=== PATIENT | female | born 1945 | race Caucasian/White ===

== ENCOUNTER → 2017-07-08 11:18 | Outpatient (CLI) | payer MEDICARE, OTHER, SELFPAY ==
[2017-07-08 12:30] LABS: Add Manual Diff / Slide Review NO; Basophils Percent Auto 0.3 % (0-2); Hematocrit 32.1 % (36-46); Hemoglobin 11.2 g/dL (12.0-16.0); Lymphocytes Percent Auto 40.8 % (25-40); Mean Corpuscular Hemoglobin 31.3 PG (26-34); Mean Corpuscular Volume 89.3 fL (80-100); Monocytes Percent Auto 7.9 % (3-14); Neutrophils Absolute Auto 1600 /uL (3000-5900); Platelet Count 281 X10^3/uL (150-400); Red Blood Cell Count 3.59 X10^6/uL (4.0-5.2); Red Cell Distribution Width 15.8 % (11.6-14.8); White Blood Cell Count 3.2 X10^3/uL (4.5-11.0)
[2017-07-08 12:36] LABS: Alanine Aminotransferase 18 IU/L (9-52); Albumin 4.4 g/dL (3.5-5.0); Albumin Globulin Ratio 1.1 (1.0-2.8); Alkaline Phosphatase 74 U/L (38-126); Aspartate Aminotransferase 26 IU/L (14-36); BUN Creatinine Ratio 17.5 (6-22); Bilirubin Total 0.5 mg/dL (0.2-1.3); Calcium 10.1 mg/dL (8.4-10.2); Estimated Glomerular Filt Rate > 60.0 mL/min (>60); Globulin 3.9 g/dL (1.7-4.1); Glucose 107 mg/dL (80-110); HEMOLYSIS < 15 (0-50); Magnesium 1.8 mg/dL (1.6-2.3); Sodium 140 mmol/L (137-145); Total Protein 8.3 g/dL (6.3-8.2)
== END ==
PROVIDERS: PCP Nurse Practitioner Family; Visit Provider Nurse Practitioner
DX: C56.9 Malignant neoplasm of unspecified ovary (principal)
CPT/HCPCS: 36415; 80053; 83735; 85025

== ENCOUNTER → 2017-07-23 11:34 | Outpatient (CLI) | payer MEDICARE, OTHER, SELFPAY ==
[2017-07-23 12:51] LABS: Add Manual Diff / Slide Review NO; Basophils Percent Auto 0.3 % (0-2); Eosinophils Percent Auto 0.3 % (2-4); Hematocrit 28.6 % (36-46); Hemoglobin 10.1 g/dL (12.0-16.0); Lymphocytes Percent Auto 49.3 % (25-40); Mean Corpuscular HGB Conc 35.5 % (30-36); Mean Corpuscular Hemoglobin 31.7 PG (26-34); Mean Corpuscular Volume 89.2 fL (80-100); Neutrophils Absolute Auto 1000 /uL (3000-5900); Neutrophils Percent Auto 39.1 % (50-75); Platelet Count 155 X10^3/uL (150-400); White Blood Cell Count 2.6 X10^3/uL (4.5-11.0)
[2017-07-23 13:20] LABS: Alanine Aminotransferase 26 IU/L (9-52); Albumin 3.9 g/dL (3.5-5.0); Albumin Globulin Ratio 1.2 (1.0-2.8); Alkaline Phosphatase 66 U/L (38-126); Aspartate Aminotransferase 19 IU/L (14-36); BUN Creatinine Ratio 13.8 (6-22); Bilirubin Total 0.5 mg/dL (0.2-1.3); Bilirubin Unconjugated 0.2 mg/dL (0.0-1.1); Blood Urea Nitrogen 11 mg/dL (7-17); Calcium 9.7 mg/dL (8.4-10.2); Carbon Dioxide 29 mmol/L (22-32); Chloride 100 mmol/L (98-107); Estimated Glomerular Filt Rate > 60.0 mL/min (>60); Globulin 3.2 g/dL (1.7-4.1); Glucose 102 mg/dL (80-110); HEMOLYSIS < 15 (0-50); Lactate Dehydrogenase 371 U/L (313-618); Magnesium 1.9 mg/dL (1.6-2.3); Phosphorous 3.5 mg/dL (2.8-4.1); Potassium 4.2 mmol/L (3.4-5.1); Sodium 139 mmol/L (137-145); Total Protein 7.1 g/dL (6.3-8.2)
[2017-07-23 13:40] LABS: Cancer Antigen 125 65 U/mL (0-35)
== END ==
PROVIDERS: PCP Nurse Practitioner Family; Visit Provider Obstetrics & Gynecology Gynecologic Oncology
DX: C80.0 Disseminated malignant neoplasm, unspecified (principal)
CPT/HCPCS: 36415; 80069; 80076; 83615; 83735; 85025; 86304; 86305

== ENCOUNTER → 2017-07-26 10:12 | Outpatient (CLI) | payer MEDICARE, OTHER, SELFPAY ==
--- NOTE | 2017-07-26 | DI.CT.S_ITS ---
PROCEDURE: CT CHEST ABD PEL W CON INDICATIONS: 71 year-old female with metastatic neoplasm, possibly of gastric primary, status post chemotherapy. TECHNIQUE: After the administration of oral and intravenous contrast, 5 mm thick sections acquired from the lung apices to the symphysis. 5 mm coronal and sagittal reformats were performed, with additional 7 mm coronal MIP reformats through the lungs. For radiation dose reduction, the following was used: automated exposure control, adjustment of mA and/or kV according to patient size. COMPARISON: [facility], CT, CHEST/ABD/PEL WITH CONTRAST, 04/19/2017, 13:43. FINDINGS: Image quality: Excellent. CHEST: Lungs and pleura: No acute airspace opacities. On axial image 53, 9 mm irregular posterior right lung base opacity is now apparent. Small basal left pleural effusion has resolved. No pneumothorax. Central and peripheral airways appear patent and normal in caliber. Mediastinum: Heart size is normal. No pericardial effusion. Mildly enlarged mediastinal lymph nodes have all normalized in sizes. No new mediastinal or hilar adenopathy by size criteria. Right inferior paraesophageal adenopathy has resolved. Thoracic aorta is normal in size. Main pulmonary artery is mildly prominent in overall caliber as before. Esophagus is normal in caliber, with small hiatal hernia. Chest wall: Right chest wall Port-A-Cath is now present. Asymmetric right axillary adenopathy has resolved. No new axillary or supraclavicular adenopathy by size criteria. Thyroid gland is normal in size. ABDOMEN: Solid organs: Liver is normal in size and enhancement. Gallbladder wall thickness is normal. Biliary system is non dilated. Pancreas enhances normally. Spleen is normal in size and enhancement. No adrenal nodules. Kidneys demonstrate normal size and enhancement, without hydronephrosis. Peritoneum and bowel: Bowel loops demonstrate normal wall thickness and caliber. The appendix appears normal. There is sigmoid colon diverticulosis. No free fluid or air. Nodes and vessels: Previously noted metastatic adenopathy in the retroperitoneum, gastrohepatic ligament and portal region, right lower quadrant mesentery, and bilateral iliac chains have all normalized in sizes. On axial image 57, target lymph node just superior to the left renal artery now measures 1.1 x 1.0 cm (previously 3.3 x 2.7 cm). No new retroperitoneal or mesenteric adenopathy by size criteria. Aorta and inferior vena cava are normal in size, with moderate aortoiliac atherosclerosis. Miscellaneous: No ventral hernias. PELVIS: Genitourinary: Bladder wall thickness is normal. Uterus and ovaries are normal in size. Miscellaneous: No inguinal hernias or new adenopathy. Bilateral inguinal lymph nodes are unchanged in appearance. Bones: No suspicious bony lesions. No vertebral body compression fractures. There is lower lumbar and lower thoracic spine disc degeneration. IMPRESSION: 1. Interval resolution of metastatic adenopathy in the right axilla, mediastinum, retroperitoneum, gastrohepatic ligament, right lower quadrant mesentery, and bilateral iliac chains, consistent with tumor response to treatment. 2. Small basal left mobile pleural effusion has resolved. 9 mm new posterior right lung base irregular opacity is indeterminate for localized atelectasis versus true nodule. As such, recommend attention to this area on any future followup scans. 3. Sigmoid colon diverticulosis. 4. Small retrocardiac hiatal hernia. Dictated by: Oscar Gannon M.D. on 07/26/2017 at 11:40 Approved by: Oscar Gannon M.D. on 07/26/2017 at 11:58
== END ==
PROVIDERS: PCP Nurse Practitioner Family; Visit Provider Nurse Practitioner Family
DX: C79.9 Secondary malignant neoplasm of unspecified site (principal); J90 Pleural effusion, not elsewhere classified; K57.30 Diverticulosis of large intestine without perforation or abscess without bleeding
CPT/HCPCS: 71260; 74177; Q9967

== ENCOUNTER → 2017-08-17 11:36 | Outpatient (CLI) | payer MEDICARE, OTHER, SELFPAY ==
[2017-08-17 12:33] LABS: Add Manual Diff / Slide Review NO; Basophils Percent Auto 0.2 % (0-2); Eosinophils Percent Auto 0.4 % (2-4); Hematocrit 27.3 % (36-46); Hemoglobin 9.6 g/dL (12.0-16.0); Lymphocytes Percent Auto 47.5 % (25-40); Mean Corpuscular Hemoglobin 33.1 PG (26-34); Mean Corpuscular Volume 94.5 fL (80-100); Monocytes Percent Auto 13.7 % (3-14); Neutrophils Absolute Auto 900 /uL (3000-5900); Neutrophils Percent Auto 38.2 % (50-75); Platelet Count 157 X10^3/uL (150-400); Red Blood Cell Count 2.89 X10^6/uL (4.0-5.2); Red Cell Distribution Width 18.6 % (11.6-14.8); White Blood Cell Count 2.5 X10^3/uL (4.5-11.0)
== END ==
PROVIDERS: PCP Nurse Practitioner Family; Visit Provider Physician Assistant Medical
DX: C80.0 Disseminated malignant neoplasm, unspecified (principal)
CPT/HCPCS: 36415; 85025

== ENCOUNTER → 2017-10-11 10:40 | Outpatient (CLI) | payer MEDICARE, OTHER, SELFPAY ==
[2017-10-11 12:11] LABS: Hematocrit 30.5 % (36-46); Hemoglobin 10.4 g/dL (12.0-16.0); Mean Corpuscular Hemoglobin 32.4 PG (26-34); Mean Corpuscular Volume 95.2 fL (80-100); Platelet Count 158 X10^3/uL (150-400); Red Cell Distribution Width 14.1 % (11.6-14.8)
[2017-10-11 12:21] LABS: Add Manual Diff / Slide Review YES
[2017-10-11 12:33] LABS: Neutrophils Absolute Manual 648 /uL (3000-5900); Total Cells Counted 50
[2017-10-11 12:34] LABS: RBC Morphology Normal Morphology
[2017-10-11 14:33] LABS: White Blood Cell Count 1.8 X10^3/uL (4.5-11.0)
== END ==
PROVIDERS: PCP Nurse Practitioner Family; Visit Provider Nurse Practitioner Family
DX: C57.8 Malignant neoplasm of overlapping sites of female genital organs (principal)
CPT/HCPCS: 36415; 85025

== ENCOUNTER → 2017-11-02 13:07 | Outpatient (CLI) | payer MEDICARE, OTHER, SELFPAY ==
[2017-11-02 13:41] LABS: Hematocrit 29.8 % (36-46); Hemoglobin 10.2 g/dL (12.0-16.0); Mean Corpuscular HGB Conc 34.2 % (30-36); Mean Corpuscular Hemoglobin 31.9 PG (26-34); Mean Corpuscular Volume 93.1 fL (80-100); Platelet Count 112 X10^3/uL (150-400); Red Cell Distribution Width 13.9 % (11.6-14.8); White Blood Cell Count 17.5 X10^3/uL (4.5-11.0)
[2017-11-02 13:42] LABS: Add Manual Diff / Slide Review YES
[2017-11-02 14:09] LABS: Neutrophils Absolute Manual 12425 /uL (3000-5900); Total Cells Counted 100
[2017-11-02 14:10] LABS: RBC Morphology Normal Morphology
== END ==
PROVIDERS: PCP Nurse Practitioner Family; Visit Provider Nurse Practitioner Family
DX: C57.8 Malignant neoplasm of overlapping sites of female genital organs (principal)
CPT/HCPCS: 36415; 85025

== ENCOUNTER → 2017-11-24 13:17 | Outpatient (CLI) | payer MEDICARE, OTHER, SELFPAY ==
[2017-11-24 14:16] LABS: Add Manual Diff / Slide Review NO; Basophils Percent Auto 0.2 % (0-2); Eosinophils Percent Auto 0.9 % (2-4); Hematocrit 27.1 % (36-46); Hemoglobin 9.5 g/dL (12.0-16.0); Lymphocytes Percent Auto 34.7 % (25-40); Mean Corpuscular HGB Conc 35.1 % (30-36); Mean Corpuscular Hemoglobin 32.5 PG (26-34); Mean Corpuscular Volume 92.6 fL (80-100); Monocytes Percent Auto 14.9 % (3-14); Neutrophils Absolute Auto 1100 /uL (3000-5900); Neutrophils Percent Auto 49.3 % (50-75); Platelet Count 136 X10^3/uL (150-400); Red Blood Cell Count 2.93 X10^6/uL (4.0-5.2); Red Cell Distribution Width 15.6 % (11.6-14.8); White Blood Cell Count 2.3 X10^3/uL (4.5-11.0)
[2017-11-24 15:08] LABS: Carcinoembryonic Antigen 1.6 ng/mL (0.1-3.0)
== END ==
PROVIDERS: Family Provider Internal Medicine; PCP Internal Medicine; Visit Provider Nurse Practitioner Family
DX: C57.8 Malignant neoplasm of overlapping sites of female genital organs (principal)
CPT/HCPCS: 36415; 82378; 85025

== ENCOUNTER → 2017-12-29 14:36 | Outpatient (CLI) | payer MEDICARE, OTHER, SELFPAY ==
[2017-12-29 15:47] LABS: Hematocrit 28.7 % (36-46); Hemoglobin 9.9 g/dL (12.0-16.0); Mean Corpuscular HGB Conc 34.4 % (30-36); Mean Corpuscular Hemoglobin 32.6 PG (26-34); Mean Corpuscular Volume 94.8 fL (80-100); Platelet Count 131 X10^3/uL (150-400); Red Blood Cell Count 3.02 X10^6/uL (4.0-5.2); White Blood Cell Count 12.8 X10^3/uL (4.5-11.0)
[2017-12-29 15:48] LABS: Add Manual Diff / Slide Review YES
[2017-12-29 16:10] LABS: Neutrophils Absolute Manual 9216 /uL (3000-5900); Polychromasia 1+; Total Cells Counted 100
== END ==
PROVIDERS: Family Provider Internal Medicine; PCP Internal Medicine
DX: C57.8 Malignant neoplasm of overlapping sites of female genital organs (principal)
CPT/HCPCS: 36415; 85025

== ENCOUNTER → 2018-01-18 16:52 | Outpatient (CLI) | payer MEDICARE, OTHER, SELFPAY ==
[2018-01-18 18:39] LABS: Add Manual Diff / Slide Review NO; Basophils Percent Auto 0.2 % (0-2); Eosinophils Percent Auto 0.4 % (2-4); Hematocrit 27.5 % (36-46); Hemoglobin 9.2 g/dL (12.0-16.0); Lymphocytes Percent Auto 22.2 % (25-40); Mean Corpuscular HGB Conc 33.4 % (30-36); Mean Corpuscular Hemoglobin 32.9 PG (26-34); Mean Corpuscular Volume 98.7 fL (80-100); Monocytes Percent Auto 7.9 % (3-14); Neutrophils Absolute Auto 6600 /uL (3000-5900); Neutrophils Percent Auto 69.3 % (50-75); Platelet Count 109 X10^3/uL (150-400); Red Blood Cell Count 2.78 X10^6/uL (4.0-5.2); Red Cell Distribution Width 15.6 % (11.6-14.8); White Blood Cell Count 9.5 X10^3/uL (4.5-11.0)
== END ==
PROVIDERS: Family Provider Internal Medicine; PCP Internal Medicine; Visit Provider Obstetrics & Gynecology Gynecologic Oncology
DX: C56.9 Malignant neoplasm of unspecified ovary (principal)
CPT/HCPCS: 36415; 85025

== ENCOUNTER → 2018-02-23 13:57 | Outpatient (CLI) | payer MEDICARE, OTHER, SELFPAY ==
[2018-02-23 15:26] LABS: Cancer Antigen 125 35 U/mL (0-35)
== END ==
PROVIDERS: Family Provider Internal Medicine; PCP Internal Medicine; Visit Provider Obstetrics & Gynecology Gynecologic Oncology
DX: C56.9 Malignant neoplasm of unspecified ovary (principal)
CPT/HCPCS: 36415; 86304

== ENCOUNTER → 2018-03-23 15:21 | Outpatient (CLI) | payer MEDICARE, OTHER, SELFPAY ==
[2018-03-23 18:33] LABS: Cancer Antigen 125 91 U/mL (0-35)
== END ==
PROVIDERS: Family Provider Internal Medicine; PCP Internal Medicine; Visit Provider Obstetrics & Gynecology Gynecologic Oncology
DX: C56.9 Malignant neoplasm of unspecified ovary (principal)
CPT/HCPCS: 36415; 86304

== ENCOUNTER → 2018-04-13 14:27 | Outpatient (CLI) | payer MEDICARE, OTHER, SELFPAY ==
[2018-04-13 15:48] LABS: Cancer Antigen 125 193 U/mL (0-35)
== END ==
PROVIDERS: PCP Internal Medicine; Visit Provider Obstetrics & Gynecology Gynecologic Oncology
DX: C56.9 Malignant neoplasm of unspecified ovary (principal)
CPT/HCPCS: 36415; 86304

== ENCOUNTER 2018-07-23 12:46 | Emergency (ER) | payer MEDICARE, OTHER, SELFPAY ==
[2018-07-23] VITALS (20 sets, daily range): BP systolic 109–145; BP diastolic 37–70; PULSE 73–99; RESP 11–28; TEMP 38.1; O2SAT 88–100
--- NOTE | 2018-07-23 15:59 | ED_ITS ---
HPI - Recheck/Abnormal Lab/Rx General Chief Complaint: Recheck/Abnormal Lab/Rx Stated Complaint: pulmonary emblolism Time Seen by Provider: 07/23/18 15:40 Source: patient and family (daughter) Mode of arrival: ambulatory History of Present Illness HPI narrative: 72-year-old female who arrives with complaint of pulmonary embolism. Patient actually called this morning asking if we could teach her how to give injections because she had a PE and needed to get her medication and learn how to inject herself with anticoagulant. She states she had a CT scan yesterday at [facility] for a normal surveillance because she has stage IV ovarian cancer. It was noted after she left the hospital that she had a pulmonary embolism. She was contacted by the [facility] team and told to go to the hospital. Patient decided to come this morning. Patient was asked to come to the emergency department. She states that she has been short of breath for a couple weeks she really noticed a difference about 2 or 3 weeks ago. Specially with exertion. She has felt a little bit weak. She has not had any syncope. She has had a cough that is been sort of dry for 2 or 3 weeks and she has felt wheezy. Patient has not had any major changes to her GI system. Patient denies any chest pain or pressure. She sees Dr. Acosta 3 [facility]. Her primary care is Jojo olson although she has only seen her once. Related Data Home Medications Medication Instructions Recorded Confirmed cholecalciferol (vitamin D3) 4,000 unit PO DAILY 05/12/18 07/23/18 [Vitamin D3] sennosides [senna] 8.6 mg PO QD-BID 05/12/18 07/23/18 B Complex 100 1 tab PO QAM 06/30/18 07/23/18 Lakesha-Red 06/30/18 06/30/18 Allergies Allergy/AdvReac Type Severity Reaction Status Date / Time No Known Drug Allergies Allergy Verified 05/12/18 09:40 Review of Systems Review of Systems ROS Unobtainable: All systems reviewed & are unremarkable except as noted in HPI and below Constitutional Denies chills, Denies fever(s), Denies lethargy and Denies weakness Cardiovascular Denies chest pain, Denies chest pain with activity, Denies syncope, Denies rapid heart rate, Denies edema, Denies irregular heart rhythm, Denies lightheadedness, Denies radiating jaw, neck or arm pain, Denies palpitations, Reports dyspnea, Reports dyspnea on exertion and Denies orthopnea Respiratory Denies chest congestion, Reports cough, Denies pain on inspiration, Reports dyspnea, Reports dyspnea on exertion and Reports wheezing Gastrointestinal Gastrointestinal: Denies abdominal pain, Denies change in bowel habits, Denies diarrhea, Denies nausea and Denies vomiting Genitourinary Denies hematuria, Denies flank pain, Denies urinary incontinence and Denies urinary urgency Neurologic Denies syncope and Denies weakness Endocrine Denies palpitations Allergic/Immunologic Reports wheezing [facility] Medical History (Updated 07/23/18 @ 18:20 by Luzmaria Frazier DO) Ovarian cancer (Acute) Hypertension (Acute) Surgical History History of tonsillectomy (Acute) History of total right knee replacement (Acute) Family History (Updated 05/12/18 @ 10:11 by Ivette Carbajal MD) Mother Hypertension Father Bladder cancer Colon cancer Social History Smoking Status: Never smoker alcohol intake: former (occ beer every week. used to drink a small whole bottle of wine every day) Family History Mother Hypertension Father Bladder cancer Colon cancer Social History Smoking Status: Never smoker alcohol intake: former (occ beer every week. used to drink a small whole bottle of wine every day) Exam Narrative Exam Narrative: GENERAL: Alert and oriented x three, well-nourished, well- appearing female in no acute distress. HEENT: Head normocephalic, atraumatic, EOMI, pupils reactive, face symmetric, moist mucous membranes NECK: Supple, full range of motion CARDIOVASCULAR: Regular rate and rhythm without murmurs, rubs or gallops. RESPIRATORY: Breath sounds equal bilaterally, no wheezes rales or rhonchi. No tachypnea or accessory muscle use. ABDOMEN: Soft, nontender. Normoactive bowel sounds all 4 quadrants. No guarding or rebound, rigidity, no mass : No CVA tenderness EXTREMITIES: Normal range of motion, no clubbing or edema. Neurovascularly intact NEUROLOGICAL: Cranial nerves II through XII grossly intact. Moving all extremities SKIN: Warm, dry, no petechiae, no rashes or lesions. Initial Vital Signs Initial Vital Signs: Vital Signs Temperature 100.5 F H 07/23/18 12:51 Pulse Rate 98 H 07/23/18 12:51 Respiratory Rate 19 07/23/18 12:51 Blood Pressure 132/70 07/23/18 12:51 Pulse Oximetry 88 L 07/23/18 12:51 Course Orders Ordered: ED Orders 07/23/18 15:58 XR chest 1V Stat 07/23/18 16:23 EKG-12 Lead Stat 07/23/18 17:20 B Type Natriuretic Peptide Stat Complete Blood Count AUTO DIFF Stat Comprehensive Metabolic Panel Stat Lipase Stat Partial Thromboplastin Time Stat Prothrombin Time INR Stat Troponin & CK Cardiac Panel Stat 07/23/18 18:38 Lactate (Lactic Acid) Stat Discontinued Medications Enoxaparin Sodium (Lovenox) 75 mg 1 mg/kg (75 mg) SUBCUT NOW ONE Stop: 07/23/18 16:26 Last Admin: 07/23/18 17:31 Dose: 75 mg Sodium Chloride (Normal Saline 0.9%) 1,000 mls @ 1,000 mls/hr IV BOLUS ONE Stop: 07/23/18 16:57 Last Admin: 07/23/18 17:33 Dose: 1,000 mls/hr Vital Signs - 8 hr 07/23/18 12:51 07/23/18 13:10 07/23/18 13:19 Temperature 100.5 F H Pulse Rate 98 H 88 Respiratory Rate 19 23 Blood Pressure 132/70 Blood Pressure [Left Arm] 129/49 L Pulse Oximetry 88 L 100 94 07/23/18 13:45 07/23/18 14:00 07/23/18 14:30 Temperature Pulse Rate 88 83 81 Respiratory Rate 24 26 H 28 H Blood Pressure Blood Pressure [Left Arm] 110/44 L 116/49 L 110/51 L Pulse Oximetry 94 94 94 07/23/18 15:00 07/23/18 15:30 07/23/18 16:00 Temperature Pulse Rate 88 84 90 Respiratory Rate 16 24 17 Blood Pressure Blood Pressure [Left Arm] 116/49 L 109/37 L 116/45 L Pulse Oximetry 94 95 96 07/23/18 16:30 07/23/18 17:00 07/23/18 17:30 Temperature Pulse Rate 85 83 83 Respiratory Rate 15 11 L 17 Blood Pressure Blood Pressure [Left Arm] 111/55 L 110/45 L 112/47 L Pulse Oximetry 94 96 07/23/18 18:00 Temperature Pulse Rate 82 Respiratory Rate 20 Blood Pressure Blood Pressure [Left Arm] 115/56 L Pulse Oximetry 98 MDM - Recheck/Abnormal Lab/Rx Lab Data Attestation: I reviewed the patient's lab results. Result diagrams: 07/23/18 17:20 07/23/18 17:20 Lab Results 07/23/18 07/23/18 07/23/18 Range/Units 17:20 17:20 17:20 WBC 13.8 H (4.5-11.0) X10^3/uL RBC 2.40 L (4.0-5.2) X10^6/uL Hgb 7.7 L (12.0-16.0) g/dL Hct 23.1 L (36-46) % MCV 96.4 (80-100) fL MCH 32.2 (26-34) PG MCHC 33.4 (30-36) % RDW 20.8 H (11.6-14.8) % Plt Count 224 (150-400) X10^3/uL Neut % (Auto) 77.3 H (50-75) % Lymph % (Auto) 6.4 L (25-40) % [place] % (Auto) 15.9 H (3-14) % Eos % (Auto) 0.1 L (2-4) % Baso % (Auto) 0.3 (0-2) % Neut # (Auto) 12984 H (4471-5306) /uL Lymph # (Auto) 900 L (8421-0975) /uL [place] # (Auto) 2200 H (0-900) /uL Eos # (Auto) 0 (0-450) /uL Baso # (Auto) 0 (0-100) /uL RBC Morphology Not Reportable Anisocytosis 3+ H Macrocytosis 1+ H Rouleaux 1+ H PT 16.8 H (10.1-12.7) SECONDS INR 1.5 H (0.9-1.3) APTT 36 (26.4-36.2) SECONDS Sodium 132 L (137-145) mmol/L Potassium 3.6 (3.4-5.1) mmol/L Chloride 97 L (98-107) mmol/L Carbon Dioxide 26 (22-32) mmol/L BUN 19 H (7-17) mg/dL Creatinine 1.00 (0.52-1.04) mg/dL Estimated GFR 54.2 L (>60) mL/min BUN/Creatinine Ratio 19.0 (6-22) Glucose 141 H (80-110) mg/dL Calcium 9.2 (8.4-10.2) mg/dL Total Bilirubin 0.9 (0.2-1.3) mg/dL AST 45 H (14-36) IU/L ALT 29 (9-52) IU/L Alkaline Phosphatase 73 (38-126) U/L Total Creatine Kinase 111 (30-135) U/L CK-MB (CK-2) 1.62 (<2.37) ng/mL CK-MB (CK-2) Rel Index 1.5 (1.5-5.0) % Troponin I < 0.012 (0.01-0.034) ng/mL B-Natriuretic Peptide < 100 (<100) Total Protein 6.3 (6.3-8.2) g/dL Albumin 3.3 L (3.5-5.0) g/dL Globulin 3.0 (1.7-4.1) g/dL Albumin/Globulin Ratio 1.1 (1.0-2.8) Lipase 44 (23-300) U/L Imaging Data Chest x-ray: Radiologist's impression: [address] [address] XRay Report Signed Patient: Sunitha Pham WMR#: [id number] : 4Acct:[id number] Age/Sex: 72 / FDate of Service: 07/23/18 Loc: ED Accession Number: [id number] Procedure: XR chest 1V Ordering Provider: Luzmaria Frazier D.O. PROCEDURE: XR CHEST 1V INDICATIONS: pulmonary embolism TECHNIQUE: One view of the chest was acquired. COMPARISON: [facility], CT, CT CHEST ABD PEL W CON, 07/26/2017, 11:10. FINDINGS: Surgical changes and devices: There is a right-sided Port-A-Cath central line identified with the tip overlying the mid to lower superior vena cava. Lungs and pleura: The pulmonary vascular markings are increased within the bilateral perihilar regions. No lobar consolidation is evident there is no large effusion or pneumothorax. Mediastinum: Mediastinal contours appear normal. Heart size is normal. Bones and chest wall: No suspicious bony lesions. Overlying soft tissues appear unremarkable. IMPRESSION: Probable mild pulmonary edema versus chronic interstitial changes. Dictated by: Skip Diego M.D. on 07/23/2018 at 16:02 Approved by: Skip Dieog M.D. on 07/23/2018 at 16:03 ECG Data Attestation: I personally reviewed and interpreted this ECG as follows: Prior ECG tracings: not available for review Interpretation: Sinus rhythm rate 81 P are 150 QRS of 97 QTC of 423. No ST elevation or depression. Sort of nonspecific change. No prior EKG's for susannah melendez. MDM Narrative Medical decision making narrative: I spoke with Dr. hui from [facility]. She does not have easy access to a fact was seen but she is going to double check records to re-contact and verify patient's CT findings. We have tried multiple times through medical records over several hours to get patient's imaging without any luck. Patient's lab work shows a white count of 13, hemoglobin 7.7, platelets are normal at 224. coags are 1.5 for the INR, chemistry patient is little bit hyponatremic with a sodium 132, chloride 97, BUN at 19. Patient's troponin BNP are normal. Patient was started on Lovenox. CT was obtained, right pulmonary interlobal artery extending into right lower lobar artery, multiple segmental branches. No evidence right heart strain. Main pulmonary artery is slightly enlarged, measuring 3.3 cm stable to slightly enlarged compared to prior. Which may be seen in setting pulmonary hypertension. Please see report for the rest of the details related to patient's metastatic disease. Discussed with Dr. hui from [facility]. She agrees with observation overnight to watch patient's hemoglobin to make sure it is not continuing to drop and Lovenox. She will contact Dr. Acosta to update her oncology service. I spoke with Dr. Alarcon on the phone Discharge Plan Departure Patient Disposition: Admitted As Inpatient Clinical Impression: Pulmonary embolism
[2018-07-23 17:29] LABS: Add Manual Diff / Slide Review NO; Basophils Absolute Auto 0 /uL (0-100); Basophils Percent Auto 0.3 % (0-2); Eosinophils Absolute Auto 0 /uL (0-450); Eosinophils Percent Auto 0.1 % (2-4); Hematocrit 23.1 % (36-46); Hemoglobin 7.7 g/dL (12.0-16.0); Lymphocytes Absolute Auto 900 /uL (1100-4500); Lymphocytes Percent Auto 6.4 % (25-40); Mean Corpuscular HGB Conc 33.4 % (30-36); Mean Corpuscular Hemoglobin 32.2 PG (26-34); Mean Corpuscular Volume 96.4 fL (80-100); Monocytes Absolute Auto 2200 /uL (0-900); Monocytes Percent Auto 15.9 % (3-14); Neutrophils Absolute Auto 10700 /uL (1500-7000); Neutrophils Percent Auto 77.3 % (50-75); Platelet Count 224 X10^3/uL (150-400); Red Cell Distribution Width 20.8 % (11.6-14.8); White Blood Cell Count 13.8 X10^3/uL (4.5-11.0)
[2018-07-23] MEDS: ENOXAPARIN 80 MG/0.8 ML SYRINGE 75 MG SUBCUT (17:31)
[2018-07-23] MEDS: SODIUM CHLORIDE 0.9% 1,000 ML 1000 ML IV (17:33)
[2018-07-23 17:38] LABS: INR 1.5 (0.9-1.3); Prothrombin Time 16.8 SECONDS (10.1-12.7)
[2018-07-23 17:41] LABS: PTT Partial Thromboplastin Tim 36 SECONDS (26.4-36.2)
[2018-07-23 17:42] LABS: Alanine Aminotransferase 29 IU/L (9-52); Albumin 3.3 g/dL (3.5-5.0); Albumin Globulin Ratio 1.1 (1.0-2.8); Alkaline Phosphatase 73 U/L (38-126); Aspartate Aminotransferase 45 IU/L (14-36); Bilirubin Total 0.9 mg/dL (0.2-1.3); Blood Urea Nitrogen 19 mg/dL (7-17); Calcium 9.2 mg/dL (8.4-10.2); Carbon Dioxide 26 mmol/L (22-32); Chloride 97 mmol/L (98-107); Creatine Kinase 111 U/L (30-135); Estimated Glomerular Filt Rate 54.2 mL/min (>60); Glucose 141 mg/dL (80-110); HEMOLYSIS < 15 (0-50); Lipase 44 U/L (23-300); Potassium 3.6 mmol/L (3.4-5.1); Sodium 132 mmol/L (137-145); Total Protein 6.3 g/dL (6.3-8.2)
[2018-07-23 17:54] LABS: Troponin I < 0.012 ng/mL (0.01-0.034)
[2018-07-23 17:58] LABS: B Type Natriuretic Peptide < 100 (<100); CKMB % Relative Index 1.5 % (1.5-5.0); Creatine Kinase MB 1.62 ng/mL (<2.37)
[2018-07-23 18:33] LABS: Anisocytosis 3+; Macrocytosis 1+; Rouleaux 1+
[2018-07-23 19:07] LABS: PCO2 ABG 31.4 mmHg (35-45); PO2 ABG 123 mmHg (80-100); pH ABG 7.45 (7.35-7.45)
[2018-07-23 19:08] LABS: Fractionated Inspired Oxygen 90; HCO3 ABG 22 mmol/L (22-26); Oxygen Saturation ABG 99 % (95-100); TCO2 ABG 22 mmol/L (21-31)
[2018-07-23 19:39] LABS: Lactate (Lactic Acid) 1.2 mmol/L (0.7-2.1)
--- NOTE | 2018-07-23 20:04 | PC.NURSE ---
Pt spo2 sat dropped to 88% on 4L. In to see patient. Tried to get to deep breathe causing pt to cough. Turned O2 up to 6L only brought sp02 up to 90%. With speaking, sp02 would drop to mid 80s. informed provider of drop in oxygen. then placed patient on non rebreather at 15L spo2 increased to 100% and maintained. While switching her from n/c to non rebreather pt's sats dropped to 81% but recovered after being placed on nonrebreather. Denies feeling sob at this time.
== END 2018-07-23 23:19 | disposition short-term general hospital (02) ==
PROVIDERS: Emergency Medicine; Emergency Provider Emergency Medicine; PCP Internal Medicine
DX: I26.99 Other pulmonary embolism without acute cor pulmonale (principal)
CPT/HCPCS: 36591; 36600; 71045; 80053; 82550; 82553; 82805; 83605; 83690; 83880; 84484; 85025; 85610; 85730; 87040; 93005; 96360; 96361; 96372; 99285; J1650

== ENCOUNTER → 2018-08-02 11:56 | Outpatient (CLI) | payer MEDICARE, OTHER, SELFPAY ==
[2018-08-02 12:21] LABS: Add Manual Diff / Slide Review YES; Hematocrit 28.2 % (36-46); Hemoglobin 9.4 g/dL (12.0-16.0); Mean Corpuscular HGB Conc 33.3 % (30-36); Mean Corpuscular Hemoglobin 32.6 PG (26-34); Mean Corpuscular Volume 98.1 fL (80-100); Platelet Count 461 X10^3/uL (150-400); Red Blood Cell Count 2.88 X10^6/uL (4.0-5.2); White Blood Cell Count 12.8 X10^3/uL (4.5-11.0)
[2018-08-02 12:27] LABS: Blood Urea Nitrogen 20 mg/dL (7-17); Calcium 10.3 mg/dL (8.4-10.2); Carbon Dioxide 28 mmol/L (22-32); Chloride 104 mmol/L (98-107); Estimated Glomerular Filt Rate 54.2 mL/min (>60); Glucose 118 mg/dL (80-110); HEMOLYSIS < 15 (0-50); Potassium 4.5 mmol/L (3.4-5.1); Sodium 139 mmol/L (137-145)
[2018-08-02 12:47] LABS: Neutrophils Absolute Manual 10368 /uL (3000-5900); Total Cells Counted 100
[2018-08-02 12:48] LABS: Anisocytosis 2+; Platelet Estimate Increased on smear; Polychromasia 1+
== END ==
PROVIDERS: PCP Internal Medicine; Visit Provider Obstetrics & Gynecology Gynecologic Oncology
DX: C57.8 Malignant neoplasm of overlapping sites of female genital organs (principal)
CPT/HCPCS: 36415; 80048; 85025

== ENCOUNTER → 2018-09-01 13:51 | Outpatient (CLI) | payer MEDICARE, OTHER, SELFPAY ==
--- NOTE | 2018-09-01 13:55 | DI.ECHO.S_ITS ---
[facility] +---------+ : : [address] : [address] : : : : [id number] : : : : Phone: [phone] Echocardiogram Report + + :Name: HELDER TORRES Study Date: 09/01/2018 Height: 63 in : :[facility] Exam Location: [facility] Weight: 169 lb : : Gender: Female BSA: 1.8 m2 : :: 1945 Age: 72 yrs BP: 145/78 mmHg: :Reason For Study: CHEMOTHERAPY : : Performed By: Isaac Lynn : :Referring: FATUMA FERRARO : + + Interpretation Summary The left ventricle is normal in size. The ejection fraction is estimated to be 65-70%. There are no focal wall motion abnormalities. Diastolic parameters suggest a relaxation abnormality of the left ventricle, consistent with probable normal filling pressures. The right ventricle is normal in size and function. The right ventricular systolic pressure is estimated to be at least 28 mmHg based on an estimated right atrial pressure of 3 mm Hg. Both atria are normal in size. There is no significant valvular heart disease. The aortic root is normal size. Procedure: A two-dimensional transthoracic echocardiogram with color flow and Doppler was performed. The study quality was technically adequate. There is no prior echocardiogram noted for this patient. The patient was in normal sinus rhythm during the exam. Left Ventricle: The left ventricle is normal in size. There is normal left ventricular wall thickness. The ejection fraction is estimated to be 65-70%. There are no focal wall motion abnormalities. Diastolic parameters suggest a relaxation abnormality of the left ventricle, consistent with probable normal filling pressures. Right Ventricle: The right ventricle is normal in size and function. Atria: Both atria are normal in size. The interatrial septum is intact with no evidence for an atrial septal defect. Mitral Valve: The mitral valve is normal in structure and function. There is trace mitral regurgitation. Aortic Valve: The aortic valve is trileaflet. The aortic valve opens well. No aortic regurgitation is present. Tricuspid Valve: The tricuspid valve is normal in structure and function. There is trace tricuspid regurgitation. The right ventricular systolic pressure is estimated to be at least 28 mmHg based on an estimated right atrial pressure of 3 mm Hg. Pulmonic Valve: The pulmonic valve is normal in structure and function. There is trace pulmonic regurgitation. There is no significant valvular heart disease. Great Vessels: The aortic root is normal size. The dimensions of the ascending aorta are normal. The pulmonary artery is normal size. The IVC is of normal diameter and collapses greater than 50% with a sniff. This suggests a low right atrial pressure of 3 mm Hg. Pericardium/ Pleura There is no pericardial effusion. There is no pleural effusion. MMode/2D Measurements & Calculations LVIDd: 4.4 cm LVOT diam: 2.2 cm LVIDs: 2.4 cm Ao root diam: 3.3 cm FS: 45.4 % Aortic Jxn: 2.5 cm EPSS: 0.70 cm asc Aorta Diam: 3.3 cm IVSd: 1.0 cm Ao Arch Diam (Prox Trans): 2.6 cm LVPWd: 0.88 cm LV singh. diameter/BSA (cm/m^2): 2.4 LV sys. diameter/BSA (cm/m^2): 1.3 LA dimension: 3.8 cm RA long axis: 5.2 cm LA A2 area: 19.1 cm2 RA area: 15.7 cm2 LA A4 area: 17.1 cm2 RA vol: 40.8 ml LA length (vol): 5.2 cm RA : 22.7 ml/m2 LA vol: 53.4 ml IVC diam: 0.94 cm LA vol index: 29.7 ml/m2 Doppler Measurements & Calculations Ao V2 max: 185.8 cm/sec LVOT Max Patrick: 112.2 cm/sec Ao V2 mean: 146.7 cm/sec LV V1 max P.0 mmHg Ao max P.8 mmHg LV V1 VTI: 23.8 cm Ao mean P.4 mmHg MARGARITO(I,D): 2.5 cm2 Ao V2 VTI: 35.8 cm MARGARITO(V,D): 2.3 cm2 sev ratio: 0.66 MARGARITO indexed to BSA (cm^2/m^2): 1.4 MV E max patrick: 68.7 cm/sec TR max patrick: 248.3 cm/sec MV A max patrick: 93.3 cm/sec TR max P.7 mmHg MV E/A: 0.74 PA V2 max: 80.1 cm/sec Med Peak E' Patrick: 3.5 cm/sec PA V2 mean: 56.0 cm/sec E/E' med: 19.6 PA mean P.4 mmHg Lat Peak E' Patrick: 5.8 cm/sec PA pr(Accel): 16.6 mmHg E/E' lat: 11.9 PA Accel Time: 0.13 sec E/e' average: 15.7 MV dec time: 0.22 sec SV(LVOT): 90.7 ml Reading Physician:05:04 PM
== END ==
PROVIDERS: PCP Internal Medicine; Visit Provider Internal Medicine Hematology & Oncology
DX: C56.9 Malignant neoplasm of unspecified ovary (principal)
CPT/HCPCS: 93306

== ENCOUNTER → 2018-10-28 09:44 | Outpatient (CLI) | payer MEDICARE, OTHER, SELFPAY ==
--- NOTE | 2018-10-28 11:00 | DI.CT.S_ITS ---
PROCEDURE: CT CHEST ABD PEL W CON INDICATIONS: RESTAGING OVARIAN CANCER TECHNIQUE: After the administration of oral and intravenous contrast, 5 mm thick sections acquired from the lung apices to the symphysis. 5 mm coronal and sagittal reformats were performed, with additional 7 mm coronal MIP reformats through the lungs. For radiation dose reduction, the following was used: automated exposure control, adjustment of mA and/or kV according to patient size. COMPARISON: Outside Facility, , CT THORAX/ABDOMEN/PELVIS WITH CONTRAST, 07/22/2018, 12:32. [facility], CT, CHEST/ABD/PEL WITH CONTRAST, 04/19/2017, 13:43. [facility], CT, CT CHEST ABD PEL W CON, 07/26/2017, 11:10. FINDINGS: Image quality: Excellent. CHEST: Lungs and pleura: No acute airspace opacities. No pleural effusions or pneumothorax. Central and peripheral airways appear patent and normal in caliber. Mediastinum: Heart size is normal. Coronary artery calcifications are seen. No pericardial effusion. No mediastinal or hilar adenopathy by size criteria. Thoracic aorta and central pulmonary arteries are normal in size. Esophagus is normal in caliber. There is a small hiatal hernia. Chest wall: No axillary or supraclavicular adenopathy by size criteria. Thyroid gland demonstrates no significant CT abnormality. There is a right-sided chest port is seen, which is a protruding into the right atrium. ABDOMEN: Solid organs: Liver is normal in size and enhancement. Gallbladder wall is not thickened. Biliary system is non dilated. Pancreas enhances normally. Spleen is normal in size and enhancement. No adrenal nodules. Kidneys demonstrate normal size and enhancement, without hydronephrosis. Peritoneum and bowel: Diverticulosis can be seen throughout the colon, which is most prominent distally. There is a moderate amount of stool seen within the colon. There is a small amount of ascites seen. A normal appendix can be seen. No dilated loops of small bowel are seen. Nodes and vessels: Enlarged mesenteric lymph nodes are seen, which have clearly progressed compared to the prior examination. Within the right lower quadrant, similar-appearing nodules are seen, which may represent peritoneal implants or additional enlarged lymph nodes. Aorta and inferior vena cava are normal in size. Miscellaneous: No ventral hernias. The anterior abdominal wall on both sides inferiorly demonstrates abnormal nodular hyperdense thickening. PELVIS: Genitourinary: Bladder wall thickness is normal. This patient is status post hysterectomy. No adnexal masses are seen. However, there is mild thickening of hyperenhancement seen within the region of the vaginal cuff on the left. Miscellaneous: No inguinal hernias or adenopathy. Enlarged bilateral iliac chain lymph nodes are seen, which have increased in size compared to the prior examination. Bones: Mild dextroconvex scoliotic curvature is seen. No suspicious bony lesions. No vertebral body compression fractures. IMPRESSION: Status post hysterectomy. Mild thickening and hyperenhancement can be seen involving the vaginal cuff on the left, which appears more prominent than on the prior outside CT and is potentially related to local recurrence. Enlarged mesenteric lymph nodes are seen, which have clearly progressed compared to the prior examination. Within the right lower quadrant, peritoneal implants versus additional enlarged lymph nodes are seen. Enlarged bilateral mesenteric chain lymph nodes are seen, which have progressed compared to the prior. The previously seen enlarged mediastinal lymph nodes have resolved. A mild amount of ascites is seen. There is a moderate amount of stool seen within the colon. Please correlate with an underlying history of constipation. Focal thickening of hyperenhancement can be seen involving the anterior abdominal wall. Please correlate with clinical bruising versus medication injection sites. Incidental note is made of: Right-sided chest port Coronary artery calcification Small hiatal hernia Diverticulosis is seen, without findings of active diverticulitis. Normal appendix. Dictated by: Kalin Zuñiga M.D. on 10/28/2018 at 14:15 Approved by: Kalin Zuñiga M.D. on 10/28/2018 at 14:28
== END ==
PROVIDERS: PCP Internal Medicine; Visit Provider Internal Medicine Hematology & Oncology
DX: C56.9 Malignant neoplasm of unspecified ovary (principal); R59.0 Localized enlarged lymph nodes; R18.8 Other ascites; K57.90 Diverticulosis of intestine, part unspecified, without perforation or abscess without bleeding; I25.10 Atherosclerotic heart disease of native coronary artery without angina pectoris; K44.9 Diaphragmatic hernia without obstruction or gangrene; Z95.828 Presence of other vascular implants and grafts
CPT/HCPCS: 71260; 74177; Q9967

== ENCOUNTER 2018-12-15 16:30 | Emergency (ER) | payer MEDICARE, OTHER, SELFPAY ==
[2018-12-15] VITALS (7 sets, daily range): BP systolic 102–133; BP diastolic 50–73; PULSE 68–101; RESP 16–21; O2SAT 96–100
--- NOTE | 2018-12-15 16:47 | ED.ALLEREA ---
HPI - Allergic Reaction <Gabino Huerta DO - Last Filed: 12/16/18 07:06> General Chief complaint: Allergic Reaction Stated complaint: possible allergic reaction Time Seen by Provider: 12/15/18 16:34 Source: patient Mode of arrival: EMS Limitations: no limitations History of Present Illness HPI narrative: Patient is a 72-year-old female with a history of ovarian cancer currently undergoing chemotherapy. Today she is receiving her 2nd dose in a 9 does regiment of chemotherapy. She states she was towards the end of the symptoms when she started to have shortness of breath and also a rash. Reported by EMS that she was also hypotensive. She received Benadryl and Solu-Medrol and 1 dose of epi prior to arrival. This seemed to improve her blood pressure. She states that she feels like her stomach is on fire. Gipsy very flushed. Related Data Home Medications Medication Instructions Recorded Confirmed cholecalciferol (vitamin D3) 4,000 unit PO DAILY 05/12/18 12/15/18 [Vitamin D3] sennosides [senna] 8.6 mg PO QD-BID 05/12/18 12/15/18 B Complex 100 1 tab PO QAM 06/30/18 12/15/18 acetaminophen [Tylenol] 325 mg PO Q6H PRN 09/01/18 12/15/18 Previous Rx's Medication Instructions Recorded apixaban 5 mg PO BID #180 tab 10/27/18 epinephrine [EpiPen 2-Vicente] 0.3 mg IM Q15M PRN #1 each 12/15/18 Allergies Allergy/AdvReac Type Severity Reaction Status Date / Time carboplatin Allergy Severe Anaphylaxis Verified 12/15/18 16:35 gemcitabine AdvReac Severe inflammatory Verified 12/15/18 16:35 changes in the lung Review of Systems <Gabino Huerta DO - Last Filed: 12/16/18 07:06> Constitutional Constitutional: Denies fever(s) ENT Ears, Nose, Mouth, and Throat: Reports throat swelling and Reports tongue swelling Cardiovascular Cardiovascular: Denies chest pain and Reports dyspnea Respiratory Respiratory: Denies cough and Reports dyspnea Gastrointestinal Gastrointestinal: Denies abdominal pain, Denies nausea and Denies vomiting Genitourinary Genitourinary: Denies dysuria Musculoskeletal Musculoskeletal: Denies abnormal gait, Denies myalgias and Denies arthralgias Integumentary/Breasts Skin/Breast: Reports pruritus, Reports rash and Denies skin ulcer Neurologic Neurologic: Denies abnormal gait and Denies behavioral changes Psychiatric Psychiatric: Denies behavioral changes Hematologic/Lymphatic Hematologic/Lymphatic: Denies easy bleeding and Denies easy bruising Allergic/Immunologic Allergic/Immunologic: Reports throat swelling and Reports tongue swelling Patient History <DO Talia Bush Last Filed: 12/16/18 07:06> Medical History Hypertension (Acute) Ovarian cancer (Acute) Social History Smoking Status: Never smoker alcohol intake: former (occ beer every week. used to drink a small whole bottle of wine every day) Exam <DO Talia Bush Last Filed: 12/16/18 07:06> Initial Vital Signs Initial Vital Signs: Vital Signs Pulse Rate 101 H 12/15/18 16:35 Respiratory Rate 19 12/15/18 16:35 Blood Pressure 102/52 L 12/15/18 16:35 Pulse Oximetry 99 12/15/18 16:35 Const General: cooperative, comfortable, well developed and well groomed Orientation: alert, awake and oriented x3 HENMT Head: normal to inspection and normocephalic Resp Effort & Inspection: normal respiratory effort Auscultation: clear to auscultation bilaterally Cardio Rate: regular rate Rhythm: regular rhythm Pulses: radial pulses present GI Inspection: non-distended Palpation: soft and No firm Skin General: warm Other: Diffuse rash Neuro General: alert, awake and oriented x3 Extrem General: normal to inspection and capillary refill normal Psych Appearance: grossly normal and well kempt <Prabha Malik DO - Last Filed: 12/16/18 00:56> Initial Vital Signs Initial Vital Signs: Vital Signs Pulse Rate 101 H 12/15/18 16:35 Respiratory Rate 19 12/15/18 16:35 Blood Pressure 102/52 L 12/15/18 16:35 Pulse Oximetry 99 12/15/18 16:35 Course <DO Talia Bush Last Filed: 12/16/18 07:06> Orders Ordered: Discontinued Medications Sodium Chloride (Normal Saline 0.9%) 1,000 mls @ 125 mls/hr IV CONT XIOMARA Last Infusion: 12/15/18 20:37 Dose: 0 mls/hr Documented by: Admin: 12/15/18 17:23 Dose: 125 mls/hr Documented by: MEISENGab Famotidine (Pepcid) 20 mg in 50 mls @ 200 mls/hr IV NOW ONE Stop: 12/15/18 17:01 Last Infusion: 12/15/18 17:38 Dose: 0 mls/hr Documented by: [email or web address] Admin: 12/15/18 17:23 Dose: 200 mls/hr Documented by: ERICKA Vital Signs Vital signs: Vital Signs - 8 hr 12/15/18 17:35 12/15/18 18:00 12/15/18 19:15 Pulse Rate 76 73 68 Respiratory Rate 21 20 16 Blood Pressure [Right Arm] 107/54 L 105/50 L 133/73 Pulse Oximetry 96 96 100 12/15/18 19:32 12/15/18 20:00 12/15/18 20:38 Pulse Rate 82 92 H 86 Respiratory Rate 18 19 21 Blood Pressure [Right Arm] 120/50 L 133/52 L 105/51 L Pulse Oximetry 100 100 100 <Prabha Malik, DO - Last Filed: 12/16/18 00:56> Orders Ordered: Discontinued Medications Sodium Chloride (Normal Saline 0.9%) 1,000 mls @ 125 mls/hr IV CONT XIOMARA Last Infusion: 12/15/18 20:37 Dose: 0 mls/hr Documented by: Admin: 12/15/18 17:23 Dose: 125 mls/hr Documented by: LAZAROSENGab Famotidine (Pepcid) 20 mg in 50 mls @ 200 mls/hr IV NOW ONE Stop: 12/15/18 17:01 Last Infusion: 12/15/18 17:38 Dose: 0 mls/hr Documented by: LAZAROSENGab Admin: 12/15/18 17:23 Dose: 200 mls/hr Documented by: ERICKA Vital Signs Vital signs: Vital Signs - 8 hr 12/15/18 17:35 12/15/18 18:00 12/15/18 19:15 Pulse Rate 76 73 68 Respiratory Rate 21 20 16 Blood Pressure [Right Arm] 107/54 L 105/50 L 133/73 Pulse Oximetry 96 96 100 12/15/18 19:32 12/15/18 20:00 12/15/18 20:38 Pulse Rate 82 92 H 86 Respiratory Rate 18 19 21 Blood Pressure [Right Arm] 120/50 L 133/52 L 105/51 L Pulse Oximetry 100 100 100 MDM - Allergic Reaction <Gabino Huerta, DO - Last Filed: 12/16/18 07:06> [facility] Narrative Medical decision making narrative: Patient received Benadryl and Solu-Medrol and epinephrine prior to arrival. She received famotidine and fluids here in our ER. After observation patient continues to improve. No shortness of breath. No fevers. I do suspect this is related to her chemotherapy that she was receiving today. Care turned over to night provider to continue to evaluate and disposition. <Prabha Malik, DO - Last Filed: 12/16/18 00:56> [facility] Narrative Medical decision making narrative: Patient signed out to me by Dr. Huerta of seen evaluated patient myself. No further signs of allergic reaction rash is completely gone. She is given prescription for epinephrine pen. She overall feels much better. Discharge Plan Departure Patient Disposition: Home Clinical Impression: Anaphylaxis Qualifiers: Encounter type: initial encounter Qualified Code(s): T78.2XXA - Anaphylactic shock, unspecified, initial encounter Discharge Date/Time: 12/15/18 20:57 Instructions: DI for Anaphylaxis Activity Restrictions/Additional Instructions: Recommend that you talk with your oncologist prior to any further treatment with chemotherapy agents. Continue your other medications as directed. Return to the emergency department for any new or worsening symptoms Prescriptions: New epinephrine [EpiPen 2-Vicente] 0.3 mg/0.3 mL auto-injector 0.3 mg IM Q15M PRN (Reason: anaphylaxis) Qty: 1 RF: 0 No Action Vitamin D3 4,000 unit Capsule 4,000 unit PO DAILY RF: 0 sennosides [senna] 8.6 mg Tablet 8.6 mg PO QD-BID RF: 0 B Complex 100 tablet 1 tab PO QAM RF: 0 acetaminophen [Tylenol] 325 mg Tablet 325 mg PO Q6H PRN (Reason: Pain (Scale Score 1-3)) RF: 0 apixaban 5 mg Tablet 5 mg PO BID Qty: 180 RF: 4 Referrals: Jojo Hooker MD [Primary Care Provider] -
[2018-12-15] MEDS: SODIUM CHLORIDE 0.9% 1,000 ML 125 ML IV (17:23)
[2018-12-15] MEDS: FAMOTIDINE 20 MG/50 ML PIGGYBACK 200 MG IV (17:23)
--- NOTE | 2018-12-15 17:33 | PC.NURSE ---
noted pt with shivering, warm blankets provided, daughter at bs. no rash no resp distress noted.
== END 2018-12-15 20:57 | disposition home or self-care (01) ==
PROVIDERS: Emergency Provider Emergency Medicine; Family Provider Internal Medicine; PCP Internal Medicine
DX: Z51.11 Encounter for antineoplastic chemotherapy (principal); C54.9 Malignant neoplasm of corpus uteri, unspecified; C77.2 Secondary and unspecified malignant neoplasm of intra-abdominal lymph nodes; T78.2XXA Anaphylactic shock, unspecified, initial encounter; I26.99 Other pulmonary embolism without acute cor pulmonale; Z79.01 Long term (current) use of anticoagulants
CPT/HCPCS: 36591; 80053; 85025; 86304; 96361; 96372; 96374; 96375; 96376; 96413; 96415; 99214; 99284; 99285; J0171; J1100; J1453; J1642; J2405; J7060; J9045; J9267

== ENCOUNTER → 2019-08-18 10:30 | Outpatient (CLI) | payer MEDICARE, OTHER, SELFPAY ==
--- NOTE | 2019-08-18 11:40 | DI.CT.S_ITS ---
PROCEDURE: CT CHEST ABD PEL W CON INDICATIONS: recurrent ovarian cancer TECHNIQUE: After the administration of oral and intravenous contrast, 5 mm thick sections acquired from the lung apices to the symphysis. 5 mm coronal and sagittal reformats were performed, with additional 7 mm coronal MIP reformats through the lungs. For radiation dose reduction, the following was used: automated exposure control, adjustment of mA and/or kV according to patient size. COMPARISON: [place], [place] PET CT FUSION SKULL 2 THIGH, 04/12/2019, 16:29. [place], [place] PET CT FUSION SKULL 2 THIGH, 11/09/2018, 14:25. [facility], CT, CT CHEST ABD PEL W CON, 10/28/2018, 10:58. FINDINGS: Image quality: Excellent. CHEST: Lungs and pleura: No acute airspace opacities. Right lower lobe pulmonary nodule measuring 3 mm, (05/14), unchanged. No new or enlarging pulmonary nodules. No pleural effusions or pneumothorax. Central and peripheral airways appear patent and normal in caliber. Mediastinum: Heart size is normal. No pericardial effusion. No mediastinal or hilar adenopathy by size criteria. Thoracic aorta and central pulmonary arteries are normal in size. Esophagus is normal in caliber. Small hiatal hernia. Chest wall: Right-sided port with the catheter tip is at the caval atrial junction. No axillary or supraclavicular adenopathy by size criteria. Thyroid gland demonstrates a punctate hypodense right thyroid nodule. ABDOMEN: Solid organs: Liver is normal in size and enhancement. Gallbladder is unremarkable. Biliary system is non dilated. Pancreas enhances normally. Spleen is normal in size and enhancement. Thickening of the left adrenal gland, unchanged. Kidneys demonstrate normal size and enhancement, without hydronephrosis. Peritoneum and bowel: Bowel loops demonstrate normal wall thickness and caliber. Diverticulosis. No free fluid or air. Nodes and vessels: Enlarged mesenteric nodes compared to the most recent comparison 04/12/2019. For example: -Left mid mesenteric node measuring 1.7 x 1.5 cm (), previously 1.2 x 0.9 cm. -Midline anterior mesenteric node measuring 1.6 x 1 cm, (), new. -Right lower lobe mesenteric node measuring 1.4 x 1.4 cm (), previously 0.8 x 0.7 cm. Aorta and inferior vena cava are normal in size. Atherosclerotic plaque. Miscellaneous: No ventral hernias. PELVIS: Genitourinary: Bladder wall thickness is normal. Uterus is absent. Miscellaneous: No inguinal hernias. Enlarged external iliac and inguinal lymph nodes. For example: - Left external iliac node measuring 1.5 x 1.3 cm, (), new compared to 04/12/2019. -Left groin node measuring 1.4 x 1.4 cm (04/12), previously 0.9 x 0.7 cm. Bones: No suspicious bony lesions. No vertebral body compression fractures. IMPRESSION: 1. New and enlarging mesenteric and inguinal lymph nodes most compatible with recurrent ovarian carcinoma. -If clinically indicated ultrasound-guided biopsy or as a CT could be performed for further evaluation. 2. No ascites. 3. No suspicious osseous lesions. Dictated by: Chandu Zurita M.D. on 08/18/2019 at 12:51 Approved by: Chandu Zurita M.D. on 08/18/2019 at 13:12
== END ==
PROVIDERS: Family Provider Internal Medicine; PCP Internal Medicine; Referring Provider Internal Medicine Hematology & Oncology; Visit Provider Internal Medicine Hematology & Oncology
DX: C56.9 Malignant neoplasm of unspecified ovary (principal); R59.0 Localized enlarged lymph nodes; K44.9 Diaphragmatic hernia without obstruction or gangrene; E04.1 Nontoxic single thyroid nodule
CPT/HCPCS: 71260; 74177

== ENCOUNTER → 2020-02-02 10:17 | Outpatient (CLI) | payer MEDICARE, OTHER, SELFPAY ==
--- NOTE | 2020-02-02 11:02 | DI.CT.S_ITS ---
PROCEDURE: CT CHEST ABD PEL W CON INDICATIONS: ovarian cancer TECHNIQUE: After the administration of oral and intravenous contrast, 5 mm thick sections acquired from the lung apices to the symphysis. 5 mm coronal and sagittal reformats were performed, with additional 7 mm coronal MIP reformats through the lungs. For radiation dose reduction, the following was used: automated exposure control, adjustment of mA and/or kV according to patient size. COMPARISON: [facility], CT, CT CHEST ABD PEL W CON, 08/18/2019, 11:47. FINDINGS: Image quality: Excellent. CHEST: Lungs and pleura: No new lung nodules or suspicious consolidations. Tiny posterior right lower lobe nodule, now seen best only on the MIP view is unlikely to be clinically significant. No acute airspace opacities. No pleural effusions or pneumothorax. Central and peripheral airways appear patent and normal in caliber. Mediastinum: Heart size is normal. Moderate coronary artery calcification. No pericardial effusion. Right paratracheal/precarinal lymph node measures 13 mm in short axis, enlarged compared to prior. Thoracic aorta and central pulmonary arteries are normal in size. Esophagus is normal in caliber. No hiatal hernia. Chest wall: Right chest MediPort. Enlarged left level two axillary lymph node measures 11 mm in short axis, previously nonenlarged. Thyroid gland is unremarkable . ABDOMEN: Solid organs: Liver is normal in size and enhancement. There is periportal edema. Gallbladder wall is irregularly thickened in the midportion and the mucosa is mildly hyperemic . Biliary system is non dilated. Pancreas enhances normally. Spleen is normal in size and enhancement. Stable heterogeneous thickening of the left adrenal nodule.. Kidneys demonstrate normal size and enhancement, without hydronephrosis. Peritoneum and bowel: Interval development of moderate intraperitoneal ascites, omental and peritoneal nodularity and pericholecystic fluid. There is circumferential wall thickening of the cecum. Sigmoid diverticulosis. Very small hiatal hernia is present. Nodes and vessels: No retroperitoneal or mesenteric adenopathy by size criteria. Aorta and inferior vena cava are normal in size. Mild abdominal aortic atherosclerotic calcification. Miscellaneous: No ventral hernias. PELVIS: Genitourinary: Bladder wall thickness is normal. Surgically absent uterus and ovaries. Miscellaneous: Bulky bilateral inguinal and bilateral external iliac chain adenopathy, increased compared to prior. Bones: No suspicious bony lesions. No vertebral body compression fractures. IMPRESSION: 1. Findings consistent with metastatic ovarian cancer including peritoneal carcinomatosis and ascites. 2. Metastatic disease extending into the mediastinum and left axilla. 3. Circumferential wall thickening of the cecum is nonspecific, potentially reactive colitis or metastatic disease. 4. Enlargement of pelvic adenopathy. Dictated by: Aure Shay M.D. on 02/02/2020 at 14:06 Approved by: Aure Shay M.D. on 02/02/2020 at 14:31
== END ==
PROVIDERS: Family Provider Internal Medicine; PCP Internal Medicine; Referring Provider Internal Medicine Hematology & Oncology; Visit Provider Internal Medicine Hematology & Oncology
DX: C54.9 Malignant neoplasm of corpus uteri, unspecified; C77.8 Secondary and unspecified malignant neoplasm of lymph nodes of multiple regions; R18.8 Other ascites; K57.30 Diverticulosis of large intestine without perforation or abscess without bleeding; I70.0 Atherosclerosis of aorta
CPT/HCPCS: 71260; 74177; Q9967

== ENCOUNTER → 2020-04-18 09:20 | Oncology outpatient (ONC) | payer MEDICARE, OTHER, SELFPAY ==
--- NOTE | 2018-05-12 09:24 | ONC.CONS ---
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 She was seen by Dr. Bea Acosta at [facility]. She presented with enlarged left supraclavicular lymph node. Biopsy reviewed carcinoma of mullerian origin. CT scan reviewed mediastinal nodes, epicardial nodes, and retroperitoneal nodes in the upper abdomen. No carcinomatosis or pelvic masses. CA 125 was elevated to 3266. He received 4 cycles of carboplatin and paclitaxel every 3 weeks with complete resolution of the adenopathy and decrease of CA-125 to 50s. On 09/07/2017, patient underwent exploratory laparotomy, AJSIEL, BSO, omentectomy and right ureterolysis. She had no evidence of disease in the abdomen and had a complete site reduction. Final pathology reviewed no carcinoma in any of the specimens. 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 Postoperatively, patient has received a total of 5 additional cycles of chemotherapy, carboplatin and paclitaxel, with last dose administered on 01/07/2018. The reason for the additional doses was her CA 125 had not yet normalized after 3 adjuvant cycles. Patient underwent repeat CT scan on 12/03/2017 that did not show any adenopathy, and no evidence of local recurrence or new metastatic disease. After 3 postop cycles, CA 125 was 54. And then 35 and 37 with subsequent cycles. It was discussed with her that with her CA 125 never going back below 35, there was concern that she may not be in remission, but she declined adding maintenance bevacizumab. CA 125 remained normal at 35 on January 24 2018 but increased to 193 towards the end of March. CA-125 on 04/29/2018 had increased to [address] scan on 04/29/2018 shows evidence of recurrent disease notable for increased size and number of suspicious-appearing abdominal lymph nodes concerning for metastasis. A gastrohepatic node measuring 1.8 x 1.6, compared to 0.6 x 0.5 cm and anterior celiac node measuring 1.8 x 1.7 cm, previously 0.9 x 0.7 cm, posterior celiac lymph node measuring 2.1 x 1.5 cm, previously 1.3 x 0.7 cm at a cluster of prominent mesenteric nodes increased in size and number compared to CT scan in November 2017. Patient was deemed [place]-refractory given only 4 months out after patient completed the carboplatin/paclitaxel chemotherapy. Dr. Acosta discussed a variety of different options with the patient. More specifically bevacizumab in combination with any other chemotherapy is recommended. After extensive discussion with the patient, Dr. Acosta recommended gemcitabine paired with bevacizumab if covered by insurance company. Otherwise doxorubicin with bevacizumab or topotecan paired with bevacizumab could be considered. Then Dr. Acosta referred the patient to local medical oncologist to complete 3 cycles of the chemotherapy followed by continued follow-up at [facility]. She feels great. The only thing that has been different since the chemo is that her urine stream if more frequent and small volume. She does not have to get up at night. No pain. She said she always have alignment issue with her body. She has done accupunction . She is working with chiropractor. Sheleart so much about her back and she deneis any pain in the back. Good appetite. No weight loss. She said she had mild neuropathy towards end of her chemotherapy last year. Now the neuropathy of the hands are gone but the anterior sole pad is a little numb. No numbness of toes. CC: Ivette Carbajal MD Patient reports pain?: No Home Medications and Allergies Home Medications Medication Instructions Recorded Confirmed Type cholecalciferol (vitamin D3) 4,000 unit PO DAILY 05/12/18 05/12/18 History [Vitamin D3] sennosides [senna] 05/12/18 History Allergies Allergy/AdvReac Type Severity Reaction Status Date / Time No Known Drug Allergies Allergy Verified 05/12/18 09:40 Medical History - Medical, Surgical, Family History Medical History: Medical History (Last Updated 05/12/18 @ 10:09 by Ivette Carbajal MD) Hypertension Surgical History: Surgical History (Last Updated 05/12/18 @ 10:10 by Ivette Carbajal MD) History of tonsillectomy History of total right knee replacement Family History: Family History (Last Updated 05/12/18 @ 10:11 by Ivette Carbajal MD) Mother Hypertension Father Bladder cancer Colon cancer - Social History Smoking Status: Never smoker Alcohol Intake: former (occ beer every week. used to drink a small whole bottle of wine every day) Exam Vital signs: Last Vital Signs Temp 97.5 F L 05/12/18 09:36 Pulse 72 05/12/18 09:36 Resp 18 05/12/18 09:36 BP 137/61 05/12/18 09:36 Pulse Ox 98 05/12/18 09:36 ECOG 1 Narrative: Constitutional: WDWN, NAD, well groomed, pleasant and cooperative. HEENT: NCAT, EOMI, PERRLA, anicteric sclera. Neck: Supple, No palpable thyromegaly or lymphadenopathy. Respiratory: Clear to auscultation, and no wheezes or rales or rubs. Cardiovascular: RRR, S1 and S2 normal, no M/G/R. No JVD. Abdomen: Soft, NTND, BS normal, no palpable organomegaly, no hernia, no palpable masses. Extremities: No LE pitting edema. Lymphatic: no palpable lymph nodes in the neck, axillae, or groins. Musculoskeletal: normal gait and station Skin: no rashes, no ulcers, no petechiae Neurological: AOx3, CN II-XII grossly intact. No focal motor or sensory deficit. Psychiatric: Good judgment and insight; normal affect; normal thought process; cooperative, no depression, no anxiety. 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 With involvement of intra abdominal lymph nodes. CA 125 has been progressively increasing. I reviewed the chemotherapy regimen with the patient. Patient is very familiar with the side effects of bevacizumab including bleeding, venous thromboembolism, as well as possible bowel perforation among others. I talked with patient about the potential side effects of gemcitabine. I especially emphasized the possibility of severe bone marrow suppression. I talked with her that most prominently some patients will develop severe thrombocytopenia with increased bleeding risk. During the chemotherapy will monitor the blood counts weekly. Patient voiced understanding. We will try to start the chemotherapy next Wednesday. Chemotherapy regimen: Gemcitabine 1000 mg/m2, on day 1, 8. 15, and Bevasuzumab 15 mg/kg, on day 1, every 21-day cycle. Plan: 1. C1D1 next Andrea, labs include CBC, CMP, CA125 2. Weekly CBC, CMP 3. RTC MD visit C2D1.
[2018-05-12 09:36] VITALS: BP 137/61; PULSE 72; RESP 18; TEMP 36.4; O2SAT 98
--- NOTE | 2018-05-12 09:36 | P.CONONC_ITS ---
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 She was seen by Dr. Bea Acosta at [facility]. She presented with enlarged left supraclavicular lymph node. Biopsy reviewed carcinoma of mullerian origin. CT scan reviewed mediastinal nodes, epicardial nodes, and retroperitoneal nodes in the upper abdomen. No carcinomatosis or pelvic masses. CA 125 was elevated to 3266. He received 4 cycles of carboplatin and paclitaxel every 3 weeks with complete resolution of the adenopathy and decrease of CA-125 to 50s. On 09/07/2017, patient underwent exploratory laparotomy, JASIEL, BSO, omentectomy and right ureterolysis. She had no evidence of disease in the abdomen and had a complete site reduction. Final pathology reviewed no carcinoma in any of the specimens. 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 Postoperatively, patient has received a total of 5 additional cycles of chemotherapy, carboplatin and paclitaxel, with last dose administered on 01/07/2018. The reason for the additional doses was her CA 125 had not yet normalized after 3 adjuvant cycles. Patient underwent repeat CT scan on 12/03/2017 that did not show any adenopathy, and no evidence of local recurrence or new metastatic disease. After 3 postop cycles, CA 125 was 54. And then 35 and 37 with subsequent cycles. It was discussed with her that with her CA 125 never going back below 35, there was concern that she may not be in remission, but she declined adding maintenance bevacizumab. CA 125 remained normal at 35 on January 24 2018 but increased to 193 towards the end of March. CA-125 on 04/29/2018 had increased to [address] scan on 04/29/2018 shows evidence of recurrent disease notable for increased size and number of suspicious- appearing abdominal lymph nodes concerning for metastasis. A gastrohepatic node measuring 1.8 x 1.6, compared to 0.6 x 0.5 cm and anterior celiac node measuring 1.8 x 1.7 cm, previously 0.9 x 0.7 cm, posterior celiac lymph node measuring 2.1 x 1.5 cm, previously 1.3 x 0.7 cm at a cluster of prominent mesenteric nodes increased in size and number compared to CT scan in November 2017. Patient was deemed [place]-refractory given only 4 months out after patient completed the carboplatin/paclitaxel chemotherapy. Dr. Acosta discussed a variety of different options with the patient. More specifically bevacizumab in combination with any other chemotherapy is recommended. After extensive discussion with the patient, Dr. Acosta recommended gemcitabine paired with bevacizumab if covered by insurance company. Otherwise doxorubicin with bevacizumab or topotecan paired with bevacizumab could be considered. Then Dr. Acosta referred the patient to local medical oncologist to complete 3 cycles of the chemotherapy followed by continued follow-up at [facility]. She feels great. The only thing that has been different since the chemo is that her urine stream if more frequent and small volume. She does not have to get up at night. No pain. She said she always have alignment issue with her body. She has done accupunction . She is working with chiropractor. Sheleart so much about her back and she deneis any pain in the back. Good appetite. No weight loss. She said she had mild neuropathy towards end of her chemotherapy last year. Now the neuropathy of the hands are gone but the anterior sole pad is a little numb. No numbness of toes. CC: Ivette Carbajal MD Patient reports pain?: No Home Medications and Allergies Home Medications Medication Instructions Recorded Confirmed Type cholecalciferol (vitamin D3) 4,000 unit PO DAILY 05/12/18 05/12/18 History [Vitamin D3] sennosides [senna] 05/12/18 History Allergies Allergy/AdvReac Type Severity Reaction Status Date / Time No Known Drug Allergies Allergy Verified 05/12/18 09:40 Medical History - Medical, Surgical, Family History Medical History: Medical History (Last Updated 05/12/18 @ 10:09 by Ivette Carbajal MD) Hypertension Surgical History: Surgical History (Last Updated 05/12/18 @ 10:10 by Ivette Carbajal MD) History of tonsillectomy History of total right knee replacement Family History: Family History (Last Updated 05/12/18 @ 10:11 by Ivette Carbajal MD) Mother Hypertension Father Bladder cancer Colon cancer - Social History Smoking Status: Never smoker Alcohol Intake: former (occ beer every week. used to drink a small whole bottle of wine every day) Exam Vital signs: Last Vital Signs Temp 97.5 F L 05/12/18 09:36 Pulse 72 05/12/18 09:36 Resp 18 05/12/18 09:36 BP 137/61 05/12/18 09:36 Pulse Ox 98 05/12/18 09:36 ECOG 1 Narrative: Constitutional: WDWN, NAD, well groomed, pleasant and cooperative. HEENT: NCAT, EOMI, PERRLA, anicteric sclera. Neck: Supple, No palpable thyromegaly or lymphadenopathy. Respiratory: Clear to auscultation, and no wheezes or rales or rubs. Cardiovascular: RRR, S1 and S2 normal, no M/G/R. No JVD. Abdomen: Soft, NTND, BS normal, no palpable organomegaly, no hernia, no palpable masses. Extremities: No LE pitting edema. Lymphatic: no palpable lymph nodes in the neck, axillae, or groins. Musculoskeletal: normal gait and station Skin: no rashes, no ulcers, no petechiae Neurological: AOx3, CN II-XII grossly intact. No focal motor or sensory deficit. Psychiatric: Good judgment and insight; normal affect; normal thought process; cooperative, no depression, no anxiety. 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 With involvement of intra abdominal lymph nodes. CA 125 has been progressively increasing. I reviewed the chemotherapy regimen with the patient. Patient is very familiar with the side effects of bevacizumab including bleeding, venous thromboembolism, as well as possible bowel perforation among others. I talked with patient about the potential side effects of gemcitabine. I especially emphasized the possibility of severe bone marrow suppression. I talked with her that most prominently some patients will develop severe thrombocytopenia with increased bleeding risk. During the chemotherapy will monitor the blood counts weekly. Patient voiced understanding. We will try to start the chemotherapy next Wednesday. Chemotherapy regimen: Gemcitabine 1000 mg/m2, on day 1, 8. 15, and Bevasuzumab 15 mg/kg, on day 1, every 21-day cycle. Plan: 1. C1D1 next Andrea, labs include CBC, CMP, CA125 2. Weekly CBC, CMP 3. RTC MD visit C2D1.
--- NOTE | 2018-05-12 10:40 | ONC.NAV ---
Description: New Pt Intro Activity: Met with pt to introduce myself as the Pt Ricardo/[facility], offer services card, and establish initial rapport. Pt is experiencing a recurrence of her mullerian-type cancer. She discovered a lump in her neck approx. 1 1/2 months ago, at which time her receiving barn custodian biopsied and determined it to be cancer from the pathology. She had a work up done at the , where several treatment options were discussed with her at that time. She is here today to establish care with Dr. Carbajal, and wishes to pursue her cancer treatment here, local to her home. She presents as alert, engaging, and open to sharing/learning more about supportive services while in treatment. At this time, she is most interested in assistance with coordination of transportation to treatment visits, ongoing emotional/coping support, and the [facility]. No additional needs were identified at this time. Plan: [facility] will f/u with patient again once a treatment plan has been established with the provider.
[2018-05-19 10:03] LABS: Add Manual Diff / Slide Review NO; Basophils Absolute Auto 0 /uL (0-100); Basophils Percent Auto 0.4 % (0-2); Eosinophils Absolute Auto 100 /uL (0-450); Eosinophils Percent Auto 1.1 % (2-4); Hematocrit 34.2 % (36-46); Hemoglobin 11.8 g/dL (12.0-16.0); Lymphocytes Absolute Auto 1400 /uL (1100-4500); Mean Corpuscular HGB Conc 34.6 % (30-36); Mean Corpuscular Hemoglobin 30.9 PG (26-34); Mean Corpuscular Volume 89.2 fL (80-100); Monocytes Absolute Auto 600 /uL (0-900); Monocytes Percent Auto 9.1 % (3-14); Neutrophils Absolute Auto 4300 /uL (1500-7000); Neutrophils Percent Auto 67.4 % (50-75); Platelet Count 222 X10^3/uL (150-400); Red Blood Cell Count 3.83 X10^6/uL (4.0-5.2); Red Cell Distribution Width 12.8 % (11.6-14.8); White Blood Cell Count 6.4 X10^3/uL (4.5-11.0)
[2018-05-19 10:12] LABS: Alanine Aminotransferase 20 IU/L (9-52); Albumin 4.4 g/dL (3.5-5.0); Albumin Globulin Ratio 1.4 (1.0-2.8); Alkaline Phosphatase 75 U/L (38-126); Aspartate Aminotransferase 22 IU/L (14-36); BUN Creatinine Ratio 17.3 (6-22); Bilirubin Total 0.2 mg/dL (0.2-1.3); Blood Urea Nitrogen 19 mg/dL (7-17); Calcium 9.7 mg/dL (8.4-10.2); Carbon Dioxide 25 mmol/L (22-32); Chloride 101 mmol/L (98-107); Estimated Glomerular Filt Rate 48.6 mL/min (>60); Globulin 3.2 g/dL (1.7-4.1); Glucose 115 mg/dL (80-110); HEMOLYSIS < 15 (0-50); Potassium 4.1 mmol/L (3.4-5.1); Sodium 137 mmol/L (137-145); Total Protein 7.6 g/dL (6.3-8.2)
[2018-05-19] MEDS: ACETAMINOPHEN 325 MG TABLET 650 MG PO (10:39)
[2018-05-19] MEDS: DEXAMETHASONE 10 MG/ML VIAL 8 MG IV (10:39)
[2018-05-19] MEDS: diphenhydrAMINE 25 MG TABLET PO (10:40)
[2018-05-19] MEDS: ONDANSETRON 8 MG in SODIUM CHLORIDE 0.9% 50 ML 216 ML IV (11:20)
[2018-05-19 11:50] VITALS: BP 139/83; PULSE 81; RESP 16; TEMP 36.5; O2SAT 98
[2018-05-19] MEDS: SODIUM CHLORIDE 0.9% IV ×2 (12:07→14:12)
[2018-05-19] MEDS: BEVACIZUMAB IV (12:07)
[2018-05-19 12:50] LABS: Cancer Antigen 125 882 U/mL (0-35)
--- NOTE | 2018-05-19 12:57 | ONC.NAV ---
*Pt recieved a chemo quilt today.
[2018-05-19] MEDS: SODIUM CHLORIDE 0.9% 100 ML 21 ML IV (14:11)
[2018-05-19] MEDS: GEMCITABINE HCL IV (14:12)
--- NOTE | 2018-05-19 15:46 | PC.NURSE ---
Patient given printed chemocare information on Avastin and Gemzar. She was instructed to go to ER if temp.> 100.4 or symptoms of allergic reaction such as swelling of face and throat, hives, SOB, chest pain. this nurse verified that she has the tel number of [facility] and reminded that she can call here with questions and concerns relating to side effects she may experience.
[2018-05-26 14:44] LABS: Add Manual Diff / Slide Review NO; Basophils Absolute Auto 0 /uL (0-100); Basophils Percent Auto 0.4 % (0-2); Eosinophils Absolute Auto 0 /uL (0-450); Eosinophils Percent Auto 0.7 % (2-4); Hematocrit 33.3 % (36-46); Hemoglobin 11.5 g/dL (12.0-16.0); Lymphocytes Absolute Auto 1500 /uL (1100-4500); Lymphocytes Percent Auto 36.8 % (25-40); Mean Corpuscular HGB Conc 34.4 % (30-36); Mean Corpuscular Hemoglobin 30.6 PG (26-34); Mean Corpuscular Volume 88.9 fL (80-100); Monocytes Absolute Auto 500 /uL (0-900); Monocytes Percent Auto 11.3 % (3-14); Neutrophils Absolute Auto 2000 /uL (1500-7000); Neutrophils Percent Auto 50.8 % (50-75); Platelet Count 161 X10^3/uL (150-400); Red Blood Cell Count 3.74 X10^6/uL (4.0-5.2); Red Cell Distribution Width 12.5 % (11.6-14.8)
[2018-05-26 14:55] LABS: Alanine Aminotransferase 20 IU/L (9-52); Albumin 4.4 g/dL (3.5-5.0); Albumin Globulin Ratio 1.3 (1.0-2.8); Alkaline Phosphatase 83 U/L (38-126); Aspartate Aminotransferase 22 IU/L (14-36); BUN Creatinine Ratio 16.7 (6-22); Bilirubin Total 0.3 mg/dL (0.2-1.3); Blood Urea Nitrogen 15 mg/dL (7-17); Calcium 9.9 mg/dL (8.4-10.2); Carbon Dioxide 25 mmol/L (22-32); Chloride 101 mmol/L (98-107); Estimated Glomerular Filt Rate > 60.0 mL/min (>60); Globulin 3.3 g/dL (1.7-4.1); Glucose 111 mg/dL (80-110); HEMOLYSIS < 15 (0-50); Potassium 4.3 mmol/L (3.4-5.1); Sodium 137 mmol/L (137-145); Total Protein 7.7 g/dL (6.3-8.2)
[2018-05-26 15:08] VITALS: BP 139/94; PULSE 80; RESP 18; TEMP 37; O2SAT 98
[2018-05-26] MEDS: DEXAMETHASONE 10 MG/ML VIAL 8 MG IV (15:15)
[2018-05-26] MEDS: ONDANSETRON 8 MG in SODIUM CHLORIDE 0.9% 50 ML 216 ML IV (15:15)
[2018-05-26] MEDS: SODIUM CHLORIDE 0.9% 100 ML 21 ML IV (15:39)
[2018-05-26] MEDS: GEMCITABINE HCL IV (15:49)
[2018-05-26] MEDS: SODIUM CHLORIDE 0.9% IV (15:49)
[2018-06-02 14:25] LABS: Add Manual Diff / Slide Review NO; Basophils Absolute Auto 0 /uL (0-100); Basophils Percent Auto 0.5 % (0-2); Eosinophils Absolute Auto 0 /uL (0-450); Eosinophils Percent Auto 0.6 % (2-4); Hematocrit 30.8 % (36-46); Hemoglobin 10.8 g/dL (12.0-16.0); Lymphocytes Absolute Auto 1500 /uL (1100-4500); Lymphocytes Percent Auto 41.8 % (25-40); Mean Corpuscular Hemoglobin 31.2 PG (26-34); Mean Corpuscular Volume 89.2 fL (80-100); Monocytes Absolute Auto 400 /uL (0-900); Neutrophils Absolute Auto 1600 /uL (1500-7000); Neutrophils Percent Auto 47.1 % (50-75); Platelet Count 118 X10^3/uL (150-400); Red Blood Cell Count 3.45 X10^6/uL (4.0-5.2); Red Cell Distribution Width 12.8 % (11.6-14.8); White Blood Cell Count 3.5 X10^3/uL (4.5-11.0)
[2018-06-02 14:46] LABS: Alanine Aminotransferase 20 IU/L (9-52); Albumin 4.1 g/dL (3.5-5.0); Albumin Globulin Ratio 1.3 (1.0-2.8); Alkaline Phosphatase 89 U/L (38-126); Aspartate Aminotransferase 25 IU/L (14-36); BUN Creatinine Ratio 12.2 (6-22); Bilirubin Total 0.4 mg/dL (0.2-1.3); Blood Urea Nitrogen 11 mg/dL (7-17); Calcium 9.6 mg/dL (8.4-10.2); Carbon Dioxide 25 mmol/L (22-32); Chloride 101 mmol/L (98-107); Estimated Glomerular Filt Rate > 60.0 mL/min (>60); Globulin 3.2 g/dL (1.7-4.1); Glucose 97 mg/dL (80-110); HEMOLYSIS < 15 (0-50); Potassium 4.1 mmol/L (3.4-5.1); Sodium 136 mmol/L (137-145); Total Protein 7.3 g/dL (6.3-8.2)
[2018-06-02 14:51] VITALS: BP 148/57; PULSE 65; RESP 18; TEMP 36.7; O2SAT 100
[2018-06-02] MEDS: ONDANSETRON 8 MG in SODIUM CHLORIDE 0.9% 50 ML 216 ML IV (15:10)
[2018-06-02] MEDS: DEXAMETHASONE 10 MG/ML VIAL 8 MG IV (15:10)
[2018-06-02] MEDS: SODIUM CHLORIDE 0.9% 100 ML 21 ML IV (15:11)
[2018-06-02] MEDS: SODIUM CHLORIDE 0.9% IV (15:44)
[2018-06-02] MEDS: GEMCITABINE HCL IV (15:44)
[2018-06-09 11:23] LABS: Add Manual Diff / Slide Review NO; Basophils Absolute Auto 0 /uL (0-100); Basophils Percent Auto 0.3 % (0-2); Eosinophils Absolute Auto 0 /uL (0-450); Eosinophils Percent Auto 0.1 % (2-4); Hematocrit 32.1 % (36-46); Lymphocytes Absolute Auto 1000 /uL (1100-4500); Lymphocytes Percent Auto 37.8 % (25-40); Mean Corpuscular HGB Conc 34.2 % (30-36); Mean Corpuscular Volume 90.7 fL (80-100); Monocytes Absolute Auto 300 /uL (0-900); Monocytes Percent Auto 12.1 % (3-14); Neutrophils Absolute Auto 1300 /uL (1500-7000); Neutrophils Percent Auto 49.7 % (50-75); Platelet Count 138 X10^3/uL (150-400); Red Blood Cell Count 3.54 X10^6/uL (4.0-5.2); Red Cell Distribution Width 12.8 % (11.6-14.8); White Blood Cell Count 2.7 X10^3/uL (4.5-11.0)
[2018-06-09 11:36] LABS: Alanine Aminotransferase 22 IU/L (9-52); Albumin 4.3 g/dL (3.5-5.0); Albumin Globulin Ratio 1.3 (1.0-2.8); Alkaline Phosphatase 80 U/L (38-126); Aspartate Aminotransferase 22 IU/L (14-36); BUN Creatinine Ratio 16.7 (6-22); Bilirubin Total 0.3 mg/dL (0.2-1.3); Blood Urea Nitrogen 15 mg/dL (7-17); Calcium 9.6 mg/dL (8.4-10.2); Carbon Dioxide 26 mmol/L (22-32); Chloride 102 mmol/L (98-107); Estimated Glomerular Filt Rate > 60.0 mL/min (>60); Globulin 3.3 g/dL (1.7-4.1); Glucose 116 mg/dL (80-110); HEMOLYSIS < 15 (0-50); Potassium 4.3 mmol/L (3.4-5.1); Sodium 138 mmol/L (137-145); Total Protein 7.6 g/dL (6.3-8.2)
--- NOTE | 2018-06-09 11:53 | P.PNONC_ITS ---
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 She was seen by Dr. Bea Acosta at [facility]. She presented with enlarged left supraclavicular lymph node. Biopsy reviewed carcinoma of mullerian origin. CT scan reviewed mediastinal nodes, epicardial nodes, and retroperitoneal nodes in the upper abdomen. No carcinomatosis or pelvic masses. CA 125 was elevated to 3266. He received 4 cycles of carboplatin and paclitaxel every 3 weeks with complete resolution of the adenopathy and decrease of CA-125 to 50s. On 09/07/2017, patient underwent exploratory laparotomy, JASIEL, BSO, omentectomy and right ureterolysis. She had no evidence of disease in the abdomen and had a complete site reduction. Final pathology reviewed no carcinoma in any of the specimens. 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 Postoperatively, patient has received a total of 5 additional cycles of chemotherapy, carboplatin and paclitaxel, with last dose administered on 01/07/2018. The reason for the additional doses was her CA 125 had not yet normalized after 3 adjuvant cycles. Patient underwent repeat CT scan on 12/03/2017 that did not show any adenopathy, and no evidence of local recurrence or new metastatic disease. After 3 postop cycles, CA 125 was 54. And then 35 and 37 with subsequent cycles. It was discussed with her that with her CA 125 never going back below 35, there was concern that she may not be in remission, but she declined adding maintenance bevacizumab. CA 125 remained normal at 35 on January 24 2018 but increased to 193 towards the end of March. CA-125 on 04/29/2018 had increased to [address] scan on 04/29/2018 shows evidence of recurrent disease notable for increased size and number of suspicious- appearing abdominal lymph nodes concerning for metastasis. A gastrohepatic node measuring 1.8 x 1.6, compared to 0.6 x 0.5 cm and anterior celiac node measuring 1.8 x 1.7 cm, previously 0.9 x 0.7 cm, posterior celiac lymph node measuring 2.1 x 1.5 cm, previously 1.3 x 0.7 cm at a cluster of prominent mesenteric nodes increased in size and number compared to CT scan in November 2017. Patient was deemed [place]-refractory given only 4 months out after patient completed the carboplatin/paclitaxel chemotherapy. Dr. Acosta discussed a variety of different options with the patient. More specifically bevacizumab in combination with any other chemotherapy is recommended. After extensive discussion with the patient, Dr. Acosta recommended gemcitabine paired with bevacizumab if covered by insurance company. Otherwise doxorubicin with bevacizumab or topotecan paired with bevacizumab could be considered. Then Dr. Acosta referred the patient to local medical oncologist to complete 3 cycles of the chemotherapy followed by continued follow-up at [facility]. Interim events Patient started palliative chemotherapy with bevacizumab and gemcitabine on 05/19/2018. Patient reported that she feels more fatigue especially on Wednesday which she called it crash day. She usually stays at home or goes to friend's house. She also experiences a few bouts of dizziness and feeling of fall. No fever, no n/v. no pain. The only other thing she noticed besides low energy is the sensation of nose dripping. That has only happen several times. In the morning, it does not happen all the time, she has to clear her throat. It does not happen every day. Patient denies any abdominal pain. Denies any bleeding events. Patient said that she is monitoring her blood pressure at home and the blood pressure has been stable and normal. - Patient Self-Reported Symptoms SR Genitourinary issues: Change in stream SR Neuro issues: Numbness or tingling Home Medications and Allergies Home Medications Medication Instructions Recorded Confirmed Type cholecalciferol (vitamin D3) 4,000 unit PO DAILY 05/12/18 05/12/18 History [Vitamin D3] sennosides [senna] 05/12/18 History Allergies Allergy/AdvReac Type Severity Reaction Status Date / Time No Known Drug Allergies Allergy Verified 05/12/18 09:40 Exam Vital signs: Last Vital Signs Temp 98.7 F 06/09/18 11:58 Pulse 83 06/09/18 11:58 Resp 16 06/09/18 11:58 BP 154/84 H 06/09/18 11:58 Pulse Ox 98 06/09/18 11:58 ECOG 1 Narrative: Constitutional: WDWN, NAD, well groomed, pleasant and cooperative. HEENT: NCAT, EOMI, PERRLA, anicteric sclera. Neck: Supple, No palpable thyromegaly or lymphadenopathy. Respiratory: Clear to auscultation, and no wheezes or rales or rubs. Cardiovascular: RRR, S1 and S2 normal, no M/G/R. No JVD. Abdomen: Soft, NTND, BS normal, no palpable organomegaly, no hernia, no palpable masses. Extremities: No LE pitting edema. Lymphatic: no palpable lymph nodes in the neck, axillae, or groins. Musculoskeletal: normal gait and station Skin: no rashes, no ulcers, no petechiae Neurological: AOx3, CN II-XII grossly intact. No focal motor or sensory deficit. Psychiatric: Good judgment and insight; normal affect; normal thought process; cooperative, no depression, no anxiety. Results - Labs Laboratory Last Values WBC 2.7 X10^3/uL (4.5-11.0) L 06/09/18 08:37 RBC 3.54 X10^6/uL (4.0-5.2) L 06/09/18 08:37 Hgb 11.0 g/dL (12.0-16.0) L 06/09/18 08:37 Hct 32.1 % (36-46) L 06/09/18 08:37 MCV 90.7 fL (80-100) 06/09/18 08:37 MCH 31.0 PG (26-34) 06/09/18 08:37 MCHC 34.2 % (30-36) 06/09/18 08:37 RDW 12.8 % (11.6-14.8) 06/09/18 08:37 Plt Count 138 X10^3/uL (150-400) L 06/09/18 08:37 Neut % (Auto) 49.7 % (50-75) L 06/09/18 08:37 Lymph % (Auto) 37.8 % (25-40) 06/09/18 08:37 [place] % (Auto) 12.1 % (3-14) 06/09/18 08:37 Eos % (Auto) 0.1 % (2-4) L 06/09/18 08:37 Baso % (Auto) 0.3 % (0-2) 06/09/18 08:37 Neut # (Auto) 1300 /uL (4191-7953) L 06/09/18 08:37 Lymph # (Auto) 1000 /uL (1119-8844) L 06/09/18 08:37 [place] # (Auto) 300 /uL (0-900) 06/09/18 08:37 Eos # (Auto) 0 /uL (0-450) 06/09/18 08:37 Baso # (Auto) 0 /uL (0-100) 06/09/18 08:37 Sodium 138 mmol/L (137-145) 06/09/18 08:37 Potassium 4.3 mmol/L (3.4-5.1) 06/09/18 08:37 Chloride 102 mmol/L (98-107) 06/09/18 08:37 Carbon Dioxide 26 mmol/L (22-32) 06/09/18 08:37 BUN 15 mg/dL (7-17) 06/09/18 08:37 Creatinine 0.90 mg/dL (0.52-1.04) 06/09/18 08:37 Estimated GFR > 60.0 mL/min (>60) 06/09/18 08:37 BUN/Creatinine Ratio 16.7 (6-22) 06/09/18 08:37 Glucose 116 mg/dL (80-110) H 06/09/18 08:37 Calcium 9.6 mg/dL (8.4-10.2) 06/09/18 08:37 Total Bilirubin 0.3 mg/dL (0.2-1.3) 06/09/18 08:37 AST 22 IU/L (14-36) 06/09/18 08:37 ALT 22 IU/L (9-52) 06/09/18 08:37 Alkaline Phosphatase 80 U/L (38-126) 06/09/18 08:37 Total Protein 7.6 g/dL (6.3-8.2) 06/09/18 08:37 Albumin 4.3 g/dL (3.5-5.0) 06/09/18 08:37 Globulin 3.3 g/dL (1.7-4.1) 06/09/18 08:37 Albumin/Globulin Ratio 1.3 (1.0-2.8) 06/09/18 08:37 CA 125 Antigen 882 U/mL (0-35) H 05/19/18 10:00 Assessment and Plan (1) 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 With involvement of intra abdominal lymph nodes. CA 125 has been progressively increasing. She was started on bevacizumab and gemcitabine on april the 10/11/2018. up until now, she has tolerated well. her blood pressure has been normal. She does not any clinical bleeding events. And I once again talked with her about the potential side effects associated with the use of bevacizumab and gemcitabine. We will continue monitor the blood pressure as well as proteinuria closely. Chemotherapy regimen: Gemcitabine 1000 mg/m2, on day 1, 8. 15, and Bevasuzumab 15 mg/kg, on day 1, every 21-day cycle. Plan: 1. Ok to proceed to C2D1 today 2. Weekly CBC, CMP 3. RTC MD visit C3D1, CBC, CMP and CA125. (2) Leukopenia due to antineoplastic chemotherapy Patient has grade 1 leukopenia. afebrile. ANC 1.3. We will continue monitor closely.
[2018-06-09 11:58] VITALS: BP 154/84; PULSE 83; RESP 16; TEMP 37.1; O2SAT 98
[2018-06-09 12:58] LABS: Appearance Urine UA CLEAR; Bilirubin Urine UA NEGATIVE (NEGATIVE); Color Urine UA YELLOW; Glucose Urine UA NEGATIVE (Negative); Ketones Urine UA NEGATIVE (NEGATIVE); Leukocyte Esterase Urine UA NEGATIVE (NEGATIVE); Nitrite Urine UA NEGATIVE (Negative); Occult Blood Urine UA NEGATIVE (Negative); Protein Urine UA NEGATIVE (Negative); Specific Gravity Urine UA 1.015 (1.000-1.035); Urobilinogen Urine UA 0.2 E.U./dL (0.2); pH Urine UA 7.5 (4.5-8.0)
[2018-06-09] MEDS: ACETAMINOPHEN 325 MG TABLET 650 MG PO (13:12)
[2018-06-09] MEDS: diphenhydrAMINE 25 MG TABLET PO (13:12)
[2018-06-09] MEDS: DEXAMETHASONE 10 MG/ML VIAL 8 MG IV (13:13)
[2018-06-09] MEDS: SODIUM CHLORIDE 0.9% 100 ML 21 ML IV (13:16)
[2018-06-09] MEDS: ONDANSETRON 8 MG in SODIUM CHLORIDE 0.9% 50 ML 216 ML IV (13:26)
[2018-06-09] MEDS: SODIUM CHLORIDE 0.9% IV ×2 (14:10→15:34)
[2018-06-09] MEDS: BEVACIZUMAB IV (14:10)
[2018-06-09] MEDS: GEMCITABINE HCL IV (15:34)
[2018-06-16 14:42] VITALS: BP 151/82; PULSE 72; RESP 18; TEMP 37.2
[2018-06-16 14:42] LABS: Hematocrit 29.3 % (36-46); Hemoglobin 10.2 g/dL (12.0-16.0); Mean Corpuscular Hemoglobin 31.7 PG (26-34); Mean Corpuscular Volume 90.7 fL (80-100); Platelet Count 169 X10^3/uL (150-400); Red Blood Cell Count 3.23 X10^6/uL (4.0-5.2); Red Cell Distribution Width 12.9 % (11.6-14.8); White Blood Cell Count 4.3 X10^3/uL (4.5-11.0)
[2018-06-16 14:46] LABS: Add Manual Diff / Slide Review YES
[2018-06-16 14:50] LABS: Alanine Aminotransferase 24 IU/L (9-52); Albumin 4.2 g/dL (3.5-5.0); Albumin Globulin Ratio 1.3 (1.0-2.8); Alkaline Phosphatase 85 U/L (38-126); Aspartate Aminotransferase 28 IU/L (14-36); BUN Creatinine Ratio 18.8 (6-22); Bilirubin Total 0.4 mg/dL (0.2-1.3); Blood Urea Nitrogen 15 mg/dL (7-17); Calcium 9.4 mg/dL (8.4-10.2); Carbon Dioxide 24 mmol/L (22-32); Chloride 103 mmol/L (98-107); Estimated Glomerular Filt Rate > 60.0 mL/min (>60); Globulin 3.2 g/dL (1.7-4.1); Glucose 97 mg/dL (80-110); HEMOLYSIS < 15 (0-50); Sodium 136 mmol/L (137-145); Total Protein 7.4 g/dL (6.3-8.2)
[2018-06-16 15:09] LABS: Neutrophils Absolute Manual 1763 /uL (3000-5900); Total Cells Counted 100
[2018-06-16 15:12] LABS: RBC Morphology Normal Morphology
[2018-06-16] MEDS: ONDANSETRON 8 MG in SODIUM CHLORIDE 0.9% 50 ML 216 ML IV (15:13)
[2018-06-16] MEDS: DEXAMETHASONE 10 MG/ML VIAL 8 MG IV (15:13)
[2018-06-16] MEDS: GEMCITABINE HCL IV (16:03)
[2018-06-16] MEDS: SODIUM CHLORIDE 0.9% 100 ML 21 ML IV (16:03)
[2018-06-16] MEDS: SODIUM CHLORIDE 0.9% IV (16:03)
[2018-06-23 11:59] LABS: Alanine Aminotransferase 20 IU/L (9-52); Albumin 4.1 g/dL (3.5-5.0); Albumin Globulin Ratio 1.3 (1.0-2.8); Alkaline Phosphatase 80 U/L (38-126); Aspartate Aminotransferase 27 IU/L (14-36); BUN Creatinine Ratio 15.6 (6-22); Bilirubin Total 0.4 mg/dL (0.2-1.3); Blood Urea Nitrogen 14 mg/dL (7-17); Calcium 9.4 mg/dL (8.4-10.2); Carbon Dioxide 24 mmol/L (22-32); Chloride 103 mmol/L (98-107); Estimated Glomerular Filt Rate > 60.0 mL/min (>60); Globulin 3.1 g/dL (1.7-4.1); Glucose 122 mg/dL (80-110); HEMOLYSIS < 15 (0-50); Potassium 4.2 mmol/L (3.4-5.1); Sodium 138 mmol/L (137-145); Total Protein 7.2 g/dL (6.3-8.2)
[2018-06-23 12:04] LABS: Add Manual Diff / Slide Review YES; Hematocrit 28.8 % (36-46); Hemoglobin 10.1 g/dL (12.0-16.0); Mean Corpuscular HGB Conc 34.9 % (30-36); Mean Corpuscular Hemoglobin 32.3 PG (26-34); Mean Corpuscular Volume 92.4 fL (80-100); Platelet Count 174 X10^3/uL (150-400); Red Blood Cell Count 3.12 X10^6/uL (4.0-5.2); Red Cell Distribution Width 14.4 % (11.6-14.8); White Blood Cell Count 4.1 X10^3/uL (4.5-11.0)
[2018-06-23 12:25] LABS: Anisocytosis 1+; Neutrophils Absolute Manual 2009 /uL (3000-5900); Total Cells Counted 100
[2018-06-23 12:32] VITALS: BP 143/64; PULSE 75; RESP 16; TEMP 36.8; O2SAT 97
[2018-06-23] MEDS: DEXAMETHASONE 10 MG/ML VIAL 8 MG IV (13:26)
[2018-06-23] MEDS: ONDANSETRON 8 MG in SODIUM CHLORIDE 0.9% 50 ML 216 ML IV (13:26)
[2018-06-23] MEDS: SODIUM CHLORIDE 0.9% 100 ML 21 ML IV (13:26)
[2018-06-23] MEDS: SODIUM CHLORIDE 0.9% IV (14:24)
[2018-06-23] MEDS: GEMCITABINE HCL IV (14:24)
--- NOTE | 2018-06-30 08:32 | ONC.PN ---
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 She was seen by Dr. Bea Acosta at [facility]. She presents here today for cycle 3 a fasting and gemcitabine. Patient reported that for the past 1 cycle, patient has noticed more fatigue than before. Otherwise patient reports no fever and no chills. Patient reports good appetite. No abdominal pain. No diarrhea. No constipation. No bleeding. Oncological Historyh She presented with enlarged left supraclavicular lymph node. Biopsy reviewed carcinoma of mullerian origin. CT scan reviewed mediastinal nodes, epicardial nodes, and retroperitoneal nodes in the upper abdomen. No carcinomatosis or pelvic masses. CA 125 was elevated to 3266. He received 4 cycles of carboplatin and paclitaxel every 3 weeks with complete resolution of the adenopathy and decrease of CA-125 to 50s. On 09/07/2017, patient underwent exploratory laparotomy, JASIEL, BSO, omentectomy and right ureterolysis. She had no evidence of disease in the abdomen and had a complete site reduction. Final pathology reviewed no carcinoma in any of the specimens. 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 Postoperatively, patient has received a total of 5 additional cycles of chemotherapy, carboplatin and paclitaxel, with last dose administered on 01/07/2018. The reason for the additional doses was her CA 125 had not yet normalized after 3 adjuvant cycles. Patient underwent repeat CT scan on 12/03/2017 that did not show any adenopathy, and no evidence of local recurrence or new metastatic disease. After 3 postop cycles, CA 125 was 54. And then 35 and 37 with subsequent cycles. It was discussed with her that with her CA 125 never going back below 35, there was concern that she may not be in remission, but she declined adding maintenance bevacizumab. CA 125 remained normal at 35 on January 24 2018 but increased to 193 towards the end of March. CA-125 on 04/29/2018 had increased to [address] scan on 04/29/2018 shows evidence of recurrent disease notable for increased size and number of suspicious-appearing abdominal lymph nodes concerning for metastasis. A gastrohepatic node measuring 1.8 x 1.6, compared to 0.6 x 0.5 cm and anterior celiac node measuring 1.8 x 1.7 cm, previously 0.9 x 0.7 cm, posterior celiac lymph node measuring 2.1 x 1.5 cm, previously 1.3 x 0.7 cm at a cluster of prominent mesenteric nodes increased in size and number compared to CT scan in November 2017. Patient was deemed [place]-refractory given only 4 months out after patient completed the carboplatin/paclitaxel chemotherapy. Dr. Acosta discussed a variety of different options with the patient. More specifically bevacizumab in combination with any other chemotherapy is recommended. After extensive discussion with the patient, Dr. Acosta recommended gemcitabine paired with bevacizumab if covered by insurance company. Otherwise doxorubicin with bevacizumab or topotecan paired with bevacizumab could be considered. Then Dr. Acosta referred the patient to local medical oncologist to complete 3 cycles of the chemotherapy followed by continued follow-up at [facility]. - Patient Self-Reported Symptoms SR Constitution: Fatigue/Malaise SR ears, nose, mouth, throat issues: Cough SR respiratory issues: Cough SR Genitourinary issues: Change in stream SR Neuro issues: Numbness or tingling - Additional ROS All systems PM: reviewed and no additional remarkable complaints except as stated Home Medications and Allergies Home Medications Medication Instructions Recorded Confirmed Type cholecalciferol (vitamin D3) 4,000 unit PO DAILY 05/12/18 06/30/18 History [Vitamin D3] sennosides [senna] 8.6 mg PO QD-BID 05/12/18 06/30/18 History B Complex 100 06/30/18 History [place]-Red 06/30/18 06/30/18 History Allergies Allergy/AdvReac Type Severity Reaction Status Date / Time No Known Drug Allergies Allergy Verified 05/12/18 09:40 Exam Vital signs: Last Vital Signs Temp 98 F 06/30/18 09:29 Pulse 72 06/30/18 09:29 Resp 18 06/30/18 09:29 BP 133/88 06/30/18 09:29 Pulse Ox 98 06/30/18 09:29 ECOG 1 Narrative: Constitutional: WDWN, NAD, well groomed, pleasant and cooperative. HEENT: NCAT, EOMI, PERRLA, anicteric sclera. Neck: Supple, No palpable thyromegaly or lymphadenopathy. Respiratory: Clear to auscultation, and no wheezes or rales or rubs. Cardiovascular: RRR, S1 and S2 normal, no M/G/R. No JVD. Abdomen: Soft, NTND, BS normal, no palpable organomegaly, no hernia, no palpable masses. Extremities: No LE pitting edema. Lymphatic: no palpable lymph nodes in the neck, axillae, or groins. Musculoskeletal: normal gait and station Skin: no rashes, no ulcers, no petechiae Neurological: AOx3, CN II-XII grossly intact. No focal motor or sensory deficit. Psychiatric: Good judgment and insight; normal affect; normal thought process; cooperative, no depression, no anxiety. Results - Labs Laboratory Last Values WBC 4.1 X10^3/uL (4.5-11.0) L 06/23/18 11:30 RBC 3.12 X10^6/uL (4.0-5.2) L 06/23/18 11:30 Hgb 10.1 g/dL (12.0-16.0) L 06/23/18 11:30 Hct 28.8 % (36-46) L 06/23/18 11:30 MCV 92.4 fL (80-100) 06/23/18 11:30 MCH 32.3 PG (26-34) 06/23/18 11:30 MCHC 34.9 % (30-36) 06/23/18 11:30 RDW 14.4 % (11.6-14.8) 06/23/18 11:30 Plt Count 174 X10^3/uL (150-400) 06/23/18 11:30 Neut % (Auto) Not Reportable 06/23/18 11:30 Lymph % (Auto) Not Reportable 06/23/18 11:30 [place] % (Auto) Not Reportable 06/23/18 11:30 Eos % (Auto) Not Reportable 06/23/18 11:30 Baso % (Auto) Not Reportable 06/23/18 11:30 Neut # (Auto) 1300 /uL (8569-0999) L 06/09/18 08:37 Lymph # (Auto) Not Reportable 06/23/18 11:30 [place] # (Auto) Not Reportable 06/23/18 11:30 Eos # (Auto) 0 /uL (0-450) 06/09/18 08:37 Baso # (Auto) Not Reportable 06/23/18 11:30 Total Counted 100 06/23/18 11:30 Seg Neutrophils % 44.0 % (38-70) 06/23/18 11:30 Band Neutrophils % 5.0 % (3-7) 06/23/18 11:30 Lymphocytes % (Manual) 37.0 % (25-45) 06/23/18 11:30 Atypical Lymphs % 2.0 % (-0) H 06/23/18 11:30 Monocytes % (Manual) 12.0 % (2-11) H 06/23/18 11:30 Eosinophils % (Manual) 1.0 % (2-4) L 06/16/18 13:19 Metamyelocytes % 1.0 % (-0) H 06/16/18 13:19 Myelocytes % 2.0 % (-0) H 06/16/18 13:19 Neutrophils # (Manual) 2009 /uL (7997-0355) L 06/23/18 11:30 RBC Morphology Not Reportable 06/23/18 11:30 Anisocytosis 1+ H 06/23/18 11:30 Sodium 138 mmol/L (137-145) 06/23/18 11:30 Potassium 4.2 mmol/L (3.4-5.1) 06/23/18 11:30 Chloride 103 mmol/L (98-107) 06/23/18 11:30 Carbon Dioxide 24 mmol/L (22-32) 06/23/18 11:30 BUN 14 mg/dL (7-17) 06/23/18 11:30 Creatinine 0.90 mg/dL (0.52-1.04) 06/23/18 11:30 Estimated GFR > 60.0 mL/min (>60) 06/23/18 11:30 BUN/Creatinine Ratio 15.6 (6-22) 06/23/18 11:30 Glucose 122 mg/dL (80-110) H 06/23/18 11:30 Calcium 9.4 mg/dL (8.4-10.2) 06/23/18 11:30 Total Bilirubin 0.4 mg/dL (0.2-1.3) 06/23/18 11:30 AST 27 IU/L (14-36) 06/23/18 11:30 ALT 20 IU/L (9-52) 06/23/18 11:30 Alkaline Phosphatase 80 U/L (38-126) 06/23/18 11:30 Total Protein 7.2 g/dL (6.3-8.2) 06/23/18 11:30 Albumin 4.1 g/dL (3.5-5.0) 06/23/18 11:30 Globulin 3.1 g/dL (1.7-4.1) 06/23/18 11:30 Albumin/Globulin Ratio 1.3 (1.0-2.8) 06/23/18 11:30 CA 125 Antigen 882 U/mL (0-35) H 05/19/18 10:00 Urine Color Yellow 06/09/18 12:56 Urine Appearance Clear 06/09/18 12:56 Urine pH 7.5 (4.5-8.0) 06/09/18 12:56 Ur Specific [place] 1.015 (1.000-1.035) 06/09/18 12:56 Urine Protein Negative (Negative) 06/09/18 12:56 Urine Glucose (UA) Negative g/dL (Negative) 06/09/18 12:56 Urine Ketones Negative (NEGATIVE) 06/09/18 12:56 Urine Occult Blood Negative (Negative) 06/09/18 12:56 Urine Nitrate Negative (Negative) 06/09/18 12:56 Urine Bilirubin Negative (NEGATIVE) 06/09/18 12:56 Urine Urobilinogen 0.2 E.U./dL (0.2) 06/09/18 12:56 Ur Leukocyte Esterase Negative (NEGATIVE) 06/09/18 12:56 Assessment and Plan (1) Malignant mixed Mullerian tumor (MMMT) MMMT, Stage IV. With involvement of intra abdominal lymph nodes. CA 125 has been progressively increasing. She was started on bevacizumab and gemcitabine on April 29, 2018. Up until now, she has tolerated well. Her blood pressure has been normal. She does not any clinical bleeding events. And I once again talked with her about the potential side effects associated with the use of bevacizumab and gemcitabine. We will continue monitor the blood pressure as well as proteinuria closely. Chemotherapy regimen: Gemcitabine 1000 mg/m2, on day 1, 8. 15, and Bevasuzumab 15 mg/kg, on day 1, every 21-day cycle. Plan: 1. Ok to proceed to C3D1 today 2. Weekly CBC, CMP 3. CT CAP w/contrast 4. Refer back to Dr. Acosta for follow up visit 5. RTC MD visit C4D1, CBC, CMP and CA125. (2) Leukopenia due to antineoplastic chemotherapy Patient has grade 1 leukopenia. afebrile. We will continue monitor closely.
[2018-06-30 09:29] VITALS: BP 133/88; PULSE 72; RESP 18; TEMP 36.6; O2SAT 98
[2018-06-30 10:16] LABS: Appearance Urine UA SL CLOUDY; Bilirubin Urine UA NEGATIVE (NEGATIVE); Color Urine UA YELLOW; Glucose Urine UA NEGATIVE (Negative); Ketones Urine UA TRACE (NEGATIVE); Leukocyte Esterase Urine UA 1+ (NEGATIVE); Nitrite Urine UA NEGATIVE (Negative); Occult Blood Urine UA NEGATIVE (Negative); Protein Urine UA TRACE (Negative); Urobilinogen Urine UA 0.2 E.U./dL (0.2); pH Urine UA 5.5 (4.5-8.0)
[2018-06-30 10:25] LABS: Cancer Antigen 125 518 U/mL (0-35)
[2018-06-30 10:29] LABS: Bacteria Urine Few (2-10); Hyaline Casts Urine 1-5/LPF; RBC Urine None Seen (0-5/HPF); Squamous Epithelial Cell Urine 1-5 /HPF (0-5/HPF); WBC Urine 1-5/HPF (0-5/HPF)
[2018-06-30 10:36] LABS: Hematocrit 31.3 % (36-46); Hemoglobin 10.6 g/dL (12.0-16.0); Mean Corpuscular HGB Conc 33.8 % (30-36); Mean Corpuscular Hemoglobin 31.9 PG (26-34); Mean Corpuscular Volume 94.4 fL (80-100); Platelet Count 177 X10^3/uL (150-400); Red Blood Cell Count 3.31 X10^6/uL (4.0-5.2); White Blood Cell Count 5.6 X10^3/uL (4.5-11.0)
[2018-06-30 10:37] LABS: Add Manual Diff / Slide Review YES
[2018-06-30 10:39] LABS: Alanine Aminotransferase 20 IU/L (9-52); Albumin 4.3 g/dL (3.5-5.0); Albumin Globulin Ratio 1.3 (1.0-2.8); Alkaline Phosphatase 93 U/L (38-126); Aspartate Aminotransferase 31 IU/L (14-36); Bilirubin Total 0.5 mg/dL (0.2-1.3); Blood Urea Nitrogen 15 mg/dL (7-17); Calcium 9.6 mg/dL (8.4-10.2); Carbon Dioxide 24 mmol/L (22-32); Chloride 101 mmol/L (98-107); Estimated Glomerular Filt Rate 54.2 mL/min (>60); Globulin 3.4 g/dL (1.7-4.1); Glucose 122 mg/dL (80-110); HEMOLYSIS < 15 (0-50); Potassium 4.1 mmol/L (3.4-5.1); Sodium 137 mmol/L (137-145); Total Protein 7.7 g/dL (6.3-8.2)
[2018-06-30 11:02] LABS: Anisocytosis 2+; Neutrophils Absolute Manual 3360 /uL (3000-5900); Polychromasia 1+; Total Cells Counted 100
[2018-06-30] MEDS: DEXAMETHASONE 10 MG/ML VIAL 8 MG IV (11:23)
[2018-06-30] MEDS: SODIUM CHLORIDE 0.9% 100 ML 21 ML IV (11:23)
[2018-06-30] MEDS: diphenhydrAMINE 25 MG TABLET PO (11:24)
[2018-06-30] MEDS: ACETAMINOPHEN 325 MG TABLET 650 MG PO (11:24)
[2018-06-30] MEDS: ONDANSETRON 8 MG in SODIUM CHLORIDE 0.9% 50 ML 216 ML IV (11:54)
[2018-06-30] MEDS: BEVACIZUMAB IV (12:33)
[2018-06-30] MEDS: SODIUM CHLORIDE 0.9% IV ×2 (12:33→13:35)
[2018-06-30] MEDS: GEMCITABINE HCL IV (13:35)
--- NOTE | 2018-07-07 13:27 | PC.NURSE ---
Addendum entered by Mckayla Kwon R.N. 07/07/18 16:08: Response from Dr. Carbajal: Let's wait for the CT result. Treatment released for today. Addendum entered by Mckayla Kwon R.N. 07/07/18 13:36: Patient also reports no pain with breathing and no SOB. Lungs auscultated, clear throughout. This report sent to Dr. Carbajal for evaluation. Original Note: Patient here for treatment today. She reports increasing (since starting treatment) cough with thick clear mucous when she first lays down at night and first thing in the morning. Now every night and morning. None during the day and none while sleeping. It almost makes her gag. Nose also drippy but otherwise no signs of infection, no sore throat or chills or fever.
[2018-07-07 13:30] VITALS: BP 136/74; PULSE 82; RESP 16; TEMP 37.2
[2018-07-07 13:49] LABS: Hematocrit 26.9 % (36-46); Hemoglobin 9.4 g/dL (12.0-16.0); Mean Corpuscular Hemoglobin 32.9 PG (26-34); Platelet Count 155 X10^3/uL (150-400); Red Blood Cell Count 2.87 X10^6/uL (4.0-5.2); White Blood Cell Count 6.8 X10^3/uL (4.5-11.0)
[2018-07-07 13:51] LABS: Add Manual Diff / Slide Review YES
[2018-07-07 14:03] LABS: Alanine Aminotransferase 25 IU/L (9-52); Albumin Globulin Ratio 1.2 (1.0-2.8); Alkaline Phosphatase 92 U/L (38-126); Aspartate Aminotransferase 33 IU/L (14-36); Bilirubin Total 0.7 mg/dL (0.2-1.3); Blood Urea Nitrogen 10 mg/dL (7-17); Calcium 9.7 mg/dL (8.4-10.2); Carbon Dioxide 25 mmol/L (22-32); Chloride 101 mmol/L (98-107); Estimated Glomerular Filt Rate 54.2 mL/min (>60); Globulin 3.4 g/dL (1.7-4.1); Glucose 107 mg/dL (80-110); HEMOLYSIS < 15 (0-50); Potassium 4.1 mmol/L (3.4-5.1); Sodium 136 mmol/L (137-145); Total Protein 7.4 g/dL (6.3-8.2)
[2018-07-07] MEDS: ONDANSETRON 8 MG in SODIUM CHLORIDE 0.9% 50 ML 216 ML IV (14:27)
[2018-07-07] MEDS: DEXAMETHASONE 10 MG/ML VIAL 8 MG IV (14:27)
[2018-07-07] MEDS: SODIUM CHLORIDE 0.9% 100 ML 21 ML IV (14:28)
[2018-07-07 14:34] LABS: Neutrophils Absolute Manual 4420 /uL (3000-5900); Platelet Morphology Comment A1; RBC Morphology C1; Total Cells Counted 100
[2018-07-07] MEDS: GEMCITABINE HCL IV (15:13)
[2018-07-07] MEDS: SODIUM CHLORIDE 0.9% IV (15:13)
[2018-07-14 11:58] LABS: Add Manual Diff / Slide Review YES; Hematocrit 27.7 % (36-46); Hemoglobin 9.4 g/dL (12.0-16.0); Mean Corpuscular HGB Conc 33.9 % (30-36); Mean Corpuscular Hemoglobin 32.8 PG (26-34); Mean Corpuscular Volume 96.9 fL (80-100); Platelet Count 159 X10^3/uL (150-400); Red Blood Cell Count 2.86 X10^6/uL (4.0-5.2); Red Cell Distribution Width 20.2 % (11.6-14.8); White Blood Cell Count 8.4 X10^3/uL (4.5-11.0)
[2018-07-14 12:08] VITALS: BP 126/59; PULSE 82; RESP 16; TEMP 36.6; O2SAT 99
[2018-07-14 12:08] LABS: Alanine Aminotransferase 25 IU/L (9-52); Albumin 3.9 g/dL (3.5-5.0); Albumin Globulin Ratio 1.1 (1.0-2.8); Alkaline Phosphatase 90 U/L (38-126); Aspartate Aminotransferase 29 IU/L (14-36); BUN Creatinine Ratio 18.9 (6-22); Bilirubin Total 0.6 mg/dL (0.2-1.3); Blood Urea Nitrogen 17 mg/dL (7-17); Calcium 9.6 mg/dL (8.4-10.2); Carbon Dioxide 27 mmol/L (22-32); Chloride 99 mmol/L (98-107); Estimated Glomerular Filt Rate > 60.0 mL/min (>60); Globulin 3.4 g/dL (1.7-4.1); Glucose 122 mg/dL (80-110); HEMOLYSIS < 15 (0-50); Sodium 134 mmol/L (137-145); Total Protein 7.3 g/dL (6.3-8.2)
[2018-07-14 12:32] LABS: Macrocytosis 2+; Neutrophils Absolute Manual 6972 /uL (3000-5900); Polychromasia 1+; Total Cells Counted 100
[2018-07-14] MEDS: ONDANSETRON 8 MG in SODIUM CHLORIDE 0.9% 50 ML 216 ML IV (12:36)
[2018-07-14] MEDS: SODIUM CHLORIDE 0.9% 100 ML 21 ML IV (12:36)
[2018-07-14] MEDS: DEXAMETHASONE 10 MG/ML VIAL 8 MG IV (12:52)
[2018-07-14] MEDS: GEMCITABINE HCL IV (13:37)
[2018-07-14] MEDS: SODIUM CHLORIDE 0.9% IV (13:37)
[2018-07-21 09:13] LABS: Add Manual Diff / Slide Review NO; Basophils Absolute Auto 0 /uL (0-100); Basophils Percent Auto 0.2 % (0-2); Eosinophils Absolute Auto 0 /uL (0-450); Eosinophils Percent Auto 0.1 % (2-4); Hematocrit 25.8 % (36-46); Hemoglobin 8.8 g/dL (12.0-16.0); Lymphocytes Absolute Auto 500 /uL (1100-4500); Lymphocytes Percent Auto 4.9 % (25-40); Mean Corpuscular HGB Conc 34.1 % (30-36); Mean Corpuscular Hemoglobin 32.9 PG (26-34); Mean Corpuscular Volume 96.4 fL (80-100); Monocytes Absolute Auto 1900 /uL (0-900); Monocytes Percent Auto 16.7 % (3-14); Neutrophils Absolute Auto 8800 /uL (1500-7000); Neutrophils Percent Auto 78.1 % (50-75); Platelet Count 207 X10^3/uL (150-400); Red Blood Cell Count 2.67 X10^6/uL (4.0-5.2); White Blood Cell Count 11.2 X10^3/uL (4.5-11.0)
--- NOTE | 2018-07-21 09:14 | ONC.PN ---
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 She is being followed also by Dr. Bea Acosta at [facility]. She presents here today for cycle 4 Avastin and gemcitabine. She is reporting mild sore throat. She is also having some cough with low-grade fever about 100. She said she has noticed some raspy voice. When she takes a deep breath, sometimes it triggers a cough. She denies any chest pain. No abdominal pain. No diarrhea and no constipation. She is scheduled to see Dr. Acosta next Wednesday. Oncological Historyh She presented with enlarged left supraclavicular lymph node. Biopsy reviewed carcinoma of mullerian origin. CT scan reviewed mediastinal nodes, epicardial nodes, and retroperitoneal nodes in the upper abdomen. No carcinomatosis or pelvic masses. CA 125 was elevated to 3266. He received 4 cycles of carboplatin and paclitaxel every 3 weeks with complete resolution of the adenopathy and decrease of CA-125 to 50s. On 09/07/2017, patient underwent exploratory laparotomy, JASIEL, BSO, omentectomy and right ureterolysis. She had no evidence of disease in the abdomen and had a complete site reduction. Final pathology reviewed no carcinoma in any of the specimens. 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 Postoperatively, patient has received a total of 5 additional cycles of chemotherapy, carboplatin and paclitaxel, with last dose administered on 01/07/2018. The reason for the additional doses was her CA 125 had not yet normalized after 3 adjuvant cycles. Patient underwent repeat CT scan on 12/03/2017 that did not show any adenopathy, and no evidence of local recurrence or new metastatic disease. After 3 postop cycles, CA 125 was 54. And then 35 and 37 with subsequent cycles. It was discussed with her that with her CA 125 never going back below 35, there was concern that she may not be in remission, but she declined adding maintenance bevacizumab. CA 125 remained normal at 35 on January 24 2018 but increased to 193 towards the end of March. CA-125 on 04/29/2018 had increased to [address] scan on 04/29/2018 shows evidence of recurrent disease notable for increased size and number of suspicious-appearing abdominal lymph nodes concerning for metastasis. A gastrohepatic node measuring 1.8 x 1.6, compared to 0.6 x 0.5 cm and anterior celiac node measuring 1.8 x 1.7 cm, previously 0.9 x 0.7 cm, posterior celiac lymph node measuring 2.1 x 1.5 cm, previously 1.3 x 0.7 cm at a cluster of prominent mesenteric nodes increased in size and number compared to CT scan in November 2017. Patient was deemed qagan tayagungin-refractory given only 4 months out after patient completed the carboplatin/paclitaxel chemotherapy. Dr. Acosta discussed a variety of different options with the patient. More specifically bevacizumab in combination with any other chemotherapy is recommended. After extensive discussion with the patient, Dr. Acosta recommended gemcitabine paired with bevacizumab if covered by insurance company. Otherwise doxorubicin with bevacizumab or topotecan paired with bevacizumab could be considered. Then Dr. Acosta referred the patient to local medical oncologist to complete 3 cycles of the chemotherapy followed by continued follow-up at [facility]. - Patient Self-Reported Symptoms SR Constitution: Fatigue/Malaise SR ears, nose, mouth, throat issues: Cough SR respiratory issues: Cough SR Genitourinary issues: Change in stream SR Neuro issues: Numbness or tingling - Additional ROS All systems PM: reviewed and no additional remarkable complaints except as stated Home Medications and Allergies Home Medications Medication Instructions Recorded Confirmed Type cholecalciferol (vitamin D3) 4,000 unit PO DAILY 05/12/18 06/30/18 History [Vitamin D3] sennosides [senna] 8.6 mg PO QD-BID 05/12/18 06/30/18 History B Complex 100 06/30/18 History Lakesha-Red 06/30/18 06/30/18 History Allergies Allergy/AdvReac Type Severity Reaction Status Date / Time No Known Drug Allergies Allergy Verified 05/12/18 09:40 Exam Vital signs: Last Vital Signs Temp 100.0 F H 07/21/18 09:36 Pulse 98 H 07/21/18 09:36 Resp 18 07/21/18 09:36 BP 135/75 07/21/18 09:36 Pulse Ox 98 07/21/18 09:36 ECOG 1 Narrative: Constitutional: WDWN, NAD, well groomed, pleasant and cooperative. HEENT: NCAT, EOMI, PERRLA, anicteric sclera. Neck: Supple, No palpable thyromegaly or lymphadenopathy. Respiratory: Clear to auscultation, and no wheezes or rales or rubs. Cardiovascular: RRR, S1 and S2 normal, no M/G/R. No JVD. Abdomen: Soft, NTND, BS normal, no palpable organomegaly, no hernia, no palpable masses. Extremities: No LE pitting edema. Lymphatic: no palpable lymph nodes in the neck, axillae, or groins. Musculoskeletal: normal gait and station Skin: no rashes, no ulcers, no petechiae Neurological: AOx3, CN II-XII grossly intact. No focal motor or sensory deficit. Psychiatric: Good judgment and insight; normal affect; normal thought process; cooperative, no depression, no anxiety. Results - Labs Laboratory Last Values WBC 11.2 X10^3/uL (4.5-11.0) H 07/21/18 09:02 RBC 2.67 X10^6/uL (4.0-5.2) L 07/21/18 09:02 Hgb 8.8 g/dL (12.0-16.0) L 07/21/18 09:02 Hct 25.8 % (36-46) L 07/21/18 09:02 MCV 96.4 fL (80-100) 07/21/18 09:02 MCH 32.9 PG (26-34) 07/21/18 09:02 MCHC 34.1 % (30-36) 07/21/18 09:02 RDW 21.0 % (11.6-14.8) H 07/21/18 09:02 Plt Count 207 X10^3/uL (150-400) 07/21/18 09:02 Neut % (Auto) 78.1 % (50-75) H 07/21/18 09:02 Lymph % (Auto) 4.9 % (25-40) L 07/21/18 09:02 [place] % (Auto) 16.7 % (3-14) H 07/21/18 09:02 Eos % (Auto) 0.1 % (2-4) L 07/21/18 09:02 Baso % (Auto) 0.2 % (0-2) 07/21/18 09:02 Neut # (Auto) 8800 /uL (9666-0250) H 07/21/18 09:02 Lymph # (Auto) 500 /uL (3767-1462) L 07/21/18 09:02 [place] # (Auto) 1900 /uL (0-900) H 07/21/18 09:02 Eos # (Auto) 0 /uL (0-450) 07/21/18 09:02 Baso # (Auto) 0 /uL (0-100) 07/21/18 09:02 Total Counted 100 07/14/18 11:30 Seg Neutrophils % 79.0 % (38-70) H 07/14/18 11:30 Band Neutrophils % 4.0 % (3-7) 07/14/18 11:30 Lymphocytes % (Manual) 4.0 % (25-45) L 07/14/18 11:30 Atypical Lymphs % 1.0 % (-0) H 07/14/18 11:30 Monocytes % (Manual) 12.0 % (2-11) H 07/14/18 11:30 Eosinophils % (Manual) 1.0 % (2-4) L 06/16/18 13:19 Metamyelocytes % 1.0 % (-0) H 06/30/18 10:21 Myelocytes % 2.0 % (-0) H 06/16/18 13:19 Neutrophils # (Manual) 6972 /uL (7212-4501) H 07/14/18 11:30 Plt Morphology Comment A1 07/07/18 08:52 RBC Morphology Not Reportable 07/21/18 09:02 Polychromasia 1+ H 07/21/18 09:02 Anisocytosis 2+ H 06/30/18 10:21 Macrocytosis 2+ H 07/21/18 09:02 Sodium 133 mmol/L (137-145) L 07/21/18 09:02 Potassium 3.9 mmol/L (3.4-5.1) 07/21/18 09:02 Chloride 98 mmol/L (98-107) 07/21/18 09:02 Carbon Dioxide 25 mmol/L (22-32) 07/21/18 09:02 BUN 13 mg/dL (7-17) 07/21/18 09:02 Creatinine 1.00 mg/dL (0.52-1.04) 07/21/18 09:02 Estimated GFR 54.2 mL/min (>60) L 07/21/18 09:02 BUN/Creatinine Ratio 13.0 (6-22) 07/21/18 09:02 Glucose 130 mg/dL (80-110) H 07/21/18 09:02 Calcium 9.5 mg/dL (8.4-10.2) 07/21/18 09:02 Total Bilirubin 1.0 mg/dL (0.2-1.3) 07/21/18 09:02 AST 29 IU/L (14-36) 07/21/18 09:02 ALT 23 IU/L (9-52) 07/21/18 09:02 Alkaline Phosphatase 85 U/L (38-126) 07/21/18 09:02 Total Protein 7.1 g/dL (6.3-8.2) 07/21/18 09:02 Albumin 3.9 g/dL (3.5-5.0) 07/21/18 09:02 Globulin 3.2 g/dL (1.7-4.1) 07/21/18 09:02 Albumin/Globulin Ratio 1.2 (1.0-2.8) 07/21/18 09:02 CA 125 Antigen 518 U/mL (0-35) H 06/30/18 09:20 Urine Color Yellow 06/30/18 10:16 Urine Appearance Sl cloudy 06/30/18 10:16 Urine pH 5.5 (4.5-8.0) 06/30/18 10:16 Ur Specific [place] 1.020 (1.000-1.035) 06/30/18 10:16 Urine Protein Trace (Negative) H 06/30/18 10:16 Urine Glucose (UA) Negative g/dL (Negative) 06/30/18 10:16 Urine Ketones Trace (NEGATIVE) H 06/30/18 10:16 Urine Occult Blood Negative (Negative) 06/30/18 10:16 Urine Nitrate Negative (Negative) 06/30/18 10:16 Urine Bilirubin Negative (NEGATIVE) 06/30/18 10:16 Urine Urobilinogen 0.2 E.U./dL (0.2) 06/30/18 10:16 Ur Leukocyte Esterase 1+ (NEGATIVE) H 06/30/18 10:16 Urine RBC None seen (0-5/HPF) 06/30/18 10:16 Urine WBC 1-5/hpf (0-5/HPF) 06/30/18 10:16 Ur Squamous Epith Cells 1-5 /hpf (0-5/HPF) 06/30/18 10:16 Urine Bacteria Few (2-10) (None) H 06/30/18 10:16 Hyaline Casts 1-5/lpf (None) 06/30/18 10:16 Ur Culture Indicated? Culture not indicate 06/30/18 10:16 Assessment and Plan (1) Malignant mixed Mullerian tumor (MMMT) MMMT, Stage IV, with involvement of intra abdominal lymph nodes. She was started on bevacizumab and gemcitabine on April 29, 2018. Chemotherapy regimen: Gemcitabine 1000 mg/m2, on day 1, 8. 15, and Bevasuzumab 15 mg/kg, on day 1, every 21-day cycle. Today I reviewed the tumor markers with the patient. CA 125 is beginning to decline. Patient is scheduled to see Dr. Acosta next Wednesday. Clinically patient is complaining of significant fatigue with mild sore throat and low-grade fever. I talked with her that I would fever delay the current cycle 4 by 1 week. Patient voiced understanding. When she comes back next week, I would like to see Dr. Acosta's opinion too. Plan: 1. Delay C4D1 to 07/28/2018. I will see the patient. 2. Weekly CBC, CMP 3. Dr. Acosta for follow up visit on 07/25/2018 (2) Leukopenia due to antineoplastic chemotherapy Resolved. We will continue monitor closely.
--- NOTE | 2018-07-21 09:21 | P.PNONC_ITS ---
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 She is being followed also by Dr. Bea Acosta at [facility]. She presents here today for cycle 4 Avastin and gemcitabine. She is reporting mild sore throat. She is also having some cough with low-grade fever about 100. She said she has noticed some raspy voice. When she takes a deep breath, sometimes it triggers a cough. She denies any chest pain. No abdominal pain. No diarrhea and no constipation. She is scheduled to see Dr. Acosta next Wednesday. Oncological Historyh She presented with enlarged left supraclavicular lymph node. Biopsy reviewed carcinoma of mullerian origin. CT scan reviewed mediastinal nodes, epicardial nodes, and retroperitoneal nodes in the upper abdomen. No carcinomatosis or pelvic masses. CA 125 was elevated to 3266. He received 4 cycles of carboplatin and paclitaxel every 3 weeks with complete resolution of the adenopathy and decrease of CA-125 to 50s. On 09/07/2017, patient underwent expl oratory laparotomy, JASIEL, BSO, omentectomy and right ureterolysis. She had no evidence of disease in the abdomen and had a complete site reduction. Final pathology reviewed no carcinoma in any of the specimens. 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 Postoperatively, patient has received a total of 5 additional cycles of chemotherapy, carboplatin and paclitaxel, with last dose administered on 01/07/2018. The reason for the a dditional doses was her CA 125 had not yet normalized after 3 adjuvant cycles. Patient underwent repeat CT scan on 12/03/2017 that did not show any adenopathy, and no evidence of local recurrence or new metastatic disease. After 3 postop cycles, CA 125 was 54. And then 35 and 37 with subsequent cycles. It was discussed with her that with her CA 125 never going back below 35, there was concern that she may not be in remission, but she declined adding maintenance bevacizumab. CA 125 remained normal at 35 on January 24 2018 but increased to 193 towards the end of March. CA-125 on 04/29/2018 had increased to [address] scan on 04/29/2018 shows evidence of recurrent disease notable for increased size and number of suspicious- appearing abdominal lymph nodes concerning for metastasis. A gastrohepatic node measuring 1.8 x 1.6, compared to 0.6 x 0.5 cm and anterior celiac node measuring 1.8 x 1.7 cm, previously 0.9 x 0.7 cm, posterior celiac lymph node measuring 2.1 x 1.5 cm, previously 1.3 x 0.7 cm at a cluster of prominent mesenteric nodes increased in size and number compared to CT scan in November 2017. Patient was deemed flandreau-refractory given only 4 months out after patient completed the carboplatin/paclitaxel chemotherapy. Dr. Acosta discussed a variety of different options with the patient. More specifically bevacizumab in combination with any other chemotherapy is recommended. After extensive discussion with the patient, Dr. Acosta recommended gemcitabine paired with bevacizumab if covered by insurance company. Otherwise doxorubicin with bevacizumab or topotecan paired with bevacizumab could be considered. Then Dr. Acosta referred the patient to local medical oncologist to complete 3 cycles of the chemotherapy followed by continued follow-up at [facility]. - Patient Self-Reported Symptoms SR Constitution: Fatigue/Malaise SR ears, nose, mouth, throat issues: Cough SR respiratory issues: Cough SR Genitourinary issues: Change in stream SR Neuro issues: Numbness or tingling - Additional ROS All systems PM: reviewed and no additional remarkable complaints except as stated Home Medications and Allergies Home Medications Medication Instructions Recorded Confirmed Type cholecalciferol (vitamin D3) 4,000 unit PO DAILY 05/12/18 06/30/18 History [Vitamin D3] sennosides [senna] 8.6 mg PO QD-BID 05/12/18 06/30/18 History B Complex 100 06/30/18 History Lakesha-Red 06/30/18 06/30/18 History Allergies Allergy/AdvReac Type Severity Reaction Status Date / Time No Known Drug Allergies Allergy Verified 05/12/18 09:40 Exam Vital signs: Last Vital Signs Temp 100.0 F H 07/21/18 09:36 Pulse 98 H 07/21/18 09:36 Resp 18 07/21/18 09:36 BP 135/75 07/21/18 09:36 Pulse Ox 98 07/21/18 09:36 ECOG 1 Narrative: Constitutional: WDWN, NAD, well groomed, pleasant and cooperative. HEENT: NCAT, EOMI, PERRLA, anicteric sclera. Neck: Supple, No palpable thyromegaly or lymphadenopathy. Respiratory: Clear to auscultation, and no wheezes or rales or rubs. Cardiovascular: RRR, S1 and S2 normal, no M/G/R. No JVD. Abdomen: Soft, NTND, BS normal, no palpable organomegaly, no hernia, no palpable masses. Extremities: No LE pitting edema. Lymphatic: no palpable lymph nodes in the neck, axillae, or groins. Musculoskeletal: normal gait and station Skin: no rashes, no ulcers, no petechiae Neurological: AOx3, CN II-XII grossly intact. No focal motor or sensory deficit. Psychiatric: Good judgment and insight; normal affect; normal thought process; cooperative, no depression, no anxiety. Results - Labs Laboratory Last Values WBC 11.2 X10^3/uL (4.5-11.0) H 07/21/18 09:02 RBC 2.67 X10^6/uL (4.0-5.2) L 07/21/18 09:02 Hgb 8.8 g/dL (12.0-16.0) L 07/21/18 09:02 Hct 25.8 % (36-46) L 07/21/18 09:02 MCV 96.4 fL (80-100) 07/21/18 09:02 MCH 32.9 PG (26-34) 07/21/18 09:02 MCHC 34.1 % (30-36) 07/21/18 09:02 RDW 21.0 % (11.6-14.8) H 07/21/18 09:02 Plt Count 207 X10^3/uL (150-400) 07/21/18 09:02 Neut % (Auto) 78.1 % (50-75) H 07/21/18 09:02 Lymph % (Auto) 4.9 % (25-40) L 07/21/18 09:02 [place] % (Auto) 16.7 % (3-14) H 07/21/18 09:02 Eos % (Auto) 0.1 % (2-4) L 07/21/18 09:02 Baso % (Auto) 0.2 % (0-2) 07/21/18 09:02 Neut # (Auto) 8800 /uL (5862-7970) H 07/21/18 09:02 Lymph # (Auto) 500 /uL (2774-9965) L 07/21/18 09:02 [place] # (Auto) 1900 /uL (0-900) H 07/21/18 09:02 Eos # (Auto) 0 /uL (0-450) 07/21/18 09:02 Baso # (Auto) 0 /uL (0-100) 07/21/18 09:02 Total Counted 100 07/14/18 11:30 Seg Neutrophils % 79.0 % (38-70) H 07/14/18 11:30 Band Neutrophils % 4.0 % (3-7) 07/14/18 11:30 Lymphocytes % (Manual) 4.0 % (25-45) L 07/14/18 11:30 Atypical Lymphs % 1.0 % (-0) H 07/14/18 11:30 Monocytes % (Manual) 12.0 % (2-11) H 07/14/18 11:30 Eosinophils % (Manual) 1.0 % (2-4) L 06/16/18 13:19 Metamyelocytes % 1.0 % (-0) H 06/30/18 10:21 Myelocytes % 2.0 % (-0) H 06/16/18 13:19 Neutrophils # (Manual) 6972 /uL (8617-1186) H 07/14/18 11:30 Plt Morphology Comment A1 07/07/18 08:52 RBC Morphology Not Reportable 07/21/18 09:02 Polychromasia 1+ H 07/21/18 09:02 Anisocytosis 2+ H 06/30/18 10:21 Macrocytosis 2+ H 07/21/18 09:02 Sodium 133 mmol/L (137-145) L 07/21/18 09:02 Potassium 3.9 mmol/L (3.4-5.1) 07/21/18 09:02 Chloride 98 mmol/L (98-107) 07/21/18 09:02 Carbon Dioxide 25 mmol/L (22-32) 07/21/18 09:02 BUN 13 mg/dL (7-17) 07/21/18 09:02 Creatinine 1.00 mg/dL (0.52-1.04) 07/21/18 09:02 Estimated GFR 54.2 mL/min (>60) L 07/21/18 09:02 BUN/Creatinine Ratio 13.0 (6-22) 07/21/18 09:02 Glucose 130 mg/dL (80-110) H 07/21/18 09:02 Calcium 9.5 mg/dL (8.4-10.2) 07/21/18 09:02 Total Bilirubin 1.0 mg/dL (0.2-1.3) 07/21/18 09:02 AST 29 IU/L (14-36) 07/21/18 09:02 ALT 23 IU/L (9-52) 07/21/18 09:02 Alkaline Phosphatase 85 U/L (38-126) 07/21/18 09:02 Total Protein 7.1 g/dL (6.3-8.2) 07/21/18 09:02 Albumin 3.9 g/dL (3.5-5.0) 07/21/18 09:02 Globulin 3.2 g/dL (1.7-4.1) 07/21/18 09:02 Albumin/Globulin Ratio 1.2 (1.0-2.8) 07/21/18 09:02 CA 125 Antigen 518 U/mL (0-35) H 06/30/18 09:20 Urine Color Yellow 06/30/18 10:16 Urine Appearance Sl cloudy 06/30/18 10:16 Urine pH 5.5 (4.5-8.0) 06/30/18 10:16 Ur Specific [place] 1.020 (1.000-1.035) 06/30/18 10:16 Urine Protein Trace (Negative) H 06/30/18 10:16 Urine Glucose (UA) Negative g/dL (Negative) 06/30/18 10:16 Urine Ketones Trace (NEGATIVE) H 06/30/18 10:16 Urine Occult Blood Negative (Negative) 06/30/18 10:16 Urine Nitrate Negative (Negative) 06/30/18 10:16 Urine Bilirubin Negative (NEGATIVE) 06/30/18 10:16 Urine Urobilinogen 0.2 E.U./dL (0.2) 06/30/18 10:16 Ur Leukocyte Esterase 1+ (NEGATIVE) H 06/30/18 10:16 Urine RBC None seen (0-5/HPF) 06/30/18 10:16 Urine WBC 1-5/hpf (0-5/HPF) 06/30/18 10:16 Ur Squamous Epith Cells 1-5 /hpf (0-5/HPF) 06/30/18 10:16 Urine Bacteria Few (2-10) (None) H 06/30/18 10:16 Hyaline Casts 1-5/lpf (None) 06/30/18 10:16 Ur Culture Indicated? Culture not indicate 06/30/18 10:16 Assessment and Plan (1) Malignant mixed Mullerian tumor (MMMT) MMMT, Stage IV, with involvement of intra abdominal lymph nodes. She was started on bevacizumab and gemcitabine on April 29, 2018. Chemotherapy regimen: Gemcitabine 1000 mg/m2, on day 1, 8. 15, and Bevasuzumab 15 mg/kg, on day 1, every 21-day cycle. Today I reviewed the tumor markers with the patient. CA 125 is beginning to decline. Patient is scheduled to see Dr. Acosta next Wednesday. Clinically patient is complaining of significant fatigue with mild sore throat and low- grade fever. I talked with her that I would fever delay the current cycle 4 by 1 week. Patient voiced understanding. When she comes back next week, I would like to see Dr. Acosta's opinion too. Plan: 1. Delay C4D1 to 07/28/2018. I will see the patient. 2. Weekly CBC, CMP 3. Dr. Acosta for follow up visit on 07/25/2018 (2) Leukopenia due to antineoplastic chemotherapy Resolved. We will continue monitor closely.
[2018-07-21 09:26] LABS: Alanine Aminotransferase 23 IU/L (9-52); Albumin 3.9 g/dL (3.5-5.0); Albumin Globulin Ratio 1.2 (1.0-2.8); Alkaline Phosphatase 85 U/L (38-126); Aspartate Aminotransferase 29 IU/L (14-36); Blood Urea Nitrogen 13 mg/dL (7-17); Calcium 9.5 mg/dL (8.4-10.2); Carbon Dioxide 25 mmol/L (22-32); Chloride 98 mmol/L (98-107); Estimated Glomerular Filt Rate 54.2 mL/min (>60); Globulin 3.2 g/dL (1.7-4.1); Glucose 130 mg/dL (80-110); HEMOLYSIS < 15 (0-50); Potassium 3.9 mmol/L (3.4-5.1); Sodium 133 mmol/L (137-145); Total Protein 7.1 g/dL (6.3-8.2)
[2018-07-21 09:36] VITALS: BP 135/75; PULSE 98; RESP 18; TEMP 37.8; O2SAT 98
[2018-07-21 09:38] LABS: Macrocytosis 2+; Polychromasia 1+
[2018-07-21 09:57] LABS: Cancer Antigen 125 708 U/mL (0-35)
[2018-07-21 10:30] LABS: Bilirubin Urine UA 1+ (NEGATIVE); Color Urine UA YELLOW; Glucose Urine UA NEGATIVE (Negative); Ketones Urine UA 1+ (NEGATIVE); Leukocyte Esterase Urine UA TRACE (NEGATIVE); Nitrite Urine UA NEGATIVE (Negative); Occult Blood Urine UA NEGATIVE (Negative); Protein Urine UA 2+ (Negative); Specific Gravity Urine UA 1.025 (1.000-1.035); pH Urine UA 5.5 (4.5-8.0)
[2018-07-21 10:33] LABS: Appearance Urine UA Slightly Cloudy
[2018-07-21 10:34] LABS: RBC Urine None Seen (0-5/HPF)
[2018-07-21 10:41] LABS: Ictotest Urine Negative (Negative); WBC Urine 1-5/HPF (0-5/HPF)
[2018-07-21 10:42] LABS: Bacteria Urine Moderate (10-30); Hyaline Casts Urine 0-1/LPF; Mucus Urine 2+ (Negative); Squamous Epithelial Cell Urine 10-30 /HPF (0-5/HPF)
--- NOTE | 2018-07-28 16:30 | PC.NURSE ---
late entry for port access and lab draw on 07/14: asymptomatic port site accessed per policy using .75 Gonzalez needle.
--- NOTE | 2018-08-01 12:15 | PC.NURSE ---
This nurse called patient to follow up on her emergency visit to after call made by patient and Dr. Acosta into our office that she should be seen this week. Patient stated our artificial marble worker Odalis called her after talking with Dr. Acosta's office getting an ok for a f/u on 08/04. Patient stated that she is informed of this. She negates SOB, fever, chills, light headedness. She states that her cough has improved and she is sleeping well. She states taking enoxaparin q 12 hours and steroids qam per Dr. barney at .
[2018-08-04 09:54] VITALS: BP 144/89; PULSE 90; RESP 16; TEMP 37.1; O2SAT 100
--- NOTE | 2018-08-04 10:09 | ONC.PN ---
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 Neoadjuvant chemotherapy with carboplatin and Taxol for 4 cycles 2. Optimal cyto reduction in August 2017 3. Five additional cycles of adjuvant carboplatin and Taxol finishing in December 2017 4. Recurrent disease treated with gemcitabine and bevacizumab for 3 cycles finishing in June 2018. 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 She is being followed also by Dr. Bea Acosta at [facility]. Since her last visit here, she had been seen in [place] for routine follow-up CT scan. That scan demonstrated a new pulmonary embolism. In addition there were inflammatory changes in the lungs. She was hospitalized did require ICU care. She was markedly hypoxic. She was treated with Lovenox as well as steroids and has improved quite a bit. She is not having any pain in the chest. She denies any shortness of breath. She still has a little bit of a cough that is been nonproductive. Her appetite has been good. Strength and energy level have been improved while she has been on the steroids. She denies any GI complaints. No pain or swelling in the legs. She has not had any unusual bleeding or bruising and is tolerating the Lovenox without any difficulty. She tells me that she still needs to schedule a follow-up with building trades instructor in [place]. She also tells me that the CT scan demonstrated progression of her cancer. Dr. Acosta has recommended a will on to additional therapy with Doxil. The patient may be eligible for clinical trial. Oncological Historyh She presented with enlarged left supraclavicular lymph node. Biopsy reviewed carcinoma of mullerian origin. CT scan reviewed mediastinal nodes, epicardial nodes, and retroperitoneal nodes in the upper abdomen. No carcinomatosis or pelvic masses. CA 125 was elevated to 3266. He received 4 cycles of carboplatin and paclitaxel every 3 weeks with complete resolution of the adenopathy and decrease of CA-125 to 50s. On 09/07/2017, patient underwent exploratory laparotomy, JASIEL, BSO, omentectomy and right ureterolysis. She had no evidence of disease in the abdomen and had a complete site reduction. Final pathology reviewed no carcinoma in any of the specimens. 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 Postoperatively, patient has received a total of 5 additional cycles of chemotherapy, carboplatin and paclitaxel, with last dose administered on 01/07/2018. The reason for the additional doses was her CA 125 had not yet normalized after 3 adjuvant cycles. Patient underwent repeat CT scan on 12/03/2017 that did not show any adenopathy, and no evidence of local recurrence or new metastatic disease. After 3 postop cycles, CA 125 was 54. And then 35 and 37 with subsequent cycles. It was discussed with her that with her CA 125 never going back below 35, there was concern that she may not be in remission, but she declined adding maintenance bevacizumab. CA 125 remained normal at 35 on January 24 2018 but increased to 193 towards the end of March. CA-125 on 04/29/2018 had increased to [address] scan on 04/29/2018 shows evidence of recurrent disease notable for increased size and number of suspicious-appearing abdominal lymph nodes concerning for metastasis. A gastrohepatic node measuring 1.8 x 1.6, compared to 0.6 x 0.5 cm and anterior celiac node measuring 1.8 x 1.7 cm, previously 0.9 x 0.7 cm, posterior celiac lymph node measuring 2.1 x 1.5 cm, previously 1.3 x 0.7 cm at a cluster of prominent mesenteric nodes increased in size and number compared to CT scan in November 2017. Patient was deemed pamunkey-refractory given only 4 months out after patient completed the carboplatin/paclitaxel chemotherapy. Dr. Acosta discussed a variety of different options with the patient. More specifically bevacizumab in combination with any other chemotherapy is recommended. After extensive discussion with the patient, Dr. Acosta recommended gemcitabine paired with bevacizumab if covered by insurance company. Otherwise doxorubicin with bevacizumab or topotecan paired with bevacizumab could be considered. Then Dr. Acosta referred the patient to local medical oncologist to complete 3 cycles of the chemotherapy followed by continued follow-up at [facility]. - Patient Self-Reported Symptoms SR Constitution: Fatigue/Malaise SR ears, nose, mouth, throat issues: Cough SR respiratory issues: Cough, Coughing blood, Shortness of breath, Difficulty breathing, Mucous SR Genitourinary issues: Change in stream SR Neuro issues: Numbness or tingling Home Medications and Allergies Home Medications Medication Instructions Recorded Confirmed Type cholecalciferol (vitamin D3) 4,000 unit PO DAILY 05/12/18 08/04/18 History [Vitamin D3] sennosides [senna] 8.6 mg PO QD-BID 05/12/18 08/04/18 History B Complex 100 1 tab PO QAM 06/30/18 08/04/18 History Lakesha-Red 06/30/18 08/04/18 History enoxaparin [Lovenox] 65 mg SUBCUT Q12H 08/04/18 08/04/18 History prednisone See Rx Instructions .ROUTE .COMPLEX 08/04/18 08/04/18 History Allergies Allergy/AdvReac Type Severity Reaction Status Date / Time No Known Drug Allergies Allergy Verified 05/12/18 09:40 Exam Vital signs: Vital Signs Temp Pulse Resp BP Pulse Ox 08/04/18 09:54 98.7 F 90 16 144/89 H 100 Intake and Output 08/03/18 08/04/18 08/04/18 23:59 07:59 15:59 Other: Weight 77.7 kg Patient Weight 08/04/18 23:59 Weight 77.7 kg - Constitutional positive no acute distress, positive average body habitus - Routine HEENT Exam Head: Present: normocephalic, atraumatic Eye: Present: EOMI, PERRL. Absent: conjunctival icterus, scleral injection ENT: Present: mucous membranes moist, oropharynx clear - Routine Neck Exam Present: supple. Absent: lymphadenopathy, thyromegaly - Routine Chest/Breast/Axilla Exam Axillae: Absent: lymphadenopathy - Routine Respiratory Exam Present: Clear to auscultation bilaterally. Absent: rales, wheezes - Routine Cardiovascular Exam Present: RRR, S1, S2. Absent: murmur - Routine Abdominal Exam Present: soft, normoactive bowel sounds. Absent: tenderness, organomegaly - Routine Extremities Exam Present: edema. Absent: cyanosis, clubbing Comments: She has trace lower extremity edema. - Routine Back/Spine Exam Back/Spine: Absent: vertebral tenderness - Routine Skin Exam Present: intact. Absent: petechiae, rash - Routine Neurological Exam Present: alert, oriented X3 - Routine Psychiatric Exam Present: normal affect, normal thought process Results - Labs Laboratory Last Values WBC 11.2 X10^3/uL (4.5-11.0) H 07/21/18 09:02 RBC 2.67 X10^6/uL (4.0-5.2) L 07/21/18 09:02 Hgb 8.8 g/dL (12.0-16.0) L 07/21/18 09:02 Hct 25.8 % (36-46) L 07/21/18 09:02 MCV 96.4 fL (80-100) 07/21/18 09:02 MCH 32.9 PG (26-34) 07/21/18 09:02 MCHC 34.1 % (30-36) 07/21/18 09:02 RDW 21.0 % (11.6-14.8) H 07/21/18 09:02 Plt Count 207 X10^3/uL (150-400) 07/21/18 09:02 Neut % (Auto) 78.1 % (50-75) H 07/21/18 09:02 Lymph % (Auto) 4.9 % (25-40) L 07/21/18 09:02 [place] % (Auto) 16.7 % (3-14) H 07/21/18 09:02 Eos % (Auto) 0.1 % (2-4) L 07/21/18 09:02 Baso % (Auto) 0.2 % (0-2) 07/21/18 09:02 Neut # (Auto) 8800 /uL (6253-5013) H 07/21/18 09:02 Lymph # (Auto) 500 /uL (8432-6856) L 07/21/18 09:02 [place] # (Auto) 1900 /uL (0-900) H 07/21/18 09:02 Eos # (Auto) 0 /uL (0-450) 07/21/18 09:02 Baso # (Auto) 0 /uL (0-100) 07/21/18 09:02 Total Counted 100 07/14/18 11:30 Seg Neutrophils % 79.0 % (38-70) H 07/14/18 11:30 Band Neutrophils % 4.0 % (3-7) 07/14/18 11:30 Lymphocytes % (Manual) 4.0 % (25-45) L 07/14/18 11:30 Atypical Lymphs % 1.0 % (-0) H 07/14/18 11:30 Monocytes % (Manual) 12.0 % (2-11) H 07/14/18 11:30 Eosinophils % (Manual) 1.0 % (2-4) L 06/16/18 13:19 Metamyelocytes % 1.0 % (-0) H 06/30/18 10:21 Myelocytes % 2.0 % (-0) H 06/16/18 13:19 Neutrophils # (Manual) 6972 /uL (7222-0052) H 07/14/18 11:30 Plt Morphology Comment A1 07/07/18 08:52 RBC Morphology Not Reportable 07/21/18 09:02 Polychromasia 1+ H 07/21/18 09:02 Anisocytosis 2+ H 06/30/18 10:21 Macrocytosis 2+ H 07/21/18 09:02 Sodium 133 mmol/L (137-145) L 07/21/18 09:02 Potassium 3.9 mmol/L (3.4-5.1) 07/21/18 09:02 Chloride 98 mmol/L (98-107) 07/21/18 09:02 Carbon Dioxide 25 mmol/L (22-32) 07/21/18 09:02 BUN 13 mg/dL (7-17) 07/21/18 09:02 Creatinine 1.00 mg/dL (0.52-1.04) 07/21/18 09:02 Estimated GFR 54.2 mL/min (>60) L 07/21/18 09:02 BUN/Creatinine Ratio 13.0 (6-22) 07/21/18 09:02 Glucose 130 mg/dL (80-110) H 07/21/18 09:02 Calcium 9.5 mg/dL (8.4-10.2) 07/21/18 09:02 Total Bilirubin 1.0 mg/dL (0.2-1.3) 07/21/18 09:02 AST 29 IU/L (14-36) 07/21/18 09:02 ALT 23 IU/L (9-52) 07/21/18 09:02 Alkaline Phosphatase 85 U/L (38-126) 07/21/18 09:02 Total Protein 7.1 g/dL (6.3-8.2) 07/21/18 09:02 Albumin 3.9 g/dL (3.5-5.0) 07/21/18 09:02 Globulin 3.2 g/dL (1.7-4.1) 07/21/18 09:02 Albumin/Globulin Ratio 1.2 (1.0-2.8) 07/21/18 09:02 CA 125 Antigen 708 U/mL (0-35) H 07/21/18 09:02 Urine Color Yellow 07/21/18 09:02 Urine Appearance Slightly cloudy 07/21/18 09:02 Urine pH 5.5 (4.5-8.0) 07/21/18 09:02 Ur Specific [place] 1.025 (1.000-1.035) 07/21/18 09:02 Urine Protein 2+ (Negative) H 07/21/18 09:02 Urine Glucose (UA) Negative g/dL (Negative) 07/21/18 09:02 Urine Ketones 1+ (NEGATIVE) H 07/21/18 09:02 Urine Occult Blood Negative (Negative) 07/21/18 09:02 Urine Nitrate Negative (Negative) 07/21/18 09:02 Urine Bilirubin 1+ (NEGATIVE) H 07/21/18 09:02 Urine Ictotest Negative (Negative) 07/21/18 09:02 Urine Urobilinogen 2.0 E.U./dL (0.2) H 07/21/18 09:02 Ur Leukocyte Esterase Trace (NEGATIVE) H 07/21/18 09:02 Urine RBC None seen (0-5/HPF) 07/21/18 09:02 Urine WBC 1-5/hpf (0-5/HPF) 07/21/18 09:02 Ur Squamous Epith Cells 10-30 /hpf (0-5/HPF) H D 07/21/18 09:02 Urine Bacteria Moderate (10-30) (None) H 07/21/18 09:02 Hyaline Casts 0-1/lpf (None) 07/21/18 09:02 Urine Mucus 2+ (Negative) H 07/21/18 09:02 Ur Culture Indicated? Culture not indicate 07/21/18 09:02 Micro UA Comment 07/21/18 09:02 Assessment and Plan (1) Malignant mixed Mullerian tumor (MMMT) MMMT, Stage IV, with involvement of intra abdominal lymph nodes. She has had possible gemcitabine pulmonary toxicity as well as a pulmonary embolism. In addition, her CT scan demonstrated progressive disease. We will plan on stopping gemcitabine and Avastin. Instead, we will make a tentative plan to go ahead with Doxil in the next several weeks. She will need a baseline echocardiogram will trying get that scheduled for her. She also need to follow-up with a building trades instructor in [place]. She will return to clinic I think just after the 25 of August and hopefully be able to start treatment at that time.
--- NOTE | 2018-08-04 10:15 | P.PNONC_ITS ---
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 Neoadjuvant chemotherapy with carboplatin and Taxol for 4 cycles 2. Optimal cyto reduction in August 2017 3. Five additional cycles of adjuvant carboplatin and Taxol finishing in December 2017 4. Recurrent disease treated with gemcitabine and bevacizumab for 3 cycles finishing in June 2018. 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 She is being followed also by Dr. Bea Acosta at [facility]. Since her last visit here, she had been seen in [place] for routine follow-up CT scan. That scan demonstrated a new pulmonary embolism. In addition there were inflammatory changes in the lungs. She was hospitalized did require ICU care. She was markedly hypoxic. She was treated with Lovenox as well as steroids and has improved quite a bit. She is not having any pain in the chest. She denies any shortness of breath. She still has a little bit of a cough that is been nonproductive. Her appetite has been good. Strength and energy level have been improved while she has been on the steroids. She denies any GI complaints. No pain or swelling in the legs. She has not had any unusual bleeding or bruising and is tolerating the Lovenox without any difficulty. She tells me that she still needs to schedule a follow-up with garment parts cutter machine in [place]. She also tells me that the CT scan demonstrated progression of her cancer. Dr. Acosta has recommended a will on to additional therapy with Doxil. The patient may be eligible for clinical trial. Oncological Historyh She presented with enlarged left supraclavicular lymph node. Biopsy reviewed carcinoma of mullerian origin. CT scan reviewed mediastinal nodes, epicardial nodes, and retroperitoneal nodes in the upper abdomen. No carcinomatosis or pelvic masses. CA 125 was elevated to 3266. He received 4 cycles of carboplatin and paclitaxel every 3 weeks with complete resolution of the adenopathy and decrease of CA-125 to 50s. On 09/07/2017, patient underwent exploratory laparotomy, JASIEL, BSO, omentectomy and right ureterolysis. She had no evidence of disease in the abdomen and had a complete site reduction. Final pathology reviewed no carcinoma in any of the specimens. 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 Postoperatively, patient has received a total of 5 additional cycles of chemotherapy, carboplatin and paclitaxel, with last dose administered on 01/07/2018. The reason for the additional doses was her CA 125 had not yet normalized after 3 adjuvant cycles. Patient underwent repeat CT scan on 12/03/2017 that did not show any adenopathy, and no evidence of local recurrence or new metastatic disease. After 3 postop cycles, CA 125 was 54. And then 35 and 37 with subsequent cycles. It was discussed with her that with her CA 125 never going back below 35, there was concern that she may not be in remission, but she declined adding maintenance bevacizumab. CA 125 remained normal at 35 on January 24 2018 but increased to 193 towards the end of March. CA-125 on 04/29/2018 had increased to [address] scan on 04/29/2018 shows evidence of recurrent disease notable for increased size and number of suspicious- appearing abdominal lymph nodes concerning for metastasis. A gastrohepatic node measuring 1.8 x 1.6, compared to 0.6 x 0.5 cm and anterior celiac node measuring 1.8 x 1.7 cm, previously 0.9 x 0.7 cm, posterior celiac lymph node measuring 2.1 x 1.5 cm, previously 1.3 x 0.7 cm at a cluster of prominent mesenteric nodes increased in size and number compared to CT scan in November 2017. Patient was deemed siletz tribe-refractory given only 4 months out after patient completed the carboplatin/paclitaxel chemotherapy. Dr. Acosta discussed a variety of different options with the patient. More specifically bevacizumab in combination with any other chemotherapy is recommended. After extensive discussion with the patient, Dr. Acosta recommended gemcitabine paired with bevacizumab if covered by insurance company. Otherwise doxorubicin with bevacizumab or topotecan paired with bevacizumab could be considered. Then Dr. Acosta referred the patient to local medical oncologist to complete 3 cycles of the chemotherapy followed by continued follow-up at [facility]. - Patient Self-Reported Symptoms SR Constitution: Fatigue/Malaise SR ears, nose, mouth, throat issues: Cough SR respiratory issues: Cough, Coughing blood, Shortness of breath, Difficulty breathing, Mucous SR Genitourinary issues: Change in stream SR Neuro issues: Numbness or tingling Home Medications and Allergies Home Medications Medication Instructions Recorded Confirmed Type cholecalciferol (vitamin D3) 4,000 unit PO DAILY 05/12/18 08/04/18 History [Vitamin D3] sennosides [senna] 8.6 mg PO QD-BID 05/12/18 08/04/18 History B Complex 100 1 tab PO QAM 06/30/18 08/04/18 History Lakesha-Red 06/30/18 08/04/18 History enoxaparin [Lovenox] 65 mg SUBCUT Q12H 08/04/18 08/04/18 History prednisone See Rx Instructions .ROUTE .COMPLEX 08/04/18 08/04/18 History Allergies Allergy/AdvReac Type Severity Reaction Status Date / Time No Known Drug Allergies Allergy Verified 05/12/18 09:40 Exam Vital signs: Vital Signs Temp Pulse Resp BP Pulse Ox 08/04/18 09:54 98.7 F 90 16 144/89 H 100 Intake and Output 08/03/18 08/04/18 08/04/18 23:59 07:59 15:59 Other: Weight 77.7 kg Patient Weight 08/04/18 23:59 Weight 77.7 kg - Constitutional positive no acute distress, positive average body habitus - Routine HEENT Exam Head: Present: normocephalic, atraumatic Eye: Present: EOMI, PERRL. Absent: conjunctival icterus, scleral injection ENT: Present: mucous membranes moist, oropharynx clear - Routine Neck Exam Present: supple. Absent: lymphadenopathy, thyromegaly - Routine Chest/Breast/Axilla Exam Axillae: Absent: lymphadenopathy - Routine Respiratory Exam Present: Clear to auscultation bilaterally. Absent: rales, wheezes - Routine Cardiovascular Exam Present: RRR, S1, S2. Absent: murmur - Routine Abdominal Exam Present: soft, normoactive bowel sounds. Absent: tenderness, organomegaly - Routine Extremities Exam Present: edema. Absent: cyanosis, clubbing Comments: She has trace lower extremity edema. - Routine Back/Spine Exam Back/Spine: Absent: vertebral tenderness - Routine Skin Exam Present: intact. Absent: petechiae, rash - Routine Neurological Exam Present: alert, oriented X3 - Routine Psychiatric Exam Present: normal affect, normal thought process Results - Labs Laboratory Last Values WBC 11.2 X10^3/uL (4.5-11.0) H 07/21/18 09:02 RBC 2.67 X10^6/uL (4.0-5.2) L 07/21/18 09:02 Hgb 8.8 g/dL (12.0-16.0) L 07/21/18 09:02 Hct 25.8 % (36-46) L 07/21/18 09:02 MCV 96.4 fL (80-100) 07/21/18 09:02 MCH 32.9 PG (26-34) 07/21/18 09:02 MCHC 34.1 % (30-36) 07/21/18 09:02 RDW 21.0 % (11.6-14.8) H 07/21/18 09:02 Plt Count 207 X10^3/uL (150-400) 07/21/18 09:02 Neut % (Auto) 78.1 % (50-75) H 07/21/18 09:02 Lymph % (Auto) 4.9 % (25-40) L 07/21/18 09:02 Miner % (Auto) 16.7 % (3-14) H 07/21/18 09:02 Eos % (Auto) 0.1 % (2-4) L 07/21/18 09:02 Baso % (Auto) 0.2 % (0-2) 07/21/18 09:02 Neut # (Auto) 8800 /uL (8550-5076) H 07/21/18 09:02 Lymph # (Auto) 500 /uL (0182-6273) L 07/21/18 09:02 Miner # (Auto) 1900 /uL (0-900) H 07/21/18 09:02 Eos # (Auto) 0 /uL (0-450) 07/21/18 09:02 Baso # (Auto) 0 /uL (0-100) 07/21/18 09:02 Total Counted 100 07/14/18 11:30 Seg Neutrophils % 79.0 % (38-70) H 07/14/18 11:30 Band Neutrophils % 4.0 % (3-7) 07/14/18 11:30 Lymphocytes % (Manual) 4.0 % (25-45) L 07/14/18 11:30 Atypical Lymphs % 1.0 % (-0) H 07/14/18 11:30 Monocytes % (Manual) 12.0 % (2-11) H 07/14/18 11:30 Eosinophils % (Manual) 1.0 % (2-4) L 06/16/18 13:19 Metamyelocytes % 1.0 % (-0) H 06/30/18 10:21 Myelocytes % 2.0 % (-0) H 06/16/18 13:19 Neutrophils # (Manual) 6972 /uL (9202-8740) H 07/14/18 11:30 Plt Morphology Comment A1 07/07/18 08:52 RBC Morphology Not Reportable 07/21/18 09:02 Polychromasia 1+ H 07/21/18 09:02 Anisocytosis 2+ H 06/30/18 10:21 Macrocytosis 2+ H 07/21/18 09:02 Sodium 133 mmol/L (137-145) L 07/21/18 09:02 Potassium 3.9 mmol/L (3.4-5.1) 07/21/18 09:02 Chloride 98 mmol/L (98-107) 07/21/18 09:02 Carbon Dioxide 25 mmol/L (22-32) 07/21/18 09:02 BUN 13 mg/dL (7-17) 07/21/18 09:02 Creatinine 1.00 mg/dL (0.52-1.04) 07/21/18 09:02 Estimated GFR 54.2 mL/min (>60) L 07/21/18 09:02 BUN/Creatinine Ratio 13.0 (6-22) 07/21/18 09:02 Glucose 130 mg/dL (80-110) H 07/21/18 09:02 Calcium 9.5 mg/dL (8.4-10.2) 07/21/18 09:02 Total Bilirubin 1.0 mg/dL (0.2-1.3) 07/21/18 09:02 AST 29 IU/L (14-36) 07/21/18 09:02 ALT 23 IU/L (9-52) 07/21/18 09:02 Alkaline Phosphatase 85 U/L (38-126) 07/21/18 09:02 Total Protein 7.1 g/dL (6.3-8.2) 07/21/18 09:02 Albumin 3.9 g/dL (3.5-5.0) 07/21/18 09:02 Globulin 3.2 g/dL (1.7-4.1) 07/21/18 09:02 Albumin/Globulin Ratio 1.2 (1.0-2.8) 07/21/18 09:02 CA 125 Antigen 708 U/mL (0-35) H 07/21/18 09:02 Urine Color Yellow 07/21/18 09:02 Urine Appearance Slightly cloudy 07/21/18 09:02 Urine pH 5.5 (4.5-8.0) 07/21/18 09:02 Ur Specific [place] 1.025 (1.000-1.035) 07/21/18 09:02 Urine Protein 2+ (Negative) H 07/21/18 09:02 Urine Glucose (UA) Negative g/dL (Negative) 07/21/18 09:02 Urine Ketones 1+ (NEGATIVE) H 07/21/18 09:02 Urine Occult Blood Negative (Negative) 07/21/18 09:02 Urine Nitrate Negative (Negative) 07/21/18 09:02 Urine Bilirubin 1+ (NEGATIVE) H 07/21/18 09:02 Urine Ictotest Negative (Negative) 07/21/18 09:02 Urine Urobilinogen 2.0 E.U./dL (0.2) H 07/21/18 09:02 Ur Leukocyte Esterase Trace (NEGATIVE) H 07/21/18 09:02 Urine RBC None seen (0-5/HPF) 07/21/18 09:02 Urine WBC 1-5/hpf (0-5/HPF) 07/21/18 09:02 Ur Squamous Epith Cells 10-30 /hpf (0-5/HPF) H D 07/21/18 09:02 Urine Bacteria Moderate (10-30) (None) H 07/21/18 09:02 Hyaline Casts 0-1/lpf (None) 07/21/18 09:02 Urine Mucus 2+ (Negative) H 07/21/18 09:02 Ur Culture Indicated? Culture not indicate 07/21/18 09:02 Micro UA Comment 07/21/18 09:02 Assessment and Plan (1) Malignant mixed Mullerian tumor (MMMT) MMMT, Stage IV, with involvement of intra abdominal lymph nodes. She has had possible gemcitabine pulmonary toxicity as well as a pulmonary embolism. In addition, her CT scan demonstrated progressive disease. We will plan on stopping gemcitabine and Avastin. Instead, we will make a tentative plan to go ahead with Doxil in the next several weeks. She will need a baseline echocardiogram will trying get that scheduled for her. She also need to follow- up with a garment parts cutter machine in [place]. She will return to clinic I think just after the 25 of August and hopefully be able to start treatment at that time.
--- NOTE | 2018-08-04 12:48 | ONC.MSW ---
Description: Check in following inpt stay Activity: Met with pt after her provider visit to check in following her hospitalization at . She was initially hospitalized for a diagnosed PE, however upon further assessment, she was found to have severaly inflamed lungs. She is recovering well, feels mostly fatigued with residual upper respiratory symptoms and the need for O2 at night. She continues to maintain an attitude of positivity and hopefullness towards her treatment and recovery. She will plan to resume attending the [facility] next week.
[2018-09-01 09:33] VITALS: BP 143/79; PULSE 95; RESP 18; TEMP 36.3; O2SAT 99
[2018-09-01 09:35] LABS: Add Manual Diff / Slide Review NO; Basophils Absolute Auto 0 /uL (0-100); Basophils Percent Auto 0.4 % (0-2); Eosinophils Absolute Auto 100 /uL (0-450); Eosinophils Percent Auto 1.2 % (2-4); Hematocrit 30.3 % (36-46); Lymphocytes Absolute Auto 1300 /uL (1100-4500); Lymphocytes Percent Auto 18.2 % (25-40); Mean Corpuscular HGB Conc 32.9 % (30-36); Mean Corpuscular Volume 94.1 fL (80-100); Monocytes Absolute Auto 700 /uL (0-900); Monocytes Percent Auto 9.4 % (3-14); Neutrophils Absolute Auto 5200 /uL (1500-7000); Neutrophils Percent Auto 70.8 % (50-75); Platelet Count 324 X10^3/uL (150-400); Red Blood Cell Count 3.22 X10^6/uL (4.0-5.2); Red Cell Distribution Width 18.3 % (11.6-14.8); White Blood Cell Count 7.3 X10^3/uL (4.5-11.0)
[2018-09-01 09:40] LABS: Alanine Aminotransferase 13 IU/L (9-52); Albumin 3.8 g/dL (3.5-5.0); Albumin Globulin Ratio 1.1 (1.0-2.8); Alkaline Phosphatase 99 U/L (38-126); Aspartate Aminotransferase 27 IU/L (14-36); BUN Creatinine Ratio 12.2 (6-22); Bilirubin Total 0.4 mg/dL (0.2-1.3); Blood Urea Nitrogen 11 mg/dL (7-17); Calcium 9.7 mg/dL (8.4-10.2); Carbon Dioxide 27 mmol/L (22-32); Chloride 104 mmol/L (98-107); Estimated Glomerular Filt Rate > 60.0 mL/min (>60); Globulin 3.6 g/dL (1.7-4.1); Glucose 140 mg/dL (80-110); HEMOLYSIS < 15 (0-50); Potassium 4.1 mmol/L (3.4-5.1); Sodium 138 mmol/L (137-145); Total Protein 7.4 g/dL (6.3-8.2)
--- NOTE | 2018-09-01 09:55 | P.PNONC_ITS ---
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 Neoadjuvant chemotherapy with carboplatin and Taxol for 4 cycles 2. Optimal cyto reduction in August 2017 3. Five additional cycles of adjuvant carboplatin and Taxol finishing in December 2017 4. Recurrent disease treated with gemcitabine and bevacizumab for 3 cycles finishing in June 2018. Her treatment was complicated by pulmonary embolism and possible gemcitabine lung toxicity Interval history: On 07/21/2018, she developed fever. The next day (07/22/2018), she felt very tired in the morning. She asked her daughter to drive her to [place] and underwent CT scan at the [facility]. After she got back from [place], she received phone call informing her about the results of the CT scan including pulmonary embolism as well as inflammation in the lung according to patient's. Patient then was transported back to [place] and was admitted to the hospital and stayed there for about 4 days. Patient was started on steroids as well as Lovenox injection. There after the steroids has been tapered off. Now patient is taking Lovenox every 12 hours. Patient said that her breathing has improved significantly. She does not have any chest. She saw a medical office scheduler at [facility] last Wednesday (August 26). Patient also had a CT scan over there. According to patient's, the medical office scheduler is quite happy with the improvement. Patient also talked with Dr. Acosta Wednesday (08/29/2018) who recommended palliative Doxil. Oncological Historyh She presented with enlarged left supraclavicular lymph node. Biopsy reviewed carcinoma of mullerian origin. CT scan reviewed mediastinal nodes, epicardial nodes, and retroperitoneal nodes in the upper abdomen. No carcinomatosis or pelvic masses. CA 125 was elevated to 3266. He received 4 cycles of carboplatin and paclitaxel every 3 weeks with complete resolution of the adenopathy and decrease of CA-125 to 50s. On 09/07/2017, patient underwent exploratory laparotomy, JASIEL, BSO, omentectomy and right ureterolysis. She had no evidence of disease in the abdomen and had a complete site reduction. Final pathology reviewed no carcinoma in any of the specimens. 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 Postoperatively, patient has received a total of 5 additional cycles of chemotherapy, carboplatin and paclitaxel, with last dose administered on 01/07/2018. The reason for the additional doses was her CA 125 had not yet normalized after 3 adjuvant cycles. Patient underwent repeat CT scan on 12/03/2017 that did not show any adenopathy, and no evidence of local recurrence or new metastatic disease. After 3 postop cycles, CA 125 was 54. And then 35 and 37 with subsequent cycles. It was discussed with her that with her CA 125 never going back below 35, there was concern that she may not be in remission, but she declined adding maintenance bevacizumab. CA 125 remained normal at 35 on January 24 2018 but increased to 193 towards the end of March. CA-125 on 04/29/2018 had increased to [address] scan on 04/29/2018 shows evidence of recurrent disease notable for increased size and number of suspicious- appearing abdominal lymph nodes concerning for metastasis. A gastrohepatic node measuring 1.8 x 1.6, compared to 0.6 x 0.5 cm and anterior celiac node measuring 1.8 x 1.7 cm, previously 0.9 x 0.7 cm, posterior celiac lymph node measuring 2.1 x 1.5 cm, previously 1.3 x 0.7 cm at a cluster of prominent mesenteric nodes increased in size and number compared to CT scan in November 2017. Patient was deemed [place]-refractory given only 4 months out after patient completed the carboplatin/paclitaxel chemotherapy. Dr. Acosta discussed a variety of different options with the patient. More specifically bevacizumab in combination with any other chemotherapy is recommended. After extensive discussion with the patient, Dr. Acosta recommended gemcitabine paired with bevacizumab if covered by insurance company. Otherwise doxorubicin with bevacizumab or topotecan paired with bevacizumab could be considered. Then Dr. Acosta referred the patient to local medical oncologist to complete 3 cycles of the chemotherapy followed by continued follow-up at [facility]. - Patient Self-Reported Symptoms SR Constitution: Fatigue/Malaise SR ears, nose, mouth, throat issues: Cough SR respiratory issues: Cough, Mucous SR Genitourinary issues: Change in stream SR Neuro issues: Numbness or tingling - Additional ROS All systems PM: reviewed and no additional remarkable complaints except as stated Home Medications and Allergies Home Medications Medication Instructions Recorded Confirmed Type cholecalciferol (vitamin D3) 4,000 unit PO DAILY 05/12/18 09/01/18 History [Vitamin D3] sennosides [senna] 8.6 mg PO QD-BID 05/12/18 09/01/18 History B Complex 100 1 tab PO QAM 06/30/18 09/01/18 History Lakesha-Red 06/30/18 08/04/18 History enoxaparin [Lovenox] 65 mg SUBCUT Q12H 08/04/18 09/01/18 History acetaminophen [Tylenol] 325 mg PO Q6H PRN 09/01/18 09/01/18 History Allergies Allergy/AdvReac Type Severity Reaction Status Date / Time No Known Drug Allergies Allergy Verified 05/12/18 09:40 Exam Vital signs: Vital Signs Temp Pulse Resp BP Pulse Ox 09/01/18 09:33 97.4 F L 95 H 18 143/79 H 99 Intake and Output 08/31/18 09/01/18 09/01/18 23:59 07:59 15:59 Other: Weight 76.7 kg Patient Weight 09/01/18 23:59 Weight 76.7 kg Narrative: Constitutional: WDWN, NAD, well groomed, pleasant and cooperative. HEENT: NCAT, EOMI, PERRLA, anicteric sclera. Neck: Supple, No palpable thyromegaly or lymphadenopathy. Respiratory: Clear to auscultation, and no wheezes or rales or rubs. Cardiovascular: RRR, S1 and S2 normal, no M/G/R. No JVD. Abdomen: Soft, NTND, BS normal, no palpable organomegaly, no hernia, no palpable masses. Extremities: No LE pitting edema. Lymphatic: no palpable lymph nodes in the neck, axillae, or groins. Musculoskeletal: normal gait and station Skin: no rashes, no ulcers, no petechiae Neurological: AOx3, CN II-XII grossly intact. No focal motor or sensory deficit. Psychiatric: Good judgment and insight; normal affect; normal thought process; cooperative, no depression, no anxiety. Results - Labs Laboratory Last Values WBC 7.3 X10^3/uL (4.5-11.0) 09/01/18 09:15 RBC 3.22 X10^6/uL (4.0-5.2) L 09/01/18 09:15 Hgb 10.0 g/dL (12.0-16.0) L 09/01/18 09:15 Hct 30.3 % (36-46) L 09/01/18 09:15 MCV 94.1 fL (80-100) 09/01/18 09:15 MCH 31.0 PG (26-34) 09/01/18 09:15 MCHC 32.9 % (30-36) 09/01/18 09:15 RDW 18.3 % (11.6-14.8) H 09/01/18 09:15 Plt Count 324 X10^3/uL (150-400) 09/01/18 09:15 Neut % (Auto) 70.8 % (50-75) 09/01/18 09:15 Lymph % (Auto) 18.2 % (25-40) L 09/01/18 09:15 Bland % (Auto) 9.4 % (3-14) 09/01/18 09:15 Eos % (Auto) 1.2 % (2-4) L 09/01/18 09:15 Baso % (Auto) 0.4 % (0-2) 09/01/18 09:15 Neut # (Auto) 5200 /uL (8282-5966) 09/01/18 09:15 Lymph # (Auto) 1300 /uL (1768-7038) 09/01/18 09:15 Bland # (Auto) 700 /uL (0-900) 09/01/18 09:15 Eos # (Auto) 100 /uL (0-450) 09/01/18 09:15 Baso # (Auto) 0 /uL (0-100) 09/01/18 09:15 Total Counted 100 07/14/18 11:30 Seg Neutrophils % 79.0 % (38-70) H 07/14/18 11:30 Band Neutrophils % 4.0 % (3-7) 07/14/18 11:30 Lymphocytes % (Manual) 4.0 % (25-45) L 07/14/18 11:30 Atypical Lymphs % 1.0 % (-0) H 07/14/18 11:30 Monocytes % (Manual) 12.0 % (2-11) H 07/14/18 11:30 Eosinophils % (Manual) 1.0 % (2-4) L 06/16/18 13:19 Metamyelocytes % 1.0 % (-0) H 06/30/18 10:21 Myelocytes % 2.0 % (-0) H 06/16/18 13:19 Neutrophils # (Manual) 6972 /uL (6361-5472) H 07/14/18 11:30 Plt Morphology Comment A1 07/07/18 08:52 RBC Morphology Not Reportable 07/21/18 09:02 Polychromasia 1+ H 07/21/18 09:02 Anisocytosis 2+ H 06/30/18 10:21 Macrocytosis 2+ H 07/21/18 09:02 Sodium 138 mmol/L (137-145) 09/01/18 09:15 Potassium 4.1 mmol/L (3.4-5.1) 09/01/18 09:15 Chloride 104 mmol/L (98-107) 09/01/18 09:15 Carbon Dioxide 27 mmol/L (22-32) 09/01/18 09:15 BUN 11 mg/dL (7-17) 09/01/18 09:15 Creatinine 0.90 mg/dL (0.52-1.04) 09/01/18 09:15 Estimated GFR > 60.0 mL/min (>60) 09/01/18 09:15 BUN/Creatinine Ratio 12.2 (6-22) 09/01/18 09:15 Glucose 140 mg/dL (80-110) H 09/01/18 09:15 Calcium 9.7 mg/dL (8.4-10.2) 09/01/18 09:15 Total Bilirubin 0.4 mg/dL (0.2-1.3) 09/01/18 09:15 AST 27 IU/L (14-36) 09/01/18 09:15 ALT 13 IU/L (9-52) 09/01/18 09:15 Alkaline Phosphatase 99 U/L (38-126) 09/01/18 09:15 Total Protein 7.4 g/dL (6.3-8.2) 09/01/18 09:15 Albumin 3.8 g/dL (3.5-5.0) 09/01/18 09:15 Globulin 3.6 g/dL (1.7-4.1) 09/01/18 09:15 Albumin/Globulin Ratio 1.1 (1.0-2.8) 09/01/18 09:15 CA 125 Antigen 1500 U/mL (0-35) H 09/01/18 09:15 Urine Color Yellow 07/21/18 09:02 Urine Appearance Slightly cloudy 07/21/18 09:02 Urine pH 5.5 (4.5-8.0) 07/21/18 09:02 Ur Specific [place] 1.025 (1.000-1.035) 07/21/18 09:02 Urine Protein 2+ (Negative) H 07/21/18 09:02 Urine Glucose (UA) Negative g/dL (Negative) 07/21/18 09: Urine Ketones 1+ (NEGATIVE) H 07/21/18 09: Urine Occult Blood Negative (Negative) 07/21/18 09: Urine Nitrate Negative (Negative) 07/21/18: Urine Bilirubin 1+ (NEGATIVE) H 07/21/18 09: Urine Ictotest Negative (Negative) 07/21/18 09: Urine Urobilinogen 2.0 E.U./dL (0.2) H 07/21/18 09:02 Ur Leukocyte Esterase Trace (NEGATIVE) H 07/21/18 09:02 Urine RBC None seen (0-5/HPF) 07/21/18 09:02 Urine WBC 1-5/hpf (0-5/HPF) 07/21/18 09:02 Ur Squamous Epith Cells 10-30 /hpf (0-5/HPF) H D 07/21/18 09:02 Urine Bacteria Moderate (10-30) (None) H 07/21/18 09: Hyaline Casts 0-1/lpf (None) 07/21/18 09: Urine Mucus 2+ (Negative) H 07/21/18 09:02 Ur Culture Indicated? Culture not indicate 07/21/18: Micro UA Comment 07/21/18 09:02 Assessment and Plan (1) Malignant mixed Mullerian tumor (MMMT) MMMT, Stage IV, with involvement of intra abdominal lymph nodes. She was started on bevacizumab and gemcitabine on April 29, 2018. Chemotherapy regimen: Gemcitabine 1000 mg/m2, on day 1, 8. 15, and Bevasuzumab 15 mg/kg, on day 1, every 21-day cycle. 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 In addition the CT scan reviewed progression of the underlying disease. Per Dr. Acosta, we will switch the treatment to Doxil. Patient will start today. Plan: 1. Ok to proceed to C1D1 Doxil 2. RTC on C1D15 for labs, CBC, CMP 3. RTC in 4 weeks (2) Pulmonary embolism Continue Lovenox q12h.
[2018-09-01] MEDS: SODIUM CHLORIDE 0.9% 100 ML 21 ML IV (11:04)
[2018-09-01] MEDS: DEXAMETHASONE 10 MG/ML VIAL 8 MG IV (11:09)
[2018-09-01] MEDS: ONDANSETRON 8 MG in SODIUM CHLORIDE 0.9% 50 ML 216 ML IV (11:13)
[2018-09-01 11:36] LABS: Cancer Antigen 125 1500 U/mL (0-35)
[2018-09-01] MEDS: DOXORUBICIN LIPOSOMAL IV (11:49)
[2018-09-01] MEDS: DEXTROSE 5% IV (11:49)
[2018-09-15 12:16] LABS: Add Manual Diff / Slide Review NO; Basophils Absolute Auto 0 /uL (0-100); Basophils Percent Auto 0.5 % (0-2); Eosinophils Absolute Auto 100 /uL (0-450); Eosinophils Percent Auto 1.3 % (2-4); Hematocrit 28.5 % (36-46); Hemoglobin 9.5 g/dL (12.0-16.0); Lymphocytes Absolute Auto 800 /uL (1100-4500); Lymphocytes Percent Auto 20.2 % (25-40); Mean Corpuscular HGB Conc 33.3 % (30-36); Mean Corpuscular Hemoglobin 30.7 PG (26-34); Mean Corpuscular Volume 92.3 fL (80-100); Monocytes Absolute Auto 200 /uL (0-900); Monocytes Percent Auto 4.6 % (3-14); Neutrophils Absolute Auto 2900 /uL (1500-7000); Neutrophils Percent Auto 73.4 % (50-75); Platelet Count 255 X10^3/uL (150-400); Red Blood Cell Count 3.09 X10^6/uL (4.0-5.2); Red Cell Distribution Width 18.4 % (11.6-14.8)
[2018-09-15 12:28] LABS: Alanine Aminotransferase 12 IU/L (9-52); Albumin 3.8 g/dL (3.5-5.0); Albumin Globulin Ratio 1.2 (1.0-2.8); Alkaline Phosphatase 86 U/L (38-126); Aspartate Aminotransferase 20 IU/L (14-36); BUN Creatinine Ratio 15.7 (6-22); Bilirubin Total 0.5 mg/dL (0.2-1.3); Blood Urea Nitrogen 11 mg/dL (7-17); Calcium 9.4 mg/dL (8.4-10.2); Carbon Dioxide 26 mmol/L (22-32); Chloride 103 mmol/L (98-107); Estimated Glomerular Filt Rate > 60.0 mL/min (>60); Globulin 3.3 g/dL (1.7-4.1); Glucose 113 mg/dL (80-110); HEMOLYSIS < 15 (0-50); Potassium 4.2 mmol/L (3.4-5.1); Sodium 137 mmol/L (137-145); Total Protein 7.1 g/dL (6.3-8.2)
[2018-09-29 10:16] LABS: Add Manual Diff / Slide Review NO; Basophils Absolute Auto 100 /uL (0-100); Basophils Percent Auto 1.4 % (0-2); Eosinophils Absolute Auto 0 /uL (0-450); Hemoglobin 10.3 g/dL (12.0-16.0); Lymphocytes Absolute Auto 1000 /uL (1100-4500); Lymphocytes Percent Auto 23.1 % (25-40); Mean Corpuscular HGB Conc 33.2 % (30-36); Mean Corpuscular Hemoglobin 30.2 PG (26-34); Mean Corpuscular Volume 90.8 fL (80-100); Monocytes Absolute Auto 700 /uL (0-900); Monocytes Percent Auto 15.8 % (3-14); Neutrophils Absolute Auto 2400 /uL (1500-7000); Neutrophils Percent Auto 58.7 % (50-75); Platelet Count 312 X10^3/uL (150-400); Red Blood Cell Count 3.41 X10^6/uL (4.0-5.2); Red Cell Distribution Width 17.4 % (11.6-14.8); White Blood Cell Count 4.1 X10^3/uL (4.5-11.0)
[2018-09-29 10:34] LABS: Blood Urea Nitrogen 12 mg/dL (7-17); Carbon Dioxide 28 mmol/L (22-32); Chloride 104 mmol/L (98-107); Potassium 4.2 mmol/L (3.4-5.1); Sodium 140 mmol/L (137-145)
[2018-09-29 10:35] LABS: Alanine Aminotransferase 11 IU/L (9-52); Albumin Globulin Ratio 1.3 (1.0-2.8); Alkaline Phosphatase 79 U/L (38-126); Aspartate Aminotransferase 22 IU/L (14-36); Bilirubin Total 0.3 mg/dL (0.2-1.3); Calcium 10.1 mg/dL (8.4-10.2); Estimated Glomerular Filt Rate > 60.0 mL/min (>60); Globulin 3.2 g/dL (1.7-4.1); Glucose 120 mg/dL (80-110); HEMOLYSIS < 15 (0-50); Total Protein 7.2 g/dL (6.3-8.2)
[2018-09-29 11:03] VITALS: BP 140/78; PULSE 80; RESP 18; TEMP 36.9; O2SAT 98
--- NOTE | 2018-09-29 11:18 | ONC.PN ---
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 Previous treatment: 1. Neoadjuvant chemotherapy with carboplatin and Taxol for 4 cycles 2. Optimal cyto reduction in August 2017 3. Five additional cycles of adjuvant carboplatin and Taxol finishing in December 2017 4. Recurrent disease treated with gemcitabine and bevacizumab for 3 cycles finishing in June 2018. Completed 3 cycles. 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 5. Doxil 09/01/2018 Interval history: On 07/21/2018, she developed fever. The next day (07/22/2018), she felt very tired in the morning. She asked her daughter to drive her to [place] and underwent CT scan at the [place] [facility] After she got back from [place], she received phone call informing her about the results of the CT scan including pulmonary embolism as well as inflammation in the lung according to patient's. Patient then was transported back to [place] and was admitted to the hospital and stayed there for about 4 days. Patient was started on steroids as well as Lovenox injection. There after the steroids has been tapered off. Now patient is taking Lovenox every 12 hours. Patient said that her breathing has improved significantly. She does not have any chest. She saw a courier at [facility] last Wednesday (August 26). Patient also had a CT scan over there. According to patient's, the courier is quite happy with the improvement. Patient also talked with Dr. Acosta Wednesday (08/29/2018) who recommended palliative Doxil. The patient started Doxil on 09/01/2018. Patient said that for the initial 2 and days, patient had fatigue. There after she has been feeling well. Patient reports good appetite. No nausea and no vomiting. No diarrhea no constipation. No chest pain or shortness of breath. - Patient Self-Reported Symptoms SR Constitution: Fatigue/Malaise SR ears, nose, mouth, throat issues: Cough SR respiratory issues: Cough, Mucous SR Genitourinary issues: Change in stream SR Neuro issues: Numbness or tingling - Additional ROS All systems PM: reviewed and no additional remarkable complaints except as stated Home Medications and Allergies Home Medications Medication Instructions Recorded Confirmed Type cholecalciferol (vitamin D3) 4,000 unit PO DAILY 05/12/18 09/29/18 History [Vitamin D3] sennosides [senna] 8.6 mg PO QD-BID 05/12/18 09/29/18 History B Complex 100 1 tab PO QAM 06/30/18 09/29/18 History Lakesha-Red 06/30/18 08/04/18 History enoxaparin [Lovenox] 65 mg SUBCUT Q12H 08/04/18 09/29/18 History acetaminophen [Tylenol] 325 mg PO Q6H PRN 09/01/18 09/29/18 History apixaban [Eliquis] 5 mg PO BID #60 tab 09/29/18 Rx Allergies Allergy/AdvReac Type Severity Reaction Status Date / Time No Known Drug Allergies Allergy Verified 05/12/18 09:40 Exam Vital signs: Vital Signs Temp Pulse Resp BP Pulse Ox 09/29/18 11:03 98.4 F 80 18 140/78 98 Intake and Output 09/28/18 09/29/18 09/29/18 23:59 07:59 15:59 Other: Weight 76 kg Patient Weight 09/29/18 23:59 Weight 76 kg - Constitutional positive no acute distress, positive average body habitus - Routine HEENT Exam Head: Present: normocephalic, atraumatic Eye: Present: EOMI, PERRL, normal accommodation. Absent: conjunctival icterus ENT: Present: mucous membranes moist - Routine Neck Exam Present: supple. Absent: lymphadenopathy, thyromegaly - Routine Respiratory Exam Present: Clear to auscultation bilaterally. Absent: rales - Routine Cardiovascular Exam Present: RRR, S1, S2. Absent: murmur, gallop, rubs - Routine Abdominal Exam Present: soft. Absent: organomegaly - Routine Extremities Exam Absent: edema - Routine Neurological Exam Present: alert, oriented X3, CN II-XII intact. Absent: sensory deficit, motor deficit - Routine Psychiatric Exam Present: normal affect Results - Labs Laboratory Last Values WBC 4.1 X10^3/uL (4.5-11.0) L 09/29/18 10:05 RBC 3.41 X10^6/uL (4.0-5.2) L 09/29/18 10:05 Hgb 10.3 g/dL (12.0-16.0) L 09/29/18 10:05 Hct 31.0 % (36-46) L 09/29/18 10:05 MCV 90.8 fL (80-100) 09/29/18 10:05 MCH 30.2 PG (26-34) 09/29/18 10:05 MCHC 33.2 % (30-36) 09/29/18 10:05 RDW 17.4 % (11.6-14.8) H 09/29/18 10:05 Plt Count 312 X10^3/uL (150-400) 09/29/18 10:05 Neut % (Auto) 58.7 % (50-75) 09/29/18 10:05 Lymph % (Auto) 23.1 % (25-40) L 09/29/18 10:05 [place] % (Auto) 15.8 % (3-14) H 09/29/18 10:05 Eos % (Auto) 1.0 % (2-4) L 09/29/18 10:05 Baso % (Auto) 1.4 % (0-2) 09/29/18 10:05 Neut # (Auto) 2400 /uL (9907-4363) 09/29/18 10:05 Lymph # (Auto) 1000 /uL (2177-3913) L 09/29/18 10:05 [place] # (Auto) 700 /uL (0-900) 09/29/18 10:05 Eos # (Auto) 0 /uL (0-450) 09/29/18 10:05 Baso # (Auto) 100 /uL (0-100) 09/29/18 10:05 Total Counted 100 07/14/18 11:30 Seg Neutrophils % 79.0 % (38-70) H 07/14/18 11:30 Band Neutrophils % 4.0 % (3-7) 07/14/18 11:30 Lymphocytes % (Manual) 4.0 % (25-45) L 07/14/18 11:30 Atypical Lymphs % 1.0 % (-0) H 07/14/18 11:30 Monocytes % (Manual) 12.0 % (2-11) H 07/14/18 11:30 Eosinophils % (Manual) 1.0 % (2-4) L 06/16/18 13:19 Metamyelocytes % 1.0 % (-0) H 06/30/18 10:21 Myelocytes % 2.0 % (-0) H 06/16/18 13:19 Neutrophils # (Manual) 6972 /uL (2414-4336) H 07/14/18 11:30 Plt Morphology Comment A1 07/07/18 08:52 RBC Morphology Not Reportable 07/21/18 09:02 Polychromasia 1+ H 07/21/18 09:02 Anisocytosis 2+ H 06/30/18 10:21 Macrocytosis 2+ H 07/21/18 09:02 Sodium 140 mmol/L (137-145) 09/29/18 10:05 Potassium 4.2 mmol/L (3.4-5.1) 09/29/18 10:05 Chloride 104 mmol/L (98-107) 09/29/18 10:05 Carbon Dioxide 28 mmol/L (22-32) 09/29/18 10:05 BUN 12 mg/dL (7-17) 09/29/18 10:05 Creatinine 0.80 mg/dL (0.52-1.04) 09/29/18 10:05 Estimated GFR > 60.0 mL/min (>60) 09/29/18 10:05 BUN/Creatinine Ratio 15.0 (6-22) 09/29/18 10:05 Glucose 120 mg/dL (80-110) H 09/29/18 10:05 Calcium 10.1 mg/dL (8.4-10.2) 09/29/18 10:05 Total Bilirubin 0.3 mg/dL (0.2-1.3) 09/29/18 10:05 AST 22 IU/L (14-36) 09/29/18 10:05 ALT 11 IU/L (9-52) 09/29/18 10:05 Alkaline Phosphatase 79 U/L (38-126) 09/29/18 10:05 Total Protein 7.2 g/dL (6.3-8.2) 09/29/18 10:05 Albumin 4.0 g/dL (3.5-5.0) 09/29/18 10:05 Globulin 3.2 g/dL (1.7-4.1) 09/29/18 10:05 Albumin/Globulin Ratio 1.3 (1.0-2.8) 09/29/18 10:05 CA 125 Antigen 1500 U/mL (0-35) H 09/01/18 09:15 Urine Color Yellow 07/21/18 09:02 Urine Appearance Slightly cloudy 07/21/18 09: Urine pH 5.5 (4.5-8.0) 07/21/18 09: Ur Specific [place] 1.025 (1.000-1.035) 07/21/18 09:02 Urine Protein 2+ (Negative) H 07/21/18 09:02 Urine Glucose (UA) Negative g/dL (Negative) 07/21/18: Urine Ketones 1+ (NEGATIVE) H 07/21/18 09: Urine Occult Blood Negative (Negative) 07/21/18: Urine Nitrate Negative (Negative) 07/21/18: Urine Bilirubin 1+ (NEGATIVE) H 07/21/18: Urine Ictotest Negative (Negative) 07/21/18 09: Urine Urobilinogen 2.0 E.U./dL (0.2) H 07/21/18 09:02 Ur Leukocyte Esterase Trace (NEGATIVE) H 07/21/18 09: Urine RBC None seen (0-5/HPF) 07/21/18 09: Urine WBC 1-5/hpf (0-5/HPF) 07/21/18 09:02 Ur Squamous Epith Cells 10-30 /hpf (0-5/HPF) H D 07/21/18 09:02 Urine Bacteria Moderate (10-30) (None) H 07/21/18 09: Hyaline Casts 0-1/lpf (None) 07/21/18 09: Urine Mucus 2+ (Negative) H 07/21/18 09: Ur Culture Indicated? Culture not indicate 07/21/18: Micro UA Comment 07/21/18 09: Assessment and Plan (1) Malignant mixed Mullerian tumor (MMMT) MMMT, Stage IV, with involvement of intra-abdominal lymph nodes. She was started on bevacizumab and gemcitabine on April 29, 2018. Chemotherapy regimen: Gemcitabine 1000 mg/m2, on day 1, 8. 15, and Bevasuzumab 15 mg/kg, on day 1, every 21-day cycle. 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 In addition the CT scan revealed progression of the underlying disease. Per Dr. Acosta, we will switch the treatment to Doxil. Doxil started on 09/01/2018. Overall she has tolerated well. Will continue. Plan: 1. Ok to proceed to C2D1 Doxil 2. RTC on C1D15 for labs, CBC, CMP 3. RTC in 4 weeks (2) Pulmonary embolism Continue Lovenox q12h. Patient said that she has 1 more review about 30 days. I talked with the patient about switching to direct oral anticoagulant. I recommended Eliquis 5 mg twice daily. I have already sent the prescription to her pharmacy for pre-auth. For the transition, I will see the patient in about 2-3 weeks to discuss.
--- NOTE | 2018-09-29 11:23 | P.PNONC_ITS ---
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 Previous treatment: 1. Neoadjuvant chemotherapy with carboplatin and Taxol for 4 cycles 2. Optimal cyto reduction in August 2017 3. Five additional cycles of adjuvant carboplatin and Taxol finishing in December 2017 4. Recurrent disease treated with gemcitabine and bevacizumab for 3 cycles finishing in June 2018. Completed 3 cycles. 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 5. Doxil 09/01/2018 Interval history: On 07/21/2018, she developed fever. The next day (07/22/2018), she felt very tired in the morning. She asked her daughter to drive her to [place] and underwent CT scan at the [place] [facility]. After she got back from [place], she received phone call informing her about the results of the CT scan including pulmonary embolism as well as inflammation in the lung according to patient's. Patient then was transported back to [place] and was admitted to the hospital and stayed there for about 4 days. Patient was started on steroids as well as Lovenox injection. There after the steroids has been tapered off. Now patient is taking Lovenox every 12 hours. Patient said that her breathing has improved significantly. She does not have any chest. She saw a liquor gallery operator at [facility] last Wednesday (August 26). Patient also had a CT scan over there. According to patient's, the liquor gallery operator is quite happy with the improvement. Patient also talked with Dr. Acosta Wednesday (08/29/2018) who recommended palliative Doxil. The patient started Doxil on 09/01/2018. Patient said that for the initial 2 and days, patient had fatigue. There after she has been feeling well. Patient reports good appetite. No nausea and no vomiting. No diarrhea no constipation. No chest pain or shortness of breath. - Patient Self-Reported Symptoms SR Constitution: Fatigue/Malaise SR ears, nose, mouth, throat issues: Cough SR respiratory issues: Cough, Mucous SR Genitourinary issues: Change in stream SR Neuro issues: Numbness or tingling - Additional ROS All systems PM: reviewed and no additional remarkable complaints except as stated Home Medications and Allergies Home Medications Medication Instructions Recorded Confirmed Type cholecalciferol (vitamin D3) 4,000 unit PO DAILY 05/12/18 09/29/18 History [Vitamin D3] sennosides [senna] 8.6 mg PO QD-BID 05/12/18 09/29/18 History B Complex 100 1 tab PO QAM 06/30/18 09/29/18 History Lakesha-Red 06/30/18 08/04/18 History enoxaparin [Lovenox] 65 mg SUBCUT Q12H 08/04/18 09/29/18 History acetaminophen [Tylenol] 325 mg PO Q6H PRN 09/01/18 09/29/18 History apixaban [Eliquis] 5 mg PO BID #60 tab 09/29/18 Rx Allergies Allergy/AdvReac Type Severity Reaction Status Date / Time No Known Drug Allergies Allergy Verified 05/12/18 09:40 Exam Vital signs: Vital Signs Temp Pulse Resp BP Pulse Ox 09/29/18 11:03 98.4 F 80 18 140/78 98 Intake and Output 09/28/18 09/29/18 09/29/18 23:59 07:59 15:59 Other: Weight 76 kg Patient Weight 09/29/18 23:59 Weight 76 kg - Constitutional positive no acute distress, positive average body habitus - Routine HEENT Exam Head: Present: normocephalic, atraumatic Eye: Present: EOMI, PERRL, normal accommodation. Absent: conjunctival icterus ENT: Present: mucous membranes moist - Routine Neck Exam Present: supple. Absent: lymphadenopathy, thyromegaly - Routine Respiratory Exam Present: Clear to auscultation bilaterally. Absent: rales - Routine Cardiovascular Exam Present: RRR, S1, S2. Absent: murmur, gallop, rubs - Routine Abdominal Exam Present: soft. Absent: organomegaly - Routine Extremities Exam Absent: edema - Routine Neurological Exam Present: alert, oriented X3, CN II-XII intact. Absent: sensory deficit, motor deficit - Routine Psychiatric Exam Present: normal affect Results - Labs Laboratory Last Values WBC 4.1 X10^3/uL (4.5-11.0) L 09/29/18 10:05 RBC 3.41 X10^6/uL (4.0-5.2) L 09/29/18 10:05 Hgb 10.3 g/dL (12.0-16.0) L 09/29/18 10:05 Hct 31.0 % (36-46) L 09/29/18 10:05 MCV 90.8 fL (80-100) 09/29/18 10:05 MCH 30.2 PG (26-34) 09/29/18 10:05 MCHC 33.2 % (30-36) 09/29/18 10:05 RDW 17.4 % (11.6-14.8) H 09/29/18 10:05 Plt Count 312 X10^3/uL (150-400) 09/29/18 10:05 Neut % (Auto) 58.7 % (50-75) 09/29/18 10:05 Lymph % (Auto) 23.1 % (25-40) L 09/29/18 10:05 [place] % (Auto) 15.8 % (3-14) H 09/29/18 10:05 Eos % (Auto) 1.0 % (2-4) L 09/29/18 10:05 Baso % (Auto) 1.4 % (0-2) 09/29/18 10:05 Neut # (Auto) 2400 /uL (7534-4839) 09/29/18 10:05 Lymph # (Auto) 1000 /uL (6216-8272) L 09/29/18 10:05 [place] # (Auto) 700 /uL (0-900) 09/29/18 10:05 Eos # (Auto) 0 /uL (0-450) 09/29/18 10:05 Baso # (Auto) 100 /uL (0-100) 09/29/18 10:05 Total Counted 100 07/14/18 11:30 Seg Neutrophils % 79.0 % (38-70) H 07/14/18 11:30 Band Neutrophils % 4.0 % (3-7) 07/14/18 11:30 Lymphocytes % (Manual) 4.0 % (25-45) L 07/14/18 11:30 Atypical Lymphs % 1.0 % (-0) H 07/14/18 11:30 Monocytes % (Manual) 12.0 % (2-11) H 07/14/18 11:30 Eosinophils % (Manual) 1.0 % (2-4) L 06/16/18 13:19 Metamyelocytes % 1.0 % (-0) H 06/30/18 10:21 Myelocytes % 2.0 % (-0) H 06/16/18 13:19 Neutrophils # (Manual) 6972 /uL (1113-0742) H 07/14/18 11:30 Plt Morphology Comment A1 07/07/18 08:52 RBC Morphology Not Reportable 07/21/18 09:02 Polychromasia 1+ H 07/21/18 09:02 Anisocytosis 2+ H 06/30/18 10:21 Macrocytosis 2+ H 07/21/18 09:02 Sodium 140 mmol/L (137-145) 09/29/18 10:05 Potassium 4.2 mmol/L (3.4-5.1) 09/29/18 10:05 Chloride 104 mmol/L (98-107) 09/29/18 10:05 Carbon Dioxide 28 mmol/L (22-32) 09/29/18 10:05 BUN 12 mg/dL (7-17) 09/29/18 10:05 Creatinine 0.80 mg/dL (0.52-1.04) 09/29/18 10:05 Estimated GFR > 60.0 mL/min (>60) 09/29/18 10:05 BUN/Creatinine Ratio 15.0 (6-22) 09/29/18 10:05 Glucose 120 mg/dL (80-110) H 09/29/18 10:05 Calcium 10.1 mg/dL (8.4-10.2) 09/29/18 10:05 Total Bilirubin 0.3 mg/dL (0.2-1.3) 09/29/18 10:05 AST 22 IU/L (14-36) 09/29/18 10:05 ALT 11 IU/L (9-52) 09/29/18 10:05 Alkaline Phosphatase 79 U/L (38-126) 09/29/18 10:05 Total Protein 7.2 g/dL (6.3-8.2) 09/29/18 10:05 Albumin 4.0 g/dL (3.5-5.0) 09/29/18 10:05 Globulin 3.2 g/dL (1.7-4.1) 09/29/18 10:05 Albumin/Globulin Ratio 1.3 (1.0-2.8) 09/29/18 10:05 CA 125 Antigen 1500 U/mL (0-35) H 09/01/18 09:15 Urine Color Yellow 07/21/18 09:02 Urine Appearance Slightly cloudy 07/21/18 09: Urine pH 5.5 (4.5-8.0) 07/21/18 09: Ur Specific [place] 1.025 (1.000-1.035) 07/21/18 09:02 Urine Protein 2+ (Negative) H 07/21/18 09:02 Urine Glucose (UA) Negative g/dL (Negative) 07/21/18: Urine Ketones 1+ (NEGATIVE) H 07/21/18 09: Urine Occult Blood Negative (Negative) 07/21/18: Urine Nitrate Negative (Negative) 07/21/18: Urine Bilirubin 1+ (NEGATIVE) H 07/21/18: Urine Ictotest Negative (Negative) 07/21/18 09: Urine Urobilinogen 2.0 E.U./dL (0.2) H 07/21/18 09:02 Ur Leukocyte Esterase Trace (NEGATIVE) H 07/21/18 09: Urine RBC None seen (0-5/HPF) 07/21/18 09: Urine WBC 1-5/hpf (0-5/HPF) 07/21/18 09:02 Ur Squamous Epith Cells 10-30 /hpf (0-5/HPF) H D 07/21/18 09:02 Urine Bacteria Moderate (10-30) (None) H 07/21/18 09: Hyaline Casts 0-1/lpf (None) 07/21/18 09: Urine Mucus 2+ (Negative) H 07/21/18 09: Ur Culture Indicated? Culture not indicate 07/21/18: Micro UA Comment 07/21/18 09: Assessment and Plan (1) Malignant mixed Mullerian tumor (MMMT) MMMT, Stage IV, with involvement of intra-abdominal lymph nodes. She was started on bevacizumab and gemcitabine on April 29, 2018. Chemotherapy regimen: Gemcitabine 1000 mg/m2, on day 1, 8. 15, and Bevasuzumab 15 mg/kg, on day 1, every 21-day cycle. 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 In addition the CT scan revealed progression of the underlying disease. Per Dr. Acosta, we will switch the treatment to Doxil. Doxil started on 09/01/2018. Overall she has tolerated well. Will continue. Plan: 1. Ok to proceed to C2D1 Doxil 2. RTC on C1D15 for labs, CBC, CMP 3. RTC in 4 weeks (2) Pulmonary embolism Continue Lovenox q12h. Patient said that she has 1 more review about 30 days. I talked with the patient about switching to direct oral anticoagulant. I recommended Eliquis 5 mg twice daily. I have already sent the prescription to her pharmacy for pre-auth. For the transition, I will see the patient in about 2-3 weeks to discuss.
[2018-09-29 11:50] LABS: Cancer Antigen 125 1670 U/mL (0-35)
[2018-09-29] MEDS: DEXAMETHASONE 10 MG/ML VIAL 8 MG IV (12:10)
[2018-09-29] MEDS: SODIUM CHLORIDE 0.9% 100 ML 21 ML IV (12:14)
[2018-09-29] MEDS: ONDANSETRON 8 MG in SODIUM CHLORIDE 0.9% 50 ML 216 ML IV (12:18)
[2018-09-29] MEDS: DEXTROSE 5% IV (12:50)
[2018-09-29] MEDS: DOXORUBICIN LIPOSOMAL IV (12:50)
[2018-10-13 14:49] LABS: Add Manual Diff / Slide Review NO; Basophils Absolute Auto 0 /uL (0-100); Basophils Percent Auto 0.4 % (0-2); Eosinophils Absolute Auto 100 /uL (0-450); Eosinophils Percent Auto 1.7 % (2-4); Hematocrit 28.6 % (36-46); Hemoglobin 9.7 g/dL (12.0-16.0); Lymphocytes Absolute Auto 800 /uL (1100-4500); Lymphocytes Percent Auto 18.1 % (25-40); Mean Corpuscular HGB Conc 33.8 % (30-36); Mean Corpuscular Hemoglobin 30.2 PG (26-34); Mean Corpuscular Volume 89.2 fL (80-100); Monocytes Absolute Auto 300 /uL (0-900); Monocytes Percent Auto 6.2 % (3-14); Neutrophils Absolute Auto 3400 /uL (1500-7000); Neutrophils Percent Auto 73.6 % (50-75); Platelet Count 225 X10^3/uL (150-400); Red Cell Distribution Width 17.7 % (11.6-14.8); White Blood Cell Count 4.6 X10^3/uL (4.5-11.0)
[2018-10-13 15:04] LABS: Alanine Aminotransferase 12 IU/L (9-52); Albumin 3.9 g/dL (3.5-5.0); Albumin Globulin Ratio 1.3 (1.0-2.8); Alkaline Phosphatase 88 U/L (38-126); Aspartate Aminotransferase 25 IU/L (14-36); Bilirubin Total 0.5 mg/dL (0.2-1.3); Blood Urea Nitrogen 16 mg/dL (7-17); Calcium 9.8 mg/dL (8.4-10.2); Carbon Dioxide 25 mmol/L (22-32); Chloride 102 mmol/L (98-107); Estimated Glomerular Filt Rate > 60.0 mL/min (>60); Globulin 3.1 g/dL (1.7-4.1); Glucose 98 mg/dL (80-110); HEMOLYSIS < 15 (0-50); Potassium 4.2 mmol/L (3.4-5.1); Sodium 137 mmol/L (137-145)
[2018-10-27 10:35] VITALS: BP 126/80; PULSE 84; RESP 18; TEMP 36.8; O2SAT 98
[2018-10-27 10:39] LABS: Add Manual Diff / Slide Review NO; Basophils Absolute Auto 0 /uL (0-100); Basophils Percent Auto 0.5 % (0-2); Eosinophils Absolute Auto 100 /uL (0-450); Eosinophils Percent Auto 1.5 % (2-4); Hematocrit 31.7 % (36-46); Hemoglobin 10.7 g/dL (12.0-16.0); Lymphocytes Absolute Auto 800 /uL (1100-4500); Lymphocytes Percent Auto 21.4 % (25-40); Mean Corpuscular HGB Conc 33.6 % (30-36); Mean Corpuscular Hemoglobin 29.7 PG (26-34); Mean Corpuscular Volume 88.5 fL (80-100); Monocytes Absolute Auto 700 /uL (0-900); Monocytes Percent Auto 17.8 % (3-14); Neutrophils Absolute Auto 2300 /uL (1500-7000); Neutrophils Percent Auto 58.8 % (50-75); Platelet Count 299 X10^3/uL (150-400); Red Blood Cell Count 3.58 X10^6/uL (4.0-5.2); Red Cell Distribution Width 17.4 % (11.6-14.8); White Blood Cell Count 3.9 X10^3/uL (4.5-11.0)
[2018-10-27 10:43] LABS: Alanine Aminotransferase 15 IU/L (9-52); Albumin Globulin Ratio 1.2 (1.0-2.8); Alkaline Phosphatase 84 U/L (38-126); Aspartate Aminotransferase 25 IU/L (14-36); Bilirubin Total 0.4 mg/dL (0.2-1.3); Blood Urea Nitrogen 9 mg/dL (7-17); Carbon Dioxide 26 mmol/L (22-32); Chloride 102 mmol/L (98-107); Estimated Glomerular Filt Rate > 60.0 mL/min (>60); Globulin 3.3 g/dL (1.7-4.1); Glucose 120 mg/dL (80-110); HEMOLYSIS < 15 (0-50); Potassium 4.1 mmol/L (3.4-5.1); Sodium 140 mmol/L (137-145); Total Protein 7.3 g/dL (6.3-8.2)
--- NOTE | 2018-10-27 10:48 | P.PNONC_ITS ---
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 Oncology History MMMT 1. Neoadjuvant chemotherapy with carboplatin and Taxol for 4 cycles 2. Optimal cyto reduction in August 2017 3. Five additional cycles of adjuvant carboplatin and Taxol finishing in December 2017 4. Recurrent disease treated with gemcitabine and bevacizumab for 3 cycles finishing in June 2018. Completed 3 cycles. 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 5. Doxil 09/01/[address] Acosta recommendation. PE: On 07/21/2018, she developed fever. The next day (07/22/2018), she felt very tired in the morning. CT 07/22/2018 showed PE. She was started on Lovenox every 12 hours. She started Eliquis 5 mg bid on 10/26/2018 Interval history: Patient started taking Eliquis about 2 days ago. Patient tolerated very well. As far as the Doxil chemotherapy is concerned, patient has about 3 days of fatigue immediately after the infusion. In addition patient occasionally noticed gum tenderness. No fever and no chills. No nausea no vomiting. No diarrhea no constipation. - Patient Self-Reported Symptoms SR Constitution: Fatigue/Malaise SR ears, nose, mouth, throat issues: Cough SR respiratory issues: Cough, Mucous SR Genitourinary issues: Change in stream SR Neuro issues: Numbness or tingling - Additional ROS All systems PM: reviewed and no additional remarkable complaints except as stated Home Medications and Allergies Home Medications Medication Instructions Recorded Confirmed Type cholecalciferol (vitamin D3) 4,000 unit PO DAILY 05/12/18 10/27/18 History [Vitamin D3] sennosides [senna] 8.6 mg PO QD-BID 05/12/18 10/27/18 History B Complex 100 1 tab PO QAM 06/30/18 10/27/18 History Lakesha-Red 06/30/18 08/04/18 History acetaminophen [Tylenol] 325 mg PO Q6H PRN 09/01/18 10/27/18 History apixaban [Eliquis] 5 mg PO BID #60 tab 09/29/18 10/27/18 Rx apixaban 5 mg PO BID #180 tab 10/27/18 Rx Allergies Allergy/AdvReac Type Severity Reaction Status Date / Time gemcitabine AdvReac Severe inflammatory Verified 10/25/18 13:38 changes in the lung Exam Vital signs: Vital Signs Temp Pulse Resp BP Pulse Ox 10/27/18 10:35 98.2 F 84 18 126/80 98 Intake and Output 10/26/18 10/27/18 10/27/18 23:59 07:59 15:59 Other: Weight 75 kg Patient Weight 10/27/18 23:59 Weight 75 kg Narrative: ECOG 1 Gen: WDWN, NAD, pleasant and cooperative. HEENT: NCAT, EOMI, PERRLA, anicteric sclera. Neck: Supple, No palpable thyromegaly or lymphadenopathy. Respiratory: CTAB, no wheezes audible. No JVD Cardiovascular: RRR, S1 and S2 normal, no M/G/R. Abdomen: Soft, NTND, BS normal, no palpable organomegaly Extremities: No LE pitting edema. Lymphatic: no palpable lymph nodes in the neck, axillae, or groins. Neurological: AOx3, CN II-XII grossly intact. No focal motor or sensory deficit. Psychiatric: normal affect; normal thought process; cooperative, no depression, no anxiety. Results - Labs Laboratory Last Values WBC 3.9 X10^3/uL (4.5-11.0) L 10/27/18 10:20 RBC 3.58 X10^6/uL (4.0-5.2) L 10/27/18 10:20 Hgb 10.7 g/dL (12.0-16.0) L 10/27/18 10:20 Hct 31.7 % (36-46) L 10/27/18 10:20 MCV 88.5 fL (80-100) 10/27/18 10:20 MCH 29.7 PG (26-34) 10/27/18 10:20 MCHC 33.6 % (30-36) 10/27/18 10:20 RDW 17.4 % (11.6-14.8) H 10/27/18 10:20 Plt Count 299 X10^3/uL (150-400) 10/27/18 10:20 Neut % (Auto) 58.8 % (50-75) 10/27/18 10:20 Lymph % (Auto) 21.4 % (25-40) L 10/27/18 10:20 [place] % (Auto) 17.8 % (3-14) H 10/27/18 10:20 Eos % (Auto) 1.5 % (2-4) L 10/27/18 10:20 Baso % (Auto) 0.5 % (0-2) 10/27/18 10:20 Neut # (Auto) 2300 /uL (4065-3247) 10/27/18 10:20 Lymph # (Auto) 800 /uL (3551-0182) L 10/27/18 10:20 [place] # (Auto) 700 /uL (0-900) 10/27/18 10:20 Eos # (Auto) 100 /uL (0-450) 10/27/18 10:20 Baso # (Auto) 0 /uL (0-100) 10/27/18 10:20 Total Counted 100 07/14/18 11:30 Seg Neutrophils % 79.0 % (38-70) H 07/14/18 11:30 Band Neutrophils % 4.0 % (3-7) 07/14/18 11:30 Lymphocytes % (Manual) 4.0 % (25-45) L 07/14/18 11:30 Atypical Lymphs % 1.0 % (-0) H 07/14/18 11:30 Monocytes % (Manual) 12.0 % (2-11) H 07/14/18 11:30 Eosinophils % (Manual) 1.0 % (2-4) L 06/16/18 13:19 Metamyelocytes % 1.0 % (-0) H 06/30/18 10:21 Myelocytes % 2.0 % (-0) H 06/16/18 13:19 Neutrophils # (Manual) 6972 /uL (3461-8778) H 07/14/18 11:30 Plt Morphology Comment A1 07/07/18 08:52 RBC Morphology Not Reportable 07/21/18 09:02 Polychromasia 1+ H 07/21/18 09:02 Anisocytosis 2+ H 06/30/18 10:21 Macrocytosis 2+ H 07/21/18 09:02 Sodium 137 mmol/L (137-145) 10/13/18 14:35 Potassium 4.2 mmol/L (3.4-5.1) 10/13/18 14:35 Chloride 102 mmol/L (98-107) 10/13/18 14:35 Carbon Dioxide 25 mmol/L (22-32) 10/13/18 14:35 BUN 16 mg/dL (7-17) 10/13/18 14:35 Creatinine 0.80 mg/dL (0.52-1.04) 10/13/18 14:35 Estimated GFR > 60.0 mL/min (>60) 10/13/18 14:35 BUN/Creatinine Ratio 20.0 (6-22) 10/13/18 14:35 Glucose 98 mg/dL (80-110) 10/13/18 14:35 Calcium 9.8 mg/dL (8.4-10.2) 10/13/18 14:35 Total Bilirubin 0.5 mg/dL (0.2-1.3) 10/13/18 14:35 AST 25 IU/L (14-36) 10/13/18 14:35 ALT 12 IU/L (9-52) 10/13/18 14:35 Alkaline Phosphatase 88 U/L (38-126) 10/13/18 14:35 Total Protein 7.0 g/dL (6.3-8.2) 10/13/18 14:35 Albumin 3.9 g/dL (3.5-5.0) 10/13/18 14:35 Globulin 3.1 g/dL (1.7-4.1) 10/13/18 14:35 Albumin/Globulin Ratio 1.3 (1.0-2.8) 10/13/18 14:35 CA 125 Antigen 1670 U/mL (0-35) H 09/29/18 10:05 Urine Color Yellow 07/21/18 09:02 Urine Appearance Slightly cloudy 07/21/18 09:02 Urine pH 5.5 (4.5-8.0) 07/21/18 09:02 Ur Specific [place] 1.025 (1.000-1.035) 07/21/18 09:02 Urine Protein 2+ (Negative) H 07/21/18 09:02 Urine Glucose (UA) Negative g/dL (Negative) 07/21/18 09:02 Urine Ketones 1+ (NEGATIVE) H 07/21/18 09:02 Urine Occult Blood Negative (Negative) 07/21/18 09:02 Urine Nitrate Negative (Negative) 07/21/18 09:02 Urine Bilirubin 1+ (NEGATIVE) H 07/21/18 09:02 Urine Ictotest Negative (Negative) 07/21/18 09:02 Urine Urobilinogen 2.0 E.U./dL (0.2) H 07/21/18 09:02 Ur Leukocyte Esterase Trace (NEGATIVE) H 07/21/18 09:02 Urine RBC None seen (0-5/HPF) 07/21/18 09:02 Urine WBC 1-5/hpf (0-5/HPF) 07/21/18 09:02 Ur Squamous Epith Cells 10-30 /hpf (0-5/HPF) H D 07/21/18 09:02 Urine Bacteria Moderate (10-30) (None) H 07/21/18 09:02 Hyaline Casts 0-1/lpf (None) 07/21/18 09:02 Urine Mucus 2+ (Negative) H 07/21/18 09:02 Ur Culture Indicated? 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 She was started on bevacizumab and gemcitabine on April 29, 2018. Chemotherapy regimen: Gemcitabine 1000 mg/m2, on day 1, 8. 15, and Bevasuzumab 15 mg/kg, on day 1, every 21-day cycle. 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 In ad dition the CT scan revealed progression of the underlying disease. Per Dr. Acosta, we switched the treatment to Doxil which was started on 09/01/2018. Assessment: Overall she has tolerated well. Will continue. Plan: 1. Ok to proceed to C3D1 Doxil 2. CT CAP w/contrast 3. RTC on C3D15 for labs, CBC, CMP 4. RTC in 4 weeks, Rx and follow up on CT scan. (2) Pulmonary embolism On 07/21/2018, she developed fever. The next day (07/22/2018), she felt very tired in the morning. CT 07/22/2018 showed PE. She was started on Lovenox every 12 hours. She started Eliquis 5 mg bid on 10/26/2018 Plan: Continue Eliquis 5 mg bid
[2018-10-27] MEDS: SODIUM CHLORIDE 0.9% 100 ML 21 ML IV (11:59)
[2018-10-27] MEDS: DEXAMETHASONE 10 MG/ML VIAL 8 MG IV (12:00)
[2018-10-27] MEDS: ONDANSETRON 8 MG in SODIUM CHLORIDE 0.9% 50 ML 216 ML IV (12:02)
[2018-10-27] MEDS: [UNRECOGNIZED DRUG - OTHER] IV (12:38)
[2018-10-27] MEDS: DOXORUBICIN LIPOSOMAL IV (12:38)
[2018-10-27 13:27] LABS: Cancer Antigen 125 2150 U/mL (0-35)
[2018-11-10 14:44] LABS: Add Manual Diff / Slide Review NO; Basophils Absolute Auto 0 /uL (0-100); Basophils Percent Auto 0.6 % (0-2); Eosinophils Absolute Auto 100 /uL (0-450); Eosinophils Percent Auto 1.6 % (2-4); Hematocrit 29.5 % (36-46); Lymphocytes Absolute Auto 600 /uL (1100-4500); Lymphocytes Percent Auto 13.7 % (25-40); Mean Corpuscular HGB Conc 33.8 % (30-36); Mean Corpuscular Hemoglobin 29.7 PG (26-34); Mean Corpuscular Volume 87.8 fL (80-100); Monocytes Absolute Auto 300 /uL (0-900); Monocytes Percent Auto 6.1 % (3-14); Neutrophils Absolute Auto 3500 /uL (1500-7000); Platelet Count 207 X10^3/uL (150-400); Red Blood Cell Count 3.36 X10^6/uL (4.0-5.2); Red Cell Distribution Width 17.6 % (11.6-14.8); White Blood Cell Count 4.4 X10^3/uL (4.5-11.0)
[2018-11-10 14:53] LABS: Alanine Aminotransferase 15 IU/L (9-52); Albumin 3.8 g/dL (3.5-5.0); Albumin Globulin Ratio 1.3 (1.0-2.8); Alkaline Phosphatase 102 U/L (38-126); Aspartate Aminotransferase 24 IU/L (14-36); BUN Creatinine Ratio 17.5 (6-22); Bilirubin Total 0.3 mg/dL (0.2-1.3); Blood Urea Nitrogen 14 mg/dL (7-17); Calcium 9.7 mg/dL (8.4-10.2); Carbon Dioxide 26 mmol/L (22-32); Chloride 101 mmol/L (98-107); Estimated Glomerular Filt Rate > 60.0 mL/min (>60); Glucose 110 mg/dL (80-110); HEMOLYSIS < 15 (0-50); Potassium 4.1 mmol/L (3.4-5.1); Sodium 135 mmol/L (137-145); Total Protein 6.8 g/dL (6.3-8.2)
[2018-11-24 10:30] LABS: Add Manual Diff / Slide Review NO; Basophils Absolute Auto 0 /uL (0-100); Basophils Percent Auto 1.1 % (0-2); Eosinophils Absolute Auto 0 /uL (0-450); Hematocrit 31.6 % (36-46); Hemoglobin 10.8 g/dL (12.0-16.0); Lymphocytes Absolute Auto 700 /uL (1100-4500); Lymphocytes Percent Auto 16.6 % (25-40); Mean Corpuscular HGB Conc 34.1 % (30-36); Mean Corpuscular Hemoglobin 29.8 PG (26-34); Mean Corpuscular Volume 87.4 fL (80-100); Monocytes Absolute Auto 700 /uL (0-900); Monocytes Percent Auto 16.8 % (3-14); Neutrophils Absolute Auto 2800 /uL (1500-7000); Neutrophils Percent Auto 64.5 % (50-75); Platelet Count 229 X10^3/uL (150-400); Red Blood Cell Count 3.62 X10^6/uL (4.0-5.2); Red Cell Distribution Width 17.8 % (11.6-14.8); White Blood Cell Count 4.3 X10^3/uL (4.5-11.0)
[2018-11-24 10:39] LABS: Alanine Aminotransferase 11 IU/L (9-52); Albumin 3.9 g/dL (3.5-5.0); Albumin Globulin Ratio 1.3 (1.0-2.8); Alkaline Phosphatase 112 U/L (38-126); Aspartate Aminotransferase 29 IU/L (14-36); BUN Creatinine Ratio 11.3 (6-22); Bilirubin Total 0.4 mg/dL (0.2-1.3); Blood Urea Nitrogen 9 mg/dL (7-17); Carbon Dioxide 25 mmol/L (22-32); Chloride 101 mmol/L (98-107); Estimated Glomerular Filt Rate > 60.0 mL/min (>60); Globulin 3.1 g/dL (1.7-4.1); Glucose 117 mg/dL (80-110); HEMOLYSIS < 15 (0-50); Potassium 3.9 mmol/L (3.4-5.1); Sodium 137 mmol/L (137-145)
[2018-11-24 11:00] VITALS: BP 149/80; PULSE 94; RESP 18; TEMP 36.9; O2SAT 99
--- NOTE | 2018-11-24 11:28 | P.PNONC_ITS ---
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 Oncology History MMMT 1. Neoadjuvant chemotherapy with carboplatin and Taxol for 4 cycles 2. Optimal cyto reduction in August 2017 3. Five additional cycles of adjuvant carboplatin and Taxol finishing in December 2017 4. Recurrent disease treated with gemcitabine and bevacizumab for 3 cycles finishing in June 2018. Completed 3 cycles. 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 5. Doxil 09/01/[address] Acosta recommendation. PE: On 07/21/2018, she developed fever. The next day (07/22/2018), she felt very tired in the morning. CT 07/22/2018 showed PE. She was started on Lovenox every 12 hours. She started Eliquis 5 mg bid on 10/26/2018 Interval history: Patient presents today for follow-up of the recent scan results. Clinically, patient is complaining a nodule palpable in the right lower quadrant just above the right inguinal area. No other signs or symptoms. She underwent CT of the chest abdomen pelvis on 10/28/2018. The scan showed mild thickening and hyper enhancement involving the vaginal cuff on the left, enlarged mesenteric lymph nodes which have clearly progressed, peritoneal implants versus additional enlarged lymph node noted in the right lower quadrant, enlarged lymph nodes in the bilateral mesentry chain which have progressed. The previously seen enlarged mediastinal lymph nodes have resolved. A mild amount of ascites was noted. In addition focal thickening of hyper enhancement noted involving the anterior abdominal wall. She underwent PET scan on 11/09/2018. PET scan showed extensive elizabeth disease in abdomen and pelvis, presacral soft tissue nodule with mild increased FDG uptake, and mildly enlarged inguinal lymph nodes bilaterally. - Patient Self-Reported Symptoms SR Constitution: Fatigue/Malaise SR ears, nose, mouth, throat issues: Cough SR respiratory issues: Cough, Mucous SR Cardiovascular issues: Extreme swelling SR Genitourinary issues: Change in stream SR Neuro issues: Numbness or tingling SR Hematologic issues: Swollen lymph nodes - Additional ROS All systems PM: reviewed and no additional remarkable complaints except as stated Home Medications and Allergies Home Medications Medication Instructions Recorded Confirmed Type cholecalciferol (vitamin D3) 4,000 unit PO DAILY 05/12/18 11/24/18 History [Vitamin D3] sennosides [senna] 8.6 mg PO QD-BID 05/12/18 11/24/18 History B Complex 100 1 tab PO QAM 06/30/18 11/24/18 History Lakesha-Red 06/30/18 08/04/18 History acetaminophen [Tylenol] 325 mg PO Q6H PRN 09/01/18 11/24/18 History apixaban 5 mg PO BID #180 tab 10/27/18 11/24/18 Rx Allergies Allergy/AdvReac Type Severity Reaction Status Date / Time gemcitabine AdvReac Severe inflammatory Verified 10/25/18 13:38 changes in the lung Exam Vital signs: Vital Signs Temp Pulse Resp BP Pulse Ox 11/24/18 11:00 98.4 F 94 H 18 149/80 H 99 Intake and Output 11/23/18 11/24/18 11/24/18 23:59 07:59 15:59 Other: Weight 75.4 kg Patient Weight 11/24/18 23:59 Weight 75.4 kg - Constitutional positive no acute distress, positive cooperative - Routine HEENT Exam Head: Present: normocephalic, atraumatic Eye: Present: EOMI, PERRL, normal accommodation. Absent: conjunctival icterus ENT: Present: mucous membranes moist - Routine Neck Exam Present: supple. Absent: thyromegaly - Routine Chest/Breast/Axilla Exam Axillae: Absent: lymphadenopathy - Routine Respiratory Exam Present: Clear to auscultation bilaterally. Absent: wheezes - Routine Cardiovascular Exam Present: RRR, S1, S2. Absent: murmur, gallop, rubs - Routine Abdominal Exam Present: soft, tenderness (mild ), mass (right lower qudrant midpoint above the inquinal ligament, measuing about 3x4 cm, mildly tender. hard on palpation.). Absent: distended, rebound, organomegaly - Routine Neurological Exam Present: alert, oriented X3, CN II-XII intact. Absent: sensory deficit, motor deficit - Routine Psychiatric Exam Present: normal affect Results - Labs Laboratory Last Values WBC 4.3 X10^3/uL (4.5-11.0) L 11/24/18 10:20 RBC 3.62 X10^6/uL (4.0-5.2) L 11/24/18 10:20 Hgb 10.8 g/dL (12.0-16.0) L 11/24/18 10:20 Hct 31.6 % (36-46) L 11/24/18 10:20 MCV 87.4 fL (80-100) 11/24/18 10:20 MCH 29.8 PG (26-34) 11/24/18 10:20 MCHC 34.1 % (30-36) 11/24/18 10:20 RDW 17.8 % (11.6-14.8) H 11/24/18 10:20 Plt Count 229 X10^3/uL (150-400) 11/24/18 10:20 Neut % (Auto) 64.5 % (50-75) 11/24/18 10:20 Lymph % (Auto) 16.6 % (25-40) L 11/24/18 10:20 [place] % (Auto) 16.8 % (3-14) H 11/24/18 10:20 Eos % (Auto) 1.0 % (2-4) L 11/24/18 10:20 Baso % (Auto) 1.1 % (0-2) 11/24/18 10:20 Neut # (Auto) 2800 /uL (7536-7072) 11/24/18 10:20 Lymph # (Auto) 700 /uL (2386-0967) L 11/24/18 10:20 [place] # (Auto) 700 /uL (0-900) 11/24/18 10:20 Eos # (Auto) 0 /uL (0-450) 11/24/18 10:20 Baso # (Auto) 0 /uL (0-100) 11/24/18 10:20 Total Counted 100 07/14/18 11:30 Seg Neutrophils % 79.0 % (38-70) H 07/14/18 11:30 Band Neutrophils % 4.0 % (3-7) 07/14/18 11:30 Lymphocytes % (Manual) 4.0 % (25-45) L 07/14/18 11:30 Atypical Lymphs % 1.0 % (-0) H 07/14/18 11:30 Monocytes % (Manual) 12.0 % (2-11) H 07/14/18 11:30 Eosinophils % (Manual) 1.0 % (2-4) L 06/16/18 13:19 Metamyelocytes % 1.0 % (-0) H 06/30/18 10:21 Myelocytes % 2.0 % (-0) H 06/16/18 13:19 Neutrophils # (Manual) 6972 /uL (0223-1344) H 07/14/18 11:30 Plt Morphology Comment A1 07/07/18 08:52 RBC Morphology Not Reportable 07/21/18 09:02 Polychromasia 1+ H 07/21/18 09:02 Anisocytosis 2+ H 06/30/18 10:21 Macrocytosis 2+ H 07/21/18 09:02 Sodium 137 mmol/L (137-145) 11/24/18 10:20 Potassium 3.9 mmol/L (3.4-5.1) 11/24/18 10:20 Chloride 101 mmol/L (98-107) 11/24/18 10:20 Carbon Dioxide 25 mmol/L (22-32) 11/24/18 10:20 BUN 9 mg/dL (7-17) 11/24/18 10:20 Creatinine 0.80 mg/dL (0.52-1.04) 11/24/18 10:20 Estimated GFR > 60.0 mL/min (>60) 11/24/18 10:20 BUN/Creatinine Ratio 11.3 (6-22) 11/24/18 10:20 Glucose 117 mg/dL (80-110) H 11/24/18 10:20 Calcium 10.0 mg/dL (8.4-10.2) 11/24/18 10:20 Total Bilirubin 0.4 mg/dL (0.2-1.3) 11/24/18 10:20 AST 29 IU/L (14-36) 11/24/18 10:20 ALT 11 IU/L (9-52) 11/24/18 10:20 Alkaline Phosphatase 112 U/L (38-126) 11/24/18 10:20 Total Protein 7.0 g/dL (6.3-8.2) 11/24/18 10:20 Albumin 3.9 g/dL (3.5-5.0) 11/24/18 10:20 Globulin 3.1 g/dL (1.7-4.1) 11/24/18 10:20 Albumin/Globulin Ratio 1.3 (1.0-2.8) 11/24/18 10:20 CA 125 Antigen 3560 U/mL (0-35) H 11/24/18 10:20 Urine Color Yellow 07/21/18 09:02 Urine Appearance Slightly cloudy 07/21/18 09:02 Urine pH 5.5 (4.5-8.0) 07/21/18 09:02 Ur Specific [place] 1.025 (1.000-1.035) 07/21/18 09:02 Urine Protein 2+ (Negative) H 07/21/18 09:02 Urine Glucose (UA) Negative g/dL (Negative) 07/21/18 09: Urine Ketones 1+ (NEGATIVE) H 07/21/18 09: Urine Occult Blood Negative (Negative) 07/21/18 09: Urine Nitrate Negative (Negative) 07/21/18 09: Urine Bilirubin 1+ (NEGATIVE) H 07/21/18 09: Urine Ictotest Negative (Negative) 07/21/18 09: Urine Urobilinogen 2.0 E.U./dL (0.2) H 07/21/18 09:02 Ur Leukocyte Esterase Trace (NEGATIVE) H 07/21/18 09:02 Urine RBC None seen (0-5/HPF) 07/21/18 09:02 Urine WBC 1-5/hpf (0-5/HPF) 07/21/18 09:02 Ur Squamous Epith Cells 10-30 /hpf (0-5/HPF) H D 07/21/18 09:02 Urine Bacteria Moderate (10-30) (None) H 07/21/18 09: Hyaline Casts 0-1/lpf (None) 07/21/18 09: Urine Mucus 2+ (Negative) H 07/21/18 09:02 Ur Culture Indicated? 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 She was started on bevacizumab and gemcitabine on April 29, 2018. Chemotherapy regimen: Gemcitabine 1000 mg/m2, on day 1, 8. 15, and Bevasuzumab 15 mg/kg, on day 1, every 21-day cycle. 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 In addition the CT scan revealed progression of the underlying disease. Per Dr. Acosta, we switched the treatment to Doxil which was started on 09/01/2018. Assessment: I reviewed the scan results (CT chest abdomen pelvis and PET scan) with the patient. The scans showed evidence of disease progression. In addition patient developed right lower quadrant protruding mass just above the right inguinal ligament. Her tumor markers have increased dramatically. I talked with her that it is clear that the Doxil may not be effective. Patient herself would like to try the initial chemotherapy which is carboplatin and paclitaxel. It has been more than 6 months after patient completed the treatment. I talked with her that we can try a couple of cycles and see if she is able to mount any response. Patient voiced understanding. Plan: 1. Ok to proceed to cycle 1 carboplatin (AUC 5)/paclitaxel (175 mg/2) 2. RTC on C1D8, CBC, CMP 3. Instructed her to call for any concerns or questions. (2) Pulmonary embolism On 07/21/2018, she developed fever. The next day (07/22/2018), she felt very tired in the morning. CT 07/22/2018 showed PE. She was started on Lovenox every 12 hours. She started Eliquis 5 mg bid on 10/26/2018 Plan: Continue Eliquis 5 mg bid
[2018-11-24 12:19] LABS: Cancer Antigen 125 3560 U/mL (0-35)
[2018-11-24] MEDS: dexAMETHasone 20 MG in SODIUM CHLORIDE 0.9% 50 ML 220 ML IV (12:57)
[2018-11-24] MEDS: SODIUM CHLORIDE 0.9% 100 ML 21 ML IV (12:57)
[2018-11-24] MEDS: ONDANSETRON 16 MG in SODIUM CHLORIDE 0.9% 50 ML 232 ML IV (13:19)
[2018-11-24] MEDS: diphenhydrAMINE 25 MG TABLET PO (13:50)
[2018-11-24] MEDS: ACETAMINOPHEN 325 MG TABLET 650 MG PO (13:50)
[2018-11-24] MEDS: FAMOTIDINE 20 MG/50 ML PIGGYBACK 200 MG IV (14:11)
[2018-11-24] MEDS: FOSAPREPITANT 150 MG in SODIUM CHLORIDE 0.9% 150 ML 300 ML IV (14:39)
[2018-11-24] MEDS: DEXTROSE 5% IV (16:32)
[2018-11-24] MEDS: PACLITAXEL IV (16:32)
[2018-11-24] MEDS: SODIUM CHLORIDE 0.9% IV (19:28)
[2018-11-24] MEDS: CARBOPLATIN IV (19:28)
--- NOTE | 2018-11-29 16:39 | PC.NURSE ---
1ST CHEMO CALL: Call made to patient after start of new treatment. She stated feeling down on Wednesday but better on Wednesday, able to eat and drink and eliminate fine. she requested clarification on appts and this was vrerified with both Dr. Carbajal and patient.
[2018-12-01 15:43] LABS: Add Manual Diff / Slide Review NO; Basophils Absolute Auto 0 /uL (0-100); Basophils Percent Auto 0.4 % (0-2); Eosinophils Absolute Auto 0 /uL (0-450); Eosinophils Percent Auto 0.4 % (2-4); Hemoglobin 10.4 g/dL (12.0-16.0); Lymphocytes Absolute Auto 500 /uL (1100-4500); Lymphocytes Percent Auto 7.3 % (25-40); Mean Corpuscular HGB Conc 33.7 % (30-36); Mean Corpuscular Hemoglobin 29.3 PG (26-34); Monocytes Absolute Auto 300 /uL (0-900); Monocytes Percent Auto 4.8 % (3-14); Neutrophils Absolute Auto 5500 /uL (1500-7000); Neutrophils Percent Auto 87.1 % (50-75); Platelet Count 64 X10^3/uL (150-400); Red Blood Cell Count 3.56 X10^6/uL (4.0-5.2); Red Cell Distribution Width 16.9 % (11.6-14.8); White Blood Cell Count 6.3 X10^3/uL (4.5-11.0)
[2018-12-01 15:47] LABS: Alanine Aminotransferase 15 IU/L (9-52); Albumin 4.1 g/dL (3.5-5.0); Albumin Globulin Ratio 1.3 (1.0-2.8); Alkaline Phosphatase 108 U/L (38-126); Aspartate Aminotransferase 31 IU/L (14-36); Bilirubin Total 0.6 mg/dL (0.2-1.3); Blood Urea Nitrogen 16 mg/dL (7-17); Calcium 9.7 mg/dL (8.4-10.2); Carbon Dioxide 24 mmol/L (22-32); Chloride 99 mmol/L (98-107); Estimated Glomerular Filt Rate > 60.0 mL/min (>60); Globulin 3.1 g/dL (1.7-4.1); Glucose 129 mg/dL (80-110); HEMOLYSIS < 15 (0-50); Sodium 134 mmol/L (137-145); Total Protein 7.2 g/dL (6.3-8.2)
--- NOTE | 2018-12-01 15:51 | ONC.PN ---
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 Oncology History MMMT 1. Neoadjuvant chemotherapy with carboplatin and Taxol for 4 cycles 2. Optimal cyto reduction in August 2017 3. Five additional cycles of adjuvant carboplatin and Taxol finishing in December 2017 4. Recurrent disease treated with gemcitabine and bevacizumab for 3 cycles finishing in June 2018. Completed 3 cycles. 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 5. Doxil 09/01/[address] Acosta recommendation. PE: On 07/21/2018, she developed fever. The next day (07/22/2018), she felt very tired in the morning. CT 07/22/2018 showed PE. She was started on Lovenox every 12 hours. She started Eliquis 5 mg bid on 10/26/2018 Interval history: She underwent CT of the chest abdomen pelvis on 10/28/2018. The scan showed mild thickening and hyper enhancement involving the vaginal cuff on the left, enlarged mesenteric lymph nodes which have clearly progressed, peritoneal implants versus additional enlarged lymph node noted in the right lower quadrant, enlarged lymph nodes in the bilateral mesentry chain which have progressed. The previously seen enlarged mediastinal lymph nodes have resolved. A mild amount of ascites was noted. In addition focal thickening of hyper enhancement noted involving the anterior abdominal wall. She underwent PET scan on 11/09/2018. PET scan showed extensive elizabeth disease in abdomen and pelvis, presacral soft tissue nodule with mild increased FDG uptake, and mildly enlarged inguinal lymph nodes bilaterally. On 11/24/2018, she was started on palliative chemotherapy with Carboplatin/Paclitaxel. She presents here today for one-week follow-up. Clinically patient reported some level of fatigue. In addition patient reports left lower abdominal worsening pain especially upon eating. Previously it was mild. Now even after drinking fluid, she is complaining left lower abdominal pain. No nausea no vomiting. No diarrhea. And no blood in the stool. She denies any fever or chills. - Patient Self-Reported Symptoms SR Constitution: Fatigue/Malaise SR ears, nose, mouth, throat issues: Cough SR respiratory issues: Cough, Mucous SR Cardiovascular issues: Extreme swelling SR Genitourinary issues: Change in stream SR Neuro issues: Numbness or tingling SR Hematologic issues: Swollen lymph nodes - Additional ROS All systems PM: reviewed and no additional remarkable complaints except as stated Home Medications and Allergies Home Medications Medication Instructions Recorded Confirmed Type cholecalciferol (vitamin D3) 4,000 unit PO DAILY 05/12/18 11/24/18 History [Vitamin D3] sennosides [senna] 8.6 mg PO QD-BID 05/12/18 11/24/18 History B Complex 100 1 tab PO QAM 06/30/18 11/24/18 History Lakesha-Red 06/30/18 08/04/18 History acetaminophen [Tylenol] 325 mg PO Q6H PRN 09/01/18 11/24/18 History apixaban 5 mg PO BID #180 tab 10/27/18 11/24/18 Rx Allergies Allergy/AdvReac Type Severity Reaction Status Date / Time gemcitabine AdvReac Severe inflammatory Verified 10/25/18 13:38 changes in the lung Exam Vital signs: Last Vital Signs Temp 98.4 F 11/24/18 11:00 Pulse 94 H 11/24/18 11:00 Resp 18 11/24/18 11:00 BP 149/80 H 11/24/18 11:00 Pulse Ox 99 11/24/18 11:00 - Constitutional positive no acute distress, positive obese - Routine HEENT Exam Head: Present: normocephalic, atraumatic Eye: Present: EOMI, PERRL, normal accommodation. Absent: conjunctival icterus ENT: Present: mucous membranes moist - Routine Neck Exam Present: supple. Absent: lymphadenopathy, thyromegaly - Routine Chest/Breast/Axilla Exam Axillae: Absent: lymphadenopathy - Routine Respiratory Exam Present: Clear to auscultation bilaterally. Absent: wheezes - Routine Cardiovascular Exam Present: S1, S2. Absent: murmur, gallop, rubs - Routine Abdominal Exam Present: soft, tenderness (mild LLQ pain, no muscle guarding, no rebounds). Absent: distended, rebound, guarding, organomegaly - Routine Extremities Exam Absent: edema - Routine Neurological Exam Present: alert, oriented X3, CN II-XII intact. Absent: sensory deficit, motor deficit - Routine Psychiatric Exam Present: normal affect Results - Labs Laboratory Last Values WBC 6.3 X10^3/uL (4.5-11.0) 12/01/18 15:15 RBC 3.56 X10^6/uL (4.0-5.2) L 12/01/18 15:15 Hgb 10.4 g/dL (12.0-16.0) L 12/01/18 15:15 Hct 31.0 % (36-46) L 12/01/18 15:15 MCV 87.0 fL (80-100) 12/01/18 15:15 MCH 29.3 PG (26-34) 12/01/18 15:15 MCHC 33.7 % (30-36) 12/01/18 15:15 RDW 16.9 % (11.6-14.8) H 12/01/18 15:15 Plt Count 64 X10^3/uL (150-400) L 12/01/18 15:15 Neut % (Auto) 87.1 % (50-75) H 12/01/18 15:15 Lymph % (Auto) 7.3 % (25-40) L 12/01/18 15:15 [place] % (Auto) 4.8 % (3-14) 12/01/18 15:15 Eos % (Auto) 0.4 % (2-4) L 12/01/18 15:15 Baso % (Auto) 0.4 % (0-2) 12/01/18 15:15 Neut # (Auto) 5500 /uL (8199-3249) 12/01/18 15:15 Lymph # (Auto) 500 /uL (3923-5468) L 12/01/18 15:15 [place] # (Auto) 300 /uL (0-900) 12/01/18 15:15 Eos # (Auto) 0 /uL (0-450) 12/01/18 15:15 Baso # (Auto) 0 /uL (0-100) 12/01/18 15:15 Total Counted 100 07/14/18 11:30 Seg Neutrophils % 79.0 % (38-70) H 07/14/18 11:30 Band Neutrophils % 4.0 % (3-7) 07/14/18 11:30 Lymphocytes % (Manual) 4.0 % (25-45) L 07/14/18 11:30 Atypical Lymphs % 1.0 % (-0) H 07/14/18 11:30 Monocytes % (Manual) 12.0 % (2-11) H 07/14/18 11:30 Eosinophils % (Manual) 1.0 % (2-4) L 06/16/18 13:19 Metamyelocytes % 1.0 % (-0) H 06/30/18 10:21 Myelocytes % 2.0 % (-0) H 06/16/18 13:19 Neutrophils # (Manual) 6972 /uL (7120-2659) H 07/14/18 11:30 Plt Morphology Comment A1 07/07/18 08:52 RBC Morphology Not Reportable 07/21/18 09:02 Polychromasia 1+ H 07/21/18 09:02 Anisocytosis 2+ H 06/30/18 10:21 Macrocytosis 2+ H 07/21/18 09:02 Sodium 134 mmol/L (137-145) L 12/01/18 15:15 Potassium 4.0 mmol/L (3.4-5.1) 12/01/18 15:15 Chloride 99 mmol/L (98-107) 12/01/18 15:15 Carbon Dioxide 24 mmol/L (22-32) 12/01/18 15:15 BUN 16 mg/dL (7-17) 12/01/18 15:15 Creatinine 0.80 mg/dL (0.52-1.04) 12/01/18 15:15 Estimated GFR > 60.0 mL/min (>60) 12/01/18 15:15 BUN/Creatinine Ratio 20.0 (6-22) 12/01/18 15:15 Glucose 129 mg/dL (80-110) H 12/01/18 15:15 Calcium 9.7 mg/dL (8.4-10.2) 12/01/18 15:15 Total Bilirubin 0.6 mg/dL (0.2-1.3) 12/01/18 15:15 AST 31 IU/L (14-36) 12/01/18 15:15 ALT 15 IU/L (9-52) 12/01/18 15:15 Alkaline Phosphatase 108 U/L (38-126) 12/01/18 15:15 Total Protein 7.2 g/dL (6.3-8.2) 12/01/18 15:15 Albumin 4.1 g/dL (3.5-5.0) 12/01/18 15:15 Globulin 3.1 g/dL (1.7-4.1) 12/01/18 15:15 Albumin/Globulin Ratio 1.3 (1.0-2.8) 12/01/18 15:15 CA 125 Antigen 3560 U/mL (0-35) H 11/24/18 10:20 Urine Color Yellow 07/21/18 09:02 Urine Appearance Slightly cloudy 07/21/18 09:02 Urine pH 5.5 (4.5-8.0) 07/21/18 09:02 Ur Specific [place] 1.025 (1.000-1.035) 07/21/18 09:02 Urine Protein 2+ (Negative) H 07/21/18 09:02 Urine Glucose (UA) Negative g/dL (Negative) 07/21/18 09:02 Urine Ketones 1+ (NEGATIVE) H 07/21/18 09:02 Urine Occult Blood Negative (Negative) 07/21/18 09:02 Urine Nitrate Negative (Negative) 07/21/18 09:02 Urine Bilirubin 1+ (NEGATIVE) H 07/21/18 09:02 Urine Ictotest Negative (Negative) 07/21/18 09:02 Urine Urobilinogen 2.0 E.U./dL (0.2) H 07/21/18 09:02 Ur Leukocyte Esterase Trace (NEGATIVE) H 07/21/18 09:02 Urine RBC None seen (0-5/HPF) 07/21/18 09:02 Urine WBC 1-5/hpf (0-5/HPF) 07/21/18 09:02 Ur Squamous Epith Cells 10-30 /hpf (0-5/HPF) H D 07/21/18 09:02 Urine Bacteria Moderate (10-30) (None) H 07/21/18 09:02 Hyaline Casts 0-1/lpf (None) 07/21/18 09:02 Urine Mucus 2+ (Negative) H 07/21/18 09:02 Ur Culture Indicated? 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 She was started on bevacizumab and gemcitabine on April 29, 2018. Chemotherapy regimen: Gemcitabine 1000 mg/m2, on day 1, 8. 15, and Bevasuzumab 15 mg/kg, on day 1, every 21-day cycle. 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 In addition the CT scan revealed progression of the underlying disease. Per Dr. Acosta, we switched the treatment to Doxil which was started on 09/01/2018, and stopped in 11/2018. Then, on 11/24/2018, she was started on carboplatin (AUC 5)/paclitaxel (175 mg/2). Assessment: Today's cycle 1 day 8. Patient overall has tolerated well. Patient has mild anemia. The platelet counts decreased significantly. However no bleeding no petechiae. Patient's left lower abdominal pain probably is related to the underlying malignancy. I showed the patient the PET scan again. Are multiple significant hypermetabolic lesions within the abdomen especially on the left side. I talked with her that we will continue current planned chemotherapy and will follow-up on the CA 125 level. Plan: 1. C1D8, CBC, CMP only, patient needs to wait for the results 2. RTC 12/15/2018 for cycle 2 Carboplatin/Paclitaxle. CBC, CMP, and CA 125. (2) Pulmonary embolism On 07/21/2018, she developed fever. The next day (07/22/2018), she felt very tired in the morning. CT 07/22/2018 showed PE. She was started on Lovenox every 12 hours. She started Eliquis 5 mg bid on 10/26/2018 Plan: Continue Eliquis 5 mg bid Hold if PLT < 50K and/or bleeding.
[2018-12-08 14:48] LABS: Alanine Aminotransferase 20 IU/L (9-52); Albumin 3.7 g/dL (3.5-5.0); Albumin Globulin Ratio 1.3 (1.0-2.8); Alkaline Phosphatase 80 U/L (38-126); Aspartate Aminotransferase 26 IU/L (14-36); Bilirubin Total 0.2 mg/dL (0.2-1.3); Blood Urea Nitrogen 16 mg/dL (7-17); Calcium 9.3 mg/dL (8.4-10.2); Carbon Dioxide 26 mmol/L (22-32); Chloride 102 mmol/L (98-107); Estimated Glomerular Filt Rate > 60.0 mL/min (>60); Globulin 2.9 g/dL (1.7-4.1); Glucose 113 mg/dL (80-110); HEMOLYSIS < 15 (0-50); Potassium 3.6 mmol/L (3.4-5.1); Sodium 136 mmol/L (137-145); Total Protein 6.6 g/dL (6.3-8.2)
[2018-12-08 14:59] LABS: Hematocrit 26.7 % (36-46); Hemoglobin 9.2 g/dL (12.0-16.0); Mean Corpuscular HGB Conc 34.7 % (30-36); Mean Corpuscular Hemoglobin 29.5 PG (26-34); Mean Corpuscular Volume 85.1 fL (80-100); Platelet Count 149 X10^3/uL (150-400); Red Blood Cell Count 3.14 X10^6/uL (4.0-5.2); Red Cell Distribution Width 16.5 % (11.6-14.8); White Blood Cell Count 5.4 X10^3/uL (4.5-11.0)
[2018-12-08 15:03] LABS: Add Manual Diff / Slide Review YES
[2018-12-08 15:40] LABS: Neutrophils Absolute Manual 3834 /uL (3000-5900); Total Cells Counted 100
[2018-12-08 15:41] LABS: Anisocytosis 2+; Poikilocytosis 2+
--- NOTE | 2018-12-15 08:31 | P.PNONC_ITS ---
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 She is here for cycle 2# palliative carbo/paclitaxel Oncology History MMMT 1. Neoadjuvant chemotherapy with carboplatin and Taxol for 4 cycles 2. Optimal cyto reduction in August 2017 3. Five additional cycles of adjuvant carboplatin and Taxol finishing in December 2017 4. Recurrent disease treated with gemcitabine and bevacizumab for 3 cycles finishing in June 2018. Completed 3 cycles. 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 5. Doxil 09/01/[address] Acosta recommendation. PE: On 07/21/2018, she developed fever. The next day (07/22/2018), she felt very tired in the morning. CT 07/22/2018 showed PE. She was started on Lovenox every 12 hours. She started Eliquis 5 mg bid on 10/26/2018 Interval history: She underwent CT of the chest abdomen pelvis on 10/28/2018. The scan showed mild thickening and hyper enhancement involving the vaginal cuff on the left, enlarged mesenteric lymph nodes which have clearly progressed, peritoneal implants versus additional enlarged lymph node noted in the right lower quadrant, enlarged lymph nodes in the bilateral mesentry chain which have progressed. The previously seen enlarged mediastinal lymph nodes have resolved. A mild amount of ascites was noted. In addition focal thickening of hyper enhancement noted involving the anterior abdominal wall. She underwent PET scan on 11/09/2018. PET scan showed extensive elizabeth disease in abdomen and pelvis, presacral soft tissue nodule with mild increased FDG uptake, and mildly enlarged inguinal lymph nodes bilaterally. On 11/24/2018, she was started on palliative chemotherapy with Carboplatin/Paclitaxel. Patient tolerated the first cycle very well. She denies any nausea or vomiting. She denies diarrhea or constipation. Patient does have mild left lower abdominal pain which has already resolved. Patient denies any tingling numbing of hands and feet. - Patient Self-Reported Symptoms SR Constitution: Fatigue/Malaise SR ears, nose, mouth, throat issues: Cough SR respiratory issues: Cough, Mucous SR Cardiovascular issues: Extreme swelling SR Genitourinary issues: Change in stream SR Neuro issues: Numbness or tingling SR Hematologic issues: Swollen lymph nodes - Additional ROS All systems PM: reviewed and no additional remarkable complaints except as stated Home Medications and Allergies Home Medications Medication Instructions Recorded Confirmed Type cholecalciferol (vitamin D3) 4,000 unit PO DAILY 05/12/18 12/15/18 History [Vitamin D3] sennosides [senna] 8.6 mg PO QD-BID 05/12/18 12/15/18 History B Complex 100 1 tab PO QAM 06/30/18 12/15/18 History acetaminophen [Tylenol] 325 mg PO Q6H PRN 09/01/18 12/15/18 History apixaban 5 mg PO BID #180 tab 10/27/18 12/15/18 Rx Allergies Allergy/AdvReac Type Severity Reaction Status Date / Time gemcitabine AdvReac Severe inflammatory Verified 10/25/18 13:38 changes in the lung Exam Vital signs: Last Vital Signs Temp 98.3 F 12/15/18 08:53 Pulse 83 12/15/18 08:53 Resp 18 12/15/18 08:53 BP 137/88 12/15/18 08:53 Pulse Ox 98 12/15/18 08:53 - Constitutional positive no acute distress, positive obese, positive cooperative - Routine HEENT Exam Head: Present: normocephalic, atraumatic Eye: Present: EOMI, PERRL, normal accommodation. Absent: conjunctival icterus ENT: Present: mucous membranes moist - Routine Neck Exam Present: supple. Absent: lymphadenopathy, thyromegaly - Routine Chest/Breast/Axilla Exam Axillae: Absent: lymphadenopathy - Routine Respiratory Exam Present: Clear to auscultation bilaterally. Absent: wheezes - Routine Cardiovascular Exam Present: RRR, S1, S2. Absent: murmur, gallop, rubs - Routine Abdominal Exam Present: soft. Absent: tenderness, distended, organomegaly - Routine Extremities Exam Absent: edema - Routine Neurological Exam Present: alert, oriented X3, CN II-XII intact. Absent: sensory deficit, motor deficit - Routine Psychiatric Exam Present: normal affect, normal thought process, cooperative Results - Labs Laboratory Last Values WBC 4.5 X10^3/uL (4.5-11.0) 12/15/18 08:47 RBC 3.21 X10^6/uL (4.0-5.2) L 12/15/18 08:47 Hgb 9.3 g/dL (12.0-16.0) L 12/15/18 08:47 Hct 28.1 % (36-46) L 12/15/18 08:47 MCV 87.5 fL (80-100) 12/15/18 08:47 MCH 29.0 PG (26-34) 12/15/18 08:47 MCHC 33.2 % (30-36) 12/15/18 08:47 RDW 17.1 % (11.6-14.8) H 12/15/18 08:47 Plt Count 181 X10^3/uL (150-400) 12/15/18 08:47 Neut % (Auto) 67.7 % (50-75) 12/15/18 08:47 Lymph % (Auto) 20.7 % (25-40) L 12/15/18 08:47 [place] % (Auto) 10.7 % (3-14) 12/15/18 08:47 Eos % (Auto) 0.6 % (2-4) L 12/15/18 08:47 Baso % (Auto) 0.3 % (0-2) 12/15/18 08:47 Neut # (Auto) 3100 /uL (8208-2334) 12/15/18 08:47 Lymph # (Auto) 900 /uL (8173-6634) L 12/15/18 08:47 [place] # (Auto) 500 /uL (0-900) 12/15/18 08:47 Eos # (Auto) 0 /uL (0-450) 12/15/18 08:47 Baso # (Auto) 0 /uL (0-100) 12/15/18 08:47 Total Counted 100 12/08/18 14:30 Seg Neutrophils % 70.0 % (38-70) 12/08/18 14:30 Band Neutrophils % 1.0 % (3-7) L 12/08/18 14:30 Lymphocytes % (Manual) 11.0 % (25-45) L 12/08/18 14:30 Atypical Lymphs % 1.0 % (-0) H 07/14/18 11:30 Monocytes % (Manual) 17.0 % (2-11) H 12/08/18 14:30 Eosinophils % (Manual) 1.0 % (2-4) L 12/08/18 14:30 Metamyelocytes % 1.0 % (-0) H 06/30/18 10:21 Myelocytes % 2.0 % (-0) H 06/16/18 13:19 Neutrophils # (Manual) 3834 /uL (0063-6996) 12/08/18 14:30 Plt Morphology Comment A1 07/07/18 08:52 RBC Morphology See below 12/08/18 14:30 Polychromasia 1+ H 07/21/18 09:02 Poikilocytosis 2+ H 12/08/18 14:30 Anisocytosis 2+ H 12/08/18 14:30 Macrocytosis 2+ H 07/21/18 09:02 Sodium 140 mmol/L (137-145) 12/15/18 08:47 Potassium 4.0 mmol/L (3.4-5.1) 12/15/18 08:47 Chloride 104 mmol/L (98-107) 12/15/18 08:47 Carbon Dioxide 26 mmol/L (22-32) 12/15/18 08:47 BUN 11 mg/dL (7-17) 12/15/18 08:47 Creatinine 0.90 mg/dL (0.52-1.04) 12/15/18 08:47 Estimated GFR > 60.0 mL/min (>60) 12/15/18 08:47 BUN/Creatinine Ratio 12.2 (6-22) 12/15/18 08:47 Glucose 105 mg/dL (80-110) 12/15/18 08:47 Calcium 10.0 mg/dL (8.4-10.2) 12/15/18 08:47 Total Bilirubin 0.4 mg/dL (0.2-1.3) 12/15/18 08:47 AST 23 IU/L (14-36) 12/15/18 08:47 ALT 11 IU/L (9-52) 12/15/18 08:47 Alkaline Phosphatase 74 U/L (38-126) 12/15/18 08:47 Total Protein 6.7 g/dL (6.3-8.2) 12/15/18 08:47 Albumin 3.8 g/dL (3.5-5.0) 12/15/18 08:47 Globulin 2.9 g/dL (1.7-4.1) 12/15/18 08:47 Albumin/Globulin Ratio 1.3 (1.0-2.8) 12/15/18 08:47 CA 125 Antigen 788 U/mL (0-35) H 12/15/18 08:47 Urine Color Yellow 07/21/18 09:02 Urine Appearance Slightly cloudy 07/21/18 09:02 Urine pH 5.5 (4.5-8.0) 07/21/18 09:02 Ur Specific [place] 1.025 (1.000-1.035) 07/21/18 09:02 Urine Protein 2+ (Negative) H 07/21/18 09:02 Urine Glucose (UA) Negative g/dL (Negative) 07/21/18 09:02 Urine Ketones 1+ (NEGATIVE) H 07/21/18 09:02 Urine Occult Blood Negative (Negative) 07/21/18 09: Urine Nitrate Negative (Negative) 07/21/18 09: Urine Bilirubin 1+ (NEGATIVE) H 07/21/18 09:02 Urine Ictotest Negative (Negative) 07/21/18 09:02 Urine Urobilinogen 2.0 E.U./dL (0.2) H 07/21/18 09:02 Ur Leukocyte Esterase Trace (NEGATIVE) H 07/21/18 09:02 Urine RBC None seen (0-5/HPF) 07/21/18 09:02 Urine WBC 1-5/hpf (0-5/HPF) 07/21/18 09:02 Ur Squamous Epith Cells 10-30 /hpf (0-5/HPF) H D 07/21/18 09:02 Urine Bacteria Moderate (10-30) (None) H 07/21/18 09:02 Hyaline Casts 0-1/lpf (None) 07/21/18 09:02 Urine Mucus 2+ (Negative) H 07/21/18 09:02 Ur Culture Indicated? 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 She was started on bevacizumab and gemcitabine on April 29, 2018. Chemotherapy regimen: Gemcitabine 1000 mg/m2, on day 1, 8. 15, and Bevasuzumab 15 mg/kg, on day 1, every 21-day cycle. 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 In addition the CT scan revealed progression of the underlying disease. Per Dr. Acosta, we switched the treatment to Doxil which was started on 09/01/2018, and stopped in 11/2018. Then, on 11/24/2018, she was started on carboplatin (AUC 5)/paclitaxel (175 mg/2). Assessment: Overall, she has tolerated the first round of carboplatin and paclitaxel well. I will continue. Will monitor CBC CMP weekly. Plan: 1. Ok to proceed to cycle 2# Carboplatin/Paclitaxle 2. CBC, CMP on day 8 and 15 3. RTC 01/09 for next cycle, CBC, CMP, and CA 125. (2) Pulmonary embolism Overview: On 07/21/2018, presented with fever. On 07/22/2018, very tired in the morning. CT 07/22/2018 showed PE. She was started on Lovenox every 12 hours. She started Eliquis 5 mg bid on 10/26/2018 Assessment: She tolerated Eliquis well. No bleeding events. Plan: 1. Continue Eliquis 5 mg bid 2. CBC weekly during chemotherapy 3. Hold if PLT < 50K and/or bleeding.
[2018-12-15 08:53] VITALS: BP 137/88; PULSE 83; RESP 18; TEMP 36.8; O2SAT 98
[2018-12-15 09:06] LABS: Add Manual Diff / Slide Review NO; Basophils Absolute Auto 0 /uL (0-100); Basophils Percent Auto 0.3 % (0-2); Eosinophils Absolute Auto 0 /uL (0-450); Eosinophils Percent Auto 0.6 % (2-4); Hematocrit 28.1 % (36-46); Hemoglobin 9.3 g/dL (12.0-16.0); Lymphocytes Absolute Auto 900 /uL (1100-4500); Lymphocytes Percent Auto 20.7 % (25-40); Mean Corpuscular HGB Conc 33.2 % (30-36); Mean Corpuscular Volume 87.5 fL (80-100); Monocytes Absolute Auto 500 /uL (0-900); Monocytes Percent Auto 10.7 % (3-14); Neutrophils Absolute Auto 3100 /uL (1500-7000); Neutrophils Percent Auto 67.7 % (50-75); Platelet Count 181 X10^3/uL (150-400); Red Blood Cell Count 3.21 X10^6/uL (4.0-5.2); Red Cell Distribution Width 17.1 % (11.6-14.8); White Blood Cell Count 4.5 X10^3/uL (4.5-11.0)
[2018-12-15 09:15] LABS: Alanine Aminotransferase 11 IU/L (9-52); Albumin 3.8 g/dL (3.5-5.0); Albumin Globulin Ratio 1.3 (1.0-2.8); Alkaline Phosphatase 74 U/L (38-126); Aspartate Aminotransferase 23 IU/L (14-36); BUN Creatinine Ratio 12.2 (6-22); Bilirubin Total 0.4 mg/dL (0.2-1.3); Blood Urea Nitrogen 11 mg/dL (7-17); Carbon Dioxide 26 mmol/L (22-32); Chloride 104 mmol/L (98-107); Estimated Glomerular Filt Rate > 60.0 mL/min (>60); Globulin 2.9 g/dL (1.7-4.1); Glucose 105 mg/dL (80-110); HEMOLYSIS < 15 (0-50); Sodium 140 mmol/L (137-145); Total Protein 6.7 g/dL (6.3-8.2)
[2018-12-15 09:45] LABS: Cancer Antigen 125 788 U/mL (0-35)
[2018-12-15] MEDS: dexAMETHasone 20 MG in SODIUM CHLORIDE 0.9% 50 ML 220 ML IV (10:18)
[2018-12-15] MEDS: diphenhydrAMINE 25 MG TABLET PO (10:36)
[2018-12-15] MEDS: ACETAMINOPHEN 325 MG TABLET 650 MG PO (10:36)
[2018-12-15] MEDS: FAMOTIDINE 20 MG/50 ML PIGGYBACK 200 MG IV (10:37)
[2018-12-15] MEDS: FOSAPREPITANT 150 MG in SODIUM CHLORIDE 0.9% 150 ML 300 ML IV (11:13)
[2018-12-15] MEDS: SODIUM CHLORIDE 0.9% 100 ML 21 ML IV (11:51)
[2018-12-15] MEDS: ONDANSETRON 16 MG in SODIUM CHLORIDE 0.9% 50 ML 232 ML IV (11:51)
[2018-12-15] MEDS: DEXTROSE 5% IV (12:26)
[2018-12-15] MEDS: PACLITAXEL IV (12:26)
[2018-12-15] MEDS: CARBOPLATIN IV (15:46)
[2018-12-15] MEDS: SODIUM CHLORIDE 0.9% IV (15:46)
[2018-12-15 16:11] VITALS: BP 94/41; PULSE 84; RESP 16; O2SAT 99
[2018-12-15 16:13] VITALS: BP 70/28; PULSE 74; RESP 16; O2SAT 80
[2018-12-15 16:15] VITALS: BP 131/63; PULSE 87; RESP 16; O2SAT 95
[2018-12-15 16:16] VITALS: BP 63/37; PULSE 81; RESP 16; O2SAT 95
[2018-12-15 16:22] VITALS: BP 118/49; PULSE 91; RESP 20; O2SAT 98
[2018-12-15] MEDS: EPINEPHRINE 0.3 MG/0.3 ML IM (16:28)
[2018-12-15] MEDS: AUTO INJCT IM (16:28)
--- NOTE | 2018-12-15 16:33 | PC.NURSE ---
carboplatin started and about 15min pt reported feeling flushed and arms tingling. carbo stopped immediately, Dr. Carbajal notified.O2 at 2L/nc with sat 80's. NS wide open; Dr. Carbajal at chair side. Solumedrol 125mg given at 1610, Benadryl 50mg IV given at 1611 and epi pen at 1612. 911 called. pt alert and talking. face pale; tongue white. EMT here at 1620
--- NOTE | 2018-12-15 16:41 | PC.NURSE ---
CALL TO DAUGHTER RE MOTHER'S CONDITION: THIS NURSE EXPLAINED TO HEMAL THAT HER MOM HAD A REACTION TO THE MEDICATION TODAY AND WAS SENT TO [facility] ER. DAUGHTER EXPRESSED UNDERSTANDING AND WOULD BE CALLING HER SON IS SOMEWHAT CLOSER TO COME UP TO ER, SHE WOULD COME LATER A BIT FURTHER AWAY.
--- NOTE | 2018-12-22 12:32 | P.PNONC_ITS ---
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 She is here for cycle 2# palliative carbo/paclitaxel Oncology History MMMT 1. Neoadjuvant chemotherapy with carboplatin and Taxol for 4 cycles 2. Optimal cyto reduction in August 2017 3. Five additional cycles of adjuvant carboplatin and Taxol finishing in December 2017 4. Recurrent disease treated with gemcitabine and bevacizumab for 3 cycles finishing in June 2018. Completed 3 cycles. 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 5. Doxil 09/01/[address] Acosta recommendation. She underwent CT of the chest abdomen pelvis on 10/28/2018. The scan showed mild thickening and hyper enhancement involving the vaginal cuff on the left, enlarged mesenteric lymph nodes which have clearly progressed, peritoneal implants versus additional enlarged lymph node noted in the right lower quadrant, enlarged lymph nodes in the bilateral mesentry chain which have progressed. The previously seen enlarged mediastinal lymph nodes have resolved. A mild amount of ascites was noted. In addition focal thickening of hyper enhancement noted involving the anterior abdominal wall. She underwent PET scan on 11/09/2018. PET scan showed extensive elizabeth disease in abdomen and pelvis, presacral soft tissue nodule with mild increased FDG uptake, and mildly enlarged inguinal lymph nodes bilaterally. PE: On 07/21/2018, she developed fever. The next day (07/22/2018), she felt very tired in the morning. CT 07/22/2018 showed PE. She was started on Lovenox every 12 hours. She started Eliquis 5 mg bid on 10/26/2018 Interval history: On 11/24/2018, she was started on palliative chemotherapy with Carboplatin/Paclitaxel. Patient tolerated the first cycle very well. But on 12/15/2018, during the second cycle of the chemotherapy, after she completed the paclitaxel infusion and about 45 cc of carboplatin was infused, patient developed hypersensitivity reactions. Patient recalled that she first experienced itching of the palms then she developed dizzy and then she can barely rate member anything there after. Patient was given high-dose steroids Solu-Medrol 125 mg IV, fluids, benadryl and EpiPen x1 at the clinic. 911 was called and patient was brought to the emergency room. At the emergency room another EpiPen was given. Patient was observed at the emergency room and there after about 830 patient was discharged from the ER. Patient presents here today for continued follow-up visit. Since then patient has been doing well without any new complaints. - Patient Self-Reported Symptoms SR Constitution: Fatigue/Malaise SR ears, nose, mouth, throat issues: Cough SR respiratory issues: Cough, Mucous SR Cardiovascular issues: Extreme swelling SR Skin issues: Hair loss or scalp prob SR Genitourinary issues: Change in stream SR Neuro issues: Numbness or tingling SR Hematologic issues: Swollen lymph nodes - Additional ROS All systems PM: reviewed and no additional remarkable complaints except as stated Home Medications and Allergies Home Medications Medication Instructions Recorded Confirmed Type cholecalciferol (vitamin D3) 4,000 unit PO DAILY 05/12/18 12/15/18 History [Vitamin D3] sennosides [senna] 8.6 mg PO QD-BID 05/12/18 12/15/18 History B Complex 100 1 tab PO QAM 06/30/18 12/15/18 History acetaminophen [Tylenol] 325 mg PO Q6H PRN 09/01/18 12/15/18 History apixaban 5 mg PO BID #180 tab 10/27/18 12/15/18 Rx epinephrine [EpiPen 2-Vicente] 0.3 mg IM Q15M PRN #1 each 12/15/18 Rx dexamethasone [Decadron] 4 mg PO BID #36 tab 12/22/18 Rx Allergies Allergy/AdvReac Type Severity Reaction Status Date / Time carboplatin Allergy Severe Anaphylaxis Verified 12/15/18 16:35 gemcitabine AdvReac Severe inflammatory Verified 12/15/18 16:35 changes in the lung Exam Vital signs: Last Vital Signs Temp 97.2 F L 12/22/18 12:59 Pulse 85 12/22/18 12:59 Resp 20 12/22/18 12:59 BP 136/88 12/22/18 12:59 Pulse Ox 100 12/22/18 12:59 - Constitutional positive no acute distress, positive average body habitus - Routine HEENT Exam Head: Present: normocephalic, atraumatic Eye: Present: EOMI, PERRL, normal accommodation. Absent: conjunctival icterus ENT: Present: mucous membranes moist - Routine Neck Exam Present: supple. Absent: lymphadenopathy, thyromegaly - Routine Chest/Breast/Axilla Exam Axillae: Absent: lymphadenopathy - Routine Respiratory Exam Present: Clear to auscultation bilaterally. Absent: wheezes - Routine Cardiovascular Exam Present: RRR, S1. Absent: murmur, gallop, rubs - Routine Abdominal Exam Present: soft. Absent: tenderness, distended, organomegaly - Routine Extremities Exam Absent: edema - Routine Neurological Exam Present: alert, oriented X3, CN II-XII intact. Absent: sensory deficit, motor deficit - Routine Psychiatric Exam Present: normal affect Results - Labs Laboratory Last Values WBC 2.6 X10^3/uL (4.5-11.0) L 12/22/18 12:40 RBC 3.02 X10^6/uL (4.0-5.2) L 12/22/18 12:40 Hgb 9.1 g/dL (12.0-16.0) L 12/22/18 12:40 Hct 26.3 % (36-46) L 12/22/18 12:40 MCV 87.1 fL (80-100) 12/22/18 12:40 MCH 30.3 PG (26-34) 12/22/18 12:40 MCHC 34.7 % (30-36) 12/22/18 12:40 RDW 17.6 % (11.6-14.8) H 12/22/18 12:40 Plt Count 165 X10^3/uL (150-400) 12/22/18 12:40 Neut % (Auto) 64.2 % (50-75) 12/22/18 12:40 Lymph % (Auto) 28.3 % (25-40) 12/22/18 12:40 [place] % (Auto) 5.5 % (3-14) 12/22/18 12:40 Eos % (Auto) 1.1 % (2-4) L 12/22/18 12:40 Baso % (Auto) 0.9 % (0-2) 12/22/18 12:40 Neut # (Auto) 1700 /uL (4576-2088) 12/22/18 12:40 Lymph # (Auto) 700 /uL (9664-0541) L 12/22/18 12:40 [place] # (Auto) 100 /uL (0-900) 12/22/18 12:40 Eos # (Auto) 0 /uL (0-450) 12/22/18 12:40 Baso # (Auto) 0 /uL (0-100) 12/22/18 12:40 Total Counted 100 12/08/18 14:30 Seg Neutrophils % 70.0 % (38-70) 12/08/18 14:30 Band Neutrophils % 1.0 % (3-7) L 12/08/18 14:30 Lymphocytes % (Manual) 11.0 % (25-45) L 12/08/18 14:30 Atypical Lymphs % 1.0 % (-0) H 07/14/18 11:30 Monocytes % (Manual) 17.0 % (2-11) H 12/08/18 14:30 Eosinophils % (Manual) 1.0 % (2-4) L 12/08/18 14:30 Metamyelocytes % 1.0 % (-0) H 06/30/18 10:21 Myelocytes % 2.0 % (-0) H 06/16/18 13:19 Neutrophils # (Manual) 3834 /uL (6707-0764) 12/08/18 14:30 Plt Morphology Comment A1 07/07/18 08:52 RBC Morphology See below 12/08/18 14:30 Polychromasia 1+ H 07/21/18 09:02 Poikilocytosis 2+ H 12/08/18 14:30 Anisocytosis 2+ H 12/08/18 14:30 Macrocytosis 2+ H 07/21/18 09:02 Sodium 135 mmol/L (137-145) L 12/22/18 12:40 Potassium 4.2 mmol/L (3.4-5.1) 12/22/18 12:40 Chloride 100 mmol/L (98-107) 12/22/18 12:40 Carbon Dioxide 25 mmol/L (22-32) 12/22/18 12:40 BUN 15 mg/dL (7-17) 12/22/18 12:40 Creatinine 0.90 mg/dL (0.52-1.04) 12/22/18 12:40 Estimated GFR > 60.0 mL/min (>60) 12/22/18 12:40 BUN/Creatinine Ratio 16.7 (6-22) 12/22/18 12:40 Glucose 118 mg/dL (80-110) H 12/22/18 12:40 Calcium 9.8 mg/dL (8.4-10.2) 12/22/18 12:40 Total Bilirubin 0.5 mg/dL (0.2-1.3) 12/22/18 12:40 AST 24 IU/L (14-36) 12/22/18 12:40 ALT 16 IU/L (9-52) 12/22/18 12:40 Alkaline Phosphatase 70 U/L (38-126) 12/22/18 12:40 Total Protein 7.0 g/dL (6.3-8.2) 12/22/18 12:40 Albumin 4.2 g/dL (3.5-5.0) 12/22/18 12:40 Globulin 2.8 g/dL (1.7-4.1) 12/22/18 12:40 Albumin/Globulin Ratio 1.5 (1.0-2.8) 12/22/18 12:40 CA 125 Antigen 788 U/mL (0-35) H 12/15/18 08:47 Urine Color Yellow 07/21/18 09:02 Urine Appearance Slightly cloudy 07/21/18 09:02 Urine pH 5.5 (4.5-8.0) 07/21/18 09:02 Ur Specific [place] 1.025 (1.000-1.035) 07/21/18 09:02 Urine Protein 2+ (Negative) H 07/21/18 09:02 Urine Glucose (UA) Negative g/dL (Negative) 07/21/18 09:02 Urine Ketones 1+ (NEGATIVE) H 07/21/18 09:02 Urine Occult Blood Negative (Negative) 07/21/18 09:02 Urine Nitrate Negative (Negative) 07/21/18 09:02 Urine Bilirubin 1+ (NEGATIVE) H 07/21/18 09:02 Urine Ictotest Negative (Negative) 07/21/18 09:02 Urine Urobilinogen 2.0 E.U./dL (0.2) H 07/21/18 09:02 Ur Leukocyte Esterase Trace (NEGATIVE) H 07/21/18 09:02 Urine RBC None seen (0-5/HPF) 07/21/18 09:02 Urine WBC 1-5/hpf (0-5/HPF) 07/21/18 09:02 Ur Squamous Epith Cells 10-30 /hpf (0-5/HPF) H D 07/21/18 09:02 Urine Bacteria Moderate (10-30) (None) H 07/21/18 09:02 Hyaline Casts 0-1/lpf (None) 07/21/18 09:02 Urine Mucus 2+ (Negative) H 07/21/18 09:02 Ur Culture Indicated? 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 She was started on bevacizumab and gemcitabine on April 29, 2018. Chemotherapy regimen: Gemcitabine 1000 mg/m2, on day 1, 8. 15, and Bevasuzumab 15 mg/kg, on day 1, every 21-day cycle. 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 In addition the CT scan revealed progression of the underlying disease. Per Dr. Acosta, we switched the treatment to Doxil which was started on 09/01/2018, and stopped in 11/2018. Then, on 11/24/2018, she was started on carboplatin (AUC 5)/paclitaxel (175 mg/m2). Assessment: Based on the rapid decrease the CA 125, patient has responded beautifully to the chemotherapy with carboplatin and paclitaxel. However during the second cycle of the chemotherapy, patient developed hyper sensitivity reaction after completion of the paclitaxel while the patient is receiving carboplatin. The time sequence suggests that the most likely culprit is the carboplatin. It is also known in the literature that patient would developed hypersensitivity reaction after about 7 or 8 cycles of carboplatin infusion. I went through all of the above carefully with the patient. Given that she has a significant response to the treatment, I would continue the treatment with paclitaxel and will stop carboplatin. In the future, I will consider adding cisplatin to the paclitaxel. I also ordered dexamethasone Plan: 1. Stop Carboplatin permanently 2. Continue Paclitaxle 175 mg/m2, q21d, next due on 01/05/2019 3. Dexamethasone 4 mg q12h the day before, the day of and the day after paclitaxel 4. RTC 01/05 CBC, CMP, and CA 125. (2) Pulmonary embolism Overview: On 07/21/2018, presented with fever. On 07/22/2018, very tired in the morning. CT 07/22/2018 showed PE. She was started on Lovenox every 12 hours. She started Eliquis 5 mg bid on 10/26/2018 Assessment: She tolerated Eliquis well. No bleeding events. Plan: 1. Continue Eliquis 5 mg bid 2. CBC weekly during chemotherapy 3. Hold if PLT < 50K and/or bleeding.
[2018-12-22 12:59] VITALS: BP 136/88; PULSE 85; RESP 20; TEMP 36.2; O2SAT 100
[2018-12-22 12:59] LABS: Add Manual Diff / Slide Review NO; Basophils Absolute Auto 0 /uL (0-100); Basophils Percent Auto 0.9 % (0-2); Eosinophils Absolute Auto 0 /uL (0-450); Eosinophils Percent Auto 1.1 % (2-4); Hematocrit 26.3 % (36-46); Hemoglobin 9.1 g/dL (12.0-16.0); Lymphocytes Absolute Auto 700 /uL (1100-4500); Lymphocytes Percent Auto 28.3 % (25-40); Mean Corpuscular HGB Conc 34.7 % (30-36); Mean Corpuscular Hemoglobin 30.3 PG (26-34); Mean Corpuscular Volume 87.1 fL (80-100); Monocytes Absolute Auto 100 /uL (0-900); Monocytes Percent Auto 5.5 % (3-14); Neutrophils Absolute Auto 1700 /uL (1500-7000); Neutrophils Percent Auto 64.2 % (50-75); Platelet Count 165 X10^3/uL (150-400); Red Blood Cell Count 3.02 X10^6/uL (4.0-5.2); Red Cell Distribution Width 17.6 % (11.6-14.8); White Blood Cell Count 2.6 X10^3/uL (4.5-11.0)
[2018-12-22 13:23] LABS: Alanine Aminotransferase 16 IU/L (9-52); Albumin 4.2 g/dL (3.5-5.0); Albumin Globulin Ratio 1.5 (1.0-2.8); Alkaline Phosphatase 70 U/L (38-126); Aspartate Aminotransferase 24 IU/L (14-36); BUN Creatinine Ratio 16.7 (6-22); Bilirubin Total 0.5 mg/dL (0.2-1.3); Blood Urea Nitrogen 15 mg/dL (7-17); Calcium 9.8 mg/dL (8.4-10.2); Carbon Dioxide 25 mmol/L (22-32); Chloride 100 mmol/L (98-107); Estimated Glomerular Filt Rate > 60.0 mL/min (>60); Globulin 2.8 g/dL (1.7-4.1); Glucose 118 mg/dL (80-110); HEMOLYSIS < 15 (0-50); Potassium 4.2 mmol/L (3.4-5.1); Sodium 135 mmol/L (137-145)
--- NOTE | 2019-01-05 08:22 | P.PNONC_ITS ---
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 She is here for cycle 2# palliative carbo/paclitaxel Oncology History MMMT 1. Neoadjuvant chemotherapy with carboplatin and Taxol for 4 cycles 2. Optimal cyto reduction in August 2017 3. Five additional cycles of adjuvant carboplatin and Taxol finishing in December 2017 4. Recurrent disease treated with gemcitabine and bevacizumab for 3 cycles finishing in June 2018. Completed 3 cycles. 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 5. Doxil 09/01/[address] Acosta recommendation. She underwent CT of the chest abdomen pelvis on 10/28/2018. The scan showed mild thickening and hyper enhancement involving the vaginal cuff on the left, enlarged mesenteric lymph nodes which have clearly progressed, peritoneal implants versus additional enlarged lymph node noted in the right lower quadrant, enlarged lymph nodes in the bilateral mesentry chain which have progressed. The previously seen enlarged mediastinal lymph nodes have resolved. A mild amount of ascites was noted. In addition focal thickening of hyper enhancement noted involving the anterior abdominal wall. She underwent PET scan on 11/09/2018. PET scan showed extensive elizabeth disease in abdomen and pelvis, presacral soft tissue nodule with mild increased FDG uptake, and mildly enlarged inguinal lymph nodes bilaterally. PE: On 07/21/2018, she developed fever. The next day (07/22/2018), she felt very tired in the morning. CT 07/22/2018 showed PE. She was started on Lovenox every 12 hours. She started Eliquis 5 mg bid on 10/26/2018 Interval history: On 11/24/2018, she was started on palliative chemotherapy with Carboplatin/Paclitaxel. Patient tolerated the first cycle very well. But on 12/15/2018, during the second cycle of the chemotherapy, after she completed the paclitaxel infusion and about 45 cc of carboplatin was infused, patient developed hypersensitivity reactions. Patient recalled that she first experienced itching of the palms then she developed dizzy and then she can barely rate member anything there after. Patient was given high-dose steroids Solu-Medrol 125 mg IV, fluids, benadryl and EpiPen x1 at the clinic. 911 was called and patient was brought to the emergency room. At the emergency room another EpiPen was given. Patient was observed at the emergency room and there after about 830 patient was discharged from the ER. Patient presents here today to switch resume the treatment with paclitaxel only. Carboplatin will be discontinued permanent. Patient started taking dexamethasone yesterday 20 mg Q 12. Patient otherwise has been doing well without any new complaints. - Patient Self-Reported Symptoms SR Constitution: Fatigue/Malaise SR ears, nose, mouth, throat issues: Cough SR respiratory issues: Cough, Mucous SR Cardiovascular issues: Extreme swelling SR Skin issues: Hair loss or scalp prob SR Genitourinary issues: Change in stream SR Neuro issues: Numbness or tingling SR Hematologic issues: Swollen lymph nodes - Additional ROS All systems PM: reviewed and no additional remarkable complaints except as stated Home Medications and Allergies Home Medications Medication Instructions Recorded Confirmed Type cholecalciferol (vitamin D3) 4,000 unit PO DAILY 05/12/18 01/05/19 History [Vitamin D3] sennosides [senna] 8.6 mg PO QD-BID 05/12/18 01/05/19 History B Complex 100 1 tab PO QAM 06/30/18 01/05/19 History acetaminophen [Tylenol] 325 mg PO Q6H PRN 09/01/18 01/05/19 History apixaban 5 mg PO BID #180 tab 10/27/18 01/05/19 Rx epinephrine [EpiPen 2-Vicente] 0.3 mg IM Q15M PRN #1 each 12/15/18 01/05/19 Rx dexamethasone [Decadron] 4 mg PO BID #36 tab 12/22/18 01/05/19 Rx Allergies Allergy/AdvReac Type Severity Reaction Status Date / Time carboplatin Allergy Severe Anaphylaxis Verified 12/15/18 16:35 gemcitabine AdvReac Severe inflammatory Verified 12/15/18 16:35 changes in the lung Exam Vital signs: Last Vital Signs Temp 97 F L 01/05/19 08:45 Pulse 84 01/05/19 08:45 Resp 18 01/05/19 08:45 BP 134/76 01/05/19 08:45 Pulse Ox 100 01/05/19 08:45 Narrative: Gen: WDWN, NAD, pleasant and cooperative. HEENT: NCAT, EOMI, PERRLA, anicteric sclera. Neck: Supple, No palpable thyromegaly or lymphadenopathy. Respiratory: CTAB, no wheezes audible. No JVD Cardiovascular: RRR, S1 and S2 normal, no M/G/R. Abdomen: Soft, NTND, BS normal, no palpable organomegaly Extremities: No LE pitting edema. Lymphatic: no palpable lymph nodes in the neck, axillae Neurological: AOx3, CN II-XII grossly intact. No focal motor or sensory deficit. Psychiatric: Good judgment and insight; normal affect; normal thought process; cooperative, no depression, no anxiety. Results - Labs Laboratory Last Values WBC 7.4 X10^3/uL (4.5-11.0) 01/05/19 08:44 RBC 3.12 X10^6/uL (4.0-5.2) L 01/05/19 08:44 Hgb 9.5 g/dL (12.0-16.0) L 01/05/19 08:44 Hct 27.9 % (36-46) L 01/05/19 08:44 MCV 89.5 fL (80-100) 01/05/19 08:44 MCH 30.4 PG (26-34) 01/05/19 08:44 MCHC 34.0 % (30-36) 01/05/19 08:44 RDW 19.0 % (11.6-14.8) H 01/05/19 08:44 Plt Count 249 X10^3/uL (150-400) 01/05/19 08:44 Neut % (Auto) 77.8 % (50-75) H 01/05/19 08:44 Lymph % (Auto) 11.9 % (25-40) L 01/05/19 08:44 [place] % (Auto) 10.0 % (3-14) 01/05/19 08:44 Eos % (Auto) 0.0 % (2-4) L 01/05/19 08:44 Baso % (Auto) 0.3 % (0-2) 01/05/19 08:44 Neut # (Auto) 5800 /uL (0557-6090) 01/05/19 08:44 Lymph # (Auto) 900 /uL (7578-2921) L 01/05/19 08:44 [place] # (Auto) 700 /uL (0-900) 01/05/19 08:44 Eos # (Auto) 0 /uL (0-450) 01/05/19 08:44 Baso # (Auto) 0 /uL (0-100) 01/05/19 08:44 Total Counted 100 12/08/18 14:30 Seg Neutrophils % 70.0 % (38-70) 12/08/18 14:30 Band Neutrophils % 1.0 % (3-7) L 12/08/18 14:30 Lymphocytes % (Manual) 11.0 % (25-45) L 12/08/18 14:30 Atypical Lymphs % 1.0 % (-0) H 07/14/18 11:30 Monocytes % (Manual) 17.0 % (2-11) H 12/08/18 14:30 Eosinophils % (Manual) 1.0 % (2-4) L 12/08/18 14:30 Metamyelocytes % 1.0 % (-0) H 06/30/18 10:21 Myelocytes % 2.0 % (-0) H 06/16/18 13:19 Neutrophils # (Manual) 3834 /uL (7618-5289) 12/08/18 14:30 Plt Morphology Comment A1 07/07/18 08:52 RBC Morphology See below 12/08/18 14:30 Polychromasia 1+ H 07/21/18 09:02 Poikilocytosis 2+ H 12/08/18 14:30 Anisocytosis 2+ H 12/08/18 14:30 Macrocytosis 2+ H 07/21/18 09:02 Sodium 135 mmol/L (137-145) L 12/22/18 12:40 Potassium 4.2 mmol/L (3.4-5.1) 12/22/18 12:40 Chloride 100 mmol/L (98-107) 12/22/18 12:40 Carbon Dioxide 25 mmol/L (22-32) 12/22/18 12:40 BUN 15 mg/dL (7-17) 12/22/18 12:40 Creatinine 0.90 mg/dL (0.52-1.04) 12/22/18 12:40 Estimated GFR > 60.0 mL/min (>60) 12/22/18 12:40 BUN/Creatinine Ratio 16.7 (6-22) 12/22/18 12:40 Glucose 118 mg/dL (80-110) H 12/22/18 12:40 Calcium 9.8 mg/dL (8.4-10.2) 12/22/18 12:40 Total Bilirubin 0.5 mg/dL (0.2-1.3) 12/22/18 12:40 AST 24 IU/L (14-36) 12/22/18 12:40 ALT 16 IU/L (9-52) 12/22/18 12:40 Alkaline Phosphatase 70 U/L (38-126) 12/22/18 12:40 Total Protein 7.0 g/dL (6.3-8.2) 12/22/18 12:40 Albumin 4.2 g/dL (3.5-5.0) 12/22/18 12:40 Globulin 2.8 g/dL (1.7-4.1) 12/22/18 12:40 Albumin/Globulin Ratio 1.5 (1.0-2.8) 12/22/18 12:40 CA 125 Antigen 788 U/mL (0-35) H 12/15/18 08:47 Urine Color Yellow 07/21/18 09:02 Urine Appearance Slightly cloudy 07/21/18 09:02 Urine pH 5.5 (4.5-8.0) 07/21/18 09:02 Ur Specific [place] 1.025 (1.000-1.035) 07/21/18 09:02 Urine Protein 2+ (Negative) H 07/21/18 09:02 Urine Glucose (UA) Negative g/dL (Negative) 07/21/18 09:02 Urine Ketones 1+ (NEGATIVE) H 07/21/18 09:02 Urine Occult Blood Negative (Negative) 07/21/18 09:02 Urine Nitrate Negative (Negative) 07/21/18 09:02 Urine Bilirubin 1+ (NEGATIVE) H 07/21/18 09:02 Urine Ictotest Negative (Negative) 07/21/18 09:02 Urine Urobilinogen 2.0 E.U./dL (0.2) H 07/21/18 09:02 Ur Leukocyte Esterase Trace (NEGATIVE) H 07/21/18 09:02 Urine RBC None seen (0-5/HPF) 07/21/18 09:02 Urine WBC 1-5/hpf (0-5/HPF) 07/21/18 09:02 Ur Squamous Epith Cells 10-30 /hpf (0-5/HPF) H D 07/21/18 09:02 Urine Bacteria Moderate (10-30) (None) H 07/21/18 09:02 Hyaline Casts 0-1/lpf (None) 07/21/18 09:02 Urine Mucus 2+ (Negative) H 07/21/18 09:02 Ur Culture Indicated? 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 She was started on bevacizumab and gemcitabine on April 29, 2018. Chemotherapy regimen: Gemcitabine 1000 mg/m2, on day 1, 8. 15, and Bevasuzumab 15 mg/kg, on day 1, alvaro ry 21-day cycle. 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 In addition the CT scan revealed progression of the underlying disease. Per Dr. Acosta, we switched the treatment to Doxil which was started on 09/01/2018, and stopped in 11/2018. Then, on 11/24/2018, she was started on carboplatin (AUC 5)/paclitaxel (175 mg/m2). Carbopatin was discontinued starting cycle 3 due to hypersensitivity reaction during cycl2. Assessment: Patient is here for cycle 3 chemotherapy with paclitaxel only. I talked with he r that I will monitor the CA 125 closely. Starting from next cycle, we will consider including cisplatin to replace the carboplatin. Plan: 1. OK to proceed to Paclitaxel 175 mg/m2, q21d 2. Dexamethasone 4 mg q12h the day before, the day of and the day after paclitaxel 3. RTC 01/26, chemotherapy with Paclitaxel and CBC, CMP, and CA 125. (2) Pulmonary embolism Overview: On 07/21/2018, presented with fever. On 07/22/2018, very tired in the morning. CT 07/22/2018 showed PE. She was started on Lovenox every 12 hours. She started Eliquis 5 mg bid on 10/26/2018 Assessment: She tolerated Eliquis well. No bleeding events. Plan: 1. Continue Eliquis 5 mg bid 2. CBC weekly during chemotherapy 3. Hold if PLT < 50K and/or bleeding.
[2019-01-05 08:45] VITALS: BP 134/76; PULSE 84; RESP 18; TEMP 36.1; O2SAT 100
[2019-01-05 08:59] LABS: Add Manual Diff / Slide Review NO; Basophils Absolute Auto 0 /uL (0-100); Basophils Percent Auto 0.3 % (0-2); Eosinophils Absolute Auto 0 /uL (0-450); Hematocrit 27.9 % (36-46); Hemoglobin 9.5 g/dL (12.0-16.0); Lymphocytes Absolute Auto 900 /uL (1100-4500); Lymphocytes Percent Auto 11.9 % (25-40); Mean Corpuscular Hemoglobin 30.4 PG (26-34); Mean Corpuscular Volume 89.5 fL (80-100); Monocytes Absolute Auto 700 /uL (0-900); Neutrophils Absolute Auto 5800 /uL (1500-7000); Neutrophils Percent Auto 77.8 % (50-75); Platelet Count 249 X10^3/uL (150-400); Red Blood Cell Count 3.12 X10^6/uL (4.0-5.2); White Blood Cell Count 7.4 X10^3/uL (4.5-11.0)
[2019-01-05 09:03] LABS: Alanine Aminotransferase 11 IU/L (<35); Albumin 4.2 g/dL (3.5-5.0); Albumin Globulin Ratio 1.4 (1.0-2.8); Alkaline Phosphatase 93 U/L (38-126); Aspartate Aminotransferase 26 IU/L (14-36); BUN Creatinine Ratio 21.1 (6-22); Bilirubin Total 0.4 mg/dL (0.2-1.3); Blood Urea Nitrogen 19 mg/dL (7-17); Calcium 10.1 mg/dL (8.4-10.2); Carbon Dioxide 23 mmol/L (22-32); Chloride 108 mmol/L (98-107); Estimated Glomerular Filt Rate > 60.0 mL/min (>60); Glucose 134 mg/dL (80-110); HEMOLYSIS < 15 (0-50); Potassium 4.2 mmol/L (3.4-5.1); Sodium 142 mmol/L (137-145); Total Protein 7.2 g/dL (6.3-8.2)
[2019-01-05] MEDS: ACETAMINOPHEN 325 MG TABLET 650 MG PO (09:41)
[2019-01-05] MEDS: diphenhydrAMINE 25 MG TABLET PO (09:41)
[2019-01-05] MEDS: dexAMETHasone 20 MG in SODIUM CHLORIDE 0.9% 50 ML 220 ML IV (09:41)
[2019-01-05] MEDS: SODIUM CHLORIDE 0.9% 100 ML 21 ML IV (09:44)
[2019-01-05] MEDS: ONDANSETRON 16 MG in SODIUM CHLORIDE 0.9% 50 ML 232 ML IV (10:02)
[2019-01-05 10:07] LABS: Cancer Antigen 125 157 U/mL (0-35)
[2019-01-05] MEDS: FAMOTIDINE 20 MG/50 ML PIGGYBACK 200 MG IV (10:26)
[2019-01-05] MEDS: DEXTROSE 5% IV (10:59)
[2019-01-05] MEDS: PACLITAXEL IV (10:59)
[2019-01-12 14:45] LABS: Add Manual Diff / Slide Review NO; Basophils Absolute Auto 0 /uL (0-100); Basophils Percent Auto 0.6 % (0-2); Eosinophils Absolute Auto 0 /uL (0-450); Eosinophils Percent Auto 1.1 % (2-4); Hematocrit 27.8 % (36-46); Hemoglobin 9.5 g/dL (12.0-16.0); Lymphocytes Absolute Auto 900 /uL (1100-4500); Lymphocytes Percent Auto 22.2 % (25-40); Mean Corpuscular Hemoglobin 30.5 PG (26-34); Mean Corpuscular Volume 89.6 fL (80-100); Monocytes Absolute Auto 200 /uL (0-900); Monocytes Percent Auto 4.9 % (3-14); Neutrophils Absolute Auto 2800 /uL (1500-7000); Neutrophils Percent Auto 71.2 % (50-75); Platelet Count 174 X10^3/uL (150-400); Red Cell Distribution Width 18.4 % (11.6-14.8)
[2019-01-12 14:56] LABS: Albumin 4.1 g/dL (3.5-5.0); Albumin Globulin Ratio 1.4 (1.0-2.8); Alkaline Phosphatase 77 U/L (38-126); Aspartate Aminotransferase 21 IU/L (14-36); BUN Creatinine Ratio 22.2 (6-22); Bilirubin Total 0.4 mg/dL (0.2-1.3); Blood Urea Nitrogen 20 mg/dL (7-17); Calcium 9.9 mg/dL (8.4-10.2); Carbon Dioxide 27 mmol/L (22-32); Chloride 102 mmol/L (98-107); Estimated Glomerular Filt Rate > 60.0 mL/min (>60); Glucose 111 mg/dL (80-110); HEMOLYSIS < 15 (0-50); Potassium 4.1 mmol/L (3.4-5.1); Sodium 137 mmol/L (137-145); Total Protein 7.1 g/dL (6.3-8.2)
[2019-01-12 15:13] LABS: Alanine Aminotransferase 12 IU/L (<35)
[2019-01-26 09:25] LABS: Add Manual Diff / Slide Review NO; Basophils Absolute Auto 0 /uL (0-100); Basophils Percent Auto 0.3 % (0-2); Eosinophils Absolute Auto 0 /uL (0-450); Hematocrit 29.1 % (36-46); Hemoglobin 9.9 g/dL (12.0-16.0); Lymphocytes Absolute Auto 1200 /uL (1100-4500); Lymphocytes Percent Auto 12.1 % (25-40); Mean Corpuscular HGB Conc 34.1 % (30-36); Mean Corpuscular Volume 90.8 fL (80-100); Monocytes Absolute Auto 1200 /uL (0-900); Monocytes Percent Auto 11.3 % (3-14); Neutrophils Absolute Auto 7800 /uL (1500-7000); Neutrophils Percent Auto 76.3 % (50-75); Platelet Count 247 X10^3/uL (150-400); Red Cell Distribution Width 18.1 % (11.6-14.8); White Blood Cell Count 10.2 X10^3/uL (4.5-11.0)
[2019-01-26 09:32] VITALS: BP 138/80; PULSE 83; RESP 16; TEMP 36.7; O2SAT 99
[2019-01-26 09:37] LABS: Alanine Aminotransferase 12 IU/L (<35); Albumin 4.2 g/dL (3.5-5.0); Albumin Globulin Ratio 1.5 (1.0-2.8); Alkaline Phosphatase 88 U/L (38-126); Aspartate Aminotransferase 22 IU/L (14-36); Bilirubin Total 0.4 mg/dL (0.2-1.3); Blood Urea Nitrogen 18 mg/dL (7-17); Calcium 9.9 mg/dL (8.4-10.2); Carbon Dioxide 25 mmol/L (22-32); Chloride 106 mmol/L (98-107); Estimated Glomerular Filt Rate > 60.0 mL/min (>60); Globulin 2.8 g/dL (1.7-4.1); Glucose 139 mg/dL (80-110); HEMOLYSIS < 15 (0-50); Potassium 3.9 mmol/L (3.4-5.1); Sodium 140 mmol/L (137-145)
[2019-01-26 10:07] LABS: Cancer Antigen 125 122 U/mL (0-35)
[2019-01-26] MEDS: SODIUM CHLORIDE 0.9% 1,000 ML 500 ML IV (10:09)
[2019-01-26] MEDS: dexAMETHasone 20 MG in SODIUM CHLORIDE 0.9% 50 ML 216 ML IV (10:11)
[2019-01-26] MEDS: ACETAMINOPHEN 325 MG TABLET 650 MG PO (10:11)
[2019-01-26] MEDS: LORazepam 0.5 MG TABLET PO (10:12)
[2019-01-26] MEDS: diphenhydrAMINE 25 MG TABLET PO (10:12)
[2019-01-26] MEDS: ONDANSETRON 16 MG in SODIUM CHLORIDE 0.9% 50 ML 232 ML IV (10:40)
[2019-01-26] MEDS: FAMOTIDINE 20 MG/50 ML PIGGYBACK 200 MG IV (10:59)
[2019-01-26] MEDS: FOSAPREPITANT 150 MG in SODIUM CHLORIDE 0.9% 150 ML 300 ML IV (11:16)
[2019-01-26] MEDS: DEXTROSE 5% IV (12:11)
[2019-01-26] MEDS: PACLITAXEL IV (12:11)
[2019-01-26] MEDS: [UNRECOGNIZED DRUG - OTHER] IV (15:27)
[2019-01-26] MEDS: MANNITOL IV (15:27)
[2019-01-26] MEDS: POTASSIUM CHLORIDE IV (15:27)
[2019-01-26] MEDS: CISPLATIN IV (15:27)
[2019-02-02 15:11] LABS: Add Manual Diff / Slide Review NO; Basophils Absolute Auto 0 /uL (0-100); Basophils Percent Auto 0.8 % (0-2); Eosinophils Absolute Auto 0 /uL (0-450); Eosinophils Percent Auto 1.2 % (2-4); Hematocrit 29.2 % (36-46); Hemoglobin 9.8 g/dL (12.0-16.0); Lymphocytes Absolute Auto 1000 /uL (1100-4500); Lymphocytes Percent Auto 32.4 % (25-40); Mean Corpuscular HGB Conc 33.7 % (30-36); Mean Corpuscular Hemoglobin 30.6 PG (26-34); Mean Corpuscular Volume 90.8 fL (80-100); Monocytes Absolute Auto 100 /uL (0-900); Monocytes Percent Auto 3.6 % (3-14); Neutrophils Absolute Auto 2000 /uL (1500-7000); Platelet Count 125 X10^3/uL (150-400); Red Blood Cell Count 3.22 X10^6/uL (4.0-5.2); Red Cell Distribution Width 16.6 % (11.6-14.8); White Blood Cell Count 3.2 X10^3/uL (4.5-11.0)
[2019-02-02 15:14] LABS: Alanine Aminotransferase 15 IU/L (<35); Albumin 4.1 g/dL (3.5-5.0); Albumin Globulin Ratio 1.5 (1.0-2.8); Alkaline Phosphatase 69 U/L (38-126); Aspartate Aminotransferase 27 IU/L (14-36); BUN Creatinine Ratio 23.3 (6-22); Bilirubin Total 0.5 mg/dL (0.2-1.3); Blood Urea Nitrogen 21 mg/dL (7-17); Calcium 9.6 mg/dL (8.4-10.2); Carbon Dioxide 25 mmol/L (22-32); Chloride 100 mmol/L (98-107); Estimated Glomerular Filt Rate > 60.0 mL/min (>60); Globulin 2.7 g/dL (1.7-4.1); Glucose 104 mg/dL (80-110); HEMOLYSIS < 15 (0-50); Potassium 3.9 mmol/L (3.4-5.1); Sodium 136 mmol/L (137-145); Total Protein 6.8 g/dL (6.3-8.2)
--- NOTE | 2019-02-16 08:51 | P.PNONC_ITS ---
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 She is here for cycle 2# palliative carbo/paclitaxel Oncology History MMMT 1. Neoadjuvant chemotherapy with carboplatin and Taxol for 4 cycles 2. Optimal cyto reduction in August 2017 3. Five additional cycles of adjuvant carboplatin and Taxol finishing in December 2017 4. Recurrent disease treated with gemcitabine and bevacizumab for 3 cycles finishing in June 2018. Completed 3 cycles. 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 5. Doxil 09/01/[address] Acosta recommendation. She underwent CT of the chest abdomen pelvis on 10/28/2018. The scan showed mild thickening and hyper enhancement involving the vaginal cuff on the left, enlarged mesenteric lymph nodes which have clearly progressed, peritoneal implants versus additional enlarged lymph node noted in the right lower quadrant, enlarged lymph nodes in the bilateral mesentry chain which have progressed. The previously seen enlarged mediastinal lymph nodes have resolved. A mild amount of ascites was noted. In addition focal thickening of hyper enhancement noted involving the anterior abdominal wall. She underwent PET scan on 11/09/2018. PET scan showed extensive elizabeth disease in abdomen and pelvis, presacral soft tissue nodule with mild increased FDG uptake, and mildly enlarged inguinal lymph nodes bilaterally. PE: On 07/21/2018, she developed fever. The next day (07/22/2018), she felt very tired in the morning. CT 07/22/2018 showed PE. She was started on Lovenox every 12 hours. She started Eliquis 5 mg bid on 10/26/2018 Interval history: On 11/24/2018, she was started on palliative chemotherapy with Carboplatin/Paclitaxel. Patient tolerated the first cycle very well. But on 12/15/2018, during the second cycle of the chemotherapy, after she completed the paclitaxel infusion and about 45 cc of carboplatin was infused, patient developed hypersensitivity reactions. Patient recalled that she first experienced itching of the palms then she developed dizzy and then she can barely rate member anything there after. Patient was given high-dose steroids Solu-Medrol 125 mg IV, fluids, benadryl and EpiPen x1 at the clinic. 911 was called and patient was brought to the emergency room. At the emergency room another EpiPen was given. Patient was observed at the emergency room and there after about 830 patient was discharged from the ER. Patient received paclitaxel only for cycle 3. On 01/26/2019, she was given cisplatin together with paclitaxel. She apparently has tolerated cisplatin and paclitaxel well. Patient denies any fever or chills. She denies nausea or vomiting. She denies any abdominal pain diarrhea or constipation. She presents here today for cisplatin and paclitaxel cycle 5. - Patient Self-Reported Symptoms SR Constitution: Fatigue/Malaise SR ears, nose, mouth, throat issues: Cough SR respiratory issues: Cough, Mucous SR Cardiovascular issues: Extreme swelling SR Skin issues: Hair loss or scalp prob SR Genitourinary issues: Change in stream SR Neuro issues: Numbness or tingling SR Hematologic issues: Swollen lymph nodes - Additional ROS All systems PM: reviewed and no additional remarkable complaints except as stated Home Medications and Allergies Home Medications Medication Instructions Recorded Confirmed Type cholecalciferol (vitamin D3) 4,000 unit PO DAILY 05/12/18 01/05/19 History [Vitamin D3] sennosides [senna] 8.6 mg PO QD-BID 05/12/18 01/05/19 History B Complex 100 1 tab PO QAM 06/30/18 01/05/19 History acetaminophen [Tylenol] 325 mg PO Q6H PRN 09/01/18 01/05/19 History apixaban 5 mg PO BID #180 tab 10/27/18 01/05/19 Rx epinephrine [EpiPen 2-Vicente] 0.3 mg IM Q15M PRN #1 each 12/15/18 01/05/19 Rx dexamethasone [Decadron] 4 mg PO BID #36 tab 12/22/18 01/05/19 Rx Allergies Allergy/AdvReac Type Severity Reaction Status Date / Time carboplatin Allergy Severe Anaphylaxis Verified 12/15/18 16:35 gemcitabine AdvReac Severe inflammatory Verified 12/15/18 16:35 changes in the lung Exam Vital signs: Last Vital Signs Temp 98.2 F 02/16/19 09:02 Pulse 70 02/16/19 09:02 Resp 18 02/16/19 09:02 BP 138/72 02/16/19 09:02 Pulse Ox 99 02/16/19 09:02 ECOG 1 Narrative: Gen: WDWN, NAD, pleasant and cooperative. HEENT: NCAT, EOMI, PERRLA, anicteric sclera. Neck: Supple, No palpable thyromegaly or lymphadenopathy. Respiratory: CTAB, no wheezes audible. No JVD Cardiovascular: RRR, S1 and S2 normal, no M/G/R. Abdomen: Soft, NTND, BS normal, no palpable organomegaly Extremities: No LE pitting edema. Lymphatic: no palpable lymph nodes in the neck, axillae, or groins. Neurological: AOx3, CN II-XII grossly intact. No focal motor or sensory deficit. Psychiatric: Normal affect; normal thought process; cooperative, no depression, no anxiety. Results - Labs Laboratory Last Values WBC 7.8 X10^3/uL (4.5-11.0) 02/16/19 08:50 RBC 3.32 X10^6/uL (4.0-5.2) L 02/16/19 08:50 Hgb 10.3 g/dL (12.0-16.0) L 02/16/19 08:50 Hct 29.8 % (36-46) L 02/16/19 08:50 MCV 89.7 fL (80-100) 02/16/19 08:50 MCH 31.1 PG (26-34) 02/16/19 08:50 MCHC 34.7 % (30-36) 02/16/19 08:50 RDW 16.0 % (11.6-14.8) H 02/16/19 08:50 Plt Count 317 X10^3/uL (150-400) 02/16/19 08:50 Neut % (Auto) 80.2 % (50-75) H 02/16/19 08:50 Lymph % (Auto) 13.5 % (25-40) L 02/16/19 08:50 [place] % (Auto) 5.9 % (3-14) 02/16/19 08:50 Eos % (Auto) 0.0 % (2-4) L 02/16/19 08:50 Baso % (Auto) 0.4 % (0-2) 02/16/19 08:50 Neut # (Auto) 6200 /uL (2065-1115) 02/16/19 08:50 Lymph # (Auto) 1000 /uL (4251-7684) L 02/16/19 08:50 [place] # (Auto) 500 /uL (0-900) 02/16/19 08:50 Eos # (Auto) 0 /uL (0-450) 02/16/19 08:50 Baso # (Auto) 0 /uL (0-100) 02/16/19 08:50 Total Counted 100 12/08/18 14:30 Seg Neutrophils % 70.0 % (38-70) 12/08/18 14:30 Band Neutrophils % 1.0 % (3-7) L 12/08/18 14:30 Lymphocytes % (Manual) 11.0 % (25-45) L 12/08/18 14:30 Atypical Lymphs % 1.0 % (-0) H 07/14/18 11:30 Monocytes % (Manual) 17.0 % (2-11) H 12/08/18 14:30 Eosinophils % (Manual) 1.0 % (2-4) L 12/08/18 14:30 Metamyelocytes % 1.0 % (-0) H 06/30/18 10:21 Myelocytes % 2.0 % (-0) H 06/16/18 13:19 Neutrophils # (Manual) 3834 /uL (2757-5100) 12/08/18 14:30 Plt Morphology Comment A1 07/07/18 08:52 RBC Morphology See below 12/08/18 14:30 Polychromasia 1+ H 07/21/18 09:02 Poikilocytosis 2+ H 12/08/18 14:30 Anisocytosis 2+ H 12/08/18 14:30 Macrocytosis 2+ H 07/21/18 09:02 Sodium 139 mmol/L (137-145) 02/16/19 08:50 Potassium 4.1 mmol/L (3.4-5.1) 02/16/19 08:50 Chloride 103 mmol/L (98-107) 02/16/19 08:50 Carbon Dioxide 24 mmol/L (22-32) 02/16/19 08:50 BUN 27 mg/dL (7-17) H 02/16/19 08:50 Creatinine 1.20 mg/dL (0.52-1.04) H 02/16/19 08:50 Estimated GFR 43.8 mL/min (>60) L 02/16/19 08:50 BUN/Creatinine Ratio 22.5 (6-22) H 02/16/19 08:50 Glucose 163 mg/dL (80-110) H 02/16/19 08:50 Calcium 10.1 mg/dL (8.4-10.2) 02/16/19 08:50 Total Bilirubin 0.3 mg/dL (0.2-1.3) 02/16/19 08:50 AST 23 IU/L (14-36) 02/16/19 08:50 ALT 14 IU/L (<35) 02/16/19 08:50 Alkaline Phosphatase 84 U/L (38-126) 02/16/19 08:50 Total Protein 7.6 g/dL (6.3-8.2) 02/16/19 08:50 Albumin 4.5 g/dL (3.5-5.0) 02/16/19 08:50 Globulin 3.1 g/dL (1.7-4.1) 02/16/19 08:50 Albumin/Globulin Ratio 1.5 (1.0-2.8) 02/16/19 08:50 CA 125 Antigen 122 U/mL (0-35) H 01/26/19 09:07 Urine Color Yellow 07/21/18 09:02 Urine Appearance Slightly cloudy 07/21/18 09:02 Urine pH 5.5 (4.5-8.0) 07/21/18 09:02 Ur Specific [place] 1.025 (1.000-1.035) 07/21/18 09:02 Urine Protein 2+ (Negative) H 07/21/18 09:02 Urine Glucose (UA) Negative g/dL (Negative) 07/21/18 09:02 Urine Ketones 1+ (NEGATIVE) H 07/21/18 09:02 Urine Occult Blood Negative (Negative) 07/21/18 09:02 Urine Nitrate Negative (Negative) 07/21/18 09:02 Urine Bilirubin 1+ (NEGATIVE) H 07/21/18 09:02 Urine Ictotest Negative (Negative) 07/21/18 09:02 Urine Urobilinogen 2.0 E.U./dL (0.2) H 07/21/18 09:02 Ur Leukocyte Esterase Trace (NEGATIVE) H 07/21/18 09:02 Urine RBC None seen (0-5/HPF) 07/21/18 09:02 Urine WBC 1-5/hpf (0-5/HPF) 07/21/18 09:02 Ur Squamous Epith Cells 10-30 /hpf (0-5/HPF) H D 07/21/18 09:02 Urine Bacteria Moderate (10-30) (None) H 07/21/18 09:02 Hyaline Casts 0-1/lpf (None) 07/21/18 09:02 Urine Mucus 2+ (Negative) H 07/21/18 09:02 Ur Culture Indicated? 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 She was started on bevacizumab and gemcitabine on April 29, 2018. Chemotherapy regimen: Gemcitabine 1000 mg/m2, on day 1, 8. 15, and Bevasuzumab 15 mg/kg, on day 1, every 21-day cycle. 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 In addition the CT scan revealed progression of the underlying disease. Per Dr. Acosta, we switched the treatment to Doxil which was started on 09/01/2018, and stopped in 11/2018. Then, on 11/24/2018, she was started on carboplatin (AUC 5)/paclitaxel (175 mg/m2). Carbopatin was discontinued starting cycle 3 due to hypersensitivity reaction during cycl2. Assessment: For cycle 3, she had paclitaxel only. For cycle 4, she received cisplatin and paclitaxel. She tolerated well. However I reviewed the laboratory tests from today. The serum creatinine level slightly elevated to 1.2. I will hold cisplatin and will proceed with paclitaxel only. I will also give patient has extra fluids. Plan: 1. OK to proceed to cycle 5# Paclitaxel 175 mg/m2 today 2. NS 1000 cc iv over one hour. 3. Dexamethasone 4 mg q12h the day before, the day of and the day after paclitaxel 4. RTC 03/09/2019, CBC, CMP, and CA 125, and cycle 6 paclitaxle and cisplatin(?) (2) Pulmonary embolism Overview: On 07/21/2018, presented with fever. On 07/22/2018, very tired in the morning. CT 07/22/2018 showed PE. She was started on Lovenox every 12 hours. She started Eliquis 5 mg bid on 10/26/2018 Assessment: She tolerated Eliquis well. No bleeding events. Plan: 1. Continue Eliquis 5 mg bid 2. CBC weekly during chemotherapy 3. Hold if PLT < 50K and/or bleeding.
[2019-02-16 09:00] LABS: Add Manual Diff / Slide Review NO; Basophils Absolute Auto 0 /uL (0-100); Basophils Percent Auto 0.4 % (0-2); Eosinophils Absolute Auto 0 /uL (0-450); Hematocrit 29.8 % (36-46); Hemoglobin 10.3 g/dL (12.0-16.0); Lymphocytes Absolute Auto 1000 /uL (1100-4500); Lymphocytes Percent Auto 13.5 % (25-40); Mean Corpuscular HGB Conc 34.7 % (30-36); Mean Corpuscular Hemoglobin 31.1 PG (26-34); Mean Corpuscular Volume 89.7 fL (80-100); Monocytes Absolute Auto 500 /uL (0-900); Monocytes Percent Auto 5.9 % (3-14); Neutrophils Absolute Auto 6200 /uL (1500-7000); Neutrophils Percent Auto 80.2 % (50-75); Platelet Count 317 X10^3/uL (150-400); Red Blood Cell Count 3.32 X10^6/uL (4.0-5.2); White Blood Cell Count 7.8 X10^3/uL (4.5-11.0)
[2019-02-16 09:02] VITALS: BP 138/72; PULSE 70; RESP 18; TEMP 36.8; O2SAT 99
[2019-02-16 09:14] LABS: Alanine Aminotransferase 14 IU/L (<35); Albumin 4.5 g/dL (3.5-5.0); Albumin Globulin Ratio 1.5 (1.0-2.8); Alkaline Phosphatase 84 U/L (38-126); Aspartate Aminotransferase 23 IU/L (14-36); BUN Creatinine Ratio 22.5 (6-22); Bilirubin Total 0.3 mg/dL (0.2-1.3); Blood Urea Nitrogen 27 mg/dL (7-17); Calcium 10.1 mg/dL (8.4-10.2); Carbon Dioxide 24 mmol/L (22-32); Chloride 103 mmol/L (98-107); Estimated Glomerular Filt Rate 43.8 mL/min (>60); Globulin 3.1 g/dL (1.7-4.1); Glucose 163 mg/dL (80-110); HEMOLYSIS < 15 (0-50); Potassium 4.1 mmol/L (3.4-5.1); Sodium 139 mmol/L (137-145); Total Protein 7.6 g/dL (6.3-8.2)
[2019-02-16] MEDS: SODIUM CHLORIDE 0.9% 1,000 ML 500 ML IV (09:37)
[2019-02-16 09:45] LABS: Cancer Antigen 125 65 U/mL (0-35)
[2019-02-16] MEDS: ACETAMINOPHEN 325 MG TABLET 650 MG PO (09:55)
[2019-02-16] MEDS: LORazepam 0.5 MG TABLET PO (09:55)
[2019-02-16] MEDS: dexAMETHasone 20 MG in SODIUM CHLORIDE 0.9% 50 ML 220 ML IV (09:56)
[2019-02-16] MEDS: diphenhydrAMINE 25 MG TABLET PO (09:56)
[2019-02-16] MEDS: FAMOTIDINE 20 MG/50 ML PIGGYBACK 200 MG IV (10:41)
[2019-02-16] MEDS: FOSAPREPITANT 150 MG in SODIUM CHLORIDE 0.9% 150 ML 300 ML IV (10:41)
[2019-02-16] MEDS: ONDANSETRON 16 MG in SODIUM CHLORIDE 0.9% 50 ML 232 ML IV (11:19)
[2019-02-16] MEDS: DEXTROSE 5% IV (11:48)
[2019-02-16] MEDS: PACLITAXEL IV (11:48)
[2019-03-16 09:07] LABS: Add Manual Diff / Slide Review NO; Basophils Absolute Auto 100 /uL (0-100); Basophils Percent Auto 0.6 % (0-2); Eosinophils Absolute Auto 0 /uL (0-450); Hematocrit 33.9 % (36-46); Hemoglobin 11.6 g/dL (12.0-16.0); Lymphocytes Absolute Auto 1300 /uL (1100-4500); Lymphocytes Percent Auto 11.8 % (25-40); Mean Corpuscular HGB Conc 34.1 % (30-36); Mean Corpuscular Hemoglobin 31.1 PG (26-34); Mean Corpuscular Volume 91.3 fL (80-100); Monocytes Absolute Auto 1100 /uL (0-900); Monocytes Percent Auto 9.8 % (3-14); Neutrophils Absolute Auto 8700 /uL (1500-7000); Neutrophils Percent Auto 77.8 % (50-75); Platelet Count 227 X10^3/uL (150-400); Red Blood Cell Count 3.72 X10^6/uL (4.0-5.2); Red Cell Distribution Width 15.5 % (11.6-14.8); White Blood Cell Count 11.2 X10^3/uL (4.5-11.0)
[2019-03-16 09:20] LABS: Alanine Aminotransferase 12 IU/L (<35); Albumin 4.5 g/dL (3.5-5.0); Albumin Globulin Ratio 1.4 (1.0-2.8); Alkaline Phosphatase 77 U/L (38-126); Aspartate Aminotransferase 22 IU/L (14-36); BUN Creatinine Ratio 25.6 (6-22); Bilirubin Total 0.4 mg/dL (0.2-1.3); Blood Urea Nitrogen 23 mg/dL (7-17); Calcium 10.4 mg/dL (8.4-10.2); Carbon Dioxide 25 mmol/L (22-32); Chloride 104 mmol/L (98-107); Estimated Glomerular Filt Rate > 60.0 mL/min (>60); Globulin 3.3 g/dL (1.7-4.1); Glucose 135 mg/dL (80-110); HEMOLYSIS < 15 (0-50); Potassium 3.9 mmol/L (3.4-5.1); Sodium 140 mmol/L (137-145); Total Protein 7.8 g/dL (6.3-8.2)
[2019-03-16 09:22] VITALS: BP 154/77; PULSE 76; RESP 16; TEMP 36.6; O2SAT 96
[2019-03-16 09:50] LABS: Cancer Antigen 125 61 U/mL (0-35)
[2019-03-16] MEDS: SODIUM CHLORIDE 0.9% 1,000 ML 500 ML IV (10:23)
[2019-03-16] MEDS: diphenhydrAMINE 25 MG TABLET PO (10:32)
[2019-03-16] MEDS: LORazepam 0.5 MG TABLET PO (10:32)
[2019-03-16] MEDS: ACETAMINOPHEN 325 MG TABLET 650 MG PO (10:32)
[2019-03-16] MEDS: dexAMETHasone 20 MG in SODIUM CHLORIDE 0.9% 50 ML 220 ML IV (10:42)
[2019-03-16] MEDS: ONDANSETRON 16 MG in SODIUM CHLORIDE 0.9% 50 ML 232 ML IV (11:03)
[2019-03-16] MEDS: FAMOTIDINE 20 MG/50 ML PIGGYBACK 200 MG IV (11:23)
[2019-03-16] MEDS: FOSAPREPITANT 150 MG in SODIUM CHLORIDE 0.9% 150 ML 300 ML IV (12:03)
[2019-03-16] MEDS: PACLITAXEL IV (12:46)
[2019-03-16] MEDS: DEXTROSE 5% IV (12:46)
--- NOTE | 2019-03-16 13:32 | ONC.PN ---
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 Oncology History [facility] treatment: 1. Neoadjuvant chemotherapy with carboplatin and Taxol for 4 cycles 2. Optimal cyto reduction in August 2017 3. Five additional cycles of adjuvant carboplatin and Taxol finishing in December 2017 4. Recurrent disease treated with gemcitabine and bevacizumab for 3 cycles finishing in June 2018. Completed 3 cycles. 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 5. Doxil 09/01/[address] Acosta recommendation. 6. Paliative chemotherapy: C1# Carboplatin/Paclitaxel 11/24/2018 C2# Paclitaxel only 12/15/2018 C3# Paclitacle only 01/05/2019 C4# Cisplatin/Paclitaxel 01/26/2019 C5# Paclitaxel only 02/16/[address] of the chest abdomen pelvis on 10/28/2018. The scan showed mild thickening and hyper enhancement involving the vaginal cuff on the left, enlarged mesenteric lymph nodes which have clearly progressed, peritoneal implants versus additional enlarged lymph node noted in the right lower quadrant, enlarged lymph nodes in the bilateral mesentry chain which have progressed. The previously seen enlarged mediastinal lymph nodes have resolved. A mild amount of ascites was noted. In addition focal thickening of hyper enhancement noted involving the anterior abdominal wall. She underwent PET scan on 11/09/2018. PET scan showed extensive elizabeth disease in abdomen and pelvis, presacral soft tissue nodule with mild increased FDG uptake, and mildly enlarged inguinal lymph nodes bilaterally. On 11/24/2018, she was started on palliative chemotherapy with Carboplatin/Paclitaxel. Patient tolerated the first cycle very well. But on 12/15/2018, during the second cycle of the chemotherapy, after she completed the paclitaxel infusion and about 45 cc of carboplatin was infused, patient developed hypersensitivity reactions. Patient recalled that she first experienced itching of the palms then she developed dizzy and then she can barely rate member anything there after. Patient was given high-dose steroids Solu-Medrol 125 mg IV, fluids, benadryl and EpiPen x1 at the clinic. 911 was called and patient was brought to the emergency room. At the emergency room another EpiPen was given. Patient was observed at the emergency room and there after about 830 patient was discharged from the ER. Patient received paclitaxel only for cycle 3. PE(pulmonary embolism): On 07/21/2018, she developed fever. The next day (07/22/2018), she felt very tired in the morning. CT 07/22/2018 showed PE. She was started on Lovenox every 12 hours. She started Eliquis 5 mg bid on 10/26/2018 Interval history: On 01/26/2019, she was given cisplatin together with paclitaxel (cycle 4). She apparently has tolerated cisplatin and paclitaxel well. For cycle 5, she received paclitaxel only due to serum Cr of 1.2. Patient denies any fever or chills. She denies nausea or vomiting. She denies any abdominal pain diarrhea or constipation. She presents here today for cisplatin and paclitaxel cycle 6. - Patient Self-Reported Symptoms SR Constitution: Fatigue/Malaise SR ears, nose, mouth, throat issues: Cough SR respiratory issues: Cough, Mucous SR Cardiovascular issues: Extreme swelling SR Skin issues: Hair loss or scalp prob SR Genitourinary issues: Change in stream SR Neuro issues: Numbness or tingling SR Hematologic issues: Swollen lymph nodes - Additional ROS All systems PM: reviewed and no additional remarkable complaints except as stated Home Medications and Allergies Home Medications Medication Instructions Recorded Confirmed Type cholecalciferol (vitamin D3) 4,000 unit PO DAILY 05/12/18 01/05/19 History [Vitamin D3] sennosides [senna] 8.6 mg PO QD-BID 05/12/18 01/05/19 History B Complex 100 1 tab PO QAM 06/30/18 01/05/19 History acetaminophen [Tylenol] 325 mg PO Q6H PRN 09/01/18 01/05/19 History apixaban 5 mg PO BID #180 tab 10/27/18 01/05/19 Rx epinephrine [EpiPen 2-Vicente] 0.3 mg IM Q15M PRN #1 each 12/15/18 01/05/19 Rx dexamethasone [Decadron] 4 mg PO BID #36 tab 12/22/18 01/05/19 Rx Allergies Allergy/AdvReac Type Severity Reaction Status Date / Time carboplatin Allergy Severe Anaphylaxis Verified 12/15/18 16:35 gemcitabine AdvReac Severe inflammatory Verified 12/15/18 16:35 changes in the lung Exam Vital signs: Last Vital Signs Temp 98 F 03/16/19 09:22 Pulse 76 03/16/19 09:22 Resp 16 03/16/19 09:22 BP 154/77 H 03/16/19 09:22 Pulse Ox 96 03/16/19 09:22 ECOG 1 Narrative: Gen: WDWN, NAD, pleasant and cooperative. HEENT: NCAT, EOMI, PERRLA, anicteric sclera. Neck: Supple, No palpable thyromegaly or lymphadenopathy. Respiratory: CTAB, no wheezes audible. No JVD Cardiovascular: RRR, S1 and S2 normal, no M/G/R. Abdomen: Soft, NTND, BS normal, no palpable organomegaly Extremities: No LE pitting edema. Lymphatic: no palpable lymph nodes in the neck, axillae, or groins. Neurological: AOx3, CN II-XII grossly intact. No focal motor or sensory deficit. Psychiatric: Normal affect; normal thought process; cooperative, no depression, no anxiety. Results - Labs Laboratory Last Values WBC 11.2 X10^3/uL (4.5-11.0) H 03/16/19 08:44 RBC 3.72 X10^6/uL (4.0-5.2) L 03/16/19 08:44 Hgb 11.6 g/dL (12.0-16.0) L 03/16/19 08:44 Hct 33.9 % (36-46) L 03/16/19 08:44 MCV 91.3 fL (80-100) 03/16/19 08:44 MCH 31.1 PG (26-34) 03/16/19 08:44 MCHC 34.1 % (30-36) 03/16/19 08:44 RDW 15.5 % (11.6-14.8) H 03/16/19 08:44 Plt Count 227 X10^3/uL (150-400) 03/16/19 08:44 Neut % (Auto) 77.8 % (50-75) H 03/16/19 08:44 Lymph % (Auto) 11.8 % (25-40) L 03/16/19 08:44 [place] % (Auto) 9.8 % (3-14) 03/16/19 08:44 Eos % (Auto) 0.0 % (2-4) L 03/16/19 08:44 Baso % (Auto) 0.6 % (0-2) 03/16/19 08:44 Neut # (Auto) 8700 /uL (0852-5954) H 03/16/19 08:44 Lymph # (Auto) 1300 /uL (1668-2551) 03/16/19 08:44 [place] # (Auto) 1100 /uL (0-900) H 03/16/19 08:44 Eos # (Auto) 0 /uL (0-450) 03/16/19 08:44 Baso # (Auto) 100 /uL (0-100) 03/16/19 08:44 Total Counted 100 12/08/18 14:30 Seg Neutrophils % 70.0 % (38-70) 12/08/18 14:30 Band Neutrophils % 1.0 % (3-7) L 12/08/18 14:30 Lymphocytes % (Manual) 11.0 % (25-45) L 12/08/18 14:30 Atypical Lymphs % 1.0 % (-0) H 07/14/18 11:30 Monocytes % (Manual) 17.0 % (2-11) H 12/08/18 14:30 Eosinophils % (Manual) 1.0 % (2-4) L 12/08/18 14:30 Metamyelocytes % 1.0 % (-0) H 06/30/18 10:21 Myelocytes % 2.0 % (-0) H 06/16/18 13:19 Neutrophils # (Manual) 3834 /uL (1310-4189) 12/08/18 14:30 Plt Morphology Comment A1 07/07/18 08:52 RBC Morphology See below 12/08/18 14:30 Polychromasia 1+ H 07/21/18 09:02 Poikilocytosis 2+ H 12/08/18 14:30 Anisocytosis 2+ H 12/08/18 14:30 Macrocytosis 2+ H 07/21/18 09:02 Sodium 140 mmol/L (137-145) 03/16/19 08:44 Potassium 3.9 mmol/L (3.4-5.1) 03/16/19 08:44 Chloride 104 mmol/L (98-107) 03/16/19 08:44 Carbon Dioxide 25 mmol/L (22-32) 03/16/19 08:44 BUN 23 mg/dL (7-17) H 03/16/19 08:44 Creatinine 0.90 mg/dL (0.52-1.04) 03/16/19 08:44 Estimated GFR > 60.0 mL/min (>60) 03/16/19 08:44 BUN/Creatinine Ratio 25.6 (6-22) H 03/16/19 08:44 Glucose 135 mg/dL (80-110) H 03/16/19 08:44 Calcium 10.4 mg/dL (8.4-10.2) H 03/16/19 08:44 Total Bilirubin 0.4 mg/dL (0.2-1.3) 03/16/19 08:44 AST 22 IU/L (14-36) 03/16/19 08:44 ALT 12 IU/L (<35) 03/16/19 08:44 Alkaline Phosphatase 77 U/L (38-126) 03/16/19 08:44 Total Protein 7.8 g/dL (6.3-8.2) 03/16/19 08:44 Albumin 4.5 g/dL (3.5-5.0) 03/16/19 08:44 Globulin 3.3 g/dL (1.7-4.1) 03/16/19 08:44 Albumin/Globulin Ratio 1.4 (1.0-2.8) 03/16/19 08:44 CA 125 Antigen 61 U/mL (0-35) H 03/16/19 08:44 Urine Color Yellow 07/21/18 09:02 Urine Appearance Slightly cloudy 07/21/18 09:02 Urine pH 5.5 (4.5-8.0) 07/21/18 09:02 Ur Specific [place] 1.025 (1.000-1.035) 07/21/18 09:02 Urine Protein 2+ (Negative) H 07/21/18 09:02 Urine Glucose (UA) Negative g/dL (Negative) 07/21/18 09:02 Urine Ketones 1+ (NEGATIVE) H 07/21/18 09:02 Urine Occult Blood Negative (Negative) 07/21/18 09:02 Urine Nitrate Negative (Negative) 07/21/18 09:02 Urine Bilirubin 1+ (NEGATIVE) H 07/21/18 09:02 Urine Ictotest Negative (Negative) 07/21/18 09:02 Urine Urobilinogen 2.0 E.U./dL (0.2) H 07/21/18 09:02 Ur Leukocyte Esterase Trace (NEGATIVE) H 07/21/18 09:02 Urine RBC None seen (0-5/HPF) 07/21/18 09:02 Urine WBC 1-5/hpf (0-5/HPF) 07/21/18 09:02 Ur Squamous Epith Cells 10-30 /hpf (0-5/HPF) H D 07/21/18 09:02 Urine Bacteria Moderate (10-30) (None) H 07/21/18 09:02 Hyaline Casts 0-1/lpf (None) 07/21/18 09:02 Urine Mucus 2+ (Negative) H 07/21/18 09:02 Ur Culture Indicated? 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 She was started on bevacizumab and gemcitabine on April 29, 2018. Chemotherapy regimen: Gemcitabine 1000 mg/m2, on day 1, 8. 15, and Bevasuzumab 15 mg/kg, on day 1, every 21-day cycle. 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 In addition the CT scan revealed progression of the underlying disease. Per Dr. Acosta, we switched the treatment to Doxil which was started on 09/01/2018, and stopped in 11/2018. Then, on 11/24/2018, she was started on carboplatin (AUC 5)/paclitaxel (175 mg/m2). Carbopatin was discontinued starting cycle 3 due to hypersensitivity reaction during cycl2. Assessment: Up until now patient has received 5 cycles of chemotherapy. The plan is to proceed with today's chemotherapy and then will discuss with the patient about maintenance therapy when she comes back for follow up visit with me in 3 weeks. Patient voiced understanding. Patient's CA 125 has decreased significantly. Plan: 1. OK to proceed to cycle 6# Cisplatin (75 mg/m2)/Paclitaxel 175 mg/m2 today 2. Dexamethasone 4 mg q12h the day before, the day of and the day after paclitaxel 3. RTC on 03/23/2019, CBC, CMP 4. RTC in 3 weeks for follow up visit. CBC, CMP, and CA 125 (2) Pulmonary embolism Overview: On 07/21/2018, presented with fever. On 07/22/2018, very tired in the morning. CT 07/22/2018 showed PE. She was started on Lovenox every 12 hours. She started Eliquis 5 mg bid on 10/26/2018 Assessment: She tolerated Eliquis well. No bleeding events. Plan: 1. Continue Eliquis 5 mg bid 2. CBC weekly during chemotherapy 3. Hold if PLT < 50K and/or bleeding.
[2019-03-16] MEDS: MANNITOL IV (16:02)
[2019-03-16] MEDS: [UNRECOGNIZED DRUG - OTHER] IV (16:02)
[2019-03-16] MEDS: CISPLATIN IV (16:02)
[2019-03-16] MEDS: POTASSIUM CHLORIDE IV (16:02)
--- NOTE | 2019-03-16 17:46 | PC.NURSE ---
Infusion complete, after port was de-accessed, small area of redness noted to pt's right upper cheek bone and right side of neck. Pt states oh that happens, that's not unusual. According to pt I used to have to wear turtlenecks when I would get anxious. Pt reports it's been a long day and I am anxious to get out of here that's all Denies chest pain and SOB. Denies itching to mouth or throat. Denies any s/s of reaction I feel good. I'm just ready to leave. According to pt she does carry 2 epi pens with her. Speech clear, redness not spreading. Pt did excuse herself to use the restroom, upon returning there was no increase in redness. Dr. Carbajal aware, no new orders received. Pt agrees to seek emergency attention with any change in redness or other symptoms. Reinforced s/s of acute or delayed reactions with pt, verbalized understanding.
[2019-03-23 14:16] LABS: Add Manual Diff / Slide Review NO; Basophils Absolute Auto 0 /uL (0-100); Basophils Percent Auto 0.5 % (0-2); Eosinophils Absolute Auto 0 /uL (0-450); Eosinophils Percent Auto 0.9 % (2-4); Hematocrit 32.5 % (36-46); Hemoglobin 11.1 g/dL (12.0-16.0); Lymphocytes Absolute Auto 1100 /uL (1100-4500); Lymphocytes Percent Auto 28.2 % (25-40); Mean Corpuscular HGB Conc 34.3 % (30-36); Mean Corpuscular Hemoglobin 31.1 PG (26-34); Mean Corpuscular Volume 90.8 fL (80-100); Monocytes Absolute Auto 200 /uL (0-900); Neutrophils Absolute Auto 2700 /uL (1500-7000); Neutrophils Percent Auto 66.4 % (50-75); Platelet Count 129 X10^3/uL (150-400); Red Blood Cell Count 3.58 X10^6/uL (4.0-5.2); Red Cell Distribution Width 14.7 % (11.6-14.8)
[2019-03-23 14:28] LABS: Alanine Aminotransferase 20 IU/L (<35); Albumin 4.1 g/dL (3.5-5.0); Albumin Globulin Ratio 1.3 (1.0-2.8); Alkaline Phosphatase 67 U/L (38-126); Aspartate Aminotransferase 25 IU/L (14-36); Bilirubin Total 0.3 mg/dL (0.2-1.3); Blood Urea Nitrogen 21 mg/dL (7-17); Calcium 9.7 mg/dL (8.4-10.2); Carbon Dioxide 26 mmol/L (22-32); Chloride 98 mmol/L (98-107); Estimated Glomerular Filt Rate 54.1 mL/min (>60); Globulin 3.1 g/dL (1.7-4.1); Glucose 113 mg/dL (80-110); HEMOLYSIS < 15 (0-50); Potassium 4.2 mmol/L (3.4-5.1); Sodium 134 mmol/L (137-145); Total Protein 7.2 g/dL (6.3-8.2)
--- NOTE | 2019-03-23 16:09 | PC.NURSE ---
SIDE EFFECTS: PATIENT REPORTS WHILE IN FOR LAB DRAW TODAY THAT SHE WAS FLUSHED FOR THE TWO DAYS FOLLOWING TREATMENT LAST WEDNESDAY. NO FEVER. THROUGH WEDNESDAY THIS WEEK SHE HAD FREQUENT LIGHT HEADEDNESS AND EVEN MORE JOINT PAIN THAN USUAL ALSO IN HER FINGERS SO THAT HER TYPING WAS AFFECTED. ALL SYMPTOMS HAD IMPROVED GREATLY BY YESTERDAY. PATIENT ADVISED TO TELL DR FERRARO ALL SIDE EFFECTS EXPERIENCED AT NEXT VISIT AND IF LIGHTHEADEDNESS PERSISTING TO GO TO ER OR CALL IN HERE/COME IN FOR FLUIDS/CORRECTIONAL CLASSIFICATION COUNSELOR.
[2019-04-06 10:53] LABS: Add Manual Diff / Slide Review NO; Basophils Absolute Auto 0 /uL (0-100); Basophils Percent Auto 0.4 % (0-2); Eosinophils Absolute Auto 0 /uL (0-450); Eosinophils Percent Auto 1.3 % (2-4); Hematocrit 31.7 % (36-46); Hemoglobin 10.7 g/dL (12.0-16.0); Lymphocytes Absolute Auto 1200 /uL (1100-4500); Lymphocytes Percent Auto 32.3 % (25-40); Mean Corpuscular HGB Conc 33.7 % (30-36); Mean Corpuscular Hemoglobin 31.1 PG (26-34); Mean Corpuscular Volume 92.3 fL (80-100); Monocytes Absolute Auto 500 /uL (0-900); Monocytes Percent Auto 14.1 % (3-14); Neutrophils Absolute Auto 1900 /uL (1500-7000); Neutrophils Percent Auto 51.9 % (50-75); Platelet Count 217 X10^3/uL (150-400); Red Blood Cell Count 3.44 X10^6/uL (4.0-5.2); White Blood Cell Count 3.6 X10^3/uL (4.5-11.0)
[2019-04-06 11:04] LABS: Alanine Aminotransferase 13 IU/L (<35); Albumin 4.2 g/dL (3.5-5.0); Albumin Globulin Ratio 1.4 (1.0-2.8); Alkaline Phosphatase 71 U/L (38-126); Aspartate Aminotransferase 29 IU/L (14-36); Bilirubin Total 0.3 mg/dL (0.2-1.3); Blood Urea Nitrogen 20 mg/dL (7-17); Calcium 9.9 mg/dL (8.4-10.2); Carbon Dioxide 25 mmol/L (22-32); Chloride 105 mmol/L (98-107); Estimated Glomerular Filt Rate 54.1 mL/min (>60); Globulin 3.1 g/dL (1.7-4.1); Glucose 114 mg/dL (80-110); HEMOLYSIS < 15 (0-50); Potassium 4.3 mmol/L (3.4-5.1); Sodium 138 mmol/L (137-145); Total Protein 7.3 g/dL (6.3-8.2)
[2019-04-06 11:35] LABS: Cancer Antigen 125 43 U/mL (0-35)
[2019-04-06 11:38] VITALS: BP 136/80; PULSE 82; RESP 18; TEMP 36.4
--- NOTE | 2019-04-06 11:58 | ONC.PN ---
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 Treatment Summary: [facility] treatment: 1. Neoadjuvant chemotherapy with carboplatin and Taxol for 4 cycles 2. Optimal cyto reduction in August 2017 3. Five additional cycles of adjuvant carboplatin and Taxol finishing in December 2017 4. Recurrent disease treated with gemcitabine and bevacizumab for 3 cycles finishing in June 2018. Completed 3 cycles. 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 5. Doxil 09/01/[address] Acosta recommendation. 6. Paliative chemotherapy: C1# Carboplatin/Paclitaxel 11/24/2018 C2# Paclitaxel only 12/15/2018 C3# Paclitacle only 01/05/2019 C4# Cisplatin/Paclitaxel 01/26/2019 C5# Paclitaxel only 02/16/2019 C6# Cisplatin/Paclitaxel 03/16/2019. PE(pulmonary embolism): On 07/21/2018, she developed fever. The next day (07/22/2018), she felt very tired in the morning. CT 07/22/2018 showed PE. She was started on Lovenox every 12 hours. She started Eliquis 5 mg bid on 10/26/2018 Interval history: Up until now, she has completed a total of 6 cycles of chemotherapy (see above summary). She said that for the last cycle, she stayed tired and at home all for 4-5 days. Usually it only lasted for about 3 days. There after, patient said that she has felt much much better and no fever no chills. No nausea no vomiting. She presents here today for scheduled follow-up visit. - Patient Self-Reported Symptoms SR Constitution: Fatigue/Malaise SR ears, nose, mouth, throat issues: Cough SR respiratory issues: Cough, Mucous SR Cardiovascular issues: Extreme swelling SR Skin issues: Hair loss or scalp prob SR Genitourinary issues: Change in stream SR Neuro issues: Numbness or tingling SR Hematologic issues: Swollen lymph nodes - Additional ROS All systems PM: reviewed and no additional remarkable complaints except as stated Home Medications and Allergies Home Medications Medication Instructions Recorded Confirmed Type cholecalciferol (vitamin D3) 4,000 unit PO DAILY 05/12/18 04/06/19 History [Vitamin D3] sennosides [senna] 8.6 mg PO QD-BID 05/12/18 04/06/19 History B Complex 100 1 tab PO QAM 06/30/18 04/06/19 History acetaminophen [Tylenol] 325 mg PO Q6H PRN 09/01/18 04/06/19 History apixaban 5 mg PO BID #180 tab 10/27/18 04/06/19 Rx epinephrine [EpiPen 2-Vicente] 0.3 mg IM Q15M PRN #1 each 12/15/18 04/06/19 Rx dexamethasone [Decadron] 4 mg PO BID #36 tab 12/22/18 04/06/19 Rx olaparib [Lynparza] 300 mg PO BID #120 tab 04/06/19 Rx Allergies Allergy/AdvReac Type Severity Reaction Status Date / Time carboplatin Allergy Severe Anaphylaxis Verified 12/15/18 16:35 gemcitabine AdvReac Severe inflammatory Verified 12/15/18 16:35 changes in the lung Exam Vital signs: Vital Signs Temp Pulse Resp BP 04/06/19 11:38 97.5 F L 82 18 136/80 Intake and Output 04/05/19 04/06/19 04/06/19 23:59 07:59 15:59 Other: Weight 74.1 kg Patient Weight 04/06/19 23:59 Weight 74.1 kg 04/06/19 17:07 ECOG 1 Narrative: Gen: WDWN, NAD, pleasant and cooperative. HEENT: NCAT, EOMI, PERRLA, anicteric sclera. Neck: Supple, No palpable thyromegaly or lymphadenopathy. Respiratory: CTAB, no wheezes audible. No JVD Cardiovascular: RRR, S1 and S2 normal, no M/G/R. Abdomen: Soft, NTND, BS normal, no palpable organomegaly Extremities: No LE pitting edema. Lymphatic: no palpable lymph nodes in the neck, axillae, or groins. Neurological: AOx3, CN II-XII grossly intact. No focal motor or sensory deficit. Psychiatric: Normal affect; normal thought process; cooperative, no depression, no anxiety. Results - Labs Laboratory Last Values WBC 3.6 X10^3/uL (4.5-11.0) L 04/06/19 10:45 RBC 3.44 X10^6/uL (4.0-5.2) L 04/06/19 10:45 Hgb 10.7 g/dL (12.0-16.0) L 04/06/19 10:45 Hct 31.7 % (36-46) L 04/06/19 10:45 MCV 92.3 fL (80-100) 04/06/19 10:45 MCH 31.1 PG (26-34) 04/06/19 10:45 MCHC 33.7 % (30-36) 04/06/19 10:45 RDW 15.0 % (11.6-14.8) H 04/06/19 10:45 Plt Count 217 X10^3/uL (150-400) 04/06/19 10:45 Neut % (Auto) 51.9 % (50-75) 04/06/19 10:45 Lymph % (Auto) 32.3 % (25-40) 04/06/19 10:45 [place] % (Auto) 14.1 % (3-14) H 04/06/19 10:45 Eos % (Auto) 1.3 % (2-4) L 04/06/19 10:45 Baso % (Auto) 0.4 % (0-2) 04/06/19 10:45 Neut # (Auto) 1900 /uL (8105-1158) 04/06/19 10:45 Lymph # (Auto) 1200 /uL (4130-5020) 04/06/19 10:45 [place] # (Auto) 500 /uL (0-900) 04/06/19 10:45 Eos # (Auto) 0 /uL (0-450) 04/06/19 10:45 Baso # (Auto) 0 /uL (0-100) 04/06/19 10:45 Total Counted 100 12/08/18 14:30 Seg Neutrophils % 70.0 % (38-70) 12/08/18 14:30 Band Neutrophils % 1.0 % (3-7) L 12/08/18 14:30 Lymphocytes % (Manual) 11.0 % (25-45) L 12/08/18 14:30 Atypical Lymphs % 1.0 % (-0) H 07/14/18 11:30 Monocytes % (Manual) 17.0 % (2-11) H 12/08/18 14:30 Eosinophils % (Manual) 1.0 % (2-4) L 12/08/18 14:30 Metamyelocytes % 1.0 % (-0) H 06/30/18 10:21 Myelocytes % 2.0 % (-0) H 06/16/18 13:19 Neutrophils # (Manual) 3834 /uL (6184-2894) 12/08/18 14:30 Plt Morphology Comment A1 07/07/18 08:52 RBC Morphology See below 12/08/18 14:30 Polychromasia 1+ H 07/21/18 09:02 Poikilocytosis 2+ H 12/08/18 14:30 Anisocytosis 2+ H 12/08/18 14:30 Macrocytosis 2+ H 07/21/18 09:02 Sodium 138 mmol/L (137-145) 04/06/19 10:45 Potassium 4.3 mmol/L (3.4-5.1) 04/06/19 10:45 Chloride 105 mmol/L (98-107) 04/06/19 10:45 Carbon Dioxide 25 mmol/L (22-32) 04/06/19 10:45 BUN 20 mg/dL (7-17) H 04/06/19 10:45 Creatinine 1.00 mg/dL (0.52-1.04) 04/06/19 10:45 Estimated GFR 54.1 mL/min (>60) L 04/06/19 10:45 BUN/Creatinine Ratio 20.0 (6-22) 04/06/19 10:45 Glucose 114 mg/dL (80-110) H 04/06/19 10:45 Calcium 9.9 mg/dL (8.4-10.2) 04/06/19 10:45 Total Bilirubin 0.3 mg/dL (0.2-1.3) 04/06/19 10:45 AST 29 IU/L (14-36) 04/06/19 10:45 ALT 13 IU/L (<35) 04/06/19 10:45 Alkaline Phosphatase 71 U/L (38-126) 04/06/19 10:45 Total Protein 7.3 g/dL (6.3-8.2) 04/06/19 10:45 Albumin 4.2 g/dL (3.5-5.0) 04/06/19 10:45 Globulin 3.1 g/dL (1.7-4.1) 04/06/19 10:45 Albumin/Globulin Ratio 1.4 (1.0-2.8) 04/06/19 10:45 CA 125 Antigen 43 U/mL (0-35) H 04/06/19 10:45 Urine Color Yellow 07/21/18 09:02 Urine Appearance Slightly cloudy 07/21/18 09:02 Urine pH 5.5 (4.5-8.0) 07/21/18 09:02 Ur Specific [place] 1.025 (1.000-1.035) 07/21/18 09:02 Urine Protein 2+ (Negative) H 07/21/18 09:02 Urine Glucose (UA) Negative g/dL (Negative) 07/21/18 09:02 Urine Ketones 1+ (NEGATIVE) H 07/21/18 09:02 Urine Occult Blood Negative (Negative) 07/21/18 09:02 Urine Nitrate Negative (Negative) 07/21/18 09:02 Urine Bilirubin 1+ (NEGATIVE) H 07/21/18 09:02 Urine Ictotest Negative (Negative) 07/21/18 09:02 Urine Urobilinogen 2.0 E.U./dL (0.2) H 07/21/18 09:02 Ur Leukocyte Esterase Trace (NEGATIVE) H 07/21/18 09:02 Urine RBC None seen (0-5/HPF) 07/21/18 09:02 Urine WBC 1-5/hpf (0-5/HPF) 07/21/18 09:02 Ur Squamous Epith Cells 10-30 /hpf (0-5/HPF) H D 07/21/18 09:02 Urine Bacteria Moderate (10-30) (None) H 07/21/18 09:02 Hyaline Casts 0-1/lpf (None) 07/21/18 09:02 Urine Mucus 2+ (Negative) H 07/21/18 09:02 Ur Culture Indicated? 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 She was started on bevacizumab and gemcitabine on April 29, 2018. Chemotherapy regimen: Gemcitabine 1000 mg/m2, on day 1, 8. 15, and Bevasuzumab 15 mg/kg, on day 1, every 21-day cycle. 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 In addition the CT scan revealed progression of the underlying disease. Per Dr. Acosta, we switched the treatment to Doxil which was started on 09/01/2018, and stopped in 11/2018. Then, on 11/24/2018, she was started on carboplatin (AUC 5)/paclitaxel (175 mg/m2). Carbopatin was discontinued starting cycle 3 due to hypersensitivity reaction during cycl2. Assessment: She has completed 6 cycles of chemotherapy. Clinically, patient has felt a lot better. The tumor marker CA 125 has decreased significantly indicating response to the [place] containing chemotherapy. I discussed with her that I will obtain a repeat PET scan to evaluate the response. Previous PET was done on 11/09/2018 prior to [place] containing chemotherapy. That PET scan showed extensive elizabeth disease, presacral soft tissue nodules, and inguinal lymph nodes. Based on a recently trial results for [place] sensitive advance ovarian cancer, I recommended maintenance Olaparib. The HR is around 0.3 for progression free survival compared to placebo. Plan: 1. PET/CT 2. Pre-auth: Olaparib 300 mg bid 3. RTC on 03/23/2019, CBC, CMP 4. RTC in one week to view PET results. (2) Pulmonary embolism Overview: On 07/21/2018, presented with fever. On 07/22/2018, very tired in the morning. CT 07/22/2018 showed PE. She was started on Lovenox every 12 hours. She started Eliquis 5 mg bid on 10/26/2018 Assessment: She tolerated Eliquis well. No bleeding events. Plan: 1. Continue Eliquis 5 mg bid 2. Hold if PLT < 50K and/or bleeding.
--- NOTE | 2019-04-07 09:01 | ONC.SCHED ---
[place]ivo: Obtained PA for Chvio BARTON: [id number], authorized 01/07/2019 - 04/06/2022 unless notified otherwise.
--- NOTE | 2019-04-07 13:16 | ONC.SCHED ---
Faxed PET/CT order and records to [place].
[2019-04-13 15:32] VITALS: BP 157/90; PULSE 90; RESP 16; TEMP 36.8; O2SAT 98
--- NOTE | 2019-04-13 15:41 | P.PNONC_ITS ---
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 Treatment Summary: [facility] treatment: 1. Neoadjuvant chemotherapy with carboplatin and Taxol for 4 cycles 2. Optimal cyto reduction in August 2017 3. Five additional cycles of adjuvant carboplatin and Taxol finishing in December 2017 4. Recurrent disease treated with gemcitabine and bevacizumab for 3 cycles finishing in June 2018. Completed 3 cycles. 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 5. Doxil 09/01/[address] Acosta recommendation. 6. Paliative chemotherapy: C1# Carboplatin/Paclitaxel 11/24/2018 C2# Paclitaxel only 12/15/2018 C3# Paclitacle only 01/05/2019 C4# Cisplatin/Paclitaxel 01/26/2019 C5# Paclitaxel only 02/16/2019 C6# Cisplatin/Paclitaxel 03/16/2019. PE(pulmonary embolism): On 07/21/2018, she developed fever. The next day (07/22/2018), she felt very tired in the morning. CT 07/22/2018 showed PE. She was started on Lovenox every 12 hours. She started Eliquis 5 mg bid on 10/26/2018 Interval history: During her previous visit, we discussed about the switch maintenance with olaparib. Patient has already got approved from the insurance company. However she is worried about the potential side effects especially the fact that she is going to take the medication every day. She is also planning on a trip to [place] for a get-away. Patient clinically does not have any other new signs or symptoms. Patient underwent PET scan on 04/06/2019. Official reading is still pending. - Patient Self-Reported Symptoms SR Constitution: Fatigue/Malaise SR ears, nose, mouth, throat issues: Cough SR respiratory issues: Cough, Mucous SR Cardiovascular issues: Extreme swelling SR Skin issues: Hair loss or scalp prob SR Genitourinary issues: Change in stream SR Neuro issues: Numbness or tingling SR Hematologic issues: Swollen lymph nodes - Additional ROS All systems PM: reviewed and no additional remarkable complaints except as stated Home Medications and Allergies Home Medications Medication Instructions Recorded Confirmed Type cholecalciferol (vitamin D3) 4,000 unit PO DAILY 05/12/18 04/13/19 History [Vitamin D3] sennosides [senna] 8.6 mg PO QD-BID 05/12/18 04/13/19 History B Complex 100 1 tab PO QAM 06/30/18 04/13/19 History acetaminophen [Tylenol] 325 mg PO Q6H PRN 09/01/18 04/13/19 History apixaban 5 mg PO BID #180 tab 10/27/18 04/13/19 Rx epinephrine [EpiPen 2-Vicente] 0.3 mg IM Q15M PRN #1 each 12/15/18 04/13/19 Rx dexamethasone [Decadron] 4 mg PO BID #36 tab 12/22/18 04/13/19 Rx olaparib [Lynparza] 300 mg PO BID #120 tab 04/06/19 04/13/19 Rx Allergies Allergy/AdvReac Type Severity Reaction Status Date / Time carboplatin Allergy Severe Anaphylaxis Verified 12/15/18 16:35 gemcitabine AdvReac Severe inflammatory Verified 12/15/18 16:35 changes in the lung Exam Vital signs: Last Vital Signs Temp 98.2 F 04/13/19 15:32 Pulse 90 04/13/19 15:32 Resp 16 04/13/19 15:32 BP 157/90 H 04/13/19 15:32 Pulse Ox 98 04/13/19 15:32 Narrative: ECOG 1 Gen: WDWN, NAD, pleasant and cooperative. HEENT: NCAT, EOMI, PERRLA, anicteric sclera. Neck: Supple, No palpable thyromegaly or lymphadenopathy. Respiratory: CTAB, no wheezes audible. No JVD Cardiovascular: RRR, S1 and S2 normal, no M/G/R. Abdomen: Soft, NTND, BS normal, no palpable organomegaly Extremities: No LE pitting edema. Lymphatic: no palpable lymph nodes in the neck, axillae. Neurological: AOx3, CN II-XII grossly intact. No focal motor or sensory deficit. Psychiatric: Normal affect; normal thought process; no depression; no anxiety. Results - Labs Laboratory Last Values WBC 3.6 X10^3/uL (4.5-11.0) L 04/06/19 10:45 RBC 3.44 X10^6/uL (4.0-5.2) L 04/06/19 10:45 Hgb 10.7 g/dL (12.0-16.0) L 04/06/19 10:45 Hct 31.7 % (36-46) L 04/06/19 10:45 MCV 92.3 fL (80-100) 04/06/19 10:45 MCH 31.1 PG (26-34) 04/06/19 10:45 MCHC 33.7 % (30-36) 04/06/19 10:45 RDW 15.0 % (11.6-14.8) H 04/06/19 10:45 Plt Count 217 X10^3/uL (150-400) 04/06/19 10:45 Neut % (Auto) 51.9 % (50-75) 04/06/19 10:45 Lymph % (Auto) 32.3 % (25-40) 04/06/19 10:45 [place] % (Auto) 14.1 % (3-14) H 04/06/19 10:45 Eos % (Auto) 1.3 % (2-4) L 04/06/19 10:45 Baso % (Auto) 0.4 % (0-2) 04/06/19 10:45 Neut # (Auto) 1900 /uL (4681-7884) 04/06/19 10:45 Lymph # (Auto) 1200 /uL (6420-8521) 04/06/19 10:45 Sampson # (Auto) 500 /uL (0-900) 04/06/19 10:45 Eos # (Auto) 0 /uL (0-450) 04/06/19 10:45 Baso # (Auto) 0 /uL (0-100) 04/06/19 10:45 Total Counted 100 12/08/18 14:30 Seg Neutrophils % 70.0 % (38-70) 12/08/18 14:30 Band Neutrophils % 1.0 % (3-7) L 12/08/18 14:30 Lymphocytes % (Manual) 11.0 % (25-45) L 12/08/18 14:30 Atypical Lymphs % 1.0 % (-0) H 07/14/18 11:30 Monocytes % (Manual) 17.0 % (2-11) H 12/08/18 14:30 Eosinophils % (Manual) 1.0 % (2-4) L 12/08/18 14:30 Metamyelocytes % 1.0 % (-0) H 06/30/18 10:21 Myelocytes % 2.0 % (-0) H 06/16/18 13:19 Neutrophils # (Manual) 3834 /uL (5102-0901) 12/08/18 14:30 Plt Morphology Comment A1 07/07/18 08:52 RBC Morphology See below 12/08/18 14:30 Polychromasia 1+ H 07/21/18 09:02 Poikilocytosis 2+ H 12/08/18 14:30 Anisocytosis 2+ H 12/08/18 14:30 Macrocytosis 2+ H 07/21/18 09:02 Sodium 138 mmol/L (137-145) 04/06/19 10:45 Potassium 4.3 mmol/L (3.4-5.1) 04/06/19 10:45 Chloride 105 mmol/L (98-107) 04/06/19 10:45 Carbon Dioxide 25 mmol/L (22-32) 04/06/19 10:45 BUN 20 mg/dL (7-17) H 04/06/19 10:45 Creatinine 1.00 mg/dL (0.52-1.04) 04/06/19 10:45 Estimated GFR 54.1 mL/min (>60) L 04/06/19 10:45 BUN/Creatinine Ratio 20.0 (6-22) 04/06/19 10:45 Glucose 114 mg/dL (80-110) H 04/06/19 10:45 Calcium 9.9 mg/dL (8.4-10.2) 04/06/19 10:45 Total Bilirubin 0.3 mg/dL (0.2-1.3) 04/06/19 10:45 AST 29 IU/L (14-36) 04/06/19 10:45 ALT 13 IU/L (<35) 04/06/19 10:45 Alkaline Phosphatase 71 U/L (38-126) 04/06/19 10:45 Total Protein 7.3 g/dL (6.3-8.2) 04/06/19 10:45 Albumin 4.2 g/dL (3.5-5.0) 04/06/19 10:45 Globulin 3.1 g/dL (1.7-4.1) 04/06/19 10:45 Albumin/Globulin Ratio 1.4 (1.0-2.8) 04/06/19 10:45 CA 125 Antigen 43 U/mL (0-35) H 04/06/19 10:45 Urine Color Yellow 07/21/18 09:02 Urine Appearance Slightly cloudy 07/21/18 09:02 Urine pH 5.5 (4.5-8.0) 07/21/18 09:02 Ur Specific [place] 1.025 (1.000-1.035) 07/21/18 09:02 Urine Protein 2+ (Negative) H 07/21/18 09:02 Urine Glucose (UA) Negative g/dL (Negative) 07/21/18 09:02 Urine Ketones 1+ (NEGATIVE) H 07/21/18 09:02 Urine Occult Blood Negative (Negative) 07/21/18 09: Urine Nitrate Negative (Negative) 07/21/18 09: Urine Bilirubin 1+ (NEGATIVE) H 07/21/18 09:02 Urine Ictotest Negative (Negative) 07/21/18 09:02 Urine Urobilinogen 2.0 E.U./dL (0.2) H 07/21/18 09:02 Ur Leukocyte Esterase Trace (NEGATIVE) H 07/21/18 09:02 Urine RBC None seen (0-5/HPF) 07/21/18 09:02 Urine WBC 1-5/hpf (0-5/HPF) 07/21/18 09:02 Ur Squamous Epith Cells 10-30 /hpf (0-5/HPF) H D 07/21/18 09:02 Urine Bacteria Moderate (10-30) (None) H 07/21/18 09:02 Hyaline Casts 0-1/lpf (None) 07/21/18 09:02 Urine Mucus 2+ (Negative) H 07/21/18 09:02 Ur Culture Indicated? 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 She was started on bevacizumab and gemcitabine on April 29, 2018. Chemotherapy regimen: Gemcitabine 1000 mg/m2, on day 1, 8. 15, and Bevasuzumab 15 mg/kg, on day 1, every 21-day cycle. 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 In addition the CT scan revealed progression of the underlying disease. Per Dr. Acosta, we switched the treatment to Doxil which was started on 09/01/2018, and stopped in 11/2018. Then, on 11/24/2018, she was started on carboplatin (AUC 5)/paclitaxel (175 mg/m2). Carbopatin was discontinued starting cycle 3 due to hypersensitivity reaction during cycl2. She has completed total of 6 cycles of chemotherapy on 03/16/2019. Assessment: Today, first of all I reviewed the PET scan with the patient on the computer screen. I compared the PET scan images with that of 2019. It clearly showed dramatic response. However I talked with the patient that I will wait for the final official reading. Next I talked about the role of switch maintenance with olaparib. I talked with her that the most recent study solo -1 showed that the use of olaparib can reduce the risk of disease or by 70%. I would highly recommend that patient proceed with olaparib maintenance. As for the timing of Olaparib, I think it would be fine for her to take one-month break to allow her body to recover from her recent chemotherapy. When she comes back from her trip to [place], I will see her first and then initiate the treatment. Plan: 1. Follow up on the official reading of PET Scan 2. RTC on 05/18/2019 to discuss initiation of Olaparib (2) Pulmonary embolism Overview: On 07/21/2018, presented with fever. On 07/22/2018, very tired in the morning. CT 07/22/2018 showed PE. She was started on Lovenox every 12 hours. She started Eliquis 5 mg bid on 10/26/2018 Assessment: She tolerated Eliquis well. No bleeding events. Plan: 1. Continue Eliquis 5 mg bid 2. Hold if PLT < 50K and/or bleeding.
--- NOTE | 2019-05-04 13:14 | ONC.MSW ---
Description: Travel Letter Activity: Pt called to request a letter for her hotel in [place] explaining why she needed to cancel her reservations and flights due to being highly immunocompromised. [employer] compiled the letter with Dr. Carbajal's signature, scanned and emailed to her. No further needs identified at this time.
[2019-05-18 14:37] LABS: Add Manual Diff / Slide Review NO; Basophils Absolute Auto 0 /uL (0-100); Basophils Percent Auto 0.9 % (0-2); Eosinophils Absolute Auto 100 /uL (0-450); Eosinophils Percent Auto 1.2 % (2-4); Hemoglobin 11.3 g/dL (12.0-16.0); Lymphocytes Absolute Auto 1300 /uL (1100-4500); Lymphocytes Percent Auto 26.5 % (25-40); Mean Corpuscular HGB Conc 34.2 % (30-36); Mean Corpuscular Hemoglobin 31.4 PG (26-34); Mean Corpuscular Volume 91.9 fL (80-100); Monocytes Absolute Auto 600 /uL (0-900); Monocytes Percent Auto 11.2 % (3-14); Neutrophils Absolute Auto 3000 /uL (1500-7000); Neutrophils Percent Auto 60.2 % (50-75); Platelet Count 209 X10^3/uL (150-400); Red Blood Cell Count 3.59 X10^6/uL (4.0-5.2); Red Cell Distribution Width 14.1 % (11.6-14.8)
[2019-05-18 14:52] LABS: Alanine Aminotransferase 11 IU/L (<35); Albumin 4.2 g/dL (3.5-5.0); Albumin Globulin Ratio 1.3 (1.0-2.8); Alkaline Phosphatase 72 U/L (38-126); Aspartate Aminotransferase 24 IU/L (14-36); BUN Creatinine Ratio 18.5 (6-22); Bilirubin Total 0.3 mg/dL (0.2-1.3); Blood Urea Nitrogen 17 mg/dL (7-17); Carbon Dioxide 27 mmol/L (22-32); Chloride 100 mmol/L (98-107); Estimated Glomerular Filt Rate 59.5 mL/min (>60); Globulin 3.2 g/dL (1.7-4.1); Glucose 111 mg/dL (80-110); HEMOLYSIS < 15 (0-50); Potassium 4.3 mmol/L (3.4-5.1); Sodium 135 mmol/L (137-145); Total Protein 7.4 g/dL (6.3-8.2)
[2019-05-18 15:11] VITALS: BP 134/80; PULSE 80; RESP 18; TEMP 36.9; O2SAT 98
[2019-05-18 15:23] LABS: Cancer Antigen 125 238 U/mL (0-35)
--- NOTE | 2019-05-18 15:32 | ONC.PN ---
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 Treatment Summary: [facility] treatment: 1. Neoadjuvant chemotherapy with carboplatin and Taxol for 4 cycles 2. Optimal cyto reduction in August 2017 3. Five additional cycles of adjuvant carboplatin and Taxol finishing in December 2017 4. Recurrent disease treated with gemcitabine and bevacizumab for 3 cycles finishing in June 2018. Completed 3 cycles. 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 5. Doxil 09/01/[address] Acosta recommendation. 6. Paliative chemotherapy: C1# Carboplatin/Paclitaxel 11/24/2018 C2# Paclitaxel only 12/15/2018 C3# Paclitacle only 01/05/2019 C4# Cisplatin/Paclitaxel 01/26/2019 C5# Paclitaxel only 02/16/2019 C6# Cisplatin/Paclitaxel 03/16/2019. PE(pulmonary embolism): On 07/21/2018, she developed fever. The next day (07/22/2018), she felt very tired in the morning. CT 07/22/2018 showed PE. She was started on Lovenox every 12 hours. She started Eliquis 5 mg bid on 10/26/2018 Interval history: The official reading of PET scan on 04/12/2019 showed resolution of retroperitoneal, mesenteric, bilateral iliac lymphadenopathy, a mildly enlarged residual right inguinal lymph node no longer demonstrated abnormal FDG activity consistent with disease been treated. Resolution of mild hypermetabolic presacral soft tissue nodules. Due to leukopenia, we decided to give her a 1 month break before we initiate treatment with olaparib. Patient presents here today for evaluation. Patient said that she basically has been doing well. She has no symptoms. She said she has good energy and good appetite. She has gained some weight. He denies any shortness of breath or chest pain. She denies any abdominal pain diarrhea or constipation. Patient said that she is expected to receive delivery of olaparib tomorrow. - Patient Self-Reported Symptoms SR Constitution: Fatigue/Malaise SR ears, nose, mouth, throat issues: Cough SR respiratory issues: Cough, Mucous SR Cardiovascular issues: Extreme swelling SR Skin issues: Hair loss or scalp prob SR Genitourinary issues: Change in stream SR Neuro issues: Numbness or tingling SR Hematologic issues: Swollen lymph nodes - Additional ROS All systems PM: reviewed and no additional remarkable complaints except as stated (those mentioned in history of present illness.) Home Medications and Allergies Home Medications Medication Instructions Recorded Confirmed Type cholecalciferol (vitamin D3) 4,000 unit PO DAILY 05/12/18 05/18/19 History [Vitamin D3] sennosides [senna] 8.6 mg PO QD-BID 05/12/18 05/18/19 History B Complex 100 1 tab PO QAM 06/30/18 05/18/19 History acetaminophen [Tylenol] 325 mg PO Q6H PRN 09/01/18 05/18/19 History apixaban 5 mg PO BID #180 tab 10/27/18 05/18/19 Rx epinephrine [EpiPen 2-Vicente] 0.3 mg IM Q15M PRN #1 each 12/15/18 05/18/19 Rx olaparib [Lynparza] 300 mg PO BID #120 tab 04/06/19 05/18/19 Rx Allergies Allergy/AdvReac Type Severity Reaction Status Date / Time carboplatin Allergy Severe Anaphylaxis Verified 12/15/18 16:35 gemcitabine AdvReac Severe inflammatory Verified 12/15/18 16:35 changes in the lung Exam Vital signs: Vital Signs Temp Pulse Resp BP Pulse Ox 05/18/19 15:11 98.4 F 80 18 134/80 98 Intake and Output 05/17/19 05/18/19 05/18/19 23:59 07:59 15:59 Other: Weight 75.7 kg Patient Weight 05/18/19 23:59 Weight 75.7 kg Narrative: ECOG 1 Gen: WDWN, NAD, pleasant and cooperative. HEENT: NCAT, EOMI, PERRLA, anicteric sclera. Neck: Supple, No palpable thyromegaly or lymphadenopathy. Respiratory: CTAB, no wheezes audible. No JVD Cardiovascular: RRR, S1 and S2 normal, no M/G/R. Abdomen: Soft, NTND, BS normal, no palpable organomegaly Extremities: No LE pitting edema. Lymphatic: no palpable lymph nodes in the neck, axillae. Neurological: AOx3, CN II-XII grossly intact. No focal motor or sensory deficit. Psychiatric: Normal affect; normal thought process; no depression; no anxiety. Results - Labs Laboratory Last Values WBC 5.0 X10^3/uL (4.5-11.0) 05/18/19 14:30 RBC 3.59 X10^6/uL (4.0-5.2) L 05/18/19 14:30 Hgb 11.3 g/dL (12.0-16.0) L 05/18/19 14:30 Hct 33.0 % (36-46) L 05/18/19 14:30 MCV 91.9 fL (80-100) 05/18/19 14:30 MCH 31.4 PG (26-34) 05/18/19 14:30 MCHC 34.2 % (30-36) 05/18/19 14:30 RDW 14.1 % (11.6-14.8) 05/18/19 14:30 Plt Count 209 X10^3/uL (150-400) 05/18/19 14:30 Neut % (Auto) 60.2 % (50-75) 05/18/19 14:30 Lymph % (Auto) 26.5 % (25-40) 05/18/19 14:30 [place] % (Auto) 11.2 % (3-14) 05/18/19 14:30 Eos % (Auto) 1.2 % (2-4) L 05/18/19 14:30 Baso % (Auto) 0.9 % (0-2) 05/18/19 14:30 Neut # (Auto) 3000 /uL (1707-5186) 05/18/19 14:30 Lymph # (Auto) 1300 /uL (0117-8475) 05/18/19 14:30 [place] # (Auto) 600 /uL (0-900) 05/18/19 14:30 Eos # (Auto) 100 /uL (0-450) 05/18/19 14:30 Baso # (Auto) 0 /uL (0-100) 05/18/19 14:30 Total Counted 100 12/08/18 14:30 Seg Neutrophils % 70.0 % (38-70) 12/08/18 14:30 Band Neutrophils % 1.0 % (3-7) L 12/08/18 14:30 Lymphocytes % (Manual) 11.0 % (25-45) L 12/08/18 14:30 Atypical Lymphs % 1.0 % (-0) H 07/14/18 11:30 Monocytes % (Manual) 17.0 % (2-11) H 12/08/18 14:30 Eosinophils % (Manual) 1.0 % (2-4) L 12/08/18 14:30 Metamyelocytes % 1.0 % (-0) H 06/30/18 10:21 Myelocytes % 2.0 % (-0) H 06/16/18 13:19 Neutrophils # (Manual) 3834 /uL (2322-8045) 12/08/18 14:30 Plt Morphology Comment A1 07/07/18 08:52 RBC Morphology See below 12/08/18 14:30 Polychromasia 1+ H 07/21/18 09:02 Poikilocytosis 2+ H 12/08/18 14:30 Anisocytosis 2+ H 12/08/18 14:30 Macrocytosis 2+ H 07/21/18 09:02 Sodium 135 mmol/L (137-145) L 05/18/19 14:30 Potassium 4.3 mmol/L (3.4-5.1) 05/18/19 14:30 Chloride 100 mmol/L (98-107) 05/18/19 14:30 Carbon Dioxide 27 mmol/L (22-32) 05/18/19 14:30 BUN 17 mg/dL (7-17) 05/18/19 14:30 Creatinine 0.92 mg/dL (0.52-1.04) 05/18/19 14:30 Estimated GFR 59.5 mL/min (>60) L 05/18/19 14:30 BUN/Creatinine Ratio 18.5 (6-22) 05/18/19 14:30 Glucose 111 mg/dL (80-110) H 05/18/19 14:30 Calcium 10.0 mg/dL (8.4-10.2) 05/18/19 14:30 Total Bilirubin 0.3 mg/dL (0.2-1.3) 05/18/19 14:30 AST 24 IU/L (14-36) 05/18/19 14:30 ALT 11 IU/L (<35) 05/18/19 14:30 Alkaline Phosphatase 72 U/L (38-126) 05/18/19 14:30 Total Protein 7.4 g/dL (6.3-8.2) 05/18/19 14:30 Albumin 4.2 g/dL (3.5-5.0) 05/18/19 14:30 Globulin 3.2 g/dL (1.7-4.1) 05/18/19 14:30 Albumin/Globulin Ratio 1.3 (1.0-2.8) 05/18/19 14:30 CA 125 Antigen 238 U/mL (0-35) H 05/18/19 14:30 Urine Color Yellow 07/21/18 09:02 Urine Appearance Slightly cloudy 07/21/18 09:02 Urine pH 5.5 (4.5-8.0) 07/21/18 09:02 Ur Specific [place] 1.025 (1.000-1.035) 07/21/18 09:02 Urine Protein 2+ (Negative) H 07/21/18 09:02 Urine Glucose (UA) Negative g/dL (Negative) 07/21/18 09:02 Urine Ketones 1+ (NEGATIVE) H 07/21/18 09:02 Urine Occult Blood Negative (Negative) 07/21/18 09:02 Urine Nitrate Negative (Negative) 07/21/18 09:02 Urine Bilirubin 1+ (NEGATIVE) H 07/21/18 09:02 Urine Ictotest Negative (Negative) 07/21/18 09:02 Urine Urobilinogen 2.0 E.U./dL (0.2) H 07/21/18 09:02 Ur Leukocyte Esterase Trace (NEGATIVE) H 07/21/18 09:02 Urine RBC None seen (0-5/HPF) 07/21/18 09:02 Urine WBC 1-5/hpf (0-5/HPF) 07/21/18 09:02 Ur Squamous Epith Cells 10-30 /hpf (0-5/HPF) H D 07/21/18 09:02 Urine Bacteria Moderate (10-30) (None) H 07/21/18 09:02 Hyaline Casts 0-1/lpf (None) 07/21/18 09:02 Urine Mucus 2+ (Negative) H 07/21/18 09:02 Ur Culture Indicated? 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 She was started on bevacizumab and gemcitabine on April 29, 2018. Chemotherapy regimen: Gemcitabine 1000 mg/m2, on day 1, 8. 15, and Bevasuzumab 15 mg/kg, on day 1, every 21-day cycle. 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 In addition the CT scan revealed progression of the underlying disease. Per Dr. Acosta, we switched the treatment to Doxil which was started on 09/01/2018, and stopped in 11/2018. Then, on 11/24/2018, she was started on carboplatin (AUC 5)/paclitaxel (175 mg/m2). Carbopatin was discontinued starting cycle 3 due to hypersensitivity reaction during cycl2. She has completed total of 6 cycles of chemotherapy on 03/16/2019. Assessment: Today, I reviewed the PET scan results. It showed significant response to chemotherapy. Clinically patient has been asymptomatic. However the tumor marker CA 125 has shown a upward trend. I talked with the patient that I would recommend we initiate olaparib. Patient voiced understanding. Plan: 1. Start Olaparib on 05/24/2019 2. RTC in 4 weeks, CBC, CMP, CA125. (2) Pulmonary embolism Overview: On 07/21/2018, presented with fever. On 07/22/2018, very tired in the morning. CT 07/22/2018 showed PE. She was started on Lovenox every 12 hours. She started Eliquis 5 mg bid on 10/26/2018 Assessment: She tolerated Eliquis well. No bleeding events. Plan: 1. Continue Eliquis 5 mg bid 2. Hold if PLT < 50K and/or bleeding.
[2019-06-15 15:03] LABS: Add Manual Diff / Slide Review NO; Basophils Absolute Auto 100 /uL (0-100); Basophils Percent Auto 1.2 % (0-2); Eosinophils Absolute Auto 100 /uL (0-450); Eosinophils Percent Auto 1.1 % (2-4); Hematocrit 30.3 % (36-46); Hemoglobin 10.6 g/dL (12.0-16.0); Lymphocytes Absolute Auto 1100 /uL (1100-4500); Lymphocytes Percent Auto 23.2 % (25-40); Mean Corpuscular HGB Conc 34.8 % (30-36); Mean Corpuscular Hemoglobin 32.3 PG (26-34); Mean Corpuscular Volume 92.8 fL (80-100); Monocytes Absolute Auto 400 /uL (0-900); Monocytes Percent Auto 7.7 % (3-14); Neutrophils Absolute Auto 3300 /uL (1500-7000); Neutrophils Percent Auto 66.8 % (50-75); Platelet Count 189 X10^3/uL (150-400); Red Blood Cell Count 3.27 X10^6/uL (4.0-5.2); Red Cell Distribution Width 13.9 % (11.6-14.8); White Blood Cell Count 4.9 X10^3/uL (4.5-11.0)
[2019-06-15 15:16] LABS: Alanine Aminotransferase 11 IU/L (<35); Albumin 4.4 g/dL (3.5-5.0); Albumin Globulin Ratio 1.4 (1.0-2.8); Alkaline Phosphatase 71 U/L (38-126); Aspartate Aminotransferase 25 IU/L (14-36); BUN Creatinine Ratio 16.7 (6-22); Bilirubin Total 0.4 mg/dL (0.2-1.3); Blood Urea Nitrogen 18 mg/dL (7-17); Calcium 10.1 mg/dL (8.4-10.2); Carbon Dioxide 24 mmol/L (22-32); Chloride 102 mmol/L (98-107); Estimated Glomerular Filt Rate 49.5 mL/min (>60); Globulin 3.2 g/dL (1.7-4.1); Glucose 107 mg/dL (80-110); HEMOLYSIS < 15 (0-50); Potassium 4.2 mmol/L (3.4-5.1); Sodium 135 mmol/L (137-145); Total Protein 7.6 g/dL (6.3-8.2)
--- NOTE | 2019-06-15 15:39 | ONC.PN ---
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 Treatment Summary: [facility] treatment: 1. Neoadjuvant chemotherapy with carboplatin and Taxol for 4 cycles 2. Optimal cyto reduction in August 2017 3. Five additional cycles of adjuvant carboplatin and Taxol finishing in December 2017 4. Recurrent disease treated with gemcitabine and bevacizumab for 3 cycles finishing in June 2018. Completed 3 cycles. 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 5. Doxil 09/01/[address] Acosta recommendation. 6. Paliative chemotherapy: C1# Carboplatin/Paclitaxel 11/24/2018 C2# Paclitaxel only 12/15/2018 C3# Paclitacle only 01/05/2019 C4# Cisplatin/Paclitaxel 01/26/2019 C5# Paclitaxel only 02/16/2019 C6# Cisplatin/Paclitaxel 03/16/2019. PE(pulmonary embolism): On 07/21/2018, she developed fever. The next day (07/22/2018), she felt very tired in the morning. CT 07/22/2018 showed PE. She was started on Lovenox every 12 hours. She started Eliquis 5 mg bid on 10/26/2018 Interval history: The official reading of PET scan on 04/12/2019 showed resolution of retroperitoneal, mesenteric, bilateral iliac lymphadenopathy, a mildly enlarged residual right inguinal lymph node no longer demonstrated abnormal FDG activity consistent with disease been treated. Resolution of mild hypermetabolic presacral soft tissue nodules. Due to leukopenia, we decided to give her a 1 month break before we initiate treatment with olaparib. He has started the olaparib on 05/24/2019. Patient said that she has been doing went for. She said she has good energy, good appetite, and she is walking around. He does not have any nausea or vomiting. No diarrhea and no constipation. - Patient Self-Reported Symptoms SR Constitution: Fatigue/Malaise SR ears, nose, mouth, throat issues: Cough SR respiratory issues: Cough, Mucous SR Cardiovascular issues: Extreme swelling SR Skin issues: Hair loss or scalp prob SR Genitourinary issues: Change in stream SR Neuro issues: Numbness or tingling SR Hematologic issues: Swollen lymph nodes - Additional ROS All systems PM: reviewed and no additional remarkable complaints except as stated (those mentioned in hpi, interval history and sr above.) Home Medications and Allergies Home Medications Medication Instructions Recorded Confirmed Type cholecalciferol (vitamin D3) 4,000 unit PO DAILY 05/12/18 05/18/19 History [Vitamin D3] sennosides [senna] 8.6 mg PO QD-BID 05/12/18 05/18/19 History B Complex 100 1 tab PO QAM 06/30/18 05/18/19 History acetaminophen [Tylenol] 325 mg PO Q6H PRN 09/01/18 05/18/19 History apixaban 5 mg PO BID #180 tab 10/27/18 05/18/19 Rx epinephrine [EpiPen 2-Vicente] 0.3 mg IM Q15M PRN #1 each 12/15/18 05/18/19 Rx olaparib [Lynparza] 300 mg PO BID #120 tab 04/06/19 05/18/19 Rx Allergies Allergy/AdvReac Type Severity Reaction Status Date / Time carboplatin Allergy Severe Anaphylaxis Verified 12/15/18 16:35 gemcitabine AdvReac Severe inflammatory Verified 12/15/18 16:35 changes in the lung Exam Vital signs: 06/15/19 15:52 Last Vital Signs Temp 98.4 F 05/18/19 15:11 Pulse 80 05/18/19 15:11 Resp 18 05/18/19 15:11 BP 134/80 05/18/19 15:11 Pulse Ox 98 05/18/19 15:11 Narrative: ECOG 1 Gen: WDWN, NAD, pleasant and cooperative. HEENT: NCAT, EOMI, PERRLA, anicteric sclera. Neck: Supple, No palpable thyromegaly or lymphadenopathy. Respiratory: CTAB, no wheezes audible. No JVD Cardiovascular: RRR, S1 and S2 normal, no M/G/R. Abdomen: Soft, NTND, BS normal, no palpable organomegaly Extremities: No LE pitting edema. Lymphatic: no palpable lymph nodes in the neck, axillae. Neurological: AOx3, CN II-XII grossly intact. No focal motor or sensory deficit. Psychiatric: Normal affect; normal thought process; no depression; no anxiety. Results - Labs Laboratory Last Values WBC 4.9 X10^3/uL (4.5-11.0) 06/15/19 14:40 RBC 3.27 X10^6/uL (4.0-5.2) L 06/15/19 14:40 Hgb 10.6 g/dL (12.0-16.0) L 06/15/19 14:40 Hct 30.3 % (36-46) L 06/15/19 14:40 MCV 92.8 fL (80-100) 06/15/19 14:40 MCH 32.3 PG (26-34) 06/15/19 14:40 MCHC 34.8 % (30-36) 06/15/19 14:40 RDW 13.9 % (11.6-14.8) 06/15/19 14:40 Plt Count 189 X10^3/uL (150-400) 06/15/19 14:40 Neut % (Auto) 66.8 % (50-75) 06/15/19 14:40 Lymph % (Auto) 23.2 % (25-40) L 06/15/19 14:40 [place] % (Auto) 7.7 % (3-14) 06/15/19 14:40 Eos % (Auto) 1.1 % (2-4) L 06/15/19 14:40 Baso % (Auto) 1.2 % (0-2) 06/15/19 14:40 Neut # (Auto) 3300 /uL (3842-4421) 06/15/19 14:40 Lymph # (Auto) 1100 /uL (6851-0969) 06/15/19 14:40 [place] # (Auto) 400 /uL (0-900) 06/15/19 14:40 Eos # (Auto) 100 /uL (0-450) 06/15/19 14:40 Baso # (Auto) 100 /uL (0-100) 06/15/19 14:40 Total Counted 100 12/08/18 14:30 Seg Neutrophils % 70.0 % (38-70) 12/08/18 14:30 Band Neutrophils % 1.0 % (3-7) L 12/08/18 14:30 Lymphocytes % (Manual) 11.0 % (25-45) L 12/08/18 14:30 Atypical Lymphs % 1.0 % (-0) H 07/14/18 11:30 Monocytes % (Manual) 17.0 % (2-11) H 12/08/18 14:30 Eosinophils % (Manual) 1.0 % (2-4) L 12/08/18 14:30 Metamyelocytes % 1.0 % (-0) H 06/30/18 10:21 Myelocytes % 2.0 % (-0) H 06/16/18 13:19 Neutrophils # (Manual) 3834 /uL (4947-8366) 12/08/18 14:30 Plt Morphology Comment A1 07/07/18 08:52 RBC Morphology See below 12/08/18 14:30 Polychromasia 1+ H 07/21/18 09:02 Poikilocytosis 2+ H 12/08/18 14:30 Anisocytosis 2+ H 12/08/18 14:30 Macrocytosis 2+ H 07/21/18 09:02 Sodium 135 mmol/L (137-145) L 06/15/19 14:40 Potassium 4.2 mmol/L (3.4-5.1) 06/15/19 14:40 Chloride 102 mmol/L (98-107) 06/15/19 14:40 Carbon Dioxide 24 mmol/L (22-32) 06/15/19 14:40 BUN 18 mg/dL (7-17) H 06/15/19 14:40 Creatinine 1.08 mg/dL (0.52-1.04) H 06/15/19 14:40 Estimated GFR 49.5 mL/min (>60) L 06/15/19 14:40 BUN/Creatinine Ratio 16.7 (6-22) 06/15/19 14:40 Glucose 107 mg/dL (80-110) 06/15/19 14:40 Calcium 10.1 mg/dL (8.4-10.2) 06/15/19 14:40 Total Bilirubin 0.4 mg/dL (0.2-1.3) 06/15/19 14:40 AST 25 IU/L (14-36) 06/15/19 14:40 ALT 11 IU/L (<35) 06/15/19 14:40 Alkaline Phosphatase 71 U/L (38-126) 06/15/19 14:40 Total Protein 7.6 g/dL (6.3-8.2) 06/15/19 14:40 Albumin 4.4 g/dL (3.5-5.0) 06/15/19 14:40 Globulin 3.2 g/dL (1.7-4.1) 06/15/19 14:40 Albumin/Globulin Ratio 1.4 (1.0-2.8) 06/15/19 14:40 CA 125 Antigen 319 U/mL (0-35) H 06/15/19 14:40 Urine Color Yellow 07/21/18 09:02 Urine Appearance Slightly cloudy 07/21/18 09:02 Urine pH 5.5 (4.5-8.0) 07/21/18 09:02 Ur Specific [place] 1.025 (1.000-1.035) 07/21/18 09:02 Urine Protein 2+ (Negative) H 07/21/18 09:02 Urine Glucose (UA) Negative g/dL (Negative) 07/21/18 09:02 Urine Ketones 1+ (NEGATIVE) H 07/21/18 09:02 Urine Occult Blood Negative (Negative) 07/21/18 09:02 Urine Nitrate Negative (Negative) 07/21/18 09:02 Urine Bilirubin 1+ (NEGATIVE) H 07/21/18 09:02 Urine Ictotest Negative (Negative) 07/21/18 09:02 Urine Urobilinogen 2.0 E.U./dL (0.2) H 07/21/18 09:02 Ur Leukocyte Esterase Trace (NEGATIVE) H 07/21/18 09:02 Urine RBC None seen (0-5/HPF) 07/21/18 09:02 Urine WBC 1-5/hpf (0-5/HPF) 07/21/18 09:02 Ur Squamous Epith Cells 10-30 /hpf (0-5/HPF) H D 07/21/18 09:02 Urine Bacteria Moderate (10-30) (None) H 07/21/18 09:02 Hyaline Casts 0-1/lpf (None) 07/21/18 09:02 Urine Mucus 2+ (Negative) H 07/21/18 09:02 Ur Culture Indicated? 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 She was started on bevacizumab and gemcitabine on April 29, 2018. Chemotherapy regimen: Gemcitabine 1000 mg/m2, on day 1, 8. 15, and Bevasuzumab 15 mg/kg, on day 1, every 21-day cycle. 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 In addition the CT scan revealed progression of the underlying disease. Per Dr. Acosta, we switched the treatment to Doxil which was started on 09/01/2018, and stopped in 11/2018. Then, on 11/24/2018, she was started on carboplatin (AUC 5)/paclitaxel (175 mg/m2). Carbopatin was discontinued starting cycle 3 due to hypersensitivity reaction during cycl2. She has completed total of 6 cycles of chemotherapy on 03/16/2019. Then, she started olaparib on 05/24/2019. Assessment: Patient has tolerated olaparib extremely well. Patient basically does not have any untoward reactions. I reviewed the CBC and CMP with the patient. There or unremarkable. I talked with her that I will continue the treatment and will see her in about month. Plan: 1. Start Olaparib 300 mg bid 2. RTC in 4 weeks, CBC, CMP, CA125. (2) Pulmonary embolism Overview: On 07/21/2018, presented with fever. On 07/22/2018, very tired in the morning. CT 07/22/2018 showed PE. She was started on Lovenox every 12 hours. She started Eliquis 5 mg bid on 10/26/2018 Assessment: She tolerated Eliquis well. No bleeding events. Plan: 1. Continue Eliquis 5 mg bid 2. Hold if PLT < 50K and/or bleeding.
[2019-06-15 15:47] LABS: Cancer Antigen 125 319 U/mL (0-35)
--- NOTE | 2019-06-15 15:53 | PC.NURSE ---
ROBERT: PATIENT REPORTED TO NURSE THAT SHE IS FEELING VERY WELL SINCE STARTING HER ORAL CHEMO AND IS TAKING THE MEDICATION DIRECTED.
[2019-07-13 14:16] LABS: Add Manual Diff / Slide Review NO; Basophils Absolute Auto 0 /uL (0-100); Basophils Percent Auto 0.6 % (0-2); Eosinophils Absolute Auto 100 /uL (0-450); Eosinophils Percent Auto 1.6 % (2-4); Hematocrit 31.1 % (36-46); Hemoglobin 10.9 g/dL (12.0-16.0); Lymphocytes Absolute Auto 800 /uL (1100-4500); Lymphocytes Percent Auto 14.7 % (25-40); Mean Corpuscular HGB Conc 35.2 % (30-36); Mean Corpuscular Hemoglobin 34.1 PG (26-34); Monocytes Absolute Auto 500 /uL (0-900); Monocytes Percent Auto 9.4 % (3-14); Neutrophils Absolute Auto 3800 /uL (1500-7000); Neutrophils Percent Auto 73.7 % (50-75); Platelet Count 195 X10^3/uL (150-400); Red Cell Distribution Width 20.7 % (11.6-14.8); White Blood Cell Count 5.2 X10^3/uL (4.5-11.0)
[2019-07-13 14:28] LABS: Anisocytosis 2+
[2019-07-13 14:55] VITALS: BP 138/80; PULSE 70; RESP 18; TEMP 36.8; O2SAT 97
--- NOTE | 2019-07-13 15:07 | P.PNONC_ITS ---
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 Treatment Summary: [facility] treatment: 1. Neoadjuvant chemotherapy with carboplatin and Taxol for 4 cycles 2. Optimal cyto reduction in August 2017 3. Five additional cycles of adjuvant carboplatin and Taxol finishing in December 2017 4. Recurrent disease treated with gemcitabine and bevacizumab for 3 cycles finishing in June 2018. Completed 3 cycles. 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 5. Doxil 09/01/[address] Acosta recommendation. 6. Paliative chemotherapy: C1# Carboplatin/Paclitaxel 11/24/2018 C2# Paclitaxel only 12/15/2018 C3# Paclitacle only 01/05/2019 C4# Cisplatin/Paclitaxel 01/26/2019 C5# Paclitaxel only 02/16/2019 C6# Cisplatin/Paclitaxel 03/16/2019. 7. Olaparib 05/24/2019 PE(pulmonary embolism): On 07/21/2018, she developed fever. The next day (07/22/2018), she felt very tired in the morning. CT 07/22/2018 showed PE. She was started on Lovenox every 12 hours. She started Eliquis 5 mg bid on 10/26/2018 Interval history: The official reading of PET scan on 04/12/2019 showed resolution of retroperit cano, mesenteric, bilateral iliac lymphadenopathy, a mildly enlarged residual right inguinal lymph node no longer demonstrated abnormal FDG activity consistent with disease been treated. Resolution of mild hypermetabolic presacral soft tissue nodules. Then she has started the olaparib on 05/24/2019. She came in here today for scheduled follow-up visit. Overall she said she has been doing very well and she tolerated olaparib without any difficulties. She denies any fever or chills. She denies any nausea or vomiting. She denies abdominal pain, diarrhea or constipation. She is active. - Patient Self-Reported Symptoms SR Constitution: Fatigue/Malaise SR ears, nose, mouth, throat issues: Cough SR respiratory issues: Cough, Mucous SR Cardiovascular issues: Extreme swelling SR Skin issues: Hair loss or scalp prob SR Genitourinary issues: Change in stream SR Neuro issues: Numbness or tingling SR Hematologic issues: Swollen lymph nodes - Additional ROS All systems PM: reviewed and no additional remarkable complaints except as stated Home Medications and Allergies Home Medications Medication Instructions Recorded Confirmed Type cholecalciferol (vitamin D3) 4,000 unit PO DAILY 05/12/18 07/23/18 History [Vitamin D3] sennosides [senna] 8.6 mg PO QD-BID 05/12/18 07/13/19 History B Complex 100 1 tab PO QAM 06/30/18 07/13/19 History acetaminophen [Tylenol] 325 mg PO Q6H PRN 09/01/18 07/13/19 History apixaban 5 mg PO BID #180 tab 10/27/18 07/13/19 Rx epinephrine [EpiPen 2-Vicente] 0.3 mg IM Q15M PRN #1 each 12/15/18 07/13/19 Rx olaparib [Lynparza] 300 mg PO BID #120 tab 04/06/19 07/13/19 Rx Allergies Allergy/AdvReac Type Severity Reaction Status Date / Time carboplatin Allergy Severe Anaphylaxis Verified 12/15/18 16:35 gemcitabine AdvReac Severe inflammatory Verified 12/15/18 16:35 changes in the lung Exam Vital signs: Vital Signs Temp Pulse Resp BP Pulse Ox 07/13/19 14:55 98.2 F 70 18 138/80 97 Intake and Output 07/12/19 07/13/19 07/13/19 23:59 07:59 15:59 Other: Weight 75.2 kg Patient Weight 07/13/19 23:59 Weight 75.2 kg Narrative: ECOG 1 Gen: WDWN, NAD, pleasant and cooperative. HEENT: NCAT, EOMI, PERRLA, anicteric sclera. Neck: Supple, No palpable thyromegaly or lymphadenopathy. Respiratory: CTAB, no wheezes audible. No JVD Cardiovascular: RRR, S1 and S2 normal, no M/G/R. Abdomen: Soft, NTND, BS normal, no palpable organomegaly Extremities: No LE pitting edema. Lymphatic: no palpable lymph nodes in the neck, axillae. Neurological: AOx3, CN II-XII grossly intact. No focal motor or sensory deficit. Psychiatric: Normal affect; normal thought process; no depression; no anxiety. Results - Labs Laboratory Last Values WBC 5.2 X10^3/uL (4.5-11.0) 07/13/19 14:05 RBC 3.20 X10^6/uL (4.0-5.2) L 07/13/19 14:05 Hgb 10.9 g/dL (12.0-16.0) L 07/13/19 14:05 Hct 31.1 % (36-46) L 07/13/19 14:05 MCV 97.0 fL (80-100) 07/13/19 14:05 MCH 34.1 PG (26-34) H 07/13/19 14:05 MCHC 35.2 % (30-36) 07/13/19 14:05 RDW 20.7 % (11.6-14.8) H 07/13/19 14:05 Plt Count 195 X10^3/uL (150-400) 07/13/19 14:05 Neut % (Auto) 73.7 % (50-75) 07/13/19 14:05 Lymph % (Auto) 14.7 % (25-40) L 07/13/19 14:05 [place] % (Auto) 9.4 % (3-14) 07/13/19 14:05 Eos % (Auto) 1.6 % (2-4) L 07/13/19 14:05 Baso % (Auto) 0.6 % (0-2) 07/13/19 14:05 Neut # (Auto) 3800 /uL (8181-1679) 07/13/19 14:05 Lymph # (Auto) 800 /uL (2202-5672) L 07/13/19 14:05 [place] # (Auto) 500 /uL (0-900) 07/13/19 14:05 Eos # (Auto) 100 /uL (0-450) 07/13/19 14:05 Baso # (Auto) 0 /uL (0-100) 07/13/19 14:05 Total Counted 100 12/08/18 14:30 Seg Neutrophils % 70.0 % (38-70) 12/08/18 14:30 Band Neutrophils % 1.0 % (3-7) L 12/08/18 14:30 Lymphocytes % (Manual) 11.0 % (25-45) L 12/08/18 14:30 Atypical Lymphs % 1.0 % (-0) H 07/14/18 11:30 Monocytes % (Manual) 17.0 % (2-11) H 12/08/18 14:30 Eosinophils % (Manual) 1.0 % (2-4) L 12/08/18 14:30 Metamyelocytes % 1.0 % (-0) H 06/30/18 10:21 Myelocytes % 2.0 % (-0) H 06/16/18 13:19 Neutrophils # (Manual) 3834 /uL (0112-6834) 12/08/18 14:30 Plt Morphology Comment A1 07/07/18 08:52 Polychromasia 1+ H 07/21/18 09:02 Poikilocytosis 2+ H 12/08/18 14:30 Macrocytosis 2+ H 07/21/18 09:02 RBC Morphology Not Reportable 07/13/19 14:05 Anisocytosis 2+ H 07/13/19 14:05 Sodium 137 mmol/L (137-145) 07/13/19 14:05 Potassium 4.2 mmol/L (3.4-5.1) 07/13/19 14:05 Chloride 102 mmol/L (98-107) 07/13/19 14:05 Carbon Dioxide 26 mmol/L (22-32) 07/13/19 14:05 BUN 17 mg/dL (7-17) 07/13/19 14:05 Creatinine 1.16 mg/dL (0.52-1.04) H 07/13/19 14:05 Estimated GFR 45.5 mL/min (>60) L 07/13/19 14:05 BUN/Creatinine Ratio 14.7 (6-22) 07/13/19 14:05 Glucose 137 mg/dL (80-110) H 07/13/19 14:05 Calcium 10.2 mg/dL (8.4-10.2) 07/13/19 14:05 Total Bilirubin 0.6 mg/dL (0.2-1.3) 07/13/19 14:05 AST 26 IU/L (14-36) 07/13/19 14:05 ALT 11 IU/L (<35) 07/13/19 14:05 Alkaline Phosphatase 63 U/L (38-126) 07/13/19 14:05 Total Protein 7.5 g/dL (6.3-8.2) 07/13/19 14:05 Albumin 4.2 g/dL (3.5-5.0) 07/13/19 14:05 Globulin 3.3 g/dL (1.7-4.1) 07/13/19 14:05 Albumin/Globulin Ratio 1.3 (1.0-2.8) 07/13/19 14:05 CA 125 Antigen 513 U/mL (0-35) H 07/13/19 14:05 Urine Color Yellow 07/21/18 09:02 Urine Appearance Slightly cloudy 07/21/18 09:02 Urine pH 5.5 (4.5-8.0) 07/21/18 09:02 Ur Specific [place] 1.025 (1.000-1.035) 07/21/18 09:02 Urine Protein 2+ (Negative) H 07/21/18 09:02 Urine Glucose (UA) Negative g/dL (Negative) 07/21/18 09: Urine Ketones 1+ (NEGATIVE) H 07/21/18 09:02 Urine Occult Blood Negative (Negative) 07/21/18 09: Urine Nitrate Negative (Negative) 07/21/18 09: Urine Bilirubin 1+ (NEGATIVE) H 07/21/18 09:02 Urine Ictotest Negative (Negative) 07/21/18 09:02 Urine Urobilinogen 2.0 E.U./dL (0.2) H 07/21/18 09:02 Ur Leukocyte Esterase Trace (NEGATIVE) H 07/21/18 09:02 Urine RBC None seen (0-5/HPF) 07/21/18 09:02 Urine WBC 1-5/hpf (0-5/HPF) 07/21/18 09:02 Ur Squamous Epith Cells 10-30 /hpf (0-5/HPF) H D 07/21/18 09:02 Urine Bacteria Moderate (10-30) (None) H 07/21/18 09:02 Hyaline Casts 0-1/lpf (None) 07/21/18 09:02 Urine Mucus 2+ (Negative) H 07/21/18 09:02 Ur Culture Indicated? 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 She was started on bevacizumab and gemcitabine on April 29, 2018. Chemotherapy regimen: Gemcitabine 1000 mg/m2, on day 1, 8. 15, and Bevasuzumab 15 mg/kg, on day 1, every 21-day cycle. 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 In addition the CT scan revealed progression of the underlying disease. Per Dr. Acosta, we switched the treatment to Doxil which was started on 09/01/2018, and stopped in 11/2018. Then, on 11/24/2018, she was started on carboplatin (AUC 5)/paclitaxel (175 mg/m2). Carbopatin was discontinued starting cycle 3 due to hypersensitivity reaction during cycl2. She has completed total of 6 cycles of chemotherapy on 03/16/2019. Then, she started olaparib on 05/24/2019. Assessment: Patient has tolerated olaparib extremely well. Patient basically does not have any untoward reactions. I reviewed the CBC and CMP with the patient. Talked with her that I will continue current treatment without any changes. I will have the patient to come back in a month for tests only and then I will see the patient in about 2 months. Patient voiced understanding. Once again I talked with her that if she ever notices anything different or new signs or symptoms, she needs to call us for an early visit. Plan: 1. Start Olaparib 300 mg bid 2. Lab only in 4 weeks, CBC, CMP, CA125, CA 27-29 3. RTC in 8 weeks, CBC, CMP, CA125, CD 27-29 (2) Pulmonary embolism Overview: On 07/21/2018, presented with fever. On 07/22/2018, very tired in the morning. CT 07/22/2018 showed PE. She was started on Lovenox every 12 hours. She started Eliquis 5 mg bid on 10/26/2018 Assessment: She tolerated Eliquis well. No bleeding events. Plan: 1. Continue Eliquis 5 mg bid 2. Hold if PLT < 50K and/or bleeding.
[2019-07-13 15:25] LABS: Alanine Aminotransferase 11 IU/L (<35); Albumin 4.2 g/dL (3.5-5.0); Albumin Globulin Ratio 1.3 (1.0-2.8); Alkaline Phosphatase 63 U/L (38-126); Aspartate Aminotransferase 26 IU/L (14-36); BUN Creatinine Ratio 14.7 (6-22); Bilirubin Total 0.6 mg/dL (0.2-1.3); Blood Urea Nitrogen 17 mg/dL (7-17); Calcium 10.2 mg/dL (8.4-10.2); Carbon Dioxide 26 mmol/L (22-32); Chloride 102 mmol/L (98-107); Estimated Glomerular Filt Rate 45.5 mL/min (>60); Globulin 3.3 g/dL (1.7-4.1); Glucose 137 mg/dL (80-110); HEMOLYSIS < 15 (0-50); Potassium 4.2 mmol/L (3.4-5.1); Sodium 137 mmol/L (137-145); Total Protein 7.5 g/dL (6.3-8.2)
[2019-07-13 15:55] LABS: Cancer Antigen 125 513 U/mL (0-35)
--- NOTE | 2019-08-03 18:05 | PC.NURSE ---
SLIGHT CONSTIPATION: NOTE RECEIVED FROM [facility] THAT PATIENT HAD MENTIONED THIS. THIS NURSE CALLED TO CHECK IN. PATIENT STATED THAT IT IS SLIGHT AND SHE REMAINS REGULAR WITH THE HELP OF SENNA, WATER AND EXERCISE AND SHE WILL CALL IN IF ANY PROBLEMS WITH WHICH SHE NEEDS ASSISTANCE.
--- NOTE | 2019-08-09 13:11 | ONC.MSW ---
Description: T/C re: Chivo Co-Pay Assistance Activity: Returned call to pt re: applying for co-pay assistance for her Chivo. She will plan to meet with [employer]EL[employer] next Wednesday, 08/13, to sign the forms. [employer]ELOPER will then contact her once we hear back from the hot die press feeder with a determination.
[2019-08-14 14:03] LABS: Add Manual Diff / Slide Review NO; Basophils Absolute Auto 0 /uL (0-100); Basophils Percent Auto 0.7 % (0-2); Eosinophils Absolute Auto 0 /uL (0-450); Eosinophils Percent Auto 0.6 % (2-4); Hematocrit 30.4 % (36-46); Hemoglobin 10.6 g/dL (12.0-16.0); Lymphocytes Absolute Auto 800 /uL (1100-4500); Lymphocytes Percent Auto 15.7 % (25-40); Mean Corpuscular Hemoglobin 36.5 PG (26-34); Mean Corpuscular Volume 104.1 fL (80-100); Monocytes Absolute Auto 400 /uL (0-900); Monocytes Percent Auto 8.1 % (3-14); Neutrophils Absolute Auto 3900 /uL (1500-7000); Neutrophils Percent Auto 74.9 % (50-75); Platelet Count 197 X10^3/uL (150-400); Red Blood Cell Count 2.92 X10^6/uL (4.0-5.2); Red Cell Distribution Width 23.1 % (11.6-14.8); White Blood Cell Count 5.2 X10^3/uL (4.5-11.0)
[2019-08-14 14:17] LABS: Alanine Aminotransferase 11 IU/L (<35); Albumin 4.4 g/dL (3.5-5.0); Albumin Globulin Ratio 1.5 (1.0-2.8); Alkaline Phosphatase 79 U/L (38-126); Aspartate Aminotransferase 25 IU/L (14-36); BUN Creatinine Ratio 16.8 (6-22); Bilirubin Total 0.6 mg/dL (0.2-1.3); Blood Urea Nitrogen 19 mg/dL (7-17); Calcium 10.1 mg/dL (8.4-10.2); Carbon Dioxide 26 mmol/L (22-32); Chloride 101 mmol/L (98-107); Estimated Glomerular Filt Rate 46.9 mL/min (>60); Globulin 2.9 g/dL (1.7-4.1); Glucose 119 mg/dL (80-110); HEMOLYSIS < 15 (0-50); Sodium 135 mmol/L (137-145); Total Protein 7.3 g/dL (6.3-8.2)
[2019-08-14 14:24] LABS: Anisocytosis 2+; Poikilocytosis 1+
[2019-08-14 14:47] LABS: Cancer Antigen 125 890 U/mL (0-35)
[2019-08-15 02:07] LABS: Cancer Antigen 27.29 56.7 U/mL (0.0-38.6)
--- NOTE | 2019-08-15 09:20 | ONC.MSW ---
Chivo Co-Pay Application Activity: Completed and faxed pt's co-pay application to [employer]. Will update pt once we have been notified of a determination.
--- NOTE | 2019-08-17 09:54 | ONC.MSW ---
Chivo Co-Pay Assistance Pt qualified for a toro through [employer] for the Chivo. Effective 08/16/19-02/22/20. [facility] has already reached out to pt to coordinate delivery.
--- NOTE | 2019-08-28 10:20 | P.PNONC_ITS ---
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 Treatment Summary: [facility] treatment: 1. Neoadjuvant chemotherapy with carboplatin and Taxol for 4 cycles 2. Optimal cyto reduction in August 2017 3. Five additional cycles of adjuvant carboplatin and Taxol finishing in December 2017 4. Recurrent disease treated with gemcitabine and bevacizumab for 3 cycles finishing in June 2018. Completed 3 cycles. 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 5. Doxil 09/01/[address] Acosta recommendation. 6. Paliative chemotherapy: C1# Carboplatin/Paclitaxel 11/24/2018 C2# Paclitaxel only 12/15/2018 C3# Paclitacle only 01/05/2019 C4# Cisplatin/Paclitaxel 01/26/2019 C5# Paclitaxel only 02/16/2019 C6# Cisplatin/Paclitaxel 03/16/2019. 7. Olaparib 05/24/2019 PE(pulmonary embolism): On 07/21/2018, she developed fever. The next day (07/22/2018), she felt very tired in the morning. CT 07/22/2018 showed PE. She was started on Lovenox every 12 hours. She started Eliquis 5 mg bid on 10/26/2018 Interval history: The official reading of PET scan on 04/12/2019 showed resolution of retroperit cano, mesenteric, bilateral iliac lymphadenopathy, a mildly enlarged residual right inguinal lymph node no longer demonstrated abnormal FDG activity consistent with disease been treated. Resolution of mild hypermetabolic presacral soft tissue nodules. Then she has started the olaparib on 05/24/2019. On August [address] chest abdomen pelvis because the rising CA 125 level. The scan showed new and enlarging mesenteric and inguinal lymph nodes compatible with recurrent ovarian carcinoma. No ascites and no suspicious osseous lesions were identified. She came in here today for scheduled follow-up visit. Clinically patient actually has been doing well without any new signs or symptoms. She reports good energy good appetite. No shortness breath, no chest pain, no abdominal pain, no diarrhea and constipation. - Patient Self-Reported Symptoms SR Constitution: Fatigue/Malaise SR ears, nose, mouth, throat issues: Cough SR respiratory issues: Cough, Mucous SR Cardiovascular issues: Extreme swelling SR Skin issues: Hair loss or scalp prob SR Genitourinary issues: Change in stream SR Neuro issues: Numbness or tingling SR Hematologic issues: Swollen lymph nodes - Additional ROS All systems PM: reviewed and no additional remarkable complaints except as stated Home Medications and Allergies Home Medications Medication Instructions Recorded Confirmed Type cholecalciferol (vitamin D3) 4,000 unit PO DAILY 05/12/18 08/28/19 History [Vitamin D3] sennosides [senna] 8.6 mg PO QD-BID 05/12/18 08/28/19 History B Complex 100 1 tab PO QAM 06/30/18 08/28/19 History acetaminophen [Tylenol] 325 mg PO Q6H PRN 09/01/18 08/28/19 History apixaban 5 mg PO BID #180 tab 10/27/18 08/28/19 Rx epinephrine [EpiPen 2-Vicente] 0.3 mg IM Q15M PRN #1 each 12/15/18 08/28/19 Rx olaparib [Lynparza] 300 mg PO BID #120 tab 04/06/19 08/28/19 Rx Allergies Allergy/AdvReac Type Severity Reaction Status Date / Time carboplatin Allergy Severe Anaphylaxis Verified 12/15/18 16:35 gemcitabine AdvReac Severe inflammatory Verified 12/15/18 16:35 changes in the lung Exam Vital signs: 08/31/19 09:00 Last Vital Signs Temp 98.6 F 08/28/19 10:24 Pulse 78 08/28/19 10:24 Resp 16 08/28/19 10:24 BP 148/73 H 08/28/19 10:24 Pulse Ox 100 08/28/19 10:24 Narrative: ECOG 1 Gen: WDWN, NAD, pleasant and cooperative. HEENT: NCAT, EOMI, PERRLA, anicteric sclera. Neck: Supple, No palpable thyromegaly or lymphadenopathy. Respiratory: CTAB, no wheezes audible. No JVD Cardiovascular: RRR, S1 and S2 normal, no M/G/R. Abdomen: Soft, NTND, BS normal, no palpable organomegaly Extremities: No LE pitting edema. Lymphatic: no palpable lymph nodes in the neck, axillae. Neurological: AOx3, CN II-XII grossly intact. No focal motor or sensory deficit. Psychiatric: Normal affect; normal thought process; no depression; no anxiety. Results - Labs Laboratory Last Values WBC 5.2 X10^3/uL (4.5-11.0) 08/14/19 13:45 RBC 2.92 X10^6/uL (4.0-5.2) L 08/14/19 13:45 Hgb 10.6 g/dL (12.0-16.0) L 08/14/19 13:45 Hct 30.4 % (36-46) L 08/14/19 13:45 MCV 104.1 fL (80-100) H 08/14/19 13:45 MCH 36.5 PG (26-34) H 08/14/19 13:45 MCHC 35.0 % (30-36) 08/14/19 13:45 RDW 23.1 % (11.6-14.8) H 08/14/19 13:45 Plt Count 197 X10^3/uL (150-400) 08/14/19 13:45 Neut % (Auto) 74.9 % (50-75) 08/14/19 13:45 Lymph % (Auto) 15.7 % (25-40) L 08/14/19 13:45 [place] % (Auto) 8.1 % (3-14) 08/14/19 13:45 Eos % (Auto) 0.6 % (2-4) L 08/14/19 13:45 Baso % (Auto) 0.7 % (0-2) 08/14/19 13:45 Neut # (Auto) 3900 /uL (2431-5727) 08/14/19 13:45 Lymph # (Auto) 800 /uL (7035-8298) L 08/14/19 13:45 [place] # (Auto) 400 /uL (0-900) 08/14/19 13:45 Eos # (Auto) 0 /uL (0-450) 08/14/19 13:45 Baso # (Auto) 0 /uL (0-100) 08/14/19 13:45 Total Counted 100 12/08/18 14:30 Seg Neutrophils % 70.0 % (38-70) 12/08/18 14:30 Band Neutrophils % 1.0 % (3-7) L 12/08/18 14:30 Lymphocytes % (Manual) 11.0 % (25-45) L 12/08/18 14:30 Atypical Lymphs % 1.0 % (-0) H 07/14/18 11:30 Monocytes % (Manual) 17.0 % (2-11) H 12/08/18 14:30 Eosinophils % (Manual) 1.0 % (2-4) L 12/08/18 14:30 Metamyelocytes % 1.0 % (-0) H 06/30/18 10:21 Myelocytes % 2.0 % (-0) H 06/16/18 13:19 Neutrophils # (Manual) 3834 /uL (4064-4349) 12/08/18 14:30 Plt Morphology Comment A1 07/07/18 08:52 Polychromasia 1+ H 07/21/18 09:02 Macrocytosis 2+ H 07/21/18 09:02 RBC Morphology See below 08/14/19 13:45 Poikilocytosis 1+ H 08/14/19 13:45 Anisocytosis 2+ H 08/14/19 13:45 Sodium 135 mmol/L (137-145) L 08/14/19 13:45 Potassium 4.0 mmol/L (3.4-5.1) 08/14/19 13:45 Chloride 101 mmol/L (98-107) 08/14/19 13:45 Carbon Dioxide 26 mmol/L (22-32) 08/14/19 13:45 BUN 19 mg/dL (7-17) H 08/14/19 13:45 Creatinine 1.13 mg/dL (0.52-1.04) H 08/14/19 13:45 Estimated GFR 46.9 mL/min (>60) L 08/14/19 13:45 BUN/Creatinine Ratio 16.8 (6-22) 08/14/19 13:45 Glucose 119 mg/dL (80-110) H 08/14/19 13:45 Calcium 10.1 mg/dL (8.4-10.2) 08/14/19 13:45 Total Bilirubin 0.6 mg/dL (0.2-1.3) 08/14/19 13:45 AST 25 IU/L (14-36) 08/14/19 13:45 ALT 11 IU/L (<35) 08/14/19 13:45 Alkaline Phosphatase 79 U/L (38-126) 08/14/19 13:45 Total Protein 7.3 g/dL (6.3-8.2) 08/14/19 13:45 Albumin 4.4 g/dL (3.5-5.0) 08/14/19 13:45 Globulin 2.9 g/dL (1.7-4.1) 08/14/19 13:45 Albumin/Globulin Ratio 1.5 (1.0-2.8) 08/14/19 13:45 CA 27-29 56.7 U/mL (0.0-38.6) H 08/14/19 13:45 CA 125 Antigen 890 U/mL (0-35) H 08/14/19 13:45 Urine Color Yellow 07/21/18 09:02 Urine Appearance Slightly cloudy 07/21/18 09:02 Urine pH 5.5 (4.5-8.0) 07/21/18 09:02 Ur Specific [place] 1.025 (1.000-1.035) 07/21/18 09:02 Urine Protein 2+ (Negative) H 07/21/18 09:02 Urine Glucose (UA) Negative g/dL (Negative) 07/21/18 09:02 Urine Ketones 1+ (NEGATIVE) H 07/21/18 09:02 Urine Occult Blood Negative (Negative) 07/21/18 09:02 Urine Nitrate Negative (Negative) 07/21/18 09:02 Urine Bilirubin 1+ (NEGATIVE) H 07/21/18 09:02 Urine Ictotest Negative (Negative) 07/21/18 09:02 Urine Urobilinogen 2.0 E.U./dL (0.2) H 07/21/18 09:02 Ur Leukocyte Esterase Trace (NEGATIVE) H 07/21/18 09:02 Urine RBC None seen (0-5/HPF) 07/21/18 09:02 Urine WBC 1-5/hpf (0-5/HPF) 07/21/18 09:02 Ur Squamous Epith Cells 10-30 /hpf (0-5/HPF) H D 07/21/18 09:02 Urine Bacteria Moderate (10-30) (None) H 07/21/18 09:02 Hyaline Casts 0-1/lpf (None) 07/21/18 09:02 Urine Mucus 2+ (Negative) H 07/21/18 09:02 Ur Culture Indicated? 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 She was started on bevacizumab and gemcitabine on April 29, 2018. Chemotherapy regimen: Gemcitabine 1000 mg/m2, on day 1, 8. 15, and Bevasuzumab 15 mg/kg, on day 1, every 21-day cycle. 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 In addition the CT scan revealed progression of the underlying disease. Per Dr. Acosta, we switched the treatment to Doxil which was started on 09/01/2018, and stopped in 11/2018. Then, on 11/24/2018, she was started on carboplatin (AUC 5)/paclitaxel (175 mg/m2). Carbopatin was discontinued starting cycle 3 due to hypersensitivity reaction during cycl2. She has completed total of 6 cycles of chemotherapy on 03/16/2019. Then, she started olaparib on 05/24/2019. Assessment: I talked the patient that the rising CA [address] results indicate that disease has progressed significantly despite the use of the olaparib. I talked with the patient that I will try to touch base with Dr. Acosta about options including repeat debulking surgical procedures or addition Avastin or other options. We have the patient come back on September 13 for follow-up discussion. Plan: 1. Continue Olaparib 300 mg bid 2. Need to call Dr. Acosta for discussion 3. RTC on 09/14/2019 for follow up visit. (2) Pulmonary embolism Overview: On 07/21/2018, presented with fever. On 07/22/2018, very tired in the morning. CT 07/22/2018 showed PE. She was started on Lovenox every 12 hours. She started Eliquis 5 mg bid on 10/26/2018 Assessment: She tolerated Eliquis well. No bleeding events. Plan: 1. Continue Eliquis 5 mg bid 2. Hold if PLT < 50K and/or bleeding.
[2019-08-28 10:24] VITALS: BP 148/73; PULSE 78; RESP 16; TEMP 37; O2SAT 100
[2019-09-12 15:02] LABS: Add Manual Diff / Slide Review NO; Basophils Absolute Auto 0 /uL (0-100); Basophils Percent Auto 0.4 % (0-2); Eosinophils Absolute Auto 100 /uL (0-450); Eosinophils Percent Auto 1.5 % (2-4); Hematocrit 29.5 % (36-46); Hemoglobin 10.2 g/dL (12.0-16.0); Lymphocytes Absolute Auto 800 /uL (1100-4500); Lymphocytes Percent Auto 18.8 % (25-40); Mean Corpuscular HGB Conc 34.6 % (30-36); Mean Corpuscular Hemoglobin 37.9 PG (26-34); Mean Corpuscular Volume 109.6 fL (80-100); Monocytes Absolute Auto 500 /uL (0-900); Neutrophils Absolute Auto 2900 /uL (1500-7000); Neutrophils Percent Auto 68.3 % (50-75); Platelet Count 182 X10^3/uL (150-400); Red Blood Cell Count 2.69 X10^6/uL (4.0-5.2); Red Cell Distribution Width 17.4 % (11.6-14.8); White Blood Cell Count 4.3 X10^3/uL (4.5-11.0)
[2019-09-12 15:15] LABS: Alanine Aminotransferase 10 IU/L (<35); Albumin 4.2 g/dL (3.5-5.0); Albumin Globulin Ratio 1.6 (1.0-2.8); Alkaline Phosphatase 76 U/L (38-126); Aspartate Aminotransferase 25 IU/L (14-36); BUN Creatinine Ratio 22.4 (6-22); Bilirubin Total 0.5 mg/dL (0.2-1.3); Blood Urea Nitrogen 24 mg/dL (7-17); Calcium 10.1 mg/dL (8.4-10.2); Carbon Dioxide 27 mmol/L (22-32); Chloride 103 mmol/L (98-107); Globulin 2.7 g/dL (1.7-4.1); Glucose 105 mg/dL (80-110); HEMOLYSIS < 15 (0-50); Potassium 3.9 mmol/L (3.4-5.1); Sodium 136 mmol/L (137-145); Total Protein 6.9 g/dL (6.3-8.2)
[2019-09-12 16:25] LABS: Cancer Antigen 125 1340 U/mL (0-35)
[2019-09-13 04:08] LABS: Cancer Antigen 27.29 117.5 U/mL (0.0-38.6)
--- NOTE | 2019-09-14 13:28 | ONC.PN ---
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 Treatment Summary: [facility] treatment: 1. Neoadjuvant chemotherapy with carboplatin and Taxol for 4 cycles 2. Optimal cyto reduction in August 2017 3. Five additional cycles of adjuvant carboplatin and Taxol finishing in December 2017 4. Recurrent disease treated with gemcitabine and bevacizumab for 3 cycles finishing in June 2018. Completed 3 cycles. 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 5. Doxil 09/01/[address] Acosta recommendation. 6. Paliative chemotherapy: C1# Carboplatin/Paclitaxel 11/24/2018 C2# Paclitaxel only 12/15/2018 C3# Paclitacle only 01/05/2019 C4# Cisplatin/Paclitaxel 01/26/2019 C5# Paclitaxel only 02/16/2019 C6# Cisplatin/Paclitaxel 03/16/2019. 7. Olaparib 05/24/2019 PE(pulmonary embolism): On 07/21/2018, she developed fever. The next day (07/22/2018), she felt very tired in the morning. CT 07/22/2018 showed PE. She was started on Lovenox every 12 hours. She started Eliquis 5 mg bid on 10/26/2018 Interval history: The official reading of PET scan on 04/12/2019 showed resolution of retroperitoneal, mesenteric, bilateral iliac lymphadenopathy, a mildly enlarged residual right inguinal lymph node no longer demonstrated abnormal FDG activity consistent with disease been treated. Resolution of mild hypermetabolic presacral soft tissue nodules. Then she has started the olaparib on 05/24/2019. On August [address] chest abdomen pelvis because the rising CA 125 level. The scan showed new and enlarging mesenteric and inguinal lymph nodes compatible with recurrent ovarian carcinoma. No ascites and no suspicious osseous lesions were identified. Clinically, patient has noticed any significant new changes yet. No shortness of breath no chest pain. No abdominal pain. Diarrhea and no constipation. She does say that there is a palpable lump in the left groin which is slightly tender. I have called Dr. Acosta and I left a message. - Patient Self-Reported Symptoms SR Constitution: Fatigue/Malaise SR ears, nose, mouth, throat issues: Cough SR respiratory issues: Cough, Mucous SR Cardiovascular issues: Extreme swelling SR Skin issues: Hair loss or scalp prob SR Genitourinary issues: Change in stream SR Neuro issues: Numbness or tingling SR Hematologic issues: Swollen lymph nodes - Additional ROS All systems PM: reviewed and no additional remarkable complaints except as stated Home Medications and Allergies Home Medications Medication Instructions Recorded Confirmed Type cholecalciferol (vitamin D3) 4,000 unit PO DAILY 05/12/18 09/14/19 History [Vitamin D3] sennosides [senna] 8.6 mg PO QD-BID 05/12/18 09/14/19 History B Complex 100 1 tab PO QAM 06/30/18 09/14/19 History acetaminophen [Tylenol] 325 mg PO Q6H PRN 09/01/18 09/14/19 History apixaban 5 mg PO BID #180 tab 10/27/18 09/14/19 Rx epinephrine [EpiPen 2-Vicente] 0.3 mg IM Q15M PRN #1 each 12/15/18 09/14/19 Rx olaparib [Lynparza] 300 mg PO BID #120 tab 04/06/19 09/14/19 Rx Allergies Allergy/AdvReac Type Severity Reaction Status Date / Time carboplatin Allergy Severe Anaphylaxis Verified 12/15/18 16:35 gemcitabine AdvReac Severe inflammatory Verified 12/15/18 16:35 changes in the lung Exam Vital signs: 09/14/19 14:09 Last Vital Signs Temp 98.4 F 09/14/19 13:41 Pulse 87 09/14/19 13:41 Resp 16 09/14/19 13:41 BP 153/77 H 09/14/19 13:41 Pulse Ox 100 09/14/19 13:41 Narrative: ECOG 1 Gen: WDWN, NAD, pleasant and cooperative. HEENT: NCAT, EOMI, PERRLA, anicteric sclera. Neck: Supple, No palpable thyromegaly or lymphadenopathy. Respiratory: CTAB, no wheezes audible. No JVD Cardiovascular: RRR, S1 and S2 normal, no M/G/R. Abdomen: Soft, NTND, BS normal, no palpable organomegaly Extremities: No LE pitting edema. Lymphatic: no palpable lymph nodes in the neck, axillae. Neurological: AOx3, CN II-XII grossly intact. No focal motor or sensory deficit. Psychiatric: Normal affect; normal thought process; no depression; no anxiety. Results - Labs Laboratory Last Values WBC 4.3 X10^3/uL (4.5-11.0) L 09/12/19 14:56 RBC 2.69 X10^6/uL (4.0-5.2) L 09/12/19 14:56 Hgb 10.2 g/dL (12.0-16.0) L 09/12/19 14:56 Hct 29.5 % (36-46) L 09/12/19 14:56 MCV 109.6 fL (80-100) H 09/12/19 14:56 MCH 37.9 PG (26-34) H 09/12/19 14:56 MCHC 34.6 % (30-36) 09/12/19 14:56 RDW 17.4 % (11.6-14.8) H 09/12/19 14:56 Plt Count 182 X10^3/uL (150-400) 09/12/19 14:56 Neut % (Auto) 68.3 % (50-75) 09/12/19 14:56 Lymph % (Auto) 18.8 % (25-40) L 09/12/19 14:56 [place] % (Auto) 11.0 % (3-14) 09/12/19 14:56 Eos % (Auto) 1.5 % (2-4) L 09/12/19 14:56 Baso % (Auto) 0.4 % (0-2) 09/12/19 14:56 Neut # (Auto) 2900 /uL (7358-2622) 09/12/19 14:56 Lymph # (Auto) 800 /uL (5094-6477) L 09/12/19 14:56 [place] # (Auto) 500 /uL (0-900) 09/12/19 14:56 Eos # (Auto) 100 /uL (0-450) 09/12/19 14:56 Baso # (Auto) 0 /uL (0-100) 09/12/19 14:56 Total Counted 100 12/08/18 14:30 Seg Neutrophils % 70.0 % (38-70) 12/08/18 14:30 Band Neutrophils % 1.0 % (3-7) L 12/08/18 14:30 Lymphocytes % (Manual) 11.0 % (25-45) L 12/08/18 14:30 Atypical Lymphs % 1.0 % (-0) H 07/14/18 11:30 Monocytes % (Manual) 17.0 % (2-11) H 12/08/18 14:30 Eosinophils % (Manual) 1.0 % (2-4) L 12/08/18 14:30 Metamyelocytes % 1.0 % (-0) H 06/30/18 10:21 Myelocytes % 2.0 % (-0) H 06/16/18 13:19 Neutrophils # (Manual) 3834 /uL (3929-8209) 12/08/18 14:30 Plt Morphology Comment A1 07/07/18 08:52 Polychromasia 1+ H 07/21/18 09:02 Macrocytosis 2+ H 07/21/18 09:02 RBC Morphology See below 08/14/19 13:45 Poikilocytosis 1+ H 08/14/19 13:45 Anisocytosis 2+ H 08/14/19 13:45 Sodium 136 mmol/L (137-145) L 09/12/19 14:56 Potassium 3.9 mmol/L (3.4-5.1) 09/12/19 14:56 Chloride 103 mmol/L (98-107) 09/12/19 14:56 Carbon Dioxide 27 mmol/L (22-32) 09/12/19 14:56 BUN 24 mg/dL (7-17) H 09/12/19 14:56 Creatinine 1.07 mg/dL (0.52-1.04) H 09/12/19 14:56 Estimated GFR 50.0 mL/min (>60) L 09/12/19 14:56 BUN/Creatinine Ratio 22.4 (6-22) H 09/12/19 14:56 Glucose 105 mg/dL (80-110) 09/12/19 14:56 Calcium 10.1 mg/dL (8.4-10.2) 09/12/19 14:56 Total Bilirubin 0.5 mg/dL (0.2-1.3) 09/12/19 14:56 AST 25 IU/L (14-36) 09/12/19 14:56 ALT 10 IU/L (<35) 09/12/19 14:56 Alkaline Phosphatase 76 U/L (38-126) 09/12/19 14:56 Total Protein 6.9 g/dL (6.3-8.2) 09/12/19 14:56 Albumin 4.2 g/dL (3.5-5.0) 09/12/19 14:56 Globulin 2.7 g/dL (1.7-4.1) 09/12/19 14:56 Albumin/Globulin Ratio 1.6 (1.0-2.8) 09/12/19 14:56 CA 27-29 117.5 U/mL (0.0-38.6) H 09/12/19 14:56 CA 125 Antigen 1340 U/mL (0-35) H 09/12/19 14:56 Urine Color Yellow 07/21/18 09:02 Urine Appearance Slightly cloudy 07/21/18 09:02 Urine pH 5.5 (4.5-8.0) 07/21/18 09:02 Ur Specific [place] 1.025 (1.000-1.035) 07/21/18 09:02 Urine Protein 2+ (Negative) H 07/21/18 09:02 Urine Glucose (UA) Negative g/dL (Negative) 07/21/18 09:02 Urine Ketones 1+ (NEGATIVE) H 07/21/18 09:02 Urine Occult Blood Negative (Negative) 07/21/18 09:02 Urine Nitrate Negative (Negative) 07/21/18 09:02 Urine Bilirubin 1+ (NEGATIVE) H 07/21/18 09:02 Urine Ictotest Negative (Negative) 07/21/18 09:02 Urine Urobilinogen 2.0 E.U./dL (0.2) H 07/21/18 09:02 Ur Leukocyte Esterase Trace (NEGATIVE) H 07/21/18 09:02 Urine RBC None seen (0-5/HPF) 07/21/18 09:02 Urine WBC 1-5/hpf (0-5/HPF) 07/21/18 09:02 Ur Squamous Epith Cells 10-30 /hpf (0-5/HPF) H D 07/21/18 09:02 Urine Bacteria Moderate (10-30) (None) H 07/21/18 09:02 Hyaline Casts 0-1/lpf (None) 07/21/18 09:02 Urine Mucus 2+ (Negative) H 07/21/18 09:02 Ur Culture Indicated? 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 She was started on bevacizumab and gemcitabine on April 29, 2018. Chemotherapy regimen: Gemcitabine 1000 mg/m2, on day 1, 8. 15, and Bevasuzumab 15 mg/kg, on day 1, every 21-day cycle. 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 In addition the CT scan revealed progression of the underlying disease. Per Dr. Acosta, we switched the treatment to Doxil which was started on 09/01/2018, and stopped in 11/2018. Then, on 11/24/2018, she was started on carboplatin (AUC 5)/paclitaxel (175 mg/m2). Carbopatin was discontinued starting cycle 3 due to hypersensitivity reaction during cycl2. She has completed total of 6 cycles of chemotherapy on 03/16/2019. Then, she started olaparib on 05/24/2019. Assessment: I talked the patient that the rising CA [address] results indicate that disease has progressed significantly despite the use of the olaparib. I have left a message with Dr. Acosta and pending her call back. Today I did talk with the patient about some the options we may consider including single agent capecitabine, single agent cyclophosphamide, and possibly consider use of ifosfamide. I will talk and discuss with Dr. Acosta. Plan: 1. Continue Olaparib 300 mg bid 2. Need to call Dr. Acosta for discussion 3. RTC in 2 weeks (2) Pulmonary embolism Overview: On 07/21/2018, presented with fever. On 07/22/2018, very tired in the morning. CT 07/22/2018 showed PE. She was started on Lovenox every 12 hours. She started Eliquis 5 mg bid on 10/26/2018 Assessment: She tolerated Eliquis well. No bleeding events. Plan: 1. Continue Eliquis 5 mg bid 2. Hold if PLT < 50K and/or bleeding.
[2019-09-14 13:41] VITALS: BP 153/77; PULSE 87; RESP 16; TEMP 36.9; O2SAT 100
[2019-09-25 14:20] LABS: Add Manual Diff / Slide Review NO; Basophils Absolute Auto 0 /uL (0-100); Basophils Percent Auto 0.7 % (0-2); Eosinophils Absolute Auto 0 /uL (0-450); Eosinophils Percent Auto 1.2 % (2-4); Hematocrit 28.9 % (36-46); Hemoglobin 9.9 g/dL (12.0-16.0); Lymphocytes Absolute Auto 900 /uL (1100-4500); Lymphocytes Percent Auto 21.7 % (25-40); Mean Corpuscular HGB Conc 34.1 % (30-36); Mean Corpuscular Hemoglobin 37.9 PG (26-34); Mean Corpuscular Volume 111.2 fL (80-100); Monocytes Absolute Auto 500 /uL (0-900); Monocytes Percent Auto 11.2 % (3-14); Neutrophils Absolute Auto 2700 /uL (1500-7000); Neutrophils Percent Auto 65.2 % (50-75); Platelet Count 171 X10^3/uL (150-400); Red Cell Distribution Width 16.5 % (11.6-14.8); White Blood Cell Count 4.1 X10^3/uL (4.5-11.0)
[2019-09-25 14:32] LABS: Alanine Aminotransferase 11 IU/L (<35); Albumin Globulin Ratio 1.4 (1.0-2.8); Alkaline Phosphatase 74 U/L (38-126); Aspartate Aminotransferase 27 IU/L (14-36); BUN Creatinine Ratio 17.5 (6-22); Bilirubin Total 0.7 mg/dL (0.2-1.3); Blood Urea Nitrogen 21 mg/dL (7-17); Calcium 9.7 mg/dL (8.4-10.2); Carbon Dioxide 26 mmol/L (22-32); Chloride 102 mmol/L (98-107); Estimated Glomerular Filt Rate 43.8 mL/min (>60); Globulin 2.9 g/dL (1.7-4.1); Glucose 108 mg/dL (80-110); HEMOLYSIS < 15 (0-50); Macrocytosis 3+; Sodium 134 mmol/L (137-145); Total Protein 6.9 g/dL (6.3-8.2)
[2019-09-25 15:44] LABS: Cancer Antigen 125 1580 U/mL (0-35)
--- NOTE | 2019-09-28 15:59 | ONC.PN ---
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 Treatment Summary: [facility] treatment: 1. Neoadjuvant chemotherapy with carboplatin and Taxol for 4 cycles 2. Optimal cyto reduction in August 2017 3. Five additional cycles of adjuvant carboplatin and Taxol finishing in December 2017 4. Recurrent disease treated with gemcitabine and bevacizumab for 3 cycles finishing in June 2018. Completed 3 cycles. 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 5. Doxil 09/01/[address] Acosta recommendation. Stopped after 3 cycles due to disease progression 6. Paliative chemotherapy: C1# Carboplatin/Paclitaxel 11/24/2018 C2# Paclitaxel only 12/15/2018 C3# Paclitacle only 01/05/2019 C4# Cisplatin/Paclitaxel 01/26/2019 C5# Paclitaxel only 02/16/2019 C6# Cisplatin/Paclitaxel 03/16/2019. 7. Olaparib 05/24/2019-09/28/2019 PE(pulmonary embolism): On 07/21/2018, she developed fever. The next day (07/22/2018), she felt very tired in the morning. CT 07/22/2018 showed PE. She was started on Lovenox every 12 hours. She started Eliquis 5 mg bid on 10/26/2018 Interval history: The official reading of PET scan on 04/12/2019 showed resolution of retroperitoneal, mesenteric, bilateral iliac lymphadenopathy, a mildly enlarged residual right inguinal lymph node no longer demonstrated abnormal FDG activity consistent with disease been treated. Resolution of mild hypermetabolic presacral soft tissue nodules. Then she has started the olaparib on 05/24/2019. On August [address] chest abdomen pelvis because the rising CA 125 level. The scan showed new and enlarging mesenteric and inguinal lymph nodes compatible with recurrent ovarian carcinoma. No ascites and no suspicious osseous lesions were identified. Patient clinically has been doing relatively stable no new signs or symptoms. She presents here today - Patient Self-Reported Symptoms SR Constitution: Fatigue/Malaise SR ears, nose, mouth, throat issues: Cough SR respiratory issues: Cough, Mucous SR Cardiovascular issues: Chest pain, discomfort, tightness, Extreme swelling SR Skin issues: Hair loss or scalp prob SR Genitourinary issues: Change in stream SR Neuro issues: Numbness or tingling SR Hematologic issues: Swollen lymph nodes - Additional ROS All systems PM: reviewed and no additional remarkable complaints except as stated Home Medications and Allergies Home Medications Medication Instructions Recorded Confirmed Type cholecalciferol (vitamin D3) 4,000 unit PO DAILY 05/12/18 09/28/19 History [Vitamin D3] sennosides [senna] 8.6 mg PO QD-BID 05/12/18 09/28/19 History B Complex 100 1 tab PO QAM 06/30/18 09/28/19 History acetaminophen [Tylenol] 325 mg PO Q6H PRN 09/01/18 09/28/19 History apixaban 5 mg PO BID #180 tab 10/27/18 09/28/19 Rx epinephrine [EpiPen 2-Vicente] 0.3 mg IM Q15M PRN #1 each 12/15/18 09/28/19 Rx Allergies Allergy/AdvReac Type Severity Reaction Status Date / Time carboplatin Allergy Severe Anaphylaxis Verified 12/15/18 16:35 gemcitabine AdvReac Severe inflammatory Verified 12/15/18 16:35 changes in the lung Exam Vital signs: 09/28/19 16:46 Last Vital Signs Temp 98.4 F 09/14/19 13:41 Pulse 82 09/28/19 16:13 Resp 16 09/28/19 16:13 BP 168/73 H 09/28/19 16:13 Pulse Ox 99 09/28/19 16:13 Narrative: ECOG 1 Gen: WDWN, NAD, pleasant and cooperative. HEENT: NCAT, EOMI, PERRLA, anicteric sclera. Neck: Supple, No palpable thyromegaly or lymphadenopathy. Respiratory: CTAB, no wheezes audible. No JVD Cardiovascular: RRR, S1 and S2 normal, no M/G/R. Abdomen: Soft, NTND, BS normal, no palpable organomegaly Extremities: No LE pitting edema. Lymphatic: no palpable lymph nodes in the neck, axillae. Neurological: AOx3, CN II-XII grossly intact. No focal motor or sensory deficit. Psychiatric: Normal affect; normal thought process; no depression; no anxiety. Results - Labs Laboratory Last Values WBC 4.1 X10^3/uL (4.5-11.0) L 09/25/19 14:05 RBC 2.60 X10^6/uL (4.0-5.2) L 09/25/19 14:05 Hgb 9.9 g/dL (12.0-16.0) L 09/25/19 14:05 Hct 28.9 % (36-46) L 09/25/19 14:05 MCV 111.2 fL (80-100) H 09/25/19 14:05 MCH 37.9 PG (26-34) H 09/25/19 14:05 MCHC 34.1 % (30-36) 09/25/19 14:05 RDW 16.5 % (11.6-14.8) H 09/25/19 14:05 Plt Count 171 X10^3/uL (150-400) 09/25/19 14:05 Neut % (Auto) 65.2 % (50-75) 09/25/19 14:05 Lymph % (Auto) 21.7 % (25-40) L 09/25/19 14:05 [place] % (Auto) 11.2 % (3-14) 09/25/19 14:05 Eos % (Auto) 1.2 % (2-4) L 09/25/19 14:05 Baso % (Auto) 0.7 % (0-2) 09/25/19 14:05 Neut # (Auto) 2700 /uL (9964-7445) 09/25/19 14:05 Lymph # (Auto) 900 /uL (8580-3132) L 09/25/19 14:05 [place] # (Auto) 500 /uL (0-900) 09/25/19 14:05 Eos # (Auto) 0 /uL (0-450) 09/25/19 14:05 Baso # (Auto) 0 /uL (0-100) 09/25/19 14:05 Total Counted 100 12/08/18 14:30 Seg Neutrophils % 70.0 % (38-70) 12/08/18 14:30 Band Neutrophils % 1.0 % (3-7) L 12/08/18 14:30 Lymphocytes % (Manual) 11.0 % (25-45) L 12/08/18 14:30 Atypical Lymphs % 1.0 % (-0) H 07/14/18 11:30 Monocytes % (Manual) 17.0 % (2-11) H 12/08/18 14:30 Eosinophils % (Manual) 1.0 % (2-4) L 12/08/18 14:30 Metamyelocytes % 1.0 % (-0) H 06/30/18 10:21 Myelocytes % 2.0 % (-0) H 06/16/18 13:19 Neutrophils # (Manual) 3834 /uL (0647-8096) 12/08/18 14:30 Plt Morphology Comment A1 07/07/18 08:52 Polychromasia 1+ H 07/21/18 09:02 RBC Morphology Not Reportable 09/25/19 14:05 Poikilocytosis 1+ H 08/14/19 13:45 Anisocytosis 2+ H 08/14/19 13:45 Macrocytosis 3+ H 09/25/19 14:05 Sodium 134 mmol/L (137-145) L 09/25/19 14:05 Potassium 4.0 mmol/L (3.4-5.1) 09/25/19 14:05 Chloride 102 mmol/L (98-107) 09/25/19 14:05 Carbon Dioxide 26 mmol/L (22-32) 09/25/19 14:05 BUN 21 mg/dL (7-17) H 09/25/19 14:05 Creatinine 1.20 mg/dL (0.52-1.04) H 09/25/19 14:05 Estimated GFR 43.8 mL/min (>60) L 09/25/19 14:05 BUN/Creatinine Ratio 17.5 (6-22) 09/25/19 14:05 Glucose 108 mg/dL (80-110) 09/25/19 14:05 Calcium 9.7 mg/dL (8.4-10.2) 09/25/19 14:05 Total Bilirubin 0.7 mg/dL (0.2-1.3) 09/25/19 14:05 AST 27 IU/L (14-36) 09/25/19 14:05 ALT 11 IU/L (<35) 09/25/19 14:05 Alkaline Phosphatase 74 U/L (38-126) 09/25/19 14:05 Total Protein 6.9 g/dL (6.3-8.2) 09/25/19 14:05 Albumin 4.0 g/dL (3.5-5.0) 09/25/19 14:05 Globulin 2.9 g/dL (1.7-4.1) 09/25/19 14:05 Albumin/Globulin Ratio 1.4 (1.0-2.8) 09/25/19 14:05 CA 27-29 117.5 U/mL (0.0-38.6) H 09/12/19 14:56 CA 125 Antigen 1580 U/mL (0-35) H 09/25/19 14:05 Urine Color Yellow 07/21/18 09:02 Urine Appearance Slightly cloudy 07/21/18 09:02 Urine pH 5.5 (4.5-8.0) 07/21/18 09:02 Ur Specific [place] 1.025 (1.000-1.035) 07/21/18 09:02 Urine Protein 2+ (Negative) H 07/21/18 09:02 Urine Glucose (UA) Negative g/dL (Negative) 07/21/18 09:02 Urine Ketones 1+ (NEGATIVE) H 07/21/18 09:02 Urine Occult Blood Negative (Negative) 07/21/18 09:02 Urine Nitrate Negative (Negative) 07/21/18 09:02 Urine Bilirubin 1+ (NEGATIVE) H 07/21/18 09:02 Urine Ictotest Negative (Negative) 07/21/18 09:02 Urine Urobilinogen 2.0 E.U./dL (0.2) H 07/21/18 09:02 Ur Leukocyte Esterase Trace (NEGATIVE) H 07/21/18 09:02 Urine RBC None seen (0-5/HPF) 07/21/18 09:02 Urine WBC 1-5/hpf (0-5/HPF) 07/21/18 09:02 Ur Squamous Epith Cells 10-30 /hpf (0-5/HPF) H D 07/21/18 09:02 Urine Bacteria Moderate (10-30) (None) H 07/21/18 09:02 Hyaline Casts 0-1/lpf (None) 07/21/18 09:02 Urine Mucus 2+ (Negative) H 07/21/18 09:02 Ur Culture Indicated? 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 She was started on bevacizumab and gemcitabine on April 29, 2018. Chemotherapy regimen: Gemcitabine 1000 mg/m2, on day 1, 8. 15, and Bevasuzumab 15 mg/kg, on day 1, every 21-day cycle. 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 In addition the CT scan revealed progression of the underlying disease. Per Dr. Acosta, we switched the treatment to Doxil which was started on 09/01/2018, and after 3 cycles was stopped in 11/2018 due to disease progression. Then, on 11/24/2018, she was started on carboplatin (AUC 5)/paclitaxel (175 mg/m2). Carbopatin was discontinued starting cycle 3 due to hypersensitivity reaction during cycl2. She has completed total of 6 cycles of chemotherapy on 03/16/2019. Then, she started olaparib on 05/24/2019. Assessment: Unfortunately, her CA 125 level continues to increase dramatically despite the use of olaparib. We obtained CT on 08/18/2019 that showed significant progression with new and enlarging mesenteric and inguinal lymph nodes. I discussed this case with Dr. Acosta at [facility] over the phone. Since patient has been off [place] since February of 2019, it is more than [address] Acosta recommended re-initiation of [place] containing regimen: more specifically carboplatin with bevacizumab. Patient had a significant reaction to carboplatin in November of 2018. Dr. Acosta recommended desensitization protocol. Dr. Acosta emailed me the protocol for carboplatin desensitization. Today, I talked with Sunitha about my conversation with Dr. Acosta. Sunitha agreed but is worried about significant side effects if we start carboplatin and Avastin together. Sunitha would like to start carboplatin first. Then after 2 cycles or so, we add avastin. Furthermore, in that way, we will be able to better tell if the certain side effect is due to carboplatin or Avastin. In addition, she is having memory of significant fatigue associated with Avastin use in the past. I think Sunitha's concern is reasonable and I agree to proceed with carboplatin first. As far as olaparib is concerned, I instructed the patient to stop olaparib today. I explained that there is significant interaction between olaparib and [place] agent. It causes significant bone marrow suppression. Plan: 1. Stop Olaparib 300 mg bid 2. Carboplatin (AUC 5) desensitization protocol C1# 10/05/2019 3. RTC in C2#, MD visit, labs per protocol (2) Pulmonary embolism Overview: On 07/21/2018, presented with fever. On 07/22/2018, very tired in the morning. CT 07/22/2018 showed PE. She was started on Lovenox every 12 hours. She started Eliquis 5 mg bid on 10/26/2018 Assessment: She tolerated Eliquis well. No bleeding events. Plan: 1. Continue Eliquis 5 mg bid 2. Hold if PLT < 50K and/or bleeding.
[2019-09-28 16:13] VITALS: BP 168/73; PULSE 82; RESP 16; O2SAT 99
--- NOTE | 2019-10-02 11:54 | ONC.SCHED ---
Carboplatin J9045, Codecorrect ok
[2019-10-05 09:35] LABS: Hematocrit 31.9 % (36-46); Mean Corpuscular HGB Conc 34.6 % (30-36); Mean Corpuscular Hemoglobin 38.4 PG (26-34); Mean Corpuscular Volume 110.9 fL (80-100); Red Blood Cell Count 2.88 X10^6/uL (4.0-5.2); Red Cell Distribution Width 15.7 % (11.6-14.8); White Blood Cell Count 4.3 X10^3/uL (4.5-11.0)
[2019-10-05 09:42] LABS: Alanine Aminotransferase 12 IU/L (<35); Albumin 4.1 g/dL (3.5-5.0); Albumin Globulin Ratio 1.3 (1.0-2.8); Alkaline Phosphatase 82 U/L (38-126); Aspartate Aminotransferase 29 IU/L (14-36); BUN Creatinine Ratio 22.4 (6-22); Bilirubin Total 0.4 mg/dL (0.2-1.3); Blood Urea Nitrogen 22 mg/dL (7-17); Calcium 9.6 mg/dL (8.4-10.2); Carbon Dioxide 25 mmol/L (22-32); Chloride 106 mmol/L (98-107); Estimated Glomerular Filt Rate 55.3 mL/min (>60); Globulin 3.1 g/dL (1.7-4.1); Glucose 117 mg/dL (80-110); HEMOLYSIS 21 (0-50); Sodium 137 mmol/L (137-145); Total Protein 7.2 g/dL (6.3-8.2)
[2019-10-05 09:44] LABS: Add Manual Diff / Slide Review YES
[2019-10-05 09:56] LABS: Neutrophils Absolute Manual 2795 /uL (3000-5900); Total Cells Counted 100
[2019-10-05 09:57] LABS: Macrocytosis 2+
[2019-10-05 09:58] LABS: Anisocytosis 1+; Poikilocytosis 1+
[2019-10-05 10:06] LABS: Platelet Count 180 X10^3/uL (150-400)
[2019-10-05] MEDS: DEXTROSE 5 % IN WATER 100 ML 30 ML IV (10:44)
[2019-10-05] MEDS: ONDANSETRON 16 MG in SODIUM CHLORIDE 0.9% 50 ML 232 ML IV (11:05)
[2019-10-05] MEDS: diphenhydrAMINE 25 MG TABLET 50 MG PO (11:07)
[2019-10-05] MEDS: FAMOTIDINE 20 MG/50 ML PIGGYBACK 200 MG IV (11:29)
[2019-10-05] MEDS: OXALIPLATIN IV (12:09)
[2019-10-05] MEDS: DEXTROSE 5% IV (12:09)
--- NOTE | 2019-10-05 16:06 | ONC.SCHED ---
Oxaliplatin: J8263 / codecorrect ok.
--- NOTE | 2019-10-12 08:27 | P.PNONC_ITS ---
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 Treatment Summary: MMMT treatment: 1. Neoadjuvant chemotherapy with carboplatin and Taxol for 4 cycles 2. Optimal cyto reduction in August 2017 3. Five additional cycles of adjuvant carboplatin and Taxol finishing in December 2017 4. Recurrent disease treated with gemcitabine and bevacizumab for 3 cycles finishing in June 2018. Completed 3 cycles. 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 5. Doxil 09/01/[address] Acosta recommendation. Stopped after 3 cycles due to disease progression 6. Paliative chemotherapy: C1# Carboplatin/Paclitaxel 11/24/2018 C2# Paclitaxel only 12/15/2018 C3# Paclitacle only 01/05/2019 C4# Cisplatin/Paclitaxel 01/26/2019 C5# Paclitaxel only 02/16/2019 C6# Cisplatin/Paclitaxel 03/16/2019. 7. Olaparib 05/24/2019-09/28/2019 8. 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 The official reading of PET scan on 04/12/2019 showed resolution of retroperitoneal, mesenteric, bilateral iliac lymphadenopathy, a mildly enlarged residual right inguinal lymph node no longer demonstrated abnormal FDG activity consistent with disease been treated. Resolution of mild hypermetabolic presacral soft tissue nodules. Then she has started the olaparib on 05/24/2019. On August [address] chest abdomen pelvis because the rising CA 125 level. The scan showed new and enlarging mesenteric and inguinal lymph nodes compatible with recurrent ovarian carcinoma. No ascites and no suspicious osseous lesions were identified. Interval history: On Oct 05, 2019, patient was started on oxaliplatin per Dr. Acosta's recommendation. The next day, patient felt sensitivity to cold and also tongue sensitivity. And the cold sensitivity lasted for about 1 day. On the same day, while she was reading, she burst into tears out of no where and felt yomaira sad. She felt that it came over her so weird. She was wondering if the medication oxaliplatin has something to do with the emotional fluctuation. She got through the weekend without any problems. But she did feel tired. On day 6, after eating and breakfast including cereal and milk and some banana, she developed cough. About 1 hour later, patient had a sudden vomiting episode. She did not feel any nauseated per se. She vomited 4 times. Since then patient has been doing well without any more nausea or vomiting at all. Sunitha denies any fever or chills. She denies any shortness breath or chest pain. PE(pulmonary embolism): On 07/21/2018, she developed fever. The next day (07/22/2018), she felt very tired in the morning. CT 07/22/2018 showed PE. She was started on Lovenox every 12 hours. She started Eliquis 5 mg bid on 10/26/2018 - Patient Self-Reported Symptoms SR Constitution: Fatigue/Malaise SR ears, nose, mouth, throat issues: Cough SR respiratory issues: Cough, Mucous SR Cardiovascular issues: Chest pain, discomfort, tightness, Extreme swelling SR Skin issues: Hair loss or scalp prob SR Genitourinary issues: Change in stream SR Neuro issues: Numbness or tingling SR Hematologic issues: Swollen lymph nodes - Additional ROS All systems PM: reviewed and no additional remarkable complaints except as stated Home Medications and Allergies Home Medications Medication Instructions Recorded Confirmed Type cholecalciferol (vitamin D3) 4,000 unit PO DAILY 05/12/18 10/12/19 History [Vitamin D3] sennosides [senna] 8.6 mg PO QD-BID 05/12/18 10/12/19 History B Complex 100 1 tab PO QAM 06/30/18 10/12/19 History acetaminophen [Tylenol] 325 mg PO Q6H PRN 09/01/18 10/12/19 History apixaban 5 mg PO BID #180 tab 10/27/18 10/12/19 Rx epinephrine [EpiPen 2-Vicente] 0.3 mg IM Q15M PRN #1 each 12/15/18 10/12/19 Rx Allergies Allergy/AdvReac Type Severity Reaction Status Date / Time carboplatin Allergy Severe Anaphylaxis Verified 12/15/18 16:35 gemcitabine AdvReac Severe inflammatory Verified 12/15/18 16:35 changes in the lung Exam Vital signs: 10/12/19 08:58 Last Vital Signs Temp 98.4 F 09/14/19 13:41 Pulse 93 H 10/12/19 08:36 Resp 16 10/12/19 08:36 BP 129/89 10/12/19 08:36 Pulse Ox 100 10/12/19 08:36 Narrative: ECOG 1 Gen: WDWN, NAD, pleasant and cooperative. HEENT: NCAT, EOMI, PERRLA, anicteric sclera. Neck: Supple, No palpable thyromegaly or lymphadenopathy. Respiratory: CTAB, no wheezes audible. No JVD Cardiovascular: RRR, S1 and S2 normal, no M/G/R. Abdomen: Soft, NTND, BS normal, no palpable organomegaly Extremities: No LE pitting edema. Lymphatic: no palpable lymph nodes in the neck, axillae. Groups of tender lymph nodes palpable in both groins; the largest measuring around 2 x 3 cm. Neurological: AOx3, CN II-XII grossly intact. No focal motor or sensory deficit. Psychiatric: Normal affect; normal thought process; no depression; no anxiety. Results - Labs Laboratory Last Values WBC 7.7 X10^3/uL (4.5-11.0) 10/12/19 09:04 RBC 3.02 X10^6/uL (4.0-5.2) L 10/12/19 09:04 Hgb 11.1 g/dL (12.0-16.0) L 10/12/19 09:04 Hct 32.4 % (36-46) L 10/12/19 09:04 MCV 107.1 fL (80-100) H D 10/12/19 09:04 MCH 36.8 PG (26-34) H 10/12/19 09:04 MCHC 34.4 % (30-36) 10/12/19 09:04 RDW 15.7 % (11.6-14.8) H 10/12/19 09:04 Plt Count 182 X10^3/uL (150-400) 10/12/19 09:04 Neut % (Auto) 72.9 % (50-75) 10/12/19 09:04 Lymph % (Auto) 10.9 % (25-40) L 10/12/19 09:04 [place] % (Auto) 13.3 % (3-14) 10/12/19 09:04 Eos % (Auto) 2.5 % (2-4) 10/12/19 09:04 Baso % (Auto) 0.4 % (0-2) 10/12/19 09:04 Neut # (Auto) 5700 /uL (3102-4949) 10/12/19 09:04 Lymph # (Auto) 800 /uL (5301-7634) L 10/12/19 09:04 [place] # (Auto) 1000 /uL (0-900) H 10/12/19 09:04 Eos # (Auto) 200 /uL (0-450) 10/12/19 09:04 Baso # (Auto) 0 /uL (0-100) 10/12/19 09:04 Total Counted 100 10/05/19 09:15 Seg Neutrophils % 62.0 % (38-70) 10/05/19 09:15 Band Neutrophils % 3.0 % (3-7) 10/05/19 09:15 Atypical Lymphs % 1.0 % (-0) H 07/14/18 11:30 Lymphocytes % (Manual) 16.0 % (25-45) L 10/05/19 09:15 Monocytes % (Manual) 16.0 % (2-11) H 10/05/19 09:15 Metamyelocytes % 1.0 % (-0) H 06/30/18 10:21 Myelocytes % 2.0 % (-0) H 06/16/18 13:19 Eosinophils % (Manual) 2.0 % (2-4) 10/05/19 09:15 Basophils % (Manual) 1.0 % (0-1) 10/05/19 09:15 Neutrophils # (Manual) 2795 /uL (6746-6782) L 10/05/19 09:15 Plt Morphology Comment A1 07/07/18 08:52 Polychromasia 1+ H 07/21/18 09:02 RBC Morphology See below 10/05/19 09:15 Poikilocytosis 1+ H 10/05/19 09:15 Anisocytosis 1+ H 10/05/19 09:15 Macrocytosis 2+ H 10/05/19 09:15 Sodium 134 mmol/L (137-145) L 10/12/19 09:04 Potassium 3.9 mmol/L (3.4-5.1) 10/12/19 09:04 Chloride 101 mmol/L (98-107) 10/12/19 09:04 Carbon Dioxide 26 mmol/L (22-32) 10/12/19 09:04 BUN 15 mg/dL (7-17) 10/12/19 09:04 Creatinine 1.01 mg/dL (0.52-1.04) 10/12/19 09:04 Estimated GFR 53.4 mL/min (>60) L 10/12/19 09:04 BUN/Creatinine Ratio 14.9 (6-22) 10/12/19 09:04 Glucose 111 mg/dL (80-110) H 10/12/19 09:04 Calcium 9.4 mg/dL (8.4-10.2) 10/12/19 09:04 Total Bilirubin 0.5 mg/dL (0.2-1.3) 10/12/19 09:04 AST 32 IU/L (14-36) 10/12/19 09:04 ALT 11 IU/L (<35) 10/12/19 09:04 Alkaline Phosphatase 106 U/L (38-126) 10/12/19 09:04 Total Protein 7.3 g/dL (6.3-8.2) 10/12/19 09:04 Albumin 4.2 g/dL (3.5-5.0) 10/12/19 09:04 Globulin 3.1 g/dL (1.7-4.1) 10/12/19 09:04 Albumin/Globulin Ratio 1.4 (1.0-2.8) 10/12/19 09:04 CA 27-29 117.5 U/mL (0.0-38.6) H 09/12/19 14:56 CA 125 Antigen 1580 U/mL (0-35) H 09/25/19 14:05 Urine Color Yellow 07/21/18 09:02 Urine Appearance Slightly cloudy 07/21/18 09:02 Urine pH 5.5 (4.5-8.0) 07/21/18 09:02 Ur Specific [place] 1.025 (1.000-1.035) 07/21/18 09:02 Urine Protein 2+ (Negative) H 07/21/18 09:02 Urine Glucose (UA) Negative g/dL (Negative) 07/21/18 09:02 Urine Ketones 1+ (NEGATIVE) H 07/21/18 09:02 Urine Occult Blood Negative (Negative) 07/21/18 09:02 Urine Nitrate Negative (Negative) 07/21/18 09:02 Urine Bilirubin 1+ (NEGATIVE) H 07/21/18 09:02 Urine Ictotest Negative (Negative) 07/21/18 09:02 Urine Urobilinogen 2.0 E.U./dL (0.2) H 07/21/18 09:02 Ur Leukocyte Esterase Trace (NEGATIVE) H 07/21/18 09:02 Urine RBC None seen (0-5/HPF) 07/21/18 09:02 Urine WBC 1-5/hpf (0-5/HPF) 07/21/18 09:02 Ur Squamous Epith Cells 10-30 /hpf (0-5/HPF) H D 07/21/18 09:02 Urine Bacteria Moderate (10-30) (None) H 07/21/18 09:02 Hyaline Casts 0-1/lpf (None) 07/21/18 09:02 Urine Mucus 2+ (Negative) H 07/21/18 09:02 Ur Culture Indicated? 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 She was started on bevacizumab and gemcitabine on April 29, 2018. Chemotherapy regimen: Gemcitabine 1000 mg/m2, on day 1, 8. 15, and Bevasuzumab 15 mg/kg, on day 1, every 21-day cycle. 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 In addition the CT scan revealed progression of the underlying disease. Per Dr. Acosta, we switched the treatment to Doxil which was started on 09/01/2018, and after 3 cycles was stopped in 11/2018 due to disease progression. Then, on 11/24/2018, she was started on carboplatin (AUC 5)/paclitaxel (175 mg/m2). Carbopatin was discontinued starting cycle 3 due to hypersensitivity reaction during cycle 2. She has completed total of 6 cycles of chemotherapy on 03/16/2019. Then, she started olaparib on 05/24/2019. Due to disease progressio n, it was stopped on 10/05/2019. Patient was started on palliative chemotherapy with oxaliplatin with plans to add bevacizumab later. Assessment: Patient was started on oxaliplatin on 10/05/2019. Patient has tolerated the first treatment well with some cold sensitivity and vomiting episodes. Plan: 1. RTC in C2# MD shira visit, labs per protocol (2) Pulmonary embolism Overview: On 07/21/2018, presented with fever. On 07/22/2018, very tired in the morning. CT 07/22/2018 showed PE. She was started on Lovenox every 12 hours. She started Eliquis 5 mg bid on 10/26/2018 Assessment: She tolerated Eliquis well. No bleeding events. Plan: 1. Continue Eliquis 5 mg bid 2. Hold if PLT < 50K and/or bleeding.
[2019-10-12 08:36] VITALS: BP 129/89; PULSE 93; RESP 16; O2SAT 100
[2019-10-12 09:20] LABS: Add Manual Diff / Slide Review NO; Basophils Absolute Auto 0 /uL (0-100); Basophils Percent Auto 0.4 % (0-2); Eosinophils Absolute Auto 200 /uL (0-450); Eosinophils Percent Auto 2.5 % (2-4); Hematocrit 32.4 % (36-46); Hemoglobin 11.1 g/dL (12.0-16.0); Lymphocytes Absolute Auto 800 /uL (1100-4500); Lymphocytes Percent Auto 10.9 % (25-40); Mean Corpuscular HGB Conc 34.4 % (30-36); Mean Corpuscular Hemoglobin 36.8 PG (26-34); Mean Corpuscular Volume 107.1 fL (80-100); Monocytes Absolute Auto 1000 /uL (0-900); Monocytes Percent Auto 13.3 % (3-14); Neutrophils Absolute Auto 5700 /uL (1500-7000); Neutrophils Percent Auto 72.9 % (50-75); Platelet Count 182 X10^3/uL (150-400); Red Blood Cell Count 3.02 X10^6/uL (4.0-5.2); Red Cell Distribution Width 15.7 % (11.6-14.8); White Blood Cell Count 7.7 X10^3/uL (4.5-11.0)
[2019-10-12 09:31] LABS: Alanine Aminotransferase 11 IU/L (<35); Albumin 4.2 g/dL (3.5-5.0); Albumin Globulin Ratio 1.4 (1.0-2.8); Alkaline Phosphatase 106 U/L (38-126); Aspartate Aminotransferase 32 IU/L (14-36); BUN Creatinine Ratio 14.9 (6-22); Bilirubin Total 0.5 mg/dL (0.2-1.3); Blood Urea Nitrogen 15 mg/dL (7-17); Calcium 9.4 mg/dL (8.4-10.2); Carbon Dioxide 26 mmol/L (22-32); Chloride 101 mmol/L (98-107); Estimated Glomerular Filt Rate 53.4 mL/min (>60); Globulin 3.1 g/dL (1.7-4.1); Glucose 111 mg/dL (80-110); HEMOLYSIS < 15 (0-50); Potassium 3.9 mmol/L (3.4-5.1); Sodium 134 mmol/L (137-145); Total Protein 7.3 g/dL (6.3-8.2)
[2019-11-02 08:23] VITALS: BP 138/69; PULSE 80; RESP 18; TEMP 36.8; O2SAT 98
--- NOTE | 2019-11-02 08:36 | P.PNONC_ITS ---
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 Treatment Summary: MMMT treatment: 1. Neoadjuvant chemotherapy with carboplatin and Taxol for 4 cycles 2. Optimal cyto reduction in August 2017 3. Five additional cycles of adjuvant carboplatin and Taxol finishing in December 2017 4. Recurrent disease treated with gemcitabine and bevacizumab for 3 cycles finishing in June 2018. Completed 3 cycles. 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 5. Doxil 09/01/[address] Acosta recommendation. Stopped after 3 cycles due to disease progression 6. Paliative chemotherapy: C1# Carboplatin/Paclitaxel 11/24/2018 C2# Paclitaxel only 12/15/2018 C3# Paclitacle only 01/05/2019 C4# Cisplatin/Paclitaxel 01/26/2019 C5# Paclitaxel only 02/16/2019 C6# Cisplatin/Paclitaxel 03/16/2019. 7. Olaparib 05/24/2019-09/28/2019 8. 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 The official reading of PET scan on 04/12/2019 showed resolution of retroperitoneal, mesenteric, bilateral iliac lymphadenopathy, a mildly enlarged residual right inguinal lymph node no longer demonstrated abnormal FDG activity consistent with disease been treated. Resolution of mild hypermetabolic presacral soft tissue nodules. Then she has started the olaparib on 05/24/2019. On August [address] chest abdomen pelvis because the rising CA 125 level. The scan showed new and enlarging mesenteric and inguinal lymph nodes compatible with recurrent ovarian carcinoma. No ascites and no suspicious osseous lesions were identified. Interval history: On Oct 05, 2019, patient was started on oxaliplatin per Dr. Acosta's recommendation. Patient came in here today for cycle 2 oxaliplatin and Avastin. Patient apparently has tolerated the first cycle of the oxaliplatin well. However she would like to continue to postpone the Avastin for 1 more cycle. She would like to see if oxaliplatin can cause any other side effects. She denies any fever or chills. She denies any nausea or vomiting. She denies any abdominal pain, diarrhea or constipation. However she does report that the bilateral inguinal lymph nodes are tender and seemed to be increasing in size. PE(pulmonary embolism): On 07/21/2018, she developed fever. The next day (07/22/2018), she felt very tired in the morning. CT 07/22/2018 showed PE. She was started on Lovenox every 12 hours. She started Eliquis 5 mg bid on 10/26/2018. Clinically patient does not have any new shortness of breath or leg swelling. - Patient Self-Reported Symptoms SR Constitution: Fatigue/Malaise SR ears, nose, mouth, throat issues: Cough SR respiratory issues: Cough, Mucous SR Cardiovascular issues: Chest pain, discomfort, tightness, Extreme swelling SR Skin issues: Dry skin SR Gastrointestinal issues: Vomiting SR Genitourinary issues: Change in stream SR Neuro issues: Numbness or tingling SR Hematologic issues: Swollen lymph nodes - Additional ROS All systems PM: reviewed and no additional remarkable complaints except as stated Home Medications and Allergies Home Medications Medication Instructions Recorded Confirmed Type cholecalciferol (vitamin D3) 4,000 unit PO DAILY 05/12/18 11/02/19 History [Vitamin D3] sennosides [senna] 8.6 mg PO QD-BID 05/12/18 11/02/19 History B Complex 100 1 tab PO QAM 06/30/18 11/02/19 History acetaminophen [Tylenol] 325 mg PO Q6H PRN 09/01/18 11/02/19 History apixaban 5 mg PO BID #180 tab 10/27/18 11/02/19 Rx epinephrine [EpiPen 2-Vicente] 0.3 mg IM Q15M PRN #1 each 12/15/18 11/02/19 Rx Allergies Allergy/AdvReac Type Severity Reaction Status Date / Time carboplatin Allergy Severe Anaphylaxis Verified 12/15/18 16:35 gemcitabine AdvReac Severe inflammatory Verified 12/15/18 16:35 changes in the lung Exam Vital signs: Vital Signs Temp Pulse Resp BP Pulse Ox 11/02/19 08:23 98.2 F 80 18 138/69 98 Intake and Output 11/01/19 11/02/19 11/02/19 23:59 07:59 15:59 Other: Weight 75.8 kg Patient Weight 11/02/19 23:59 Weight 75.8 kg Narrative: ECOG 1 Gen: WDWN, NAD, pleasant and cooperative. HEENT: NCAT, EOMI, PERRLA, anicteric sclera. Neck: Supple, No palpable thyromegaly or lymphadenopathy. Respiratory: CTAB, no wheezes audible. No JVD Cardiovascular: RRR, S1 and S2 normal, no M/G/R. Abdomen: Soft, NTND, BS normal, no palpable organomegaly Extremities: No LE pitting edema. Lymphatic: no palpable lymph nodes in the neck, axillae. Groups of tender lymph nodes palpable in both groins; the largest measuring around 2 x 3 cm. Neurological: AOx3, CN II-XII grossly intact. No focal motor or sensory deficit. Psychiatric: Normal affect; normal thought process; no depression; no anxiety. Results - Labs Laboratory Last Values WBC 5.5 X10^3/uL (4.5-11.0) 11/02/19 08:49 RBC 3.21 X10^6/uL (4.0-5.2) L 11/02/19 08:49 Hgb 11.4 g/dL (12.0-16.0) L 11/02/19 08:49 Hct 33.3 % (36-46) L 11/02/19 08:49 MCV 103.8 fL (80-100) H 11/02/19 08:49 MCH 35.3 PG (26-34) H 11/02/19 08:49 MCHC 34.1 % (30-36) 11/02/19 08:49 RDW 15.7 % (11.6-14.8) H 11/02/19 08:49 Plt Count 175 X10^3/uL (150-400) 11/02/19 08:49 Neut % (Auto) 67.5 % (50-75) 11/02/19 08:49 Lymph % (Auto) 15.0 % (25-40) L 11/02/19 08:49 [place] % (Auto) 15.2 % (3-14) H 11/02/19 08:49 Eos % (Auto) 1.7 % (2-4) L 11/02/19 08:49 Baso % (Auto) 0.6 % (0-2) 11/02/19 08:49 Neut # (Auto) 3700 /uL (3824-5934) 11/02/19 08:49 Lymph # (Auto) 800 /uL (0066-1557) L 11/02/19 08:49 [place] # (Auto) 800 /uL (0-900) 11/02/19 08:49 Eos # (Auto) 100 /uL (0-450) 11/02/19 08:49 Baso # (Auto) 0 /uL (0-100) 11/02/19 08:49 Total Counted 100 10/05/19 09:15 Seg Neutrophils % 62.0 % (38-70) 10/05/19 09:15 Band Neutrophils % 3.0 % (3-7) 10/05/19 09:15 Atypical Lymphs % 1.0 % (-0) H 07/14/18 11:30 Lymphocytes % (Manual) 16.0 % (25-45) L 10/05/19 09:15 Monocytes % (Manual) 16.0 % (2-11) H 10/05/19 09:15 Metamyelocytes % 1.0 % (-0) H 06/30/18 10:21 Myelocytes % 2.0 % (-0) H 06/16/18 13:19 Eosinophils % (Manual) 2.0 % (2-4) 10/05/19 09:15 Basophils % (Manual) 1.0 % (0-1) 10/05/19 09:15 Neutrophils # (Manual) 2795 /uL (3898-7309) L 10/05/19 09:15 Plt Morphology Comment A1 07/07/18 08:52 Polychromasia 1+ H 07/21/18 09:02 RBC Morphology See below 10/05/19 09:15 Poikilocytosis 1+ H 10/05/19 09:15 Anisocytosis 1+ H 10/05/19 09:15 Macrocytosis 2+ H 10/05/19 09:15 Sodium 136 mmol/L (137-145) L 11/02/19 08:49 Potassium 4.2 mmol/L (3.4-5.1) 11/02/19 08:49 Chloride 103 mmol/L (98-107) 11/02/19 08:49 Carbon Dioxide 26 mmol/L (22-32) 11/02/19 08:49 BUN 23 mg/dL (7-17) H 11/02/19 08:49 Creatinine 1.02 mg/dL (0.52-1.04) 11/02/19 08:49 Estimated GFR 52.8 mL/min (>60) L 11/02/19 08:49 BUN/Creatinine Ratio 22.5 (6-22) H 11/02/19 08:49 Glucose 124 mg/dL (80-110) H 11/02/19 08:49 Calcium 9.7 mg/dL (8.4-10.2) 11/02/19 08:49 Total Bilirubin 0.3 mg/dL (0.2-1.3) 11/02/19 08:49 AST 32 IU/L (14-36) 11/02/19 08:49 ALT 13 IU/L (<35) 11/02/19 08:49 Alkaline Phosphatase 103 U/L (38-126) 11/02/19 08:49 Total Protein 7.6 g/dL (6.3-8.2) 11/02/19 08:49 Albumin 4.0 g/dL (3.5-5.0) 11/02/19 08:49 Globulin 3.6 g/dL (1.7-4.1) 11/02/19 08:49 Albumin/Globulin Ratio 1.1 (1.0-2.8) 11/02/19 08:49 CA 27-29 117.5 U/mL (0.0-38.6) H 09/12/19 14:56 CA 125 Antigen 3500 U/mL (0-35) H 11/02/19 08:49 Urine Color Yellow 07/21/18 09:02 Urine Appearance Slightly cloudy 07/21/18 09:02 Urine pH 5.5 (4.5-8.0) 07/21/18 09:02 Ur Specific [place] 1.025 (1.000-1.035) 07/21/18 09:02 Urine Protein 2+ (Negative) H 07/21/18 09:02 Urine Glucose (UA) Negative g/dL (Negative) 07/21/18 09:02 Urine Ketones 1+ (NEGATIVE) H 07/21/18 09:02 Urine Occult Blood Negative (Negative) 07/21/18 09:02 Urine Nitrate Negative (Negative) 07/21/18 09:02 Urine Bilirubin 1+ (NEGATIVE) H 07/21/18 09:02 Urine Ictotest Negative (Negative) 07/21/18 09:02 Urine Urobilinogen 2.0 E.U./dL (0.2) H 07/21/18 09:02 Ur Leukocyte Esterase Trace (NEGATIVE) H 07/21/18 09:02 Urine RBC None seen (0-5/HPF) 07/21/18 09:02 Urine WBC 1-5/hpf (0-5/HPF) 07/21/18 09:02 Ur Squamous Epith Cells 10-30 /hpf (0-5/HPF) H D 07/21/18 09:02 Urine Bacteria Moderate (10-30) (None) H 07/21/18 09:02 Hyaline Casts 0-1/lpf (None) 07/21/18 09:02 Urine Mucus 2+ (Negative) H 07/21/18 09:02 Ur Culture Indicated? 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 She was started on bevacizumab and gemcitabine on April 29, 2018. Chemotherapy regimen: Gemcitabine 1000 mg/m2, on day 1, 8. 15, and Bevasuzumab 15 mg/kg, on day 1, every 21-day cycle. 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 In addition the CT scan revealed progression of the underlying disease. Per Dr. Acosta, we switched the treatment to Doxil which was started on 09/01/2018, and after 3 cycles was stopped in 11/2018 due to disease progression. Then, on 11/24/2018, she was started on carboplatin (AUC 5)/paclitaxel (175 mg/m2). Carbopatin was discontinued starting cycle 3 due to hypersensitivity reaction during cycle 2. She has completed total of 6 cycles of chemotherapy on 03/16/2019. Then, she started olaparib on 05/24/2019. Due to disease progression, it was stopped on 10/05/2019. Patient was started on palliative chemotherapy with oxaliplatin with plans to add bevacizumab later. Assessment: Patient was started on oxaliplatin on 10/05/2019. Patient has tolerated the first treatment well with some cold sensitivity and vomiting episodes. The neuropathy has almost completely resolved. Patient would like to postpone the Avastin for the current cycle. I will move forward with oxaliplatin only today Plan: 1. Ok to proceed to C2# oxyaliplatin 2. RTC on C3D1, labs per protocol (2) Pulmonary embolism Overview: On 07/21/2018, presented with fever. On 07/22/2018, very tired in the morning. CT 07/22/2018 showed PE. She was started on Lovenox every 12 hours. She started Eliquis 5 mg bid on 10/26/2018 Assessment: She tolerated Eliquis well. No bleeding events. Plan: 1. Continue Eliquis 5 mg bid 2. Hold if PLT < 50K and/or bleeding.
[2019-11-02 09:05] LABS: Add Manual Diff / Slide Review NO; Basophils Absolute Auto 0 /uL (0-100); Basophils Percent Auto 0.6 % (0-2); Eosinophils Absolute Auto 100 /uL (0-450); Eosinophils Percent Auto 1.7 % (2-4); Hematocrit 33.3 % (36-46); Hemoglobin 11.4 g/dL (12.0-16.0); Lymphocytes Absolute Auto 800 /uL (1100-4500); Mean Corpuscular HGB Conc 34.1 % (30-36); Mean Corpuscular Hemoglobin 35.3 PG (26-34); Mean Corpuscular Volume 103.8 fL (80-100); Monocytes Absolute Auto 800 /uL (0-900); Monocytes Percent Auto 15.2 % (3-14); Neutrophils Absolute Auto 3700 /uL (1500-7000); Neutrophils Percent Auto 67.5 % (50-75); Platelet Count 175 X10^3/uL (150-400); Red Blood Cell Count 3.21 X10^6/uL (4.0-5.2); Red Cell Distribution Width 15.7 % (11.6-14.8); White Blood Cell Count 5.5 X10^3/uL (4.5-11.0)
[2019-11-02 09:17] LABS: Alanine Aminotransferase 13 IU/L (<35); Albumin Globulin Ratio 1.1 (1.0-2.8); Alkaline Phosphatase 103 U/L (38-126); Aspartate Aminotransferase 32 IU/L (14-36); BUN Creatinine Ratio 22.5 (6-22); Bilirubin Total 0.3 mg/dL (0.2-1.3); Blood Urea Nitrogen 23 mg/dL (7-17); Calcium 9.7 mg/dL (8.4-10.2); Carbon Dioxide 26 mmol/L (22-32); Chloride 103 mmol/L (98-107); Estimated Glomerular Filt Rate 52.8 mL/min (>60); Globulin 3.6 g/dL (1.7-4.1); Glucose 124 mg/dL (80-110); HEMOLYSIS < 15 (0-50); Potassium 4.2 mmol/L (3.4-5.1); Sodium 136 mmol/L (137-145); Total Protein 7.6 g/dL (6.3-8.2)
[2019-11-02] MEDS: diphenhydrAMINE 25 MG TABLET 50 MG PO (10:02)
[2019-11-02] MEDS: DEXTROSE 5 % IN WATER 100 ML 21 ML IV (10:04)
[2019-11-02] MEDS: FAMOTIDINE 20 MG/50 ML PIGGYBACK 200 MG IV (10:04)
[2019-11-02 10:27] LABS: Cancer Antigen 125 3500 U/mL (0-35)
[2019-11-02] MEDS: ONDANSETRON 16 MG in SODIUM CHLORIDE 0.9% 50 ML 232 ML IV (10:49)
[2019-11-02] MEDS: OXALIPLATIN IV (11:30)
[2019-11-02] MEDS: DEXTROSE 5% IV (11:30)
[2019-11-03 03:38] LABS: Cancer Antigen 27.29 192.3 U/mL (0.0-38.6)
[2019-11-09 13:38] LABS: Add Manual Diff / Slide Review NO; Basophils Absolute Auto 0 /uL (0-100); Basophils Percent Auto 0.3 % (0-2); Eosinophils Absolute Auto 100 /uL (0-450); Eosinophils Percent Auto 1.1 % (2-4); Hemoglobin 11.7 g/dL (12.0-16.0); Lymphocytes Absolute Auto 800 /uL (1100-4500); Lymphocytes Percent Auto 8.6 % (25-40); Mean Corpuscular HGB Conc 34.3 % (30-36); Mean Corpuscular Hemoglobin 34.3 PG (26-34); Mean Corpuscular Volume 99.9 fL (80-100); Monocytes Absolute Auto 900 /uL (0-900); Monocytes Percent Auto 10.2 % (3-14); Neutrophils Absolute Auto 7100 /uL (1500-7000); Neutrophils Percent Auto 79.8 % (50-75); Platelet Count 105 X10^3/uL (150-400); Red Cell Distribution Width 15.8 % (11.6-14.8); White Blood Cell Count 8.9 X10^3/uL (4.5-11.0)
[2019-11-09 13:42] LABS: Alanine Aminotransferase 16 IU/L (<35); Albumin 4.1 g/dL (3.5-5.0); Albumin Globulin Ratio 1.1 (1.0-2.8); Alkaline Phosphatase 116 U/L (38-126); Aspartate Aminotransferase 47 IU/L (14-36); BUN Creatinine Ratio 12.7 (6-22); Bilirubin Total 0.4 mg/dL (0.2-1.3); Blood Urea Nitrogen 13 mg/dL (7-17); Calcium 9.6 mg/dL (8.4-10.2); Carbon Dioxide 26 mmol/L (22-32); Chloride 101 mmol/L (98-107); Estimated Glomerular Filt Rate 52.8 mL/min (>60); Globulin 3.7 g/dL (1.7-4.1); Glucose 124 mg/dL (80-110); HEMOLYSIS < 15 (0-50); Sodium 136 mmol/L (137-145); Total Protein 7.8 g/dL (6.3-8.2)
--- NOTE | 2019-11-23 08:18 | ONC.PN ---
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 Treatment Summary for MMMT: 1. Neoadjuvant chemotherapy with carboplatin and Taxol for 4 cycles 2. Optimal cyto reduction in August 2017 3. Five additional cycles of adjuvant carboplatin and Taxol finishing in December 2017 4. Recurrent disease treated with gemcitabine and bevacizumab for 3 cycles finishing in June 2018. Completed 3 cycles. 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 5. Doxil 09/01/[address] Acosta recommendation. Stopped after 3 cycles due to disease progression 6. Paliative chemotherapy: C1# Carboplatin/Paclitaxel 11/24/2018 C2# Paclitaxel only 12/15/2018 C3# Paclitacle only 01/05/2019 C4# Cisplatin/Paclitaxel 01/26/2019 C5# Paclitaxel only 02/16/2019 C6# Cisplatin/Paclitaxel 03/16/2019. 7. Olaparib 05/24/2019-09/28/2019 8. Oxaliplatin 10/05/2019- Treatment Summary for PE(pulmonary embolism): On 07/21/2018, she developed fever. CT 07/22/2018 showed PE. She was started on Lovenox every 12 hours. She started Eliquis 5 mg bid on 10/26/2018. Clinically patient does not have any new shortness of breath or leg swelling. Interval history: On Oct 05, 2019, patient was started on oxaliplatin per Dr. Acosta's recommendation. Patient came in here today for cycle 3 oxaliplatin and initiation of Avastin. For the second cycle of the oxaliplatin, patient has had symptoms including tingling of the tips of the fingers and cold sensitivity. She also noted a little trembling of the fingers. One finger actually experienced cramps. She said that the fatigue seems to last much longer than the previous cycle. It took her a whole week to get back on her feet. She is complaining little bit more stomach ache especially to the left side of the umbilicus. No fever and no chills. No nausea no vomiting. - Patient Self-Reported Symptoms SR Constitution: Fatigue/Malaise SR ears, nose, mouth, throat issues: Cough SR respiratory issues: Cough, Mucous SR Cardiovascular issues: Chest pain, discomfort, tightness, Extreme swelling SR Skin issues: Dry skin SR Gastrointestinal issues: Vomiting SR Genitourinary issues: Change in stream SR Neuro issues: Numbness or tingling SR Hematologic issues: Swollen lymph nodes - Additional ROS All systems PM: reviewed and no additional remarkable complaints except as stated Home Medications and Allergies Home Medications Medication Instructions Recorded Confirmed Type cholecalciferol (vitamin D3) 4,000 unit PO DAILY 05/12/18 11/02/19 History [Vitamin D3] sennosides [senna] 8.6 mg PO QD-BID 05/12/18 11/02/19 History B Complex 100 1 tab PO QAM 06/30/18 11/02/19 History acetaminophen [Tylenol] 325 mg PO Q6H PRN 09/01/18 11/02/19 History apixaban 5 mg PO BID #180 tab 10/27/18 11/02/19 Rx epinephrine [EpiPen 2-Vicente] 0.3 mg IM Q15M PRN #1 each 12/15/18 11/02/19 Rx Allergies Allergy/AdvReac Type Severity Reaction Status Date / Time carboplatin Allergy Severe Anaphylaxis Verified 12/15/18 16:35 gemcitabine AdvReac Severe inflammatory Verified 12/15/18 16:35 changes in the lung Exam Vital signs: 11/23/19 22:45 Last Vital Signs Temp 97.9 F 11/23/19 08:26 Pulse 83 11/23/19 08:26 Resp 16 11/23/19 08:26 BP 131/73 11/23/19 08:26 Pulse Ox 98 11/23/19 08:26 Narrative: ECOG 1 Gen: WDWN, NAD, pleasant and cooperative. HEENT: NCAT, EOMI, PERRLA, anicteric sclera. Neck: Supple, No palpable thyromegaly or lymphadenopathy. Respiratory: CTAB, no wheezes audible. No JVD Cardiovascular: RRR, S1 and S2 normal, no M/G/R. Abdomen: Soft, NTND, BS normal, no palpable organomegaly Extremities: No LE pitting edema. Lymphatic: no palpable lymph nodes in the neck, axillae. Groups of tender lymph nodes palpable in both groins; the largest measuring around 2 x 3 cm, similar and no change. Neurological: AOx3, CN II-XII grossly intact. No focal motor or sensory deficit. Psychiatric: Normal affect; normal thought process; no depression; no anxiety. Results - Labs Laboratory Last Values WBC 4.9 X10^3/uL (4.5-11.0) 11/23/19 08:12 RBC 3.33 X10^6/uL (4.0-5.2) L 11/23/19 08:12 Hgb 11.0 g/dL (12.0-16.0) L 11/23/19 08:12 Hct 33.2 % (36-46) L 11/23/19 08:12 MCV 99.6 fL (80-100) 11/23/19 08:12 MCH 33.1 PG (26-34) 11/23/19 08:12 MCHC 33.2 % (30-36) 11/23/19 08:12 RDW 16.0 % (11.6-14.8) H 11/23/19 08:12 Plt Count 179 X10^3/uL (150-400) 11/23/19 08:12 Neut % (Auto) 64.9 % (50-75) 11/23/19 08:12 Lymph % (Auto) 15.9 % (25-40) L 11/23/19 08:12 [place] % (Auto) 16.5 % (3-14) H 11/23/19 08:12 Eos % (Auto) 1.9 % (2-4) L 11/23/19 08:12 Baso % (Auto) 0.8 % (0-2) 11/23/19 08:12 Neut # (Auto) 3200 /uL (6260-2321) 11/23/19 08:12 Lymph # (Auto) 800 /uL (6052-8563) L 11/23/19 08:12 [place] # (Auto) 800 /uL (0-900) 11/23/19 08:12 Eos # (Auto) 100 /uL (0-450) 11/23/19 08:12 Baso # (Auto) 0 /uL (0-100) 11/23/19 08:12 Total Counted 100 10/05/19 09:15 Seg Neutrophils % 62.0 % (38-70) 10/05/19 09:15 Band Neutrophils % 3.0 % (3-7) 10/05/19 09:15 Atypical Lymphs % 1.0 % (-0) H 07/14/18 11:30 Lymphocytes % (Manual) 16.0 % (25-45) L 10/05/19 09:15 Monocytes % (Manual) 16.0 % (2-11) H 10/05/19 09:15 Metamyelocytes % 1.0 % (-0) H 06/30/18 10:21 Myelocytes % 2.0 % (-0) H 06/16/18 13:19 Eosinophils % (Manual) 2.0 % (2-4) 10/05/19 09:15 Basophils % (Manual) 1.0 % (0-1) 10/05/19 09:15 Neutrophils # (Manual) 2795 /uL (3344-1756) L 10/05/19 09:15 Plt Morphology Comment A1 07/07/18 08:52 Polychromasia 1+ H 07/21/18 09:02 RBC Morphology See below 10/05/19 09:15 Poikilocytosis 1+ H 10/05/19 09:15 Anisocytosis 1+ H 10/05/19 09:15 Macrocytosis 2+ H 10/05/19 09:15 Sodium 135 mmol/L (137-145) L 11/23/19 08:12 Potassium 3.9 mmol/L (3.4-5.1) 11/23/19 08:12 Chloride 103 mmol/L (98-107) 11/23/19 08:12 Carbon Dioxide 26 mmol/L (22-32) 11/23/19 08:12 BUN 17 mg/dL (7-17) 11/23/19 08:12 Creatinine 1.25 mg/dL (0.52-1.04) H 11/23/19 08:12 Estimated GFR 41.8 mL/min (>60) L 11/23/19 08:12 BUN/Creatinine Ratio 13.6 (6-22) 11/23/19 08:12 Glucose 108 mg/dL (80-110) 11/23/19 08:12 Calcium 9.5 mg/dL (8.4-10.2) 11/23/19 08:12 Total Bilirubin 0.4 mg/dL (0.2-1.3) 11/23/19 08:12 AST 46 IU/L (14-36) H 11/23/19 08:12 ALT 19 IU/L (<35) 11/23/19 08:12 Alkaline Phosphatase 92 U/L (38-126) 11/23/19 08:12 Total Protein 7.6 g/dL (6.3-8.2) 11/23/19 08:12 Albumin 3.8 g/dL (3.5-5.0) 11/23/19 08:12 Globulin 3.8 g/dL (1.7-4.1) 11/23/19 08:12 Albumin/Globulin Ratio 1.0 (1.0-2.8) 11/23/19 08:12 CA 27-29 192.3 U/mL (0.0-38.6) H 11/02/19 08:49 CA 125 Antigen 4110 U/mL (0-35) H 11/23/19 08:12 Urine Color Yellow 07/21/18 09:02 Urine Appearance Slightly cloudy 07/21/18 09:02 Urine pH 5.5 (4.5-8.0) 07/21/18 09:02 Ur Specific [place] 1.025 (1.000-1.035) 07/21/18 09:02 Urine Protein 2+ (Negative) H 07/21/18 09:02 Urine Glucose (UA) Negative g/dL (Negative) 07/21/18 09:02 Urine Ketones 1+ (NEGATIVE) H 07/21/18 09:02 Urine Occult Blood Negative (Negative) 07/21/18 09:02 Urine Nitrate Negative (Negative) 07/21/18 09:02 Urine Bilirubin 1+ (NEGATIVE) H 07/21/18 09:02 Urine Ictotest Negative (Negative) 07/21/18 09:02 Urine Urobilinogen 2.0 E.U./dL (0.2) H 07/21/18 09:02 Ur Leukocyte Esterase Trace (NEGATIVE) H 07/21/18 09:02 Urine RBC None seen (0-5/HPF) 07/21/18 09:02 Urine WBC 1-5/hpf (0-5/HPF) 07/21/18 09:02 Ur Squamous Epith Cells 10-30 /hpf (0-5/HPF) H D 07/21/18 09:02 Urine Bacteria Moderate (10-30) (None) H 07/21/18 09:02 Hyaline Casts 0-1/lpf (None) 07/21/18 09:02 Urine Mucus 2+ (Negative) H 07/21/18 09:02 Ur Culture Indicated? 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 She was started on bevacizumab and gemcitabine on April 29, 2018. Chemotherapy regimen: Gemcitabine 1000 mg/m2, on day 1, 8. 15, and Bevasuzumab 15 mg/kg, on day 1, every 21-day cycle. 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 In addition the CT scan revealed progression of the underlying disease. Per Dr. Acosta, we switched the treatment to Doxil which was started on 09/01/2018, and after 3 cycles was stopped in 11/2018 due to disease progression. Then, on 11/24/2018, she was started on carboplatin (AUC 5)/paclitaxel (175 mg/m2). Carbopatin was discontinued starting cycle 3 due to hypersensitivity reaction during cycle 2. She has completed total of 6 cycles of chemotherapy on 03/16/2019. Then, she started olaparib on 05/24/2019. Due to disease progression, it was stopped on 10/05/2019. Patient was started on palliative chemotherapy with oxaliplatin with plans to add bevacizumab later. Assessment: Patient was started on oxaliplatin on 10/05/2019. I reviewed the lab results with patient. Tumor markers are gradually rising. Patient agrees to proceed with addition of bevacizumab today. Plan: 1. Ok to proceed to oxyaliplatin and bevacizumab 2. RTC on C4D1, labs per protocol (2) Pulmonary embolism Overview: On 07/21/2018, presented with fever. On 07/22/2018, very tired in the morning. CT 07/22/2018 showed PE. She was started on Lovenox every 12 hours. She started Eliquis 5 mg bid on 10/26/2018 Assessment: She tolerated Eliquis well. No bleeding events. Plan: 1. Continue Eliquis 5 mg bid 2. Hold if PLT < 50K and/or bleeding.
[2019-11-23 08:26] VITALS: BP 131/73; PULSE 83; RESP 16; TEMP 36.6; O2SAT 98
[2019-11-23 08:31] LABS: Basophils Percent Auto 0.8 % (0-2); Eosinophils Percent Auto 1.9 % (2-4); Hematocrit 33.2 % (36-46); Lymphocytes Percent Auto 15.9 % (25-40); Mean Corpuscular HGB Conc 33.2 % (30-36); Mean Corpuscular Hemoglobin 33.1 PG (26-34); Mean Corpuscular Volume 99.6 fL (80-100); Monocytes Percent Auto 16.5 % (3-14); Neutrophils Percent Auto 64.9 % (50-75); Platelet Count 179 X10^3/uL (150-400); Red Blood Cell Count 3.33 X10^6/uL (4.0-5.2); White Blood Cell Count 4.9 X10^3/uL (4.5-11.0)
[2019-11-23 08:32] LABS: Add Manual Diff / Slide Review NO; Basophils Absolute Auto 0 /uL (0-100); Eosinophils Absolute Auto 100 /uL (0-450); Lymphocytes Absolute Auto 800 /uL (1100-4500); Monocytes Absolute Auto 800 /uL (0-900); Neutrophils Absolute Auto 3200 /uL (1500-7000)
[2019-11-23 08:42] LABS: Alanine Aminotransferase 19 IU/L (<35); Albumin 3.8 g/dL (3.5-5.0); Alkaline Phosphatase 92 U/L (38-126); Aspartate Aminotransferase 46 IU/L (14-36); BUN Creatinine Ratio 13.6 (6-22); Bilirubin Total 0.4 mg/dL (0.2-1.3); Blood Urea Nitrogen 17 mg/dL (7-17); Calcium 9.5 mg/dL (8.4-10.2); Carbon Dioxide 26 mmol/L (22-32); Chloride 103 mmol/L (98-107); Estimated Glomerular Filt Rate 41.8 mL/min (>60); Globulin 3.8 g/dL (1.7-4.1); Glucose 108 mg/dL (80-110); HEMOLYSIS < 15 (0-50); Potassium 3.9 mmol/L (3.4-5.1); Sodium 135 mmol/L (137-145); Total Protein 7.6 g/dL (6.3-8.2)
[2019-11-23] MEDS: ACETAMINOPHEN 325 MG TABLET 650 MG PO (09:41)
[2019-11-23] MEDS: FAMOTIDINE 20 MG/50 ML PIGGYBACK 200 MG IV (09:41)
[2019-11-23] MEDS: SODIUM CHLORIDE 0.9% 100 ML 21 ML IV (09:41)
[2019-11-23] MEDS: diphenhydrAMINE 25 MG TABLET 50 MG PO (09:41)
[2019-11-23 10:10] LABS: Cancer Antigen 125 4110 U/mL (0-35)
[2019-11-23] MEDS: SODIUM CHLORIDE 0.9% IV (10:20)
[2019-11-23] MEDS: BEVACIZUMAB IV (10:20)
[2019-11-23] MEDS: ONDANSETRON 16 MG in SODIUM CHLORIDE 0.9% 50 ML 232 ML IV (12:34)
[2019-11-23] MEDS: DEXTROSE 5% IV (13:10)
[2019-11-23] MEDS: OXALIPLATIN IV (13:10)
[2019-11-24 04:29] LABS: Cancer Antigen 27.29 185.9 U/mL (0.0-38.6)
[2019-11-30 13:35] LABS: Add Manual Diff / Slide Review NO; Basophils Absolute Auto 0 /uL (0-100); Basophils Percent Auto 0.8 % (0-2); Eosinophils Absolute Auto 0 /uL (0-450); Eosinophils Percent Auto 0.6 % (2-4); Hematocrit 31.8 % (36-46); Hemoglobin 10.8 g/dL (12.0-16.0); Lymphocytes Absolute Auto 800 /uL (1100-4500); Lymphocytes Percent Auto 14.2 % (25-40); Mean Corpuscular HGB Conc 34.1 % (30-36); Mean Corpuscular Hemoglobin 32.7 PG (26-34); Mean Corpuscular Volume 95.8 fL (80-100); Monocytes Absolute Auto 900 /uL (0-900); Monocytes Percent Auto 14.5 % (3-14); Neutrophils Absolute Auto 4100 /uL (1500-7000); Neutrophils Percent Auto 69.9 % (50-75); Platelet Count 155 X10^3/uL (150-400); Red Blood Cell Count 3.31 X10^6/uL (4.0-5.2); White Blood Cell Count 5.9 X10^3/uL (4.5-11.0)
[2019-11-30 13:45] LABS: Alanine Aminotransferase 22 IU/L (<35); Albumin 4.1 g/dL (3.5-5.0); Alkaline Phosphatase 99 U/L (38-126); Aspartate Aminotransferase 59 IU/L (14-36); BUN Creatinine Ratio 19.7 (6-22); Bilirubin Total 0.4 mg/dL (0.2-1.3); Blood Urea Nitrogen 24 mg/dL (7-17); Calcium 9.7 mg/dL (8.4-10.2); Carbon Dioxide 23 mmol/L (22-32); Chloride 103 mmol/L (98-107); Glucose 95 mg/dL (80-110); HEMOLYSIS < 15 (0-50); Potassium 3.9 mmol/L (3.4-5.1); Sodium 135 mmol/L (137-145); Total Protein 8.1 g/dL (6.3-8.2)
[2019-12-14 09:12] LABS: Add Manual Diff / Slide Review NO; Basophils Absolute Auto 100 /uL (0-100); Basophils Percent Auto 1.1 % (0-2); Eosinophils Absolute Auto 100 /uL (0-450); Eosinophils Percent Auto 1.3 % (2-4); Hematocrit 33.3 % (36-46); Hemoglobin 11.2 g/dL (12.0-16.0); Lymphocytes Absolute Auto 600 /uL (1100-4500); Lymphocytes Percent Auto 11.7 % (25-40); Mean Corpuscular HGB Conc 33.6 % (30-36); Mean Corpuscular Hemoglobin 32.1 PG (26-34); Mean Corpuscular Volume 95.5 fL (80-100); Monocytes Absolute Auto 800 /uL (0-900); Monocytes Percent Auto 15.8 % (3-14); Neutrophils Absolute Auto 3600 /uL (1500-7000); Neutrophils Percent Auto 70.1 % (50-75); Platelet Count 187 X10^3/uL (150-400); Red Blood Cell Count 3.49 X10^6/uL (4.0-5.2); Red Cell Distribution Width 16.1 % (11.6-14.8); White Blood Cell Count 5.1 X10^3/uL (4.5-11.0)
[2019-12-14 09:24] LABS: Alanine Aminotransferase 18 IU/L (<35); Albumin 3.8 g/dL (3.5-5.0); Alkaline Phosphatase 87 U/L (38-126); Aspartate Aminotransferase 42 IU/L (14-36); BUN Creatinine Ratio 15.2 (6-22); Bilirubin Total 0.4 mg/dL (0.2-1.3); Blood Urea Nitrogen 14 mg/dL (7-17); Calcium 9.4 mg/dL (8.4-10.2); Carbon Dioxide 28 mmol/L (22-32); Chloride 104 mmol/L (98-107); Estimated Glomerular Filt Rate 59.5 mL/min (>60); Glucose 114 mg/dL (80-110); HEMOLYSIS < 15 (0-50); Potassium 3.8 mmol/L (3.4-5.1); Sodium 136 mmol/L (137-145); Total Protein 7.8 g/dL (6.3-8.2)
[2019-12-14 09:30] VITALS: BP 126/69; PULSE 86; RESP 18; TEMP 36.2; O2SAT 99
--- NOTE | 2019-12-14 09:37 | ONC.PN ---
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 Treatment Summary for MMMT: 1. Neoadjuvant chemotherapy with carboplatin and Taxol for 4 cycles 2. Optimal cyto reduction in August 2017 3. Five additional cycles of adjuvant carboplatin and Taxol finishing in December 2017 4. Recurrent disease treated with gemcitabine and bevacizumab for 3 cycles finishing in June 2018. Completed 3 cycles. 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 5. Doxil 09/01/[address] Acosta recommendation. Stopped after 3 cycles due to disease progression 6. Paliative chemotherapy: C1# Carboplatin/Paclitaxel 11/24/2018 C2# Paclitaxel only 12/15/2018 C3# Paclitacle only 01/05/2019 C4# Cisplatin/Paclitaxel 01/26/2019 C5# Paclitaxel only 02/16/2019 C6# Cisplatin/Paclitaxel 03/16/2019. 7. Olaparib 05/24/2019-09/28/2019 8. Oxaliplatin 10/05/2019- Treatment Summary for PE(pulmonary embolism): On 07/21/2018, she developed fever. CT 07/22/2018 showed PE. She was started on Lovenox every 12 hours. She started Eliquis 5 mg bid on 10/26/2018. Clinically patient does not have any new shortness of breath or leg swelling. Interval history: On Oct 05, 2019, patient was started on oxaliplatin per Dr. Acosta's recommendation. Patient came in here today for cycle 4 oxaliplatin and cycle 2 avastin. Overall patient has tolerated well except cold sensitivity of the hands and the tongue. No cold sensitivity of the feet. Patient denies any fever or chills. She denies any nausea or vomiting. She denies any shortness of breath or chest pain. She denies abdominal pain diarrhea or constipation. - Patient Self-Reported Symptoms SR Constitution: Fatigue/Malaise SR ears, nose, mouth, throat issues: Cough SR respiratory issues: Cough, Mucous SR Cardiovascular issues: Chest pain, discomfort, tightness, Extreme swelling SR Skin issues: Skin rash or itching SR Gastrointestinal issues: Vomiting SR Genitourinary issues: Change in stream SR Neuro issues: Numbness or tingling SR Hematologic issues: Swollen lymph nodes - Additional ROS All systems PM: reviewed and no additional remarkable complaints except as stated Home Medications and Allergies Home Medications Medication Instructions Recorded Confirmed Type cholecalciferol (vitamin D3) 4,000 unit PO DAILY 05/12/18 11/02/19 History [Vitamin D3] sennosides [senna] 8.6 mg PO QD-BID 05/12/18 11/02/19 History B Complex 100 1 tab PO QAM 06/30/18 11/02/19 History acetaminophen [Tylenol] 325 mg PO Q6H PRN 09/01/18 11/02/19 History apixaban 5 mg PO BID #180 tab 10/27/18 11/02/19 Rx epinephrine [EpiPen 2-Vicente] 0.3 mg IM Q15M PRN #1 each 12/15/18 11/02/19 Rx Allergies Allergy/AdvReac Type Severity Reaction Status Date / Time carboplatin Allergy Severe Anaphylaxis Verified 12/15/18 16:35 gemcitabine AdvReac Severe inflammatory Verified 12/15/18 16:35 changes in the lung Exam Vital signs: Vital Signs Temp Pulse Resp BP Pulse Ox 12/14/19 09:30 97.2 F L 86 18 126/69 99 Intake and Output 12/13/19 12/14/19 12/14/19 23:59 07:59 15:59 Other: Weight 72.3 kg Patient Weight 12/14/19 23:59 Weight 72.3 kg Narrative: ECOG 1 Gen: WDWN, NAD, pleasant and cooperative. HEENT: NCAT, EOMI, PERRLA, anicteric sclera. Neck: Supple, No palpable thyromegaly or lymphadenopathy. Respiratory: CTAB, no wheezes audible. No JVD Cardiovascular: RRR, S1 and S2 normal, no M/G/R. Abdomen: Soft, NTND, BS normal, no palpable organomegaly Extremities: No LE pitting edema. Lymphatic: no palpable lymph nodes in the neck, axillae. Groups of tender lymph nodes palpable in both groins; the largest measuring around 2 x 3 cm, similar and no change. Neurological: AOx3, CN II-XII grossly intact. No focal motor or sensory deficit. Psychiatric: Normal affect; normal thought process; no depression; no anxiety. Results - Labs Laboratory Last Values WBC 5.1 X10^3/uL (4.5-11.0) 12/14/19 09:00 RBC 3.49 X10^6/uL (4.0-5.2) L 12/14/19 09:00 Hgb 11.2 g/dL (12.0-16.0) L 12/14/19 09:00 Hct 33.3 % (36-46) L 12/14/19 09:00 MCV 95.5 fL (80-100) 12/14/19 09:00 MCH 32.1 PG (26-34) 12/14/19 09:00 MCHC 33.6 % (30-36) 12/14/19 09:00 RDW 16.1 % (11.6-14.8) H 12/14/19 09:00 Plt Count 187 X10^3/uL (150-400) 12/14/19 09:00 Neut % (Auto) 70.1 % (50-75) 12/14/19 09:00 Lymph % (Auto) 11.7 % (25-40) L 12/14/19 09:00 [place] % (Auto) 15.8 % (3-14) H 12/14/19 09:00 Eos % (Auto) 1.3 % (2-4) L 12/14/19 09:00 Baso % (Auto) 1.1 % (0-2) 12/14/19 09:00 Neut # (Auto) 3600 /uL (9762-1477) 12/14/19 09:00 Lymph # (Auto) 600 /uL (3988-7481) L 12/14/19 09:00 [place] # (Auto) 800 /uL (0-900) 12/14/19 09:00 Eos # (Auto) 100 /uL (0-450) 12/14/19 09:00 Baso # (Auto) 100 /uL (0-100) 12/14/19 09:00 Total Counted 100 10/05/19 09:15 Seg Neutrophils % 62.0 % (38-70) 10/05/19 09:15 Band Neutrophils % 3.0 % (3-7) 10/05/19 09:15 Atypical Lymphs % 1.0 % (-0) H 07/14/18 11:30 Lymphocytes % (Manual) 16.0 % (25-45) L 10/05/19 09:15 Monocytes % (Manual) 16.0 % (2-11) H 10/05/19 09:15 Metamyelocytes % 1.0 % (-0) H 06/30/18 10:21 Myelocytes % 2.0 % (-0) H 06/16/18 13:19 Eosinophils % (Manual) 2.0 % (2-4) 10/05/19 09:15 Basophils % (Manual) 1.0 % (0-1) 10/05/19 09:15 Neutrophils # (Manual) 2795 /uL (6792-9369) L 10/05/19 09:15 Plt Morphology Comment A1 07/07/18 08:52 Polychromasia 1+ H 07/21/18 09:02 RBC Morphology See below 10/05/19 09:15 Poikilocytosis 1+ H 10/05/19 09:15 Anisocytosis 1+ H 10/05/19 09:15 Macrocytosis 2+ H 10/05/19 09:15 Sodium 136 mmol/L (137-145) L 12/14/19 09:00 Potassium 3.8 mmol/L (3.4-5.1) 12/14/19 09:00 Chloride 104 mmol/L (98-107) 12/14/19 09:00 Carbon Dioxide 28 mmol/L (22-32) 12/14/19 09:00 BUN 14 mg/dL (7-17) 12/14/19 09:00 Creatinine 0.92 mg/dL (0.52-1.04) 12/14/19 09:00 Estimated GFR 59.5 mL/min (>60) L 12/14/19 09:00 BUN/Creatinine Ratio 15.2 (6-22) 12/14/19 09:00 Glucose 114 mg/dL (80-110) H 12/14/19 09:00 Calcium 9.4 mg/dL (8.4-10.2) 12/14/19 09:00 Total Bilirubin 0.4 mg/dL (0.2-1.3) 12/14/19 09:00 AST 42 IU/L (14-36) H 12/14/19 09:00 ALT 18 IU/L (<35) 12/14/19 09:00 Alkaline Phosphatase 87 U/L (38-126) 12/14/19 09:00 Total Protein 7.8 g/dL (6.3-8.2) 12/14/19 09:00 Albumin 3.8 g/dL (3.5-5.0) 12/14/19 09:00 Globulin 4.0 g/dL (1.7-4.1) 12/14/19 09:00 Albumin/Globulin Ratio 1.0 (1.0-2.8) 12/14/19 09:00 CA 27-29 185.9 U/mL (0.0-38.6) H 11/23/19 08:12 CA 125 Antigen 2680 U/mL (0-35) H 12/14/19 09:00 Urine Color Yellow 07/21/18 09:02 Urine Appearance Slightly cloudy 07/21/18 09: Urine pH 5.5 (4.5-8.0) 07/21/18 09: Ur Specific [place] 1.025 (1.000-1.035) 07/21/18 09:02 Urine Protein 2+ (Negative) H 07/21/18 09:02 Urine Glucose (UA) Negative g/dL (Negative) 07/21/18 09: Urine Ketones 1+ (NEGATIVE) H 07/21/18 09: Urine Occult Blood Negative (Negative) 07/21/18 09: Urine Nitrate Negative (Negative) 07/21/18 09: Urine Bilirubin 1+ (NEGATIVE) H 07/21/18 09: Urine Ictotest Negative (Negative) 07/21/18 09: Urine Urobilinogen 2.0 E.U./dL (0.2) H 07/21/18 09:02 Ur Leukocyte Esterase Trace (NEGATIVE) H 07/21/18 09:02 Urine RBC None seen (0-5/HPF) 07/21/18 09:02 Urine WBC 1-5/hpf (0-5/HPF) 07/21/18 09:02 Ur Squamous Epith Cells 10-30 /hpf (0-5/HPF) H D 07/21/18 09:02 Urine Bacteria Moderate (10-30) (None) H 07/21/18 09:02 Hyaline Casts 0-1/lpf (None) 07/21/18 09:02 Urine Mucus 2+ (Negative) H 07/21/18 09:02 Ur Culture Indicated? 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 She was started on bevacizumab and gemcitabine on April 29, 2018. Chemotherapy regimen: Gemcitabine 1000 mg/m2, on day 1, 8. 15, and Bevasuzumab 15 mg/kg, on day 1, every 21-day cycle. 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 In addition the CT scan revealed progression of the underlying disease. Per Dr. Acosta, we switched the treatment to Doxil which was started on 09/01/2018, and after 3 cycles was stopped in 11/2018 due to disease progression. Then, on 11/24/2018, she was started on carboplatin (AUC 5)/paclitaxel (175 mg/m2). Carbopatin was discontinued starting cycle 3 due to hypersensitivity reaction during cycle 2. She has completed total of 6 cycles of chemotherapy on 03/16/2019. Then, she started olaparib on 05/24/2019. Due to disease progression, it was stopped on 10/05/2019. Patient was started on palliative chemotherapy with oxaliplatin with plans to add bevacizumab later. Assessment: Patient was started on oxaliplatin on 10/05/2019. On 11/23/2019, we added bevacizumab. Overall patient has tolerated well except grade 1 neuropathy with mild cold sensitivity. I reviewed the lab results with the patient. CBCs and CMP are unremarkable. CA 125 has decreased significantly compared to her previous value. I will proceed with scheduled chemotherapy today. Plan: 1. Ok to proceed to oxyaliplatin and bevacizumab 2. RTC on C5D1, labs per protocol (2) Pulmonary embolism Overview: On 07/21/2018, presented with fever. On 07/22/2018, very tired in the morning. CT 07/22/2018 showed PE. She was started on Lovenox every 12 hours. She started Eliquis 5 mg bid on 10/26/2018 Assessment: She tolerated Eliquis well. No bleeding events. Plan: 1. Continue Eliquis 5 mg bid 2. Hold if PLT < 50K and/or bleeding.
[2019-12-14] MEDS: ACETAMINOPHEN 325 MG TABLET 650 MG PO (10:20)
[2019-12-14] MEDS: SODIUM CHLORIDE 0.9% 100 ML 21 ML IV (10:37)
[2019-12-14 10:43] LABS: Cancer Antigen 125 2680 U/mL (0-35)
[2019-12-14] MEDS: BEVACIZUMAB IV (10:51)
[2019-12-14] MEDS: SODIUM CHLORIDE 0.9% IV (10:51)
[2019-12-14] MEDS: ONDANSETRON 16 MG in SODIUM CHLORIDE 0.9% 50 ML 232 ML IV (12:17)
[2019-12-14] MEDS: FAMOTIDINE 20 MG/50 ML PIGGYBACK 200 MG IV (12:40)
[2019-12-14] MEDS: diphenhydrAMINE 25 MG TABLET 50 MG PO ×2 (13:20→13:29)
--- NOTE | 2019-12-14 13:30 | PC.NURSE ---
benadryl: only 1 cap removed from [facility] by [facility] eventhough it was documented in [facility] that 2 caps taken and 1 cap given earlier. pharmacy sent 2 caps of benadryl and this RN gave 1 cap Benadryl to pt.
[2019-12-14] MEDS: DEXTROSE 5 % IN WATER 100 ML 21 ML IV (13:39)
[2019-12-14] MEDS: DEXTROSE 5% IV (14:00)
[2019-12-14] MEDS: OXALIPLATIN IV (14:00)
--- NOTE | 2019-12-14 15:53 | PC.NURSE ---
reaction: pt woke up with hoarse voice. VS taken and Dr. Carbajal notified. pt without others symptoms. Oxaliplatin restarted at 150ml/hr. Lungs clear.
[2019-12-15 05:14] LABS: Cancer Antigen 27.29 158.2 U/mL (0.0-38.6)
[2020-01-04 09:01] LABS: Add Manual Diff / Slide Review NO; Basophils Absolute Auto 0 /uL (0-100); Basophils Percent Auto 0.5 % (0-2); Eosinophils Absolute Auto 100 /uL (0-450); Eosinophils Percent Auto 1.6 % (2-4); Hematocrit 32.6 % (36-46); Hemoglobin 11.1 g/dL (12.0-16.0); Lymphocytes Absolute Auto 600 /uL (1100-4500); Lymphocytes Percent Auto 15.1 % (25-40); Mean Corpuscular Hemoglobin 31.6 PG (26-34); Mean Corpuscular Volume 93.1 fL (80-100); Monocytes Absolute Auto 900 /uL (0-900); Monocytes Percent Auto 21.9 % (3-14); Neutrophils Absolute Auto 2500 /uL (1500-7000); Neutrophils Percent Auto 60.9 % (50-75); Platelet Count 159 X10^3/uL (150-400); White Blood Cell Count 4.1 X10^3/uL (4.5-11.0)
[2020-01-04 09:25] LABS: Alanine Aminotransferase 16 IU/L (<35); Albumin 3.5 g/dL (3.5-5.0); Albumin Globulin Ratio 0.9 (1.0-2.8); Alkaline Phosphatase 86 U/L (38-126); Aspartate Aminotransferase 44 IU/L (14-36); BUN Creatinine Ratio 13.8 (6-22); Bilirubin Total 0.4 mg/dL (0.2-1.3); Blood Urea Nitrogen 13 mg/dL (7-17); Calcium 9.6 mg/dL (8.4-10.2); Carbon Dioxide 27 mmol/L (22-32); Chloride 105 mmol/L (98-107); Estimated Glomerular Filt Rate 57.9 mL/min (>60); Glucose 105 mg/dL (80-110); HEMOLYSIS < 15 (0-50); Sodium 136 mmol/L (137-145); Total Protein 7.5 g/dL (6.3-8.2)
[2020-01-04 09:34] VITALS: BP 131/80; PULSE 83; RESP 18; TEMP 36.9; O2SAT 98
--- NOTE | 2020-01-04 09:50 | ONC.PN ---
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 Treatment Summary for MMMT: 1. Neoadjuvant chemotherapy with carboplatin and Taxol for 4 cycles 2. Optimal cyto reduction in August 2017 3. Five additional cycles of adjuvant carboplatin and Taxol finishing in December 2017 4. Recurrent disease treated with gemcitabine and bevacizumab for 3 cycles finishing in June 2018. Completed 3 cycles. 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 5. Doxil 09/01/[address] Acosta recommendation. Stopped after 3 cycles due to disease progression 6. Paliative chemotherapy: C1# Carboplatin/Paclitaxel 11/24/2018 C2# Paclitaxel only 12/15/2018 C3# Paclitacle only 01/05/2019 C4# Cisplatin/Paclitaxel 01/26/2019 C5# Paclitaxel only 02/16/2019 C6# Cisplatin/Paclitaxel 03/16/2019. 7. Olaparib 05/24/2019-09/28/2019 8. Oxaliplatin 10/05/2019- 9. Avastin added on 11/23/2019 Treatment Summary for PE(pulmonary embolism): On 07/21/2018, she developed fever. CT 07/22/2018 showed PE. She was started on Lovenox every 12 hours. She started Eliquis 5 mg bid on 10/26/2018. Clinically patient does not have any new shortness of breath or leg swelling. Interval history: On Oct 05, 2019, patient was started on oxaliplatin per Dr. Acosta's recommendation. 11/23/2019, patient was started on Avastin. Overall patient has tolerated the chemotherapy well. She does report mild discomfort in the throat which lasted for about a week after the oxaliplatin/Avastin infusion. Patient continues to complain of cold sensitivity of the fingertips, but not the feet. She is also complaining of left eye socket twitches which lasted for a day or two. She denies any shortness of breath or chest pain. She denies any abdominal pain, diarrhea constipation. - Patient Self-Reported Symptoms SR Constitution: Fatigue/Malaise SR ears, nose, mouth, throat issues: Hoarseness SR respiratory issues: Cough, Mucous SR Cardiovascular issues: Chest pain, discomfort, tightness, Extreme swelling SR Skin issues: Skin rash or itching SR Gastrointestinal issues: Vomiting SR Genitourinary issues: Change in stream SR Neuro issues: Numbness or tingling SR Hematologic issues: Swollen lymph nodes - Additional ROS All systems PM: reviewed and no additional remarkable complaints except as stated Home Medications and Allergies Home Medications Medication Instructions Recorded Confirmed Type cholecalciferol (vitamin D3) 4,000 unit PO DAILY 05/12/18 01/04/20 History [Vitamin D3] sennosides [senna] 8.6 mg PO QD-BID 05/12/18 01/04/20 History B Complex 100 1 tab PO QAM 06/30/18 01/04/20 History acetaminophen [Tylenol] 325 mg PO Q6H PRN 09/01/18 01/04/20 History apixaban 5 mg PO BID #180 tab 10/27/18 01/04/20 Rx epinephrine [EpiPen 2-Vicente] 0.3 mg IM Q15M PRN #1 each 12/15/18 01/04/20 Rx Allergies Allergy/AdvReac Type Severity Reaction Status Date / Time carboplatin Allergy Severe Anaphylaxis Verified 12/15/18 16:35 gemcitabine AdvReac Severe inflammatory Verified 12/15/18 16:35 changes in the lung Exam Vital signs: Vital Signs Temp Pulse Resp BP Pulse Ox 01/04/20 09:34 98.4 F 83 18 131/80 98 Intake and Output 01/03/20 01/04/20 01/04/20 23:59 07:59 15:59 Other: Weight 72 kg Patient Weight 01/04/20 23:59 Weight 72 kg Narrative: ECOG 1 Gen: WDWN, NAD, pleasant and cooperative. HEENT: NCAT, EOMI, PERRLA, anicteric sclera. Neck: Supple, No palpable thyromegaly or lymphadenopathy. Respiratory: CTAB, no wheezes audible. No JVD Cardiovascular: RRR, S1 and S2 normal, no M/G/R. Abdomen: Soft, NTND, BS normal, no palpable organomegaly Extremities: No LE pitting edema. Neurological: AOx3, CN II-XII grossly intact. No focal motor or sensory deficit. Psychiatric: Normal affect; normal thought process; no depression; no anxiety. Results - Labs Laboratory Last Values WBC 4.1 X10^3/uL (4.5-11.0) L 01/04/20 08:41 RBC 3.50 X10^6/uL (4.0-5.2) L 01/04/20 08:41 Hgb 11.1 g/dL (12.0-16.0) L 01/04/20 08:41 Hct 32.6 % (36-46) L 01/04/20 08:41 MCV 93.1 fL (80-100) 01/04/20 08:41 MCH 31.6 PG (26-34) 01/04/20 08:41 MCHC 34.0 % (30-36) 01/04/20 08:41 RDW 16.0 % (11.6-14.8) H 01/04/20 08:41 Plt Count 159 X10^3/uL (150-400) 01/04/20 08:41 Neut % (Auto) 60.9 % (50-75) 01/04/20 08:41 Lymph % (Auto) 15.1 % (25-40) L 01/04/20 08:41 [place] % (Auto) 21.9 % (3-14) H 01/04/20 08:41 Eos % (Auto) 1.6 % (2-4) L 01/04/20 08:41 Baso % (Auto) 0.5 % (0-2) 01/04/20 08:41 Neut # (Auto) 2500 /uL (7144-6928) 01/04/20 08:41 Lymph # (Auto) 600 /uL (5804-0820) L 01/04/20 08:41 [place] # (Auto) 900 /uL (0-900) 01/04/20 08:41 Eos # (Auto) 100 /uL (0-450) 01/04/20 08:41 Baso # (Auto) 0 /uL (0-100) 01/04/20 08:41 Total Counted 100 10/05/19 09:15 Seg Neutrophils % 62.0 % (38-70) 10/05/19 09:15 Band Neutrophils % 3.0 % (3-7) 10/05/19 09:15 Atypical Lymphs % 1.0 % (-0) H 07/14/18 11:30 Lymphocytes % (Manual) 16.0 % (25-45) L 10/05/19 09:15 Monocytes % (Manual) 16.0 % (2-11) H 10/05/19 09:15 Metamyelocytes % 1.0 % (-0) H 06/30/18 10:21 Myelocytes % 2.0 % (-0) H 06/16/18 13:19 Eosinophils % (Manual) 2.0 % (2-4) 10/05/19 09:15 Basophils % (Manual) 1.0 % (0-1) 10/05/19 09:15 Neutrophils # (Manual) 2795 /uL (6714-5571) L 10/05/19 09:15 Plt Morphology Comment A1 07/07/18 08:52 Polychromasia 1+ H 07/21/18 09:02 RBC Morphology See below 10/05/19 09:15 Poikilocytosis 1+ H 10/05/19 09:15 Anisocytosis 1+ H 10/05/19 09:15 Macrocytosis 2+ H 10/05/19 09:15 Sodium 136 mmol/L (137-145) L 01/04/20 08:41 Potassium 4.0 mmol/L (3.4-5.1) 01/04/20 08:41 Chloride 105 mmol/L (98-107) 01/04/20 08:41 Carbon Dioxide 27 mmol/L (22-32) 01/04/20 08:41 BUN 13 mg/dL (7-17) 01/04/20 08:41 Creatinine 0.94 mg/dL (0.52-1.04) 01/04/20 08:41 Estimated GFR 57.9 mL/min (>60) L 01/04/20 08:41 BUN/Creatinine Ratio 13.8 (6-22) 01/04/20 08:41 Glucose 105 mg/dL (80-110) 01/04/20 08:41 Calcium 9.6 mg/dL (8.4-10.2) 01/04/20 08:41 Total Bilirubin 0.4 mg/dL (0.2-1.3) 01/04/20 08:41 AST 44 IU/L (14-36) H 01/04/20 08:41 ALT 16 IU/L (<35) 01/04/20 08:41 Alkaline Phosphatase 86 U/L (38-126) 01/04/20 08:41 Total Protein 7.5 g/dL (6.3-8.2) 01/04/20 08:41 Albumin 3.5 g/dL (3.5-5.0) 01/04/20 08:41 Globulin 4.0 g/dL (1.7-4.1) 01/04/20 08:41 Albumin/Globulin Ratio 0.9 (1.0-2.8) L 01/04/20 08:41 CA 27-29 158.2 U/mL (0.0-38.6) H 12/14/19 09:00 CA 125 Antigen 2680 U/mL (0-35) H 12/14/19 09:00 Urine Color Yellow 07/21/18 09:02 Urine Appearance Slightly cloudy 07/21/18 09:02 Urine pH 5.5 (4.5-8.0) 07/21/18 09:02 Ur Specific [place] 1.025 (1.000-1.035) 07/21/18 09:02 Urine Protein 2+ (Negative) H 07/21/18 09:02 Urine Glucose (UA) Negative g/dL (Negative) 07/21/18 09: Urine Ketones 1+ (NEGATIVE) H 07/21/18 09:02 Urine Occult Blood Negative (Negative) 07/21/18 09:02 Urine Nitrate Negative (Negative) 07/21/18 09:02 Urine Bilirubin 1+ (NEGATIVE) H 07/21/18 09:02 Urine Ictotest Negative (Negative) 07/21/18 09:02 Urine Urobilinogen 2.0 E.U./dL (0.2) H 07/21/18 09:02 Ur Leukocyte Esterase Trace (NEGATIVE) H 07/21/18 09:02 Urine RBC None seen (0-5/HPF) 07/21/18 09:02 Urine WBC 1-5/hpf (0-5/HPF) 07/21/18 09:02 Ur Squamous Epith Cells 10-30 /hpf (0-5/HPF) H D 07/21/18 09:02 Urine Bacteria Moderate (10-30) (None) H 07/21/18 09:02 Hyaline Casts 0-1/lpf (None) 07/21/18 09:02 Urine Mucus 2+ (Negative) H 07/21/18 09:02 Ur Culture Indicated? 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 She was started on bevacizumab and gemcitabine on April 29, 2018. Chemotherapy regimen: Gemcitabine 1000 mg/m2, on day 1, 8. 15, and Bevasuzumab 15 mg/kg, on day 1, every 21-day cycle. 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 In addition the CT scan revealed progression of the underlying disease. Per Dr. Acosta, we switched the treatment to Doxil which was started on 09/01/2018, and after 3 cycles was stopped in 11/2018 due to disease progression. Then, on 11/24/2018, she was started on carboplatin (AUC 5)/paclitaxel (175 mg/m2). Carbopatin was discontinued starting cycle 3 due to hypersensitivity reaction during cycle 2. She has completed total of 6 cycles of chemotherapy on 03/16/2019. Then, she started olaparib on 05/24/2019. Due to disease progression, it was stopped on 10/05/2019. Patient was started on palliative chemotherapy with oxaliplatin with plans to add bevacizumab later. Assessment: Patient was started on oxaliplatin on 10/05/2019. On 11/23/2019, we added bevacizumab. Overall patient has tolerated well except grade 1 neuropathy with mild cold sensitivity. I reviewed the lab results with the patient. CBCs and CMP are unremarkable. CA 125 is pending today. I will proceed with scheduled chemotherapy today. Plan: 1. Ok to proceed to oxyaliplatin and bevacizumab 2. RTC in 3 weeks for C6D1, labs per protocol (2) Pulmonary embolism Overview: On 07/21/2018, presented with fever. On 07/22/2018, very tired in the morning. CT 07/22/2018 showed PE. She was started on Lovenox every 12 hours. She started Eliquis 5 mg bid on 10/26/2018 Assessment: She tolerated Eliquis well. No bleeding events. Plan: 1. Continue Eliquis 5 mg bid 2. Hold if PLT < 50K and/or bleeding.
[2020-01-04 10:39] LABS: Cancer Antigen 125 2850 U/mL (0-35)
[2020-01-04] MEDS: ACETAMINOPHEN 325 MG TABLET 650 MG PO (10:55)
[2020-01-04] MEDS: SODIUM CHLORIDE 0.9% 100 ML 21 ML IV (10:56)
[2020-01-04] MEDS: SODIUM CHLORIDE 0.9% IV (11:25)
[2020-01-04] MEDS: BEVACIZUMAB IV (11:25)
[2020-01-04] MEDS: diphenhydrAMINE 25 MG TABLET 50 MG PO (11:27)
[2020-01-04] MEDS: ONDANSETRON 16 MG in SODIUM CHLORIDE 0.9% 50 ML 232 ML IV (12:35)
[2020-01-04] MEDS: FAMOTIDINE 20 MG/50 ML PIGGYBACK 200 MG IV (12:58)
[2020-01-04] MEDS: DEXTROSE 5 % IN WATER 100 ML 21 ML IV (13:30)
[2020-01-04] MEDS: OXALIPLATIN IV (13:31)
[2020-01-04] MEDS: DEXTROSE 5% IV (13:31)
[2020-01-05 08:28] LABS: Cancer Antigen 27.29 140.1 U/mL (0.0-38.6)
[2020-01-25 09:34] LABS: Add Manual Diff / Slide Review NO; Basophils Absolute Auto 0 /uL (0-100); Basophils Percent Auto 0.6 % (0-2); Eosinophils Absolute Auto 0 /uL (0-450); Eosinophils Percent Auto 0.8 % (2-4); Hematocrit 34.3 % (36-46); Hemoglobin 11.4 g/dL (12.0-16.0); Lymphocytes Absolute Auto 500 /uL (1100-4500); Lymphocytes Percent Auto 13.8 % (25-40); Mean Corpuscular HGB Conc 33.1 % (30-36); Mean Corpuscular Hemoglobin 30.5 PG (26-34); Mean Corpuscular Volume 92.1 fL (80-100); Monocytes Absolute Auto 800 /uL (0-900); Monocytes Percent Auto 19.8 % (3-14); Neutrophils Absolute Auto 2500 /uL (1500-7000); Platelet Count 143 X10^3/uL (150-400); Red Blood Cell Count 3.72 X10^6/uL (4.0-5.2); Red Cell Distribution Width 16.4 % (11.6-14.8); White Blood Cell Count 3.8 X10^3/uL (4.5-11.0)
[2020-01-25 09:51] LABS: Alanine Aminotransferase 17 IU/L (<35); Albumin 3.4 g/dL (3.5-5.0); Albumin Globulin Ratio 0.9 (1.0-2.8); Alkaline Phosphatase 88 U/L (38-126); Aspartate Aminotransferase 48 IU/L (14-36); BUN Creatinine Ratio 11.1 (6-22); Bilirubin Total 0.6 mg/dL (0.2-1.3); Blood Urea Nitrogen 11 mg/dL (7-17); Calcium 9.2 mg/dL (8.4-10.2); Carbon Dioxide 28 mmol/L (22-32); Chloride 103 mmol/L (98-107); Estimated Glomerular Filt Rate 54.5 mL/min (>60); Glucose 115 mg/dL (80-110); HEMOLYSIS < 15 (0-50); Potassium 3.9 mmol/L (3.4-5.1); Sodium 135 mmol/L (137-145); Total Protein 7.4 g/dL (6.3-8.2)
[2020-01-25 09:53] VITALS: BP 122/75; PULSE 81; RESP 16; TEMP 36.4; O2SAT 100
[2020-01-25 10:59] LABS: Cancer Antigen 125 3360 U/mL (0-35)
[2020-01-25] MEDS: ACETAMINOPHEN 325 MG TABLET 650 MG PO (11:03)
[2020-01-25] MEDS: diphenhydrAMINE 25 MG TABLET 50 MG PO (11:03)
[2020-01-25] MEDS: FAMOTIDINE 20 MG/50 ML PIGGYBACK 200 MG IV (11:04)
[2020-01-25] MEDS: SODIUM CHLORIDE 0.9% 100 ML 21 ML IV (11:44)
--- NOTE | 2020-01-25 12:02 | P.PNONC_ITS ---
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 Treatment Summary for MMMT: 1. Neoadjuvant chemotherapy with carboplatin and Taxol for 4 cycles 2. Optimal cyto reduction in August 2017 3. Five additional cycles of adjuvant carboplatin and Taxol finishing in December 2017 4. Recurrent disease treated with gemcitabine and bevacizumab for 3 cycles finishing in June 2018. Completed 3 cycles. 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 5. Doxil 09/01/[address] Acosta recommendation. Stopped after 3 cycles due to disease progression 6. Paliative chemotherapy: C1# Carboplatin/Paclitaxel 11/24/2018 C2# Paclitaxel only 12/15/2018 C3# Paclitacle only 01/05/2019 C4# Cisplatin/Paclitaxel 01/26/2019 C5# Paclitaxel only 02/16/2019 C6# Cisplatin/Paclitaxel 03/16/2019. 7. Olaparib 05/24/2019-09/28/2019 8. Oxaliplatin 10/05/2019- 9. Avastin added on 11/23/2019 Treatment Summary for PE(pulmonary embolism): On 07/21/2018, she developed fever. CT 07/22/2018 showed PE. She was started on Lovenox every 12 hours. She started Eliquis 5 mg bid on 10/26/2018. Clinically patient does not have any new shortness of breath or leg swelling. Interval history: On Oct 05, 2019, patient was started on oxaliplatin per Dr. Acosta's recommendation. 11/23/2019, patient was started on Avastin. Overall patient has tolerated the chemotherapy relatively well. However for the past 4 days or so, patient has experienced unexpected vomiting without associated abdominal pain or nausea. She denies any constipation. She denies any blood in the stool or blood in the urine. She denies fever or chills. - Patient Self-Reported Symptoms SR Constitution: Fatigue/Malaise SR ears, nose, mouth, throat issues: Hoarseness SR respiratory issues: Cough, Mucous SR Cardiovascular issues: Chest pain, discomfort, tightness, Extreme swelling SR Skin issues: Skin rash or itching SR Gastrointestinal issues: Vomiting SR Genitourinary issues: Change in stream SR Neuro issues: Numbness or tingling SR Hematologic issues: Swollen lymph nodes - Additional ROS All systems PM: reviewed and no additional remarkable complaints except as stated Home Medications and Allergies Home Medications Medication Instructions Recorded Confirmed Type cholecalciferol (vitamin D3) 4,000 unit PO DAILY 05/12/18 01/04/20 History [Vitamin D3] sennosides [senna] 8.6 mg PO QD-BID 05/12/18 01/04/20 History B Complex 100 1 tab PO QAM 06/30/18 01/04/20 History acetaminophen [Tylenol] 325 mg PO Q6H PRN 09/01/18 01/04/20 History apixaban 5 mg PO BID #180 tab 10/27/18 01/04/20 Rx epinephrine [EpiPen 2-Vicente] 0.3 mg IM Q15M PRN #1 each 12/15/18 01/04/20 Rx Allergies Allergy/AdvReac Type Severity Reaction Status Date / Time carboplatin Allergy Severe Anaphylaxis Verified 12/15/18 16:35 gemcitabine AdvReac Severe inflammatory Verified 12/15/18 16:35 changes in the lung Exam Vital signs: Vital Signs Temp Pulse Resp BP Pulse Ox 01/25/20 09:53 97.5 F L 81 16 122/75 100 Intake and Output 01/24/20 01/25/20 01/25/20 23:59 07:59 15:59 Intake Total 50 / 50 Balance 50 / 50 Intake: IV 50 / 50 Famotidine 20 mg In 50 ml @ 200 50 / 50 mls/hr IV [facility] Rx#: [id number] Other: Weight 69.3 kg Patient Weight 01/25/20 23:59 Weight 69.3 kg Narrative: ECOG 1 Gen: WDWN, NAD, pleasant and cooperative. HEENT: NCAT, EOMI, PERRLA, anicteric sclera. Neck: Supple, No palpable thyromegaly or lymphadenopathy. Respiratory: CTAB, no wheezes audible. No JVD Cardiovascular: RRR, S1 and S2 normal, no M/G/R. Abdomen: Soft, NTND, BS normal, no palpable organomegaly Extremities: No LE pitting edema. Neurological: AOx3, CN II-XII grossly intact. No focal motor or sensory deficit. Psychiatric: Normal affect; normal thought process; no depression; no anxiety. Results - Labs Laboratory Last Values WBC 3.8 X10^3/uL (4.5-11.0) L 01/25/20 09:25 RBC 3.72 X10^6/uL (4.0-5.2) L 01/25/20 09:25 Hgb 11.4 g/dL (12.0-16.0) L 01/25/20 09:25 Hct 34.3 % (36-46) L 01/25/20 09:25 MCV 92.1 fL (80-100) 01/25/20 09:25 MCH 30.5 PG (26-34) 01/25/20 09:25 MCHC 33.1 % (30-36) 01/25/20 09:25 RDW 16.4 % (11.6-14.8) H 01/25/20 09:25 Plt Count 143 X10^3/uL (150-400) L 01/25/20 09:25 Neut % (Auto) 65.0 % (50-75) 01/25/20 09:25 Lymph % (Auto) 13.8 % (25-40) L 01/25/20 09:25 [place] % (Auto) 19.8 % (3-14) H 01/25/20 09:25 Eos % (Auto) 0.8 % (2-4) L 01/25/20 09:25 Baso % (Auto) 0.6 % (0-2) 01/25/20 09:25 Neut # (Auto) 2500 /uL (1143-7635) 01/25/20 09:25 Lymph # (Auto) 500 /uL (1622-8534) L 01/25/20 09:25 [place] # (Auto) 800 /uL (0-900) 01/25/20 09:25 Eos # (Auto) 0 /uL (0-450) 01/25/20 09:25 Baso # (Auto) 0 /uL (0-100) 01/25/20 09:25 Total Counted 100 10/05/19 09:15 Seg Neutrophils % 62.0 % (38-70) 10/05/19 09:15 Band Neutrophils % 3.0 % (3-7) 10/05/19 09:15 Atypical Lymphs % 1.0 % (-0) H 07/14/18 11:30 Lymphocytes % (Manual) 16.0 % (25-45) L 10/05/19 09:15 Monocytes % (Manual) 16.0 % (2-11) H 10/05/19 09:15 Metamyelocytes % 1.0 % (-0) H 06/30/18 10:21 Myelocytes % 2.0 % (-0) H 06/16/18 13:19 Eosinophils % (Manual) 2.0 % (2-4) 10/05/19 09:15 Basophils % (Manual) 1.0 % (0-1) 10/05/19 09:15 Neutrophils # (Manual) 2795 /uL (5777-2425) L 10/05/19 09:15 Plt Morphology Comment A1 07/07/18 08:52 Polychromasia 1+ H 07/21/18 09:02 RBC Morphology See below 10/05/19 09:15 Poikilocytosis 1+ H 10/05/19 09:15 Anisocytosis 1+ H 10/05/19 09:15 Macrocytosis 2+ H 10/05/19 09:15 Sodium 135 mmol/L (137-145) L 01/25/20 09:25 Potassium 3.9 mmol/L (3.4-5.1) 01/25/20 09:25 Chloride 103 mmol/L (98-107) 01/25/20 09:25 Carbon Dioxide 28 mmol/L (22-32) 01/25/20 09:25 BUN 11 mg/dL (7-17) 01/25/20 09:25 Creatinine 0.99 mg/dL (0.52-1.04) 01/25/20 09:25 Estimated GFR 54.5 mL/min (>60) L 01/25/20 09:25 BUN/Creatinine Ratio 11.1 (6-22) 01/25/20 09:25 Glucose 115 mg/dL (80-110) H 01/25/20 09:25 Calcium 9.2 mg/dL (8.4-10.2) 01/25/20 09:25 Total Bilirubin 0.6 mg/dL (0.2-1.3) 01/25/20 09:25 AST 48 IU/L (14-36) H 01/25/20 09:25 ALT 17 IU/L (<35) 01/25/20 09:25 Alkaline Phosphatase 88 U/L (38-126) 01/25/20 09:25 Total Protein 7.4 g/dL (6.3-8.2) 01/25/20 09:25 Albumin 3.4 g/dL (3.5-5.0) L 01/25/20 09:25 Globulin 4.0 g/dL (1.7-4.1) 01/25/20 09:25 Albumin/Globulin Ratio 0.9 (1.0-2.8) L 01/25/20 09:25 CA 27-29 140.1 U/mL (0.0-38.6) H 01/04/20 08:41 CA 125 Antigen 3360 U/mL (0-35) H 01/25/20 09:25 Urine Color Yellow 07/21/18 09:02 Urine Appearance Slightly cloudy 07/21/18 09:02 Urine pH 5.5 (4.5-8.0) 07/21/18 09:02 Ur Specific [place] 1.025 (1.000-1.035) 07/21/18 09:02 Urine Protein 2+ (Negative) H 07/21/18 09:02 Urine Glucose (UA) Negative g/dL (Negative) 07/21/18 09:02 Urine Ketones 1+ (NEGATIVE) H 07/21/18 09:02 Urine Occult Blood Negative (Negative) 07/21/18 09:02 Urine Nitrate Negative (Negative) 07/21/18 09:02 Urine Bilirubin 1+ (NEGATIVE) H 07/21/18 09:02 Urine Ictotest Negative (Negative) 07/21/18 09:02 Urine Urobilinogen 2.0 E.U./dL (0.2) H 07/21/18 09:02 Ur Leukocyte Esterase Trace (NEGATIVE) H 07/21/18 09:02 Urine RBC None seen (0-5/HPF) 07/21/18 09:02 Urine WBC 1-5/hpf (0-5/HPF) 07/21/18 09:02 Ur Squamous Epith Cells 10-30 /hpf (0-5/HPF) H D 07/21/18 09:02 Urine Bacteria Moderate (10-30) (None) H 07/21/18 09:02 Hyaline Casts 0-1/lpf (None) 07/21/18 09:02 Urine Mucus 2+ (Negative) H 07/21/18 09:02 Ur Culture Indicated? 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 She was started on bevacizumab and gemcitabine on April 29, 2018. Chemotherapy regimen: Gemcitabine 1000 mg/m2, on day 1, 8. 15, and Bevasuzumab 15 mg/kg, on day 1, every 21-day cycle. 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 In addition the CT scan revealed progression of the underlying disease. Per Dr. Acosta, we switched the treatment to Doxil which was started on 09/01/2018, and after 3 cycles was stopped in 11/2018 due to disease progression. Then, on 11/24/2018, she was started on carboplatin (AUC 5)/paclitaxel (175 mg/m2). Carbopatin was discontinued starting cycle 3 due to hypersensitivity reaction d uring cycle 2. She has completed total of 6 cycles of chemotherapy on 03/16/2019. Then, she started olaparib on 05/24/2019. Due to disease progression, it was stopped on 10/05/2019. Patient was started on palliative chemotherapy with oxaliplatin with plans to add bevacizumab later. Assessment: Patient was started on oxaliplatin on 10/05/2019. On 11/23/2019, we added bevacizumab. She presents here today for scheduled chemotherapy. Patient said for the last 4 days, patient has noticed unexpected vomiting. She said it is not associated with any abdominal pain or nausea. It came out unexpectedly. One time she was awoken up from sleep. Patient denies fever or chills. She denies new bone pain. I explained to the patient that the tumor marker has increased dramatically. Given the clinical symptoms, I believe that her underlying ovarian cancer has progressed despite the treatment with oxaliplatin and Avastin. There are limited options at this moment. I offered to refer her back to Dr. Acosta were further discussion. Patient however preferred to stay locally. I talked with the patient that I would like to try oral medication Xeloda on top of the current chemotherapy she is getting. The dosage of the Xeloda will be 850 mg per m2 orally twice daily 2 weeks on and 1 week off. Plan: 1. Ok to proceed to oxyaliplatin and bevacizumab 2. CT CAP w/contrast 3. Xeloda 850 mg/m2, on day 1-14 [id number], to be started with her next cycle of oxyaliplatin/tiffanie. 4. RTC in 3 weeks for C6D1, labs per protocol (2) Pulmonary embolism Overview: On 07/21/2018, presented with fever. On 07/22/2018, very tired in the morning. CT 07/22/2018 showed PE. She was started on Lovenox every 12 hours. She started Eliquis 5 mg bid on 10/26/2018 Assessment: She tolerated Eliquis well. No bleeding events. Plan: 1. Continue Eliquis 5 mg bid 2. Hold if PLT < 50K and/or bleeding.
[2020-01-25] MEDS: ONDANSETRON 16 MG in SODIUM CHLORIDE 0.9% 50 ML 232 ML IV (12:05)
[2020-01-25] MEDS: SODIUM CHLORIDE 0.9% IV (12:44)
[2020-01-25] MEDS: BEVACIZUMAB IV (12:44)
[2020-01-25] MEDS: DEXTROSE 5 % IN WATER 100 ML 21 ML IV (13:19)
[2020-01-25] MEDS: DEXTROSE 5% IV (13:34)
[2020-01-25] MEDS: OXALIPLATIN IV (13:34)
--- NOTE | 2020-01-26 11:10 | ONC.SCHED ---
Received request from triage to MINOO capecitabine. Covermymeds MINOO request submitted. Returned as unable to process with number to call. Called and was informed that this drug is covered under Medicare Part B.
--- NOTE | 2020-01-30 15:49 | PC.NURSE ---
CAPECITABINE: RX FAXED TO [facility] AFTER CONFIRMING WITH PHARMACIST THAT THEY CARRY THIS MEDICATION, PATIENT INFORMED PER TELEPHONE MESSAGE THAT [facility]
--- NOTE | 2020-01-31 09:03 | ONC.SCHED ---
Received email from [facility] to do a PA for Capecitabine. Already processed one which came back with a response that it is covered under Part B. Gave to triage (Yue) to call pharmacy and follow-up.
--- NOTE | 2020-01-31 13:17 | PC.NURSE ---
PATIENT REPORTS THAT SHE HAS AGAIN HAD SPONTANEOUS EMESIS WITHOUT NAUSEAU UPON LYING DOWN TO GO TO SLEEP. THIS NURSE RECOMMENDED THAT SHE LEAVE A LONGER TIME BETWEEN EATING AND DRINKING IN THE EVENING AND GOING TO BED SO THAT STOMACH CAN FULLY EMPTY AND SHE SHOULD USE SEVERAL PILLOWS TO SLEEP WITH HEAD ELEVATED TO BOTH PERHAPS PREVENT THE EMESIS AND PREVENT ASPIRATION. SHE WAS ENCOURAGED TO DRINK AND EAT PLENTY IN THE EARLY PART OF THE DAY AND USE ENSURE SINCE SHE IS EATING LESS AND LOOSING WEIGHT. PATIENT VOICED UNDERSTANDING. 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 FYI WITH THIS NOTE TO DR FERRARO.
--- NOTE | 2020-02-06 10:41 | PC.NURSE ---
CHEMOTEACHING: PATIENT WAS INSTRUCTED BY PHONE ON HOW TO FIND CAPECITABINE IN [email or web address] AND STATED SHE WILL READ THIS BEFORE COMING TO HER APPT WITH DR FERRARO ON 02/14. SHE WAS INFORMED THAT CONSENT WILL BE ADDED TO HER CHART TO SIGN WITH DR FERRARO ON THAT DAY AND THAT SHE SHOULD DISCUSS ANY QUESTIONS WITH HIM AND CAN ALSO ASK FOR THE TRIAGE NURSE IF SHE HAS ADDITIONAL QUESTIONS.
--- NOTE | 2020-02-06 10:46 | PC.NURSE ---
VOMITING: PATIENT STATED ON TELEPHONE THAT AFTER FIRST 5 DAYS POST CHEMO VOMITING LESSENS BUT SHE ALSO THINKS THAT AVOIDING EATING AND DRINKING IN THE EVENING HAS HELPED. SHE CONFIRMED WORKING ON DRINKING ENOUGH FLUIDS IN THE AM.
[2020-02-15 08:27] VITALS: BP 136/75; PULSE 88; RESP 18; TEMP 36.6; O2SAT 99
[2020-02-15 08:27] LABS: Add Manual Diff / Slide Review NO; Basophils Absolute Auto 100 /uL (0-100); Basophils Percent Auto 1.2 % (0-2); Eosinophils Absolute Auto 0 /uL (0-450); Eosinophils Percent Auto 0.4 % (2-4); Lymphocytes Absolute Auto 700 /uL (1100-4500); Mean Corpuscular HGB Conc 33.4 % (30-36); Mean Corpuscular Hemoglobin 30.4 PG (26-34); Mean Corpuscular Volume 90.9 fL (80-100); Monocytes Absolute Auto 900 /uL (0-900); Monocytes Percent Auto 18.3 % (3-14); Neutrophils Absolute Auto 3100 /uL (1500-7000); Neutrophils Percent Auto 65.1 % (50-75); Platelet Count 145 X10^3/uL (150-400); Red Blood Cell Count 3.63 X10^6/uL (4.0-5.2); Red Cell Distribution Width 17.4 % (11.6-14.8); White Blood Cell Count 4.8 X10^3/uL (4.5-11.0)
--- NOTE | 2020-02-15 08:34 | P.PNONC_ITS ---
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 Treatment Summary for MMMT: 1. Neoadjuvant chemotherapy with carboplatin and Taxol for 4 cycles 2. Optimal cyto reduction in August 2017 3. Five additional cycles of adjuvant carboplatin and Taxol finishing in December 2017 4. Recurrent disease treated with gemcitabine and bevacizumab for 3 cycles finishing in June 2018. Completed 3 cycles. 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 5. Doxil 09/01/[address] Acosta recommendation. Stopped after 3 cycles due to disease progression 6. Paliative chemotherapy: C1# Carboplatin/Paclitaxel 11/24/2018 C2# Paclitaxel only 12/15/2018 C3# Paclitacle only 01/05/2019 C4# Cisplatin/Paclitaxel 01/26/2019 C5# Paclitaxel only 02/16/2019 C6# Cisplatin/Paclitaxel 03/16/2019. 7. Olaparib 05/24/2019-09/28/2019 8. Oxaliplatin 10/05/2019- 9. Avastin added on 11/23/2019 Treatment Summary for PE(pulmonary embolism): On 07/21/2018, she developed fever. CT 07/22/2018 showed PE. She was started on Lovenox every 12 hours. She started Eliquis 5 mg bid on 10/26/2018. Clinically patient does not have any new shortness of breath or leg swelling. Interval history: Patient presents here today for treatment with oxaliplatin and Avastin. Patient again reported that during the week after the previous cycle of treatment, patient has experienced vomiting without nausea. Patient said that she noticed thick saliva and then all of a sudden she had to vomit. She kept a bowel at bedside in case she vomited. She said also that the appetite has decreased significantly. She is reporting some abdominal discomfort which she does not call it abdominal pain. The discomfort is especially prominent after meal or even a small piece of bread. She said that the discomfort mainly in the left lower quadrant of the abdomen. The abdomen is also becoming more discomfort especially when using a elastic plastic belt. The nodes in the inguinal areas on both sides are also more prominent. Patient has already received Xeloda. However she has not started taking the pills yet. - Patient Self-Reported Symptoms SR Constitution: Fatigue/Malaise SR ears, nose, mouth, throat issues: Hoarseness SR respiratory issues: Shortness of breath SR Cardiovascular issues: Chest pain, discomfort, tightness, Extreme swelling SR Skin issues: Skin rash or itching SR Gastrointestinal issues: Vomiting SR Genitourinary issues: Change in stream SR Neuro issues: Numbness or tingling SR Hematologic issues: Swollen lymph nodes - Additional ROS All systems PM: reviewed and no additional remarkable complaints except as stated Home Medications and Allergies Home Medications Medication Instructions Recorded Confirmed Type cholecalciferol (vitamin D3) 4,000 unit PO DAILY 05/12/18 01/04/20 History [Vitamin D3] sennosides [senna] 8.6 mg PO QD-BID 05/12/18 01/04/20 History B Complex 100 1 tab PO QAM 06/30/18 01/04/20 History acetaminophen [Tylenol] 325 mg PO Q6H PRN 09/01/18 01/04/20 History apixaban 5 mg PO BID #180 tab 10/27/18 01/04/20 Rx epinephrine [EpiPen 2-Vicente] 0.3 mg IM Q15M PRN #1 each 12/15/18 01/04/20 Rx capecitabine 1,500 mg PO BID #84 tab 01/25/20 Rx Allergies Allergy/AdvReac Type Severity Reaction Status Date / Time carboplatin Allergy Severe Anaphylaxis Verified 12/15/18 16:35 gemcitabine AdvReac Severe inflammatory Verified 12/15/18 16:35 changes in the lung Exam Vital signs: Vital Signs Temp Pulse Resp BP Pulse Ox 02/15/20 08:27 98 F 88 18 136/75 99 Intake and Output 02/14/20 02/15/20 02/15/20 23:59 07:59 15:59 Other: Weight 67.2 kg Patient Weight 02/15/20 23:59 Weight 67.2 kg Narrative: ECOG 1 Gen: WDWN, NAD, pleasant and cooperative. HEENT: NCAT, EOMI, PERRLA, anicteric sclera. Neck: Supple, No palpable thyromegaly or lymphadenopathy. Respiratory: CTAB, no wheezes audible. No JVD Cardiovascular: RRR, S1 and S2 normal, no M/G/R. Abdomen: Soft, NTND, BS normal, no palpable organomegaly. Right lower quadrant and right left lower quadrant tenderness noted. Extremities: No LE pitting edema. Bilateral palpable inguinal lymph nodes measuring about 2-3 cm noted. Neurological: AOx3, CN II-XII grossly intact. No focal motor or sensory deficit. Psychiatric: Normal affect; normal thought process; no depression; no anxiety. Results - Labs Laboratory Last Values WBC 4.8 X10^3/uL (4.5-11.0) 02/15/20 08:15 RBC 3.63 X10^6/uL (4.0-5.2) L 02/15/20 08:15 Hgb 11.0 g/dL (12.0-16.0) L 02/15/20 08:15 Hct 33.0 % (36-46) L 02/15/20 08:15 MCV 90.9 fL (80-100) 02/15/20 08:15 MCH 30.4 PG (26-34) 02/15/20 08:15 MCHC 33.4 % (30-36) 02/15/20 08:15 RDW 17.4 % (11.6-14.8) H 02/15/20 08:15 Plt Count 145 X10^3/uL (150-400) L 02/15/20 08:15 Neut % (Auto) 65.1 % (50-75) 02/15/20 08:15 Lymph % (Auto) 15.0 % (25-40) L 02/15/20 08:15 [place] % (Auto) 18.3 % (3-14) H 02/15/20 08:15 Eos % (Auto) 0.4 % (2-4) L 02/15/20 08:15 Baso % (Auto) 1.2 % (0-2) 02/15/20 08:15 Neut # (Auto) 3100 /uL (4913-5452) 02/15/20 08:15 Lymph # (Auto) 700 /uL (1717-7799) L 02/15/20 08:15 [place] # (Auto) 900 /uL (0-900) 02/15/20 08:15 Eos # (Auto) 0 /uL (0-450) 02/15/20 08:15 Baso # (Auto) 100 /uL (0-100) 02/15/20 08:15 Total Counted 100 10/05/19 09:15 Seg Neutrophils % 62.0 % (38-70) 10/05/19 09:15 Band Neutrophils % 3.0 % (3-7) 10/05/19 09:15 Atypical Lymphs % 1.0 % (-0) H 07/14/18 11:30 Lymphocytes % (Manual) 16.0 % (25-45) L 10/05/19 09:15 Monocytes % (Manual) 16.0 % (2-11) H 10/05/19 09:15 Metamyelocytes % 1.0 % (-0) H 06/30/18 10:21 Myelocytes % 2.0 % (-0) H 06/16/18 13:19 Eosinophils % (Manual) 2.0 % (2-4) 10/05/19 09:15 Basophils % (Manual) 1.0 % (0-1) 10/05/19 09:15 Neutrophils # (Manual) 2795 /uL (2896-8872) L 10/05/19 09:15 Plt Morphology Comment A1 07/07/18 08:52 Polychromasia 1+ H 07/21/18 09:02 RBC Morphology See below 10/05/19 09:15 Poikilocytosis 1+ H 10/05/19 09:15 Anisocytosis 1+ H 10/05/19 09:15 Macrocytosis 2+ H 10/05/19 09:15 Sodium 135 mmol/L (137-145) L 01/25/20 09:25 Potassium 3.9 mmol/L (3.4-5.1) 01/25/20 09:25 Chloride 103 mmol/L (98-107) 01/25/20 09:25 Carbon Dioxide 28 mmol/L (22-32) 01/25/20 09:25 BUN 11 mg/dL (7-17) 01/25/20 09:25 Creatinine 0.99 mg/dL (0.52-1.04) 01/25/20 09:25 Estimated GFR 54.5 mL/min (>60) L 01/25/20 09:25 BUN/Creatinine Ratio 11.1 (6-22) 01/25/20 09:25 Glucose 115 mg/dL (80-110) H 01/25/20 09:25 Calcium 9.2 mg/dL (8.4-10.2) 01/25/20 09:25 Total Bilirubin 0.6 mg/dL (0.2-1.3) 01/25/20 09:25 AST 48 IU/L (14-36) H 01/25/20 09:25 ALT 17 IU/L (<35) 01/25/20 09:25 Alkaline Phosphatase 88 U/L (38-126) 01/25/20 09:25 Total Protein 7.4 g/dL (6.3-8.2) 01/25/20 09:25 Albumin 3.4 g/dL (3.5-5.0) L 01/25/20 09:25 Globulin 4.0 g/dL (1.7-4.1) 01/25/20 09:25 Albumin/Globulin Ratio 0.9 (1.0-2.8) L 01/25/20 09:25 CA 27-29 157.0 U/mL (0.0-38.6) H 01/25/20 09:25 CA 125 Antigen 3360 U/mL (0-35) H 01/25/20 09:25 Urine Color Yellow 07/21/18 09:02 Urine Appearance Slightly cloudy 07/21/18 09:02 Urine pH 5.5 (4.5-8.0) 07/21/18 09:02 Ur Specific [place] 1.025 (1.000-1.035) 07/21/18 09:02 Urine Protein 2+ (Negative) H 07/21/18 09:02 Urine Glucose (UA) Negative g/dL (Negative) 07/21/18 09:02 Urine Ketones 1+ (NEGATIVE) H 07/21/18 09:02 Urine Occult Blood Negative (Negative) 07/21/18 09:02 Urine Nitrate Negative (Negative) 07/21/18 09:02 Urine Bilirubin 1+ (NEGATIVE) H 07/21/18 09:02 Urine Ictotest Negative (Negative) 07/21/18 09:02 Urine Urobilinogen 2.0 E.U./dL (0.2) H 07/21/18 09:02 Ur Leukocyte Esterase Trace (NEGATIVE) H 07/21/18 09:02 Urine RBC None seen (0-5/HPF) 07/21/18 09:02 Urine WBC 1-5/hpf (0-5/HPF) 07/21/18 09:02 Ur Squamous Epith Cells 10-30 /hpf (0-5/HPF) H D 07/21/18 09:02 Urine Bacteria Moderate (10-30) (None) H 07/21/18 09:02 Hyaline Casts 0-1/lpf (None) 07/21/18 09:02 Urine Mucus 2+ (Negative) H 07/21/18 09:02 Ur Culture Indicated? 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 She was started on bevacizumab and gemcitabine on April 29, 2018. Chemotherapy regimen: Gemcitabine 1000 mg/m2, on day 1, 8. 15, and Bevasuzumab 15 mg/kg, on day 1, every 21-day cycle. 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 In addition the CT scan revealed progression of the underlying disease. Per Dr. Acosta, we switched the treatment to Doxil which was started on 09/01/2018, and after 3 cycles was stopped in 11/2018 due to disease progression. Then, on 11/24/2018, she was started on carboplatin (AUC 5)/paclitaxel (175 mg/m2). Carbopatin was discontinued starting cycle 3 due to hypersensitivity reaction during cycle 2. She has completed total of 6 cycles of chemotherapy on 03/16/2019. Then, she started olaparib on 05/24/2019. Due to disease progression, it was stopped on 10/05/2019. Patient was started on palliative chemotherapy with oxaliplatin with plans to add bevacizumab later. Assessment: Patient was started on oxaliplatin on 10/05/2019. On 11/23/2019, we added bevacizumab. Today first of all I talked about the vomiting without nausea. I talked with her that she may want to try Zofran and see if that can help. Explained to the patient that I have a patient who is complaining the same symptoms and he has found out that the Zofran helps every time. Next we talked about the use of the Xeloda. Patient is worried about the toxicity of the Xeloda. She prefers to start the Xeloda next separate from the treatment with Avastin and oxaliplatin. In that way, she will be able to better tell whether it is caused by Xeloda or by the current chemotherapy. I talked with her that I agree that it would be reasonable to consider starting the Xeloda next week. Patient also would like to know more information about the ovarian cancer. I showed the patient the NCCN guidelines patient page. Patient said that she is going to to do some research on it. Plan: 1. Ok to proceed to oxyaliplatin and bevacizumab 2. Start Xeloda 850 mg/m2, on day 1-14 [id number], to be started next (02/22/2020) 3. I have instructed the patient call any time when she feels uncomfortable. 4. RTC in 3 weeks for C6D1, labs per protocol (2) Pulmonary embolism Overview: On 07/21/2018, presented with fever. On 07/22/2018, very tired in the morning. CT 07/22/2018 showed PE. She was started on Lovenox every 12 hours. She started Eliquis 5 mg bid on 10/26/2018 Assessment: She tolerated Eliquis well. No bleeding events. Plan: 1. Continue Eliquis 5 mg bid 2. Hold if PLT < 50K and/or bleeding.
[2020-02-15 08:39] LABS: Alanine Aminotransferase 18 IU/L (<35); Albumin 3.1 g/dL (3.5-5.0); Albumin Globulin Ratio 0.8 (1.0-2.8); Alkaline Phosphatase 93 U/L (38-126); Aspartate Aminotransferase 52 IU/L (14-36); BUN Creatinine Ratio 15.4 (6-22); Bilirubin Total 0.6 mg/dL (0.2-1.3); Blood Urea Nitrogen 14 mg/dL (7-17); Calcium 8.6 mg/dL (8.4-10.2); Carbon Dioxide 22 mmol/L (22-32); Chloride 105 mmol/L (98-107); Estimated Glomerular Filt Rate > 60.0 mL/min (>60); Globulin 3.9 g/dL (1.7-4.1); Glucose 116 mg/dL (80-110); HEMOLYSIS < 15 (0-50); Potassium 4.1 mmol/L (3.4-5.1); Sodium 132 mmol/L (137-145)
[2020-02-15] MEDS: SODIUM CHLORIDE 0.9% 100 ML 30 ML IV (09:55)
[2020-02-15] MEDS: ACETAMINOPHEN 325 MG TABLET 650 MG PO (09:59)
[2020-02-15] MEDS: diphenhydrAMINE 25 MG TABLET 50 MG PO (09:59)
[2020-02-15] MEDS: SODIUM CHLORIDE 0.9% 500 ML 1000 ML IV (10:01)
[2020-02-15 10:17] LABS: Cancer Antigen 125 4330 U/mL (0-35)
[2020-02-15] MEDS: SODIUM CHLORIDE 0.9% IV (10:17)
[2020-02-15] MEDS: BEVACIZUMAB IV (10:17)
[2020-02-15] MEDS: ONDANSETRON 16 MG in SODIUM CHLORIDE 0.9% 50 ML 232 ML IV (11:04)
[2020-02-15] MEDS: FAMOTIDINE 20 MG/50 ML PIGGYBACK 200 MG IV (11:30)
[2020-02-15] MEDS: OXALIPLATIN IV (11:57)
[2020-02-15] MEDS: DEXTROSE 5% IV (11:57)
[2020-02-15] MEDS: DEXTROSE 5 % IN WATER 100 ML 21 ML IV (11:57)
[2020-02-16 04:36] LABS: Cancer Antigen 27.29 197.7 U/mL (0.0-38.6)
--- NOTE | 2020-03-28 13:03 | P.PNONC_ITS ---
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 Treatment Summary for MMMT: 1. Neoadjuvant chemotherapy with carboplatin and Taxol for 4 cycles 2. Optimal cyto reduction in August 2017 3. Five additional cycles of adjuvant carboplatin and Taxol finishing in December 2017 4. Recurrent disease treated with gemcitabine and bevacizumab for 3 cycles finishing in June 2018. Completed 3 cycles. 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 5. Doxil 09/01/[address] Acosta recommendation. Stopped after 3 cycles due to disease progression 6. Paliative chemotherapy: C1# Carboplatin/Paclitaxel 11/24/2018 C2# Paclitaxel only 12/15/2018 C3# Paclitacle only 01/05/2019 C4# Cisplatin/Paclitaxel 01/26/2019 C5# Paclitaxel only 02/16/2019 C6# Cisplatin/Paclitaxel 03/16/2019. 7. Olaparib 05/24/2019-09/28/2019 8. Oxaliplatin 10/05/2019-02/15/2020 9. Avastin on 11/23/2019 - 02/15/2020 7. Xeloda 850 mg/m2, 2 weeks on and 1 week off. Treatment Summary for PE(pulmonary embolism): On 07/21/2018, she developed fever. CT 07/22/2018 showed PE. She was started on Lovenox every 12 hours. She started Eliquis 5 mg bid on 10/26/2018. Interval history: On 03/07/2020, patient started taking Xeloda 850 mg per m2 twice daily. Patient said that she has overall tolerated somewhat well. She is complaining significant fatigue. She was not able to walk without support. She denies any fever or chills. She does have some thick secretions in the throat which stimulate vomiting. However she denies any nausea per se. Patient said that the abdomen seems to be getting bigger and discomfort. She said that at night, she had to find the right position to sleep; otherwise it is very uncomfortable. She denies any fever or chills. Today she is accompanied by her sister to the clinic. During the past couple of days, patient is also noticing bilateral lower extremity edema, especially on the left side. But no leg pain. Patient has some shortness of breath especially on exertion but no chest pain. - Patient Self-Reported Symptoms SR Constitution: Fatigue/Malaise SR ears, nose, mouth, throat issues: Hoarseness SR respiratory issues: Shortness of breath SR Cardiovascular issues: Chest pain, discomfort, tightness, Extreme swelling SR Skin issues: Skin rash or itching SR Gastrointestinal issues: Vomiting SR Genitourinary issues: Change in stream SR Neuro issues: Numbness or tingling SR Hematologic issues: Swollen lymph nodes - Additional ROS All systems PM: reviewed and no additional remarkable complaints except as stated Home Medications and Allergies Home Medications Medication Instructions Recorded Confirmed Type cholecalciferol (vitamin D3) 4,000 unit PO DAILY 05/12/18 03/28/20 History [Vitamin D3] sennosides [senna] 8.6 mg PO QD-BID 05/12/18 03/28/20 History B Complex 100 1 tab PO QAM 06/30/18 03/28/20 History acetaminophen [Tylenol] 325 mg PO Q6H PRN 09/01/18 03/28/20 History apixaban 5 mg PO BID #180 tab 10/27/18 03/28/20 Rx epinephrine [EpiPen 2-Vicente] 0.3 mg IM Q15M PRN #1 each 12/15/18 03/28/20 Rx capecitabine 1,500 mg PO BID #84 tab 01/25/20 03/28/20 Rx Allergies Allergy/AdvReac Type Severity Reaction Status Date / Time carboplatin Allergy Severe Anaphylaxis Verified 12/15/18 16:35 gemcitabine AdvReac Severe inflammatory Verified 12/15/18 16:35 changes in the lung Exam Vital signs: 03/28/20 13:48 Last Vital Signs Temp 96.0 F L 03/28/20 13:06 Pulse 100 H 03/28/20 13:06 Resp 18 03/28/20 13:06 BP 110/70 03/28/20 13:06 Pulse Ox 100 03/28/20 13:06 Narrative: ECOG 1 Gen: WDWN, NAD, pleasant and cooperative. HEENT: NCAT, EOMI, PERRLA, anicteric sclera. Neck: Supple, No palpable thyromegaly or lymphadenopathy. Respiratory: CTAB, no wheezes audible. No JVD Cardiovascular: Tachycardia noted, S1 and S2 normal, no M/G/R. Abdomen: Soft, protuberant, tenderness noted with out specific location. No palpable masses. Extremities: Bilateral lower extremity edema noted. 1+ on the left right side. 2+ on the left side. Neurological: AOx3, CN II-XII grossly intact. No focal motor or sensory deficit. Psychiatric: Normal affect; normal thought process; no depression; no anxiety. Results - Labs Laboratory Last Values WBC 6.4 X10^3/uL (4.5-11.0) 03/28/20 14:30 RBC 2.87 X10^6/uL (4.0-5.2) L 03/28/20 14:30 Hgb 9.6 g/dL (12.0-16.0) L 03/28/20 14:30 Hct 28.5 % (36-46) L 03/28/20 14:30 MCV 99.5 fL (80-100) 03/28/20 14:30 MCH 33.6 PG (26-34) 03/28/20 14:30 MCHC 33.7 % (30-36) 03/28/20 14:30 RDW 25.9 % (11.6-14.8) H 03/28/20 14:30 Plt Count 113 X10^3/uL (150-400) L 03/28/20 14:30 Neut % (Auto) 78.4 % (50-75) H 03/28/20 14:30 Lymph % (Auto) 7.5 % (25-40) L 03/28/20 14:30 [place] % (Auto) 13.8 % (3-14) 03/28/20 14:30 Eos % (Auto) 0.0 % (2-4) L 03/28/20 14:30 Baso % (Auto) 0.3 % (0-2) 03/28/20 14:30 Neut # (Auto) 5000 /uL (1566-5449) 03/28/20 14:30 Lymph # (Auto) 500 /uL (5268-9992) L 03/28/20 14:30 [place] # (Auto) 900 /uL (0-900) 03/28/20 14:30 Eos # (Auto) 0 /uL (0-450) 03/28/20 14:30 Baso # (Auto) 0 /uL (0-100) 03/28/20 14:30 Total Counted 100 10/05/19 09:15 Seg Neutrophils % 62.0 % (38-70) 10/05/19 09:15 Band Neutrophils % 3.0 % (3-7) 10/05/19 09:15 Atypical Lymphs % 1.0 % (-0) H 07/14/18 11:30 Lymphocytes % (Manual) 16.0 % (25-45) L 10/05/19 09:15 Monocytes % (Manual) 16.0 % (2-11) H 10/05/19 09:15 Metamyelocytes % 1.0 % (-0) H 06/30/18 10:21 Myelocytes % 2.0 % (-0) H 06/16/18 13:19 Eosinophils % (Manual) 2.0 % (2-4) 10/05/19 09:15 Basophils % (Manual) 1.0 % (0-1) 10/05/19 09:15 Neutrophils # (Manual) 2795 /uL (0844-0467) L 10/05/19 09:15 Plt Morphology Comment A1 07/07/18 08:52 RBC Morphology Not Reportable 03/28/20 14:30 Polychromasia 1+ H 03/28/20 14:30 Poikilocytosis 1+ H 10/05/19 09:15 Anisocytosis 3+ H 03/28/20 14:30 Macrocytosis 1+ H 03/28/20 14:30 Sodium 130 mmol/L (137-145) L 03/28/20 14:30 Potassium 3.8 mmol/L (3.4-5.1) 03/28/20 14:30 Chloride 101 mmol/L (98-107) 03/28/20 14:30 Carbon Dioxide 24 mmol/L (22-32) 03/28/20 14:30 BUN 21 mg/dL (7-17) H 03/28/20 14:30 Creatinine 0.78 mg/dL (0.52-1.04) 03/28/20 14:30 Estimated GFR > 60.0 mL/min (>60) 03/28/20 14:30 BUN/Creatinine Ratio 26.9 (6-22) H 03/28/20 14:30 Glucose 113 mg/dL (80-110) H 03/28/20 14:30 Calcium 8.6 mg/dL (8.4-10.2) 03/28/20 14:30 Total Bilirubin 0.9 mg/dL (0.2-1.3) 03/28/20 14:30 AST 46 IU/L (14-36) H 03/28/20 14:30 ALT 18 IU/L (<35) 03/28/20 14:30 Alkaline Phosphatase 83 U/L (38-126) 03/28/20 14:30 Total Protein 6.0 g/dL (6.3-8.2) L 03/28/20 14:30 Albumin 2.6 g/dL (3.5-5.0) L 03/28/20 14:30 Globulin 3.4 g/dL (1.7-4.1) 03/28/20 14:30 Albumin/Globulin Ratio 0.8 (1.0-2.8) L 03/28/20 14:30 CA 27-29 197.7 U/mL (0.0-38.6) H 02/15/20 08:15 CA 125 Antigen 2390 U/mL (0-35) H 03/28/20 14:30 Urine Color Yellow 07/21/18 09:02 Urine Appearance Slightly cloudy 07/21/18 09:02 Urine pH 5.5 (4.5-8.0) 07/21/18 09:02 Ur Specific [place] 1.025 (1.000-1.035) 07/21/18 09:02 Urine Protein 2+ (Negative) H 07/21/18 09:02 Urine Glucose (UA) Negative g/dL (Negative) 07/21/18 09:02 Urine Ketones 1+ (NEGATIVE) H 07/21/18 09:02 Urine Occult Blood Negative (Negative) 07/21/18 09:02 Urine Nitrate Negative (Negative) 07/21/18 09:02 Urine Bilirubin 1+ (NEGATIVE) H 07/21/18 09:02 Urine Ictotest Negative (Negative) 07/21/18 09:02 Urine Urobilinogen 2.0 E.U./dL (0.2) H 07/21/18 09:02 Ur Leukocyte Esterase Trace (NEGATIVE) H 07/21/18 09:02 Urine RBC None seen (0-5/HPF) 07/21/18 09:02 Urine WBC 1-5/hpf (0-5/HPF) 07/21/18 09:02 Ur Squamous Epith Cells 10-30 /hpf (0-5/HPF) H D 07/21/18 09:02 Urine Bacteria Moderate (10-30) (None) H 07/21/18 09:02 Hyaline Casts 0-1/lpf (None) 07/21/18 09:02 Urine Mucus 2+ (Negative) H 07/21/18 09:02 Ur Culture Indicated? 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 She was started on bevacizumab and gemcitabine on April 29, 2018. Chemotherapy regimen: Gemcitabine 1000 mg/m2, on day 1, 8. 15, and Bevasuzumab 15 mg/kg, on day 1, every 21-day cycle. 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 In addition the CT scan revealed progression of the underlying disease. Per Dr. Acosta, we switched the treatment to Doxil which was started on 09/01/2018, and after 3 cycles was stopped in 11/2018 due to disease progression. Then, on , she was started on carboplatin (AUC 5)/paclitaxel (175 mg/m2). Carbopatin was discontinued starting cycle 3 due to hypersensitivity reaction during cycle 2. She has completed total of 6 cycles of chemotherapy on 03/16/2019. Then, she started olaparib on 05/24/2019. Due to disease progression, it was stopped on 10/05/2019. Patient was started on palliative chemotherapy with oxaliplatin with plans to add bevacizumab later. Patient was started on oxaliplatin on 10/05/2019. On 11/23/2019, we added bevacizumab. She started Xeloda 850 mg per m2 2 weeks on and 1 week off on 03/07/2020 Assessment: It seems to me that she has tolerated the first cycle of the Xeloda relatively well except fatigue. I also reviewed the lab results with the patient. The serum CA 125 has dropped from previous 4330 to current 2390. I am recommending continue Xeloda 2 weeks on and 1 week off. Plan: 1. CBC, CMP, CA125 2. NS 1000 cc iv 1 hour today 3. Continue Xeloda 1500 mg bid 2 weeks on and 1 week off 4. RTC in 3 weeks, CBC, CMP, CA125 (2) Pulmonary embolism Overview: On 07/21/2018, presented with fever. On 07/22/2018, very tired in the morning. CT 07/22/2018 showed PE. She was started on Lovenox every 12 hours. She started Eliquis 5 mg bid on 10/26/2018 Assessment: She tolerated Eliquis well. No bleeding events. Plan: 1. Continue Eliquis 5 mg bid 2. Hold if PLT < 50K and/or bleeding.
[2020-03-28 13:06] VITALS: BP 110/70; PULSE 100; RESP 18; TEMP 35.6; O2SAT 100
[2020-03-28] MEDS: SODIUM CHLORIDE 0.9% 1,000 ML 1000 ML IV (14:30)
[2020-03-28 14:44] LABS: Add Manual Diff / Slide Review NO; Basophils Absolute Auto 0 /uL (0-100); Basophils Percent Auto 0.3 % (0-2); Eosinophils Absolute Auto 0 /uL (0-450); Hematocrit 28.5 % (36-46); Hemoglobin 9.6 g/dL (12.0-16.0); Lymphocytes Absolute Auto 500 /uL (1100-4500); Lymphocytes Percent Auto 7.5 % (25-40); Mean Corpuscular HGB Conc 33.7 % (30-36); Mean Corpuscular Hemoglobin 33.6 PG (26-34); Mean Corpuscular Volume 99.5 fL (80-100); Monocytes Absolute Auto 900 /uL (0-900); Monocytes Percent Auto 13.8 % (3-14); Neutrophils Absolute Auto 5000 /uL (1500-7000); Neutrophils Percent Auto 78.4 % (50-75); Platelet Count 113 X10^3/uL (150-400); Red Blood Cell Count 2.87 X10^6/uL (4.0-5.2); Red Cell Distribution Width 25.9 % (11.6-14.8); White Blood Cell Count 6.4 X10^3/uL (4.5-11.0)
[2020-03-28 14:52] LABS: Alanine Aminotransferase 18 IU/L (<35); Albumin 2.6 g/dL (3.5-5.0); Albumin Globulin Ratio 0.8 (1.0-2.8); Alkaline Phosphatase 83 U/L (38-126); Aspartate Aminotransferase 46 IU/L (14-36); BUN Creatinine Ratio 26.9 (6-22); Bilirubin Total 0.9 mg/dL (0.2-1.3); Blood Urea Nitrogen 21 mg/dL (7-17); Calcium 8.6 mg/dL (8.4-10.2); Carbon Dioxide 24 mmol/L (22-32); Chloride 101 mmol/L (98-107); Estimated Glomerular Filt Rate > 60.0 mL/min (>60); Globulin 3.4 g/dL (1.7-4.1); Glucose 113 mg/dL (80-110); HEMOLYSIS 16 (0-50); Potassium 3.8 mmol/L (3.4-5.1); Sodium 130 mmol/L (137-145)
[2020-03-28 15:09] LABS: Anisocytosis 3+; Macrocytosis 1+; Polychromasia 1+
[2020-03-28 16:07] LABS: Cancer Antigen 125 2390 U/mL (0-35)
--- NOTE | 2020-04-15 15:33 | PC.NURSE ---
Pt will start PT at home with [facility] x2/ wk for 4 weeks, and x1/wk for 3 weeks.
--- NOTE | 2020-04-17 16:02 | PC.NURSE ---
HOME HEALTH NURSE CALLED REQUESTING VERBAL ORDER TO POSTPONE START OF CARE WITH NURSING TO 3/2 PER PATIENT REQUEST. PATIENT HAS STARTED PHYSICAL THERAPY. TRIAGE TO CALL AND GIVE VO TO [facility] AT [phone].
[2020-04-18 09:46] VITALS: BP 106/51; PULSE 91; RESP 18; TEMP 36.6; O2SAT 99
--- NOTE | 2020-04-18 10:01 | ONC.PN ---
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 Treatment Summary for MMMT: 1. Neoadjuvant chemotherapy with carboplatin and Taxol for 4 cycles 2. Optimal cyto reduction in August 2017 3. Five additional cycles of adjuvant carboplatin and Taxol finishing in December 2017 4. Recurrent disease treated with gemcitabine and bevacizumab for 3 cycles finishing in June 2018. Completed 3 cycles. 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 5. Doxil 09/01/[address] Acosta recommendation. Stopped after 3 cycles due to disease progression 6. Paliative chemotherapy: C1# Carboplatin/Paclitaxel 11/24/2018 C2# Paclitaxel only 12/15/2018 C3# Paclitacle only 01/05/2019 C4# Cisplatin/Paclitaxel 01/26/2019 C5# Paclitaxel only 02/16/2019 C6# Cisplatin/Paclitaxel 03/16/2019. 7. Olaparib 05/24/2019-09/28/2019 8. Oxaliplatin 10/05/2019-02/15/2020 9. Avastin on 11/23/2019 - 02/15/2020 7. Xeloda 850 mg/m2, 2 weeks on and 1 week off. Treatment Summary for PE(pulmonary embolism): On 07/21/2018, she developed fever. CT 07/22/2018 showed PE. She was started on Lovenox every 12 hours. She started Eliquis 5 mg bid on 10/26/2018. Interval history: On 03/07/2020, patient started taking Xeloda 850 mg per m2 twice daily. She feels very tired. She is able to get up and walk to the bathroom but ended up hoffing and puffing. She is not able to lift her legs. Most of the time , she sits and watch TV. She fell on Wednesday when she wanted to get a tray of food. She was flat on her back of the floor. No loss of conscienceness. She lay on the floor for about 2 hours. She is having some sore spots on the back of her head. She apparently needs a lifeline. She has distended stomach and is getting worse and bigger. If she eats too late during the day, it is painful. - Patient Self-Reported Symptoms SR Constitution: Weight loss/gain, Fatigue/Malaise SR ears, nose, mouth, throat issues: Cough, Hoarseness SR respiratory issues: Shortness of breath, Mucous SR Cardiovascular issues: Chest pain, discomfort, tightness, Extreme swelling SR Skin issues: Dry skin SR Gastrointestinal issues: Poor or no appetite, Vomiting, Abdominal pain SR Genitourinary issues: Change in stream SR Musculoskeletal issues: Difficulty walking SR Neuro issues: Numbness or tingling SR Hematologic issues: Swollen lymph nodes - Additional ROS All systems PM: reviewed and no additional remarkable complaints except as stated Home Medications and Allergies Home Medications Medication Instructions Recorded Confirmed Type cholecalciferol (vitamin D3) 4,000 unit PO DAILY 05/12/18 03/28/20 History [Vitamin D3] sennosides [senna] 8.6 mg PO QD-BID 05/12/18 03/28/20 History B Complex 100 1 tab PO QAM 06/30/18 03/28/20 History acetaminophen [Tylenol] 325 mg PO Q6H PRN 09/01/18 03/28/20 History apixaban 5 mg PO BID #180 tab 10/27/18 03/28/20 Rx epinephrine [EpiPen 2-Vicente] 0.3 mg IM Q15M PRN #1 each 12/15/18 03/28/20 Rx capecitabine 1,500 mg PO BID #84 tab 01/25/20 03/28/20 Rx Allergies Allergy/AdvReac Type Severity Reaction Status Date / Time carboplatin Allergy Severe Anaphylaxis Verified 12/15/18 16:35 gemcitabine AdvReac Severe inflammatory Verified 12/15/18 16:35 changes in the lung Exam Vital signs: Vital Signs Temp Pulse Resp BP Pulse Ox 04/18/20 09:46 98 F 91 H 18 106/51 L 99 Intake and Output 04/17/20 04/18/20 04/18/20 23:59 07:59 15:59 Other: Weight 69.2 kg Patient Weight 04/18/20 23:59 Weight 69.2 kg Narrative: ECOG 1 Gen: WDWN, NAD, pleasant and cooperative. HEENT: NCAT, EOMI, PERRLA, anicteric sclera. Neck: Supple, No palpable thyromegaly or lymphadenopathy. Respiratory: CTAB, no wheezes audible. No JVD Cardiovascular: Tachycardia noted, S1 and S2 normal, no M/G/R. Abdomen: Soft, protuberant, tenderness noted with out specific location. No palpable masses. Extremities: Bilateral lower extremity edema noted. 1+ on the left right side. 2+ on the left side. Neurological: AOx3, CN II-XII grossly intact. No focal motor or sensory deficit. Psychiatric: Normal affect; normal thought process; no depression; no anxiety. Results - Labs Laboratory Last Values WBC 4.3 X10^3/uL (4.5-11.0) L 04/18/20 10:50 RBC 2.53 X10^6/uL (4.0-5.2) L 04/18/20 10:50 Hgb 9.0 g/dL (12.0-16.0) L 04/18/20 10:50 Hct 26.8 % (36-46) L 04/18/20 10:50 MCV 106.0 fL (80-100) H 04/18/20 10:50 MCH 35.5 PG (26-34) H 04/18/20 10:50 MCHC 33.5 % (30-36) 04/18/20 10:50 RDW 29.4 % (11.6-14.8) H 04/18/20 10:50 Plt Count 116 X10^3/uL (150-400) L 04/18/20 10:50 Neut % (Auto) 79.6 % (50-75) H 04/18/20 10:50 Lymph % (Auto) 11.7 % (25-40) L 04/18/20 10:50 Perkins % (Auto) 8.0 % (3-14) 04/18/20 10:50 Eos % (Auto) 0.6 % (2-4) L 04/18/20 10:50 Baso % (Auto) 0.1 % (0-2) 04/18/20 10:50 Neut # (Auto) 3400 /uL (6422-2761) 04/18/20 10:50 Lymph # (Auto) 500 /uL (8780-3667) L 04/18/20 10:50 Perkins # (Auto) 300 /uL (0-900) 04/18/20 10:50 Eos # (Auto) 0 /uL (0-450) 04/18/20 10:50 Baso # (Auto) 0 /uL (0-100) 04/18/20 10:50 Total Counted 100 10/05/19 09:15 Seg Neutrophils % 62.0 % (38-70) 10/05/19 09:15 Band Neutrophils % 3.0 % (3-7) 10/05/19 09:15 Atypical Lymphs % 1.0 % (-0) H 07/14/18 11:30 Lymphocytes % (Manual) 16.0 % (25-45) L 10/05/19 09:15 Monocytes % (Manual) 16.0 % (2-11) H 10/05/19 09:15 Metamyelocytes % 1.0 % (-0) H 06/30/18 10:21 Myelocytes % 2.0 % (-0) H 06/16/18 13:19 Eosinophils % (Manual) 2.0 % (2-4) 10/05/19 09:15 Basophils % (Manual) 1.0 % (0-1) 10/05/19 09:15 Neutrophils # (Manual) 2795 /uL (1873-3451) L 10/05/19 09:15 Plt Morphology Comment A1 07/07/18 08:52 RBC Morphology See below 04/18/20 10:50 Polychromasia 1+ H 03/28/20 14:30 Poikilocytosis 1+ H 04/18/20 10:50 Anisocytosis 3+ H 04/18/20 10:50 Macrocytosis 2+ H 04/18/20 10:50 Sodium 131 mmol/L (137-145) L 04/18/20 10:50 Potassium 3.6 mmol/L (3.4-5.1) 04/18/20 10:50 Chloride 105 mmol/L (98-107) 04/18/20 10:50 Carbon Dioxide 21 mmol/L (22-32) L 04/18/20 10:50 BUN 24 mg/dL (7-17) H 04/18/20 10:50 Creatinine 0.71 mg/dL (0.52-1.04) 04/18/20 10:50 Estimated GFR > 60.0 mL/min (>60) 04/18/20 10:50 BUN/Creatinine Ratio 33.8 (6-22) H 04/18/20 10:50 Glucose 104 mg/dL (80-110) 04/18/20 10:50 Calcium 8.2 mg/dL (8.4-10.2) L 04/18/20 10:50 Total Bilirubin 1.2 mg/dL (0.2-1.3) 04/18/20 10:50 AST 47 IU/L (14-36) H 04/18/20 10:50 ALT 20 IU/L (<35) 04/18/20 10:50 Alkaline Phosphatase 101 U/L (38-126) 04/18/20 10:50 Total Protein 5.6 g/dL (6.3-8.2) L 04/18/20 10:50 Albumin 2.3 g/dL (3.5-5.0) L 04/18/20 10:50 Globulin 3.3 g/dL (1.7-4.1) 04/18/20 10:50 Albumin/Globulin Ratio 0.7 (1.0-2.8) L 04/18/20 10:50 CA 27-29 197.7 U/mL (0.0-38.6) H 02/15/20 08:15 CA 125 Antigen 2960 U/mL (0-35) H 04/18/20 10:50 Urine Color Yellow 07/21/18 09:02 Urine Appearance Slightly cloudy 07/21/18 09:02 Urine pH 5.5 (4.5-8.0) 07/21/18 09:02 Ur Specific [place] 1.025 (1.000-1.035) 07/21/18 09:02 Urine Protein 2+ (Negative) H 07/21/18 09:02 Urine Glucose (UA) Negative g/dL (Negative) 07/21/18 09:02 Urine Ketones 1+ (NEGATIVE) H 07/21/18 09:02 Urine Occult Blood Negative (Negative) 07/21/18 09:02 Urine Nitrate Negative (Negative) 07/21/18 09:02 Urine Bilirubin 1+ (NEGATIVE) H 07/21/18 09:02 Urine Ictotest Negative (Negative) 07/21/18 09:02 Urine Urobilinogen 2.0 E.U./dL (0.2) H 07/21/18 09:02 Ur Leukocyte Esterase Trace (NEGATIVE) H 07/21/18 09:02 Urine RBC None seen (0-5/HPF) 07/21/18 09:02 Urine WBC 1-5/hpf (0-5/HPF) 07/21/18 09:02 Ur Squamous Epith Cells 10-30 /hpf (0-5/HPF) H D 07/21/18 09:02 Urine Bacteria Moderate (10-30) (None) H 07/21/18 09:02 Hyaline Casts 0-1/lpf (None) 07/21/18 09:02 Urine Mucus 2+ (Negative) H 07/21/18 09:02 Ur Culture Indicated? 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 She was started on bevacizumab and gemcitabine on April 29, 2018. Chemotherapy regimen: Gemcitabine 1000 mg/m2, on day 1, 8. 15, and Bevasuzumab 15 mg/kg, on day 1, every 21-day cycle. 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 In addition the CT scan revealed progression of the underlying disease. Per Dr. Acosta, we switched the treatment to Doxil which was started on 09/01/2018, and after 3 cycles was stopped in 11/2018 due to disease progression. Then, on 11/24/2018, she was started on carboplatin (AUC 5)/paclitaxel (175 mg/m2). Carbopatin was discontinued starting cycle 3 due to hypersensitivity reaction during cycle 2. She has completed total of 6 cycles of chemotherapy on 03/16/2019. Then, she started olaparib on 05/24/2019. Due to disease progression, it was stopped on 10/05/2019. Patient was started on palliative chemotherapy with oxaliplatin with plans to add bevacizumab later. Patient was started on oxaliplatin on 10/05/2019. On 11/23/2019, we added bevacizumab. She started Xeloda 850 mg per m2 2 weeks on and 1 week off on 03/07/2020 Assessment: Patient just completed 2 weeks of Xeloda. Today I talked with the patient that the clinical symptoms including fatigue and bilateral lower extremity edema probably is due to the disease progression and may partially contributed by the chemotherapy. I recommended that we hold off the Xeloda for the next 2 weeks. I will see the patient before we restart the treatment. Today on my physical examination, the abdomen is soft but seems to be getting more extended than before. Previous CT scan have already shown patient has mild to moderate ascites. I talked with patient that at some point we may have to do paracentesis for the propose of palliation of symptoms. Patient voiced understanding but she would like to delay the procedure for now. We also talked about the possibility of hospice. Patient said that she is in conversation with hospice and she said she probably is heading that way but she does not want to commit to hospice today. Plan: 1. CBC, CMP, CA125 today 2. Hold Xeloda 1500 mg bid 2 weeks on and 1 week off 4. RTC in 3 weeks, CBC, CMP, CA125 (2) Pulmonary embolism Overview: On 07/21/2018, presented with fever. On 07/22/2018, very tired in the morning. CT 07/22/2018 showed PE. She was started on Lovenox every 12 hours. She started Eliquis 5 mg bid on 10/26/2018 Assessment: She tolerated Eliquis well. No bleeding events. Plan: 1. Continue Eliquis 5 mg bid 2. Hold if PLT < 50K and/or bleeding.
--- NOTE | 2020-04-18 11:02 | ONC.MSW ---
Description: Joint Visit w/Dr. Carbajal, Pt, Sister Activity: Met together to discuss pt's declining medical status, and the goals/options for continuing treatment. Pt's family has come together and is helping pt with completing end of life planning needs, hiring in-home care, and helping with her care coordination needs. She shared that she is very fatigued, her stomach has become far more distended and tight, and she's unable to eat anything that is not soup consistency without vomiting it right back up. Home Health has recently started with PT, OT, and the RN to begin next week. TRIMMER OPERATOR THREE KNIFE did call [facility] after this visit and requested the addition of a bath aide. Pt also fell this week, was alone on the floor for about 4-hours, her phone was inaccessible to her. TRIMMER OPERATOR THREE KNIFE encouraged pt to get a Lifeline in place, gave her the contact info. She and her daughter will f/u later today. Pt is also meeting with the Electrical Appliance Repairer today, hopefully this will generate some more ideas to improve her nutritional status. Plan: Pt wishes to continue tx, however is going to take a 2-week chemo break, in order to see if her symptoms improve. She is not ready for hospice services, and is not wanting a paracentesis until she absolutely has too, wanting to wait and see at this time. TRIMMER OPERATOR THREE KNIFE will continue to assist with resources and care coordination needs.
[2020-04-18 11:09] LABS: Add Manual Diff / Slide Review NO; Basophils Absolute Auto 0 /uL (0-100); Basophils Percent Auto 0.1 % (0-2); Eosinophils Absolute Auto 0 /uL (0-450); Eosinophils Percent Auto 0.6 % (2-4); Hematocrit 26.8 % (36-46); Lymphocytes Absolute Auto 500 /uL (1100-4500); Lymphocytes Percent Auto 11.7 % (25-40); Mean Corpuscular HGB Conc 33.5 % (30-36); Mean Corpuscular Hemoglobin 35.5 PG (26-34); Monocytes Absolute Auto 300 /uL (0-900); Neutrophils Absolute Auto 3400 /uL (1500-7000); Neutrophils Percent Auto 79.6 % (50-75); Platelet Count 116 X10^3/uL (150-400); Red Blood Cell Count 2.53 X10^6/uL (4.0-5.2); Red Cell Distribution Width 29.4 % (11.6-14.8); White Blood Cell Count 4.3 X10^3/uL (4.5-11.0)
[2020-04-18 11:10] LABS: Alanine Aminotransferase 20 IU/L (<35); Albumin 2.3 g/dL (3.5-5.0); Albumin Globulin Ratio 0.7 (1.0-2.8); Alkaline Phosphatase 101 U/L (38-126); Aspartate Aminotransferase 47 IU/L (14-36); BUN Creatinine Ratio 33.8 (6-22); Bilirubin Total 1.2 mg/dL (0.2-1.3); Blood Urea Nitrogen 24 mg/dL (7-17); Calcium 8.2 mg/dL (8.4-10.2); Carbon Dioxide 21 mmol/L (22-32); Chloride 105 mmol/L (98-107); Estimated Glomerular Filt Rate > 60.0 mL/min (>60); Globulin 3.3 g/dL (1.7-4.1); Glucose 104 mg/dL (80-110); HEMOLYSIS < 15 (0-50); Sodium 131 mmol/L (137-145); Total Protein 5.6 g/dL (6.3-8.2)
[2020-04-18 11:16] LABS: Potassium 3.6 mmol/L (3.4-5.1)
[2020-04-18 12:00] LABS: Anisocytosis 3+; Macrocytosis 2+
[2020-04-18 12:03] LABS: Poikilocytosis 1+
[2020-04-18 13:18] LABS: Cancer Antigen 125 2960 U/mL (0-35)
--- NOTE | 2020-04-18 16:11 | PC.NURSE ---
This RN called and spoke with pt. notified pt of CA [address] Carbajal states to continue taking a break from Xeloda. He will see her in 2 weeks.
[2020-05-02 15:29] LABS: COVID19 -Nasal RAPID Negative (Negative)
--- NOTE | 2020-05-06 09:42 | PC.NURSE ---
Sent Move-in physician orders to [facility] for pt. Included med list and medical information release form. Covid test was preformed and ordered last week.
--- NOTE | 2020-05-06 11:11 | ONC.MSW ---
Description: T/C-Hospice Referral Activity: Dtr and sister of pt both contacted this ESTHETICIAN/SPA COORDINATOR with concerns that she was declining rapidly, and really needed to be transferred to hospice services. She will be moving into an assisted living facility later today, ECOG score of (4). ESTHETICIAN/SPA COORDINATOR faxed her negative covid test result to the facility in order to clear her to move in, faxed clinicals and urgent hospice referral request to [facility]. No further needs identified at this time.
--- NOTE | 2020-05-07 11:17 | ONC.MSW ---
Description: T/C-Coping/CG Support Activity: HEAD OF PRECISION TARGETING called pt's dtr, Esther, to check on family coping and support needs, they are waiting for hospice to call re: setting up services. She presents as tearful, exhausted, stating that it's been a really hard week for the pt and family. She continues to struggle with understanding why she can no longer have treatment, is being resistant to family helping her with relocating to the assisted living/finances/estate planning, even though she is unable to mentally or physically manage any of those things herself. Esther had called earlier and left a message for this HEAD OF PRECISION TARGETING asking for assistance in getting her mother's pain addressed until hospice comes on board. HEAD OF PRECISION TARGETING had notified compliance manager, who is in the process of assisting them with this. HEAD OF PRECISION TARGETING provided counseling/support for grief, coping as a caregiver, and understanding pt's own process of coming to terms with her impending dying process. Pt is only eating minimally, is sleeping more of the time, continues to rapidly lose weight. HEAD OF PRECISION TARGETING encouraged Esther to call us anytime until the point at which pt is admitted to hospice, in order to address symptom management/support needs.
--- NOTE | 2020-05-07 12:02 | PC.NURSE ---
VERN RN FROM [facility] AND PATIENT'S DAUGHTER CALLED TO REQUEST STRONGER PAIN MEDICATION. PATIENT WITH METASTATIC OVARIAN CANCER WHO WILL BE ENTERING HOSPICE IN THE NEXT COUPLE DAYS IS EXPERIENCING INTERMITTENT CRAMPING PAIN WHICH CAUSES HER TO GRIM[place] AND [place] THROUGH THE NIGHT. PRESCRIPTION SHOULD BE FAXED TO [facility] AT [phone]. REQUEST MADE TO DR HILL WITH THIS NOTE.
--- NOTE | 2020-05-08 14:55 | PC.NURSE ---
PAIN MEDS, DAUGHTER HALLE CALLED STATING MOTHER STILL DID NOT HAVE NEW PAIN MED. THIS NURSE VERIFIED PHONE NUMBER TO WHICH IT WAS FAXED ON 05/07 AT 3:30 PM TO BE [phone] AND OBTAINED PHONE NUMBER OF THIS PHARMACY OF [facility] CALLED [facility]. [facility] REP FOUND PRESCRIPTION AND SAID THEY WOULD SEND OUT STAT.
--- NOTE | 2020-07-02 10:39 | ONC.MSW ---
*Sent bereavement card.
== END ==
PROVIDERS: Family Provider Internal Medicine; PCP Internal Medicine; Visit Provider Internal Medicine Hematology & Oncology
DX: C54.9 Malignant neoplasm of corpus uteri, unspecified (principal); C77.2 Secondary and unspecified malignant neoplasm of intra-abdominal lymph nodes; R53.83 Other fatigue; R60.0 Localized edema; R14.0 Abdominal distension (gaseous); Z86.711 Personal history of pulmonary embolism; Z79.01 Long term (current) use of anticoagulants
CPT/HCPCS: 36415; 36591; 36592; 80053; 81003; 81015; 85025; 86300; 86304; 87635; 93306; 96360; 96365; 96366; 96367; 96372; 96375; 96376; 96409; 96413; 96415; 96417; 99204; 99214; 99215; J0171; J1100; J1453; J2150; J2405; J3475; J3480; J7060; J9035; J9045; J9060; J9201; J9263; J9267; Q2050